=== PATIENT | female | born 1935 | race Caucasian/White ===

== ENCOUNTER → 2016-04-02 | Outpatient (CLI) | payer MEDICARE ==
[~2016-04-02] MED LIST: ACHD5005 PO; ATEN25TA PO; FLUC200T45 PO; INDA2.5T2 PO; ISOS30TA3 PO; LOSA50TA6 PO; LVF500T GT; LVT.05T PO; NYST1000 TOP; SIMV40TA4 PO; SPRN25T PO
--- NOTE | 2016-04-02 12:46 | Diagnostic Imaging Report ---
PROCEDURE: CT chest without contrast. TECHNIQUE: Multiple contiguous axial images were obtained through the chest without the use of intravenous contrast. INDICATION: Hypoxia. Shortness of breath. COMPARISON: 04/13/2009. FINDINGS: Since 2009 exam, there have been increased peripheral subpleural fibrotic changes with honeycomb noted. There is mild associated bronchiolectasis. There is no significant groundglass opacity seen. There is no mass or suspicious pulmonary nodule. No pleural effusion. There is no pericardial effusion of significance. There is a nonspecific precarinal lymph node measuring 9 mm in short axis. Calcified granulomas in the infracarinal station and left hilum seen. No axillary lymphadenopathy. Sections in the upper abdomen appear grossly unremarkable. The osseous structures appear grossly unremarkable. IMPRESSION: Predominantly peripheral and basilar fibrotic changes with honeycombing seen. Consider possibility of UIP or fibrotic NSIP. Dictated by: Dictated on workstation # [id number]
== END ==
LOC: RAD 08:29
PROVIDERS: ATTEND Internal Medicine Critical Care Medicine
DX: J84.10 Pulmonary fibrosis, unspecified (principal); R09.02 Hypoxemia
CPT/HCPCS: 71250

== ENCOUNTER 2016-11-16 13:00 | Outpatient (RCR) | payer MEDICARE ==
[2016-11-13 15:07] LABS: BASOPHILS % (AUTO) 0 % (0-10); EOSINOPHILS # (AUTO) 0.2 10^3/uL (0.0-0.3); EOSINOPHILS % (AUTO) 2 % (0-10); LYMPHOCYTES # (AUTO) 2.3 X 10^3 (1.0-4.0); LYMPHOCYTES % (AUTO) 22 % (12-44); MEAN CORPUSCULAR HEMOGLOBIN 28 PG (25-34); MEAN CORPUSCULAR HGB CONC 32 G/DL (32-36); MEAN CORPUSCULAR VOLUME 89 FL (80-99); MEAN PLATELET VOLUME 9.2 FL (7.4-10.4); MONOCYTES # (AUTO) 0.9 X 10^3 (0.0-1.0); MONOCYTES % (AUTO) 9 % (0-12); NEUTROPHILS % (AUTO) 67 % (42-75); PLATELET COUNT 296 10^3/uL (130-400); RED BLOOD COUNT 4.36 10^6/uL (4.35-5.85); RED CELL DISTRIBUTION WIDTH 13.1 % (10.0-14.5); WHITE BLOOD COUNT 10.4 10^3/uL (4.3-11.0)
--- NOTE | 2016-11-13 15:10 | Diagnostic Imaging Report ---
PROCEDURE: CT chest without contrast. TECHNIQUE: Multiple contiguous axial images were obtained through the chest without the use of intravenous contrast. INDICATION: Hemoptysis. COMPARISON: CT chest of 04/02/16 FINDINGS: Lungs and airway: No endoluminal lesion in the trachea or central bronchi. Subpleural reticular opacities with areas of stacked subpleural cystic change in the periphery of the lung bases is compatible with pulmonary fibrosis. This is unchanged since the prior examination. No new pulmonary mass, nodule or consolidation. Pleura: No pleural effusion or pneumothorax. Heart and mediastinum: Visualized thyroid is normal. No supraclavicular or axillary lymphadenopathy. A few mildly enlarged mediastinal lymph nodes are unchanged. The largest is again a lower right paratracheal lymph node measuring 0.9 x 1.8 cm. There is a stable lymph node located anterior to the lower SVC measuring 1.1 x 0.9 cm. No new or enlarging mediastinal, hilar or juxtaphrenic lymph nodes. The heart is normal in size without pericardial effusion. Scattered coronary artery calcifications are unchanged. Normal caliber thoracic aorta with moderate atherosclerotic calcified plaque. Upper abdomen: Hiatus hernia. Extensive atherosclerotic vascular calcifications are unchanged. Musculoskeletal: No concerning focal osseous lesion. IMPRESSION: 1. No change in basilar predominant pulmonary fibrosis which would favor UIP. 2. A few borderline enlarged mediastinal lymph nodes are unchanged and may be reactive in nature. 3. No evidence of intrathoracic neoplasm. Dictated by: Dictated on workstation # [id number]
[2016-11-13 15:48] LABS: EOSINOPHILS % (MANUAL) 5 %; LYMPHOCYTES % (MANUAL) 22 %; NEUTROPHILS % (MANUAL) 62 %; REACTIVE LYMPHOCYTES 5 %
== END 2016-11-20 11:26 | disposition home or self-care (01) ==
LOC: RAD 13:00
PROVIDERS: ATTEND Nurse Practitioner Family
DX: J84.10 Pulmonary fibrosis, unspecified (principal); K44.9 Diaphragmatic hernia without obstruction or gangrene; R04.2 Hemoptysis; R09.02 Hypoxemia
CPT/HCPCS: 36415; 71250; 85007; 85027

== ENCOUNTER → 2016-11-21 | Outpatient (CLI) | payer MEDICARE | LOC: RT 15:14 | PROVIDERS: ATTEND Nurse Practitioner Family | DX: J84.10 Pulmonary fibrosis, unspecified (principal); R09.02 Hypoxemia | CPT/HCPCS: 94060; 94726; 94729 ==

== ENCOUNTER → 2017-06-04 | Outpatient (CLI) | payer MEDICARE ==
--- NOTE | 2017-06-04 13:29 | Diagnostic Imaging Report ---
PROCEDURE: CT chest without contrast. TECHNIQUE: Multiple contiguous axial images were obtained through the chest without the use of intravenous contrast. INDICATION: Productive cough, history of smoking. FINDINGS: The previous CT chest exam performed on 11/13/2016 indicated pulmonary fibrosis without evidence for an acute abnormality. The plain film examination of the chest performed earlier today in conjunction with this exam did raise the question of acute pneumonia superimposed on the chronic pulmonary changes in the right mid lung. On this study, there are areas of increased density along the periphery of the right mid lung, which were not clearly evident on the prior exam (image 26/59 and 27/59). While it is possible that these findings could represent progressive chronic pulmonary disease, acute pneumonia/atelectasis could certainly present in this manner as well. Clinical followup is recommended. The overall appearance of the chest has not changed significantly otherwise. There is no sign of a pleural effusion. There is no parenchymal mass identified. The prior exam did note borderline mediastinal adenopathy. The largest node/nodes were in the pretracheal region just to the right of the fadi and measured 1.0 x 1.9 cm. Those nodes are again evident and now measure 1.2 x 1.8 cm. The other nodes in the aorticopulmonary window and in the superior mediastinum are essentially no different. The heart is stable in size. Coronary artery calcifications are again noted. The aorta is not abnormally dilated. The thyroid gland appears stable when compared to the prior study. There is no obvious breast mass. The sections through the upper abdomen fail to show any sign of an acute abnormality. The bone windows are unremarkable for a fracture or for a destructive lesion. IMPRESSION: 1. The severe chronic interstitial fibrosis seen on the prior study is again evident. The new areas of increased density along the periphery of the right mid lung could also be related to interstitial lung disease. However, the possibility that they are secondary to acute pneumonia/atelectasis superimposed on the chronic pulmonary disease should certainly be considered. Clinical followup is recommended. 2. There is no acute cardiopulmonary abnormality noted otherwise, and there is no sign of a parenchymal lung mass. 3. The mediastinal adenopathy noted previously has not changed. 4. There is coronary artery disease. Dictated by: Dictated on workstation # [id number]
--- NOTE | 2017-06-04 16:06 | Diagnostic Imaging Report ---
EXAMINATION: PA and lateral chest at 11:30 a.m. INDICATION: Cough, shortness of breath. FINDINGS: The heart size is within normal limits and stable when compared to 12/09/2015. The previous exam noted chronic pulmonary disease but failed to show any sign of an acute abnormality. In the interval since the prior study, however, the density in the right mid lung has increased somewhat. This could be secondary to progressive chronic pulmonary disease. The possibility that there is now an element of acute pneumonia/atelectasis involving the right mid lung should still be considered. The overall appearance of the chest has not changed significantly otherwise. The mediastinum is not widened. The osseous structures are intact. IMPRESSION: 1. There is severe chronic pulmonary disease. The increased density in the right mid lung suggests there may be an element of acute pneumonia/atelectasis in this region. Clinical follow-up is recommended. 2. There is no acute cardiopulmonary abnormality noted otherwise. 3. Reportedly, CT of the chest is pending for further evaluation. Dictated by: Dictated on workstation # [id number]
== END ==
LOC: RAD 10:26
PROVIDERS: ATTEND Nurse Practitioner Family
DX: J44.9 Chronic obstructive pulmonary disease, unspecified (principal); J30.9 Allergic rhinitis, unspecified; R59.0 Localized enlarged lymph nodes; Z72.0 Tobacco use
CPT/HCPCS: 71046; 71250

== ENCOUNTER → 2017-07-11 | Outpatient (CLI) | payer MEDICARE ==
--- NOTE | 2017-07-11 14:18 | Diagnostic Imaging Report ---
INDICATION: Followup pneumonia. TIME OF EXAMINATION: 01:47 p.m. COMPARISON: Correlation is made with prior chest radiograph from 06/04/2017. FINDINGS: The heart size is stable. The peripheral interstitial changes in both lungs with more confluence in the mid periphery of the right lung persists and appears very similar to prior exam. This may be mostly owing to fibrotic changes. No effusion is seen. No pneumothorax is identified. IMPRESSION: Overall similar appearance to the chest when compared with examination from 06/04/2017. Dictated by: Dictated on workstation # [id number]
== END ==
LOC: RAD 13:11
PROVIDERS: ATTEND Nurse Practitioner Family
DX: J18.9 Pneumonia, unspecified organism (principal)
CPT/HCPCS: 71046

== ENCOUNTER → 2017-08-05 | Outpatient (CLI) | payer MEDICARE ==
--- NOTE | 2017-08-05 13:34 | Diagnostic Imaging Report ---
INDICATION: Pneumonia, followup. TIME OF EXAM: 12:19 PM COMPARISON: Correlation is made with prior study from 07/11/2017. FINDINGS: Bilateral peripheral interstitial opacities appear very similar to prior exam. No new parenchymal density is seen. No effusion or pneumothorax is identified. The heart size is stable. IMPRESSION: Stable bilateral interstitial opacities when compared with exam from one month earlier. Dictated by: Dictated on workstation # [id number]
== END ==
LOC: RAD 11:39
PROVIDERS: ATTEND Nurse Practitioner Family
DX: J18.9 Pneumonia, unspecified organism (principal)
CPT/HCPCS: 71046

== ENCOUNTER 2018-01-31 18:02 | Inpatient (IN) | payer MEDICARE ==
[~2018-01-31] VITALS: Ht 170.2 cm; Wt 60.5 kg
--- OUTSIDE RECORDS SUMMARY | 2018-01-31 18:09 | XMS REPORT | CCD ---
Author Author Katey Veloz Organization Sonia Nolen MD, [facility] Address [address] [place] [address] Phone Care Team Providers Care Hotel Superintendent Name Role Phone PP Unavailable CCM Unavailable Summary Purpose Interface Exchange Insurance Providers Payer name Policy type / Coverage type Covered republican ID Effective Begin Date Effective End Date WPS Medicare Part B Medicare Part B [id number] Unknown [facility] Medicare Part B [id number] Unknown Family history Mother Diagnosis Age At Onset Heart Attack Unknown Hypertension Unknown Hyperlipidemia Unknown Social History Social History Element Codes Description Effective Dates Marital status Unknown Wiley 09/25/2017 Number of children Unknown 5 07/29/2014 Employment Unknown Retired 07/29/[address]: 8132955 Quit over 10 years ago 07/29/[address]: 573953861 Never drinks alcohol 07/29/2014 Allergies, Adverse Reactions, Alerts Substance Reaction Codes Entered Date Inactivated Date Status * NO KNOWN FOOD ALLERGIES Unknown 07/29/2014 No Inactive Date Active MORPHINE SULFATE RxNorm: 7052 07/29/2014 No Inactive Date Active Penicillin Unknown 07/29/2014 No Inactive Date Active SULFA(SULFONAMIDE ANTIBIOTICS) Unknown 07/29/2014 No Inactive Date Active Past Medical History Illness Codes Condition Status Onset Date Resolved Date Encounter for general adult medical examination with abnormal findings ICD-9: V70.0 ICD-10: Z00.01 Active 01/27/2018 Unknown Candidal stomatitis ICD-9: 112.0 ICD-10: B37.0 Active 01/22/2018 Unknown Cough ICD-9: 786.2 ICD-10: R05 Active 01/09/2016 Unknown Essential (primary) hypertension ICD-9: 401.9 ICD-10: I10 Active 03/12/2016 Unknown Type 2 diabetes mellitus without complications ICD-9: 250.00 ICD-10: E11.9 Active 03/12/2016 Unknown Cystocele, midline ICD -9: 618.01 ICD-10: N81.11 Active 01/02/2018 Unknown Encounter for immunization ICD-9: V05.9 ICD-10: Z23 Active 11/21/2017 Unknown Orthostatic hypotension ICD-9: 458.0 ICD-10: I95.1 Active 11/04/2017 Unknown Actinic keratosis ICD- 9: 702.0 ICD-10: L57.0 Active 10/16/2017 Unknown Type 2 diabetes mellitus with hyperglycemia ICD-9: 250.02 ICD-10: E11.65 Active 10/16/2017 Unknown 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 Active 09/25/2017 Unknown Hypothyroidism, unspecified ICD-9: 244.9 ICD-10: E03.9 Active 03/12/2016 Unknown Idiopathic pulmonary fibrosis ICD-9: 516.31 ICD-10: J84.112 Active 01/09/2016 Unknown Idiopathic pulmonary fibrosis ICD-9: 515 ICD-10: J84.112 Active 03/12/2016 Unknown Functional diarrhea ICD-9: 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 ICD-10: K59.1 Active 01/09/2016 Unknown Other allergic rhinitis ICD-9: 477.8 ICD-10: J30.89 Active 12/08/2015 Unknown Unspecified bacterial pneumonia ICD-9: 482.9 ICD-10: J15.9 Active 10/24/2015 Unknown Acute laryngopharyngitis ICD-9: 465.0 ICD-10: J06.0 Active 04/17/2015 Unknown Chronic renal disease, stage 3, moderately decreased glomerular filtration rate between 30-59 mL/min/1.73 square meter ICD-9: 585.3 Active 12/02/2014 Unknown DIABETES TYPE II ICD-9 : 250.00 Active 07/28/2014 Unknown ESSENTIAL HYPERTENSION ICD-9: 401.9 Active 07/28/2014 Unknown BACTERIAL PNEUMONIA ICD-9: 482.9 Active 11/22/2014 Unknown COUGH ICD-9: 786.2 Active 11/22/2014 Unknown Diabetes Unknown Active 07/29/2014 Unknown Hypertension Unknown Active 07/29/2014 Unknown Hypothryroidism Unknown Active 07/29/2014 Unknown Hypothyroidism ICD-9: 244.9 Active 07/28/2014 Unknown Pulmonary fibrosis ICD -9: 515 Active 07/28/2014 Unknown Problems Condition Codes Effective Dates Condition Status Encounter for general adult medical examination with abnormal findings ICD-9: V70.0 ICD-10: Z00.01 01/27/2018 Active Candidal stomatitis ICD-9: 112.0 ICD-10: B37.0 01/22/2018 Active Cough ICD-9: 786.2 ICD-10: R05 01/09/2016 Active Essential (primary) hypertension ICD-9: 401.9 ICD-10: I10 03/12/2016 Active Type 2 diabetes mellitus without complications ICD-9: 250.00 ICD-10: E11.9 03/12/2016 Active Cystocele, midline ICD -9: 618.01 ICD-10: N81.11 01/02/2018 Active Encounter for immunization ICD-9: V05.9 ICD-10: Z23 11/21/2017 Active Orthostatic hypotension ICD-9: 458.0 ICD-10: I95.1 11/04/2017 Active Actinic keratosis ICD- 9: 702.0 ICD-10: L57.0 10/16/2017 Active Type 2 diabetes mellitus with hyperglycemia ICD-9: 250.02 ICD-10: E11.65 10/16/2017 Active 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 09/25/2017 Active Hypothyroidism, unspecified ICD-9: 244.9 ICD-10: E03.9 03/12/2016 Active Idiopathic pulmonary fibrosis ICD-9: 516.31 ICD-10: J84.112 01/09/2016 Active Idiopathic pulmonary fibrosis ICD-9: 515 ICD-10: J84.112 03/12/2016 Active Functional diarrhea ICD-9: 564.5 ICD-10: K59.1 01/09/2016 Active Other allergic rhinitis ICD-9: 477.8 ICD-10: J30.89 12/08/2015 Active Unspecified bacterial pneumonia ICD-9: 482.9 ICD-10: J15.9 10/24/2015 Active Acute laryngopharyngitis ICD-9: 465.0 ICD-10: J06.0 04/17/2015 Active Chronic renal disease, stage 3, moderately decreased glomerular filtration rate between 30-59 mL/min/1.73 square meter ICD-9: 585.3 12/02/2014 Active DIABETES TYPE II ICD-9 : 250.00 07/28/2014 Active ESSENTIAL HYPERTENSION ICD-9: 401.9 07/28/2014 Active BACTERIAL PNEUMONIA ICD-9: 482.9 11/22/2014 Active COUGH ICD-9: 786.2 11/22/2014 Active Diabetes Unknown 07/29/2014 Active Hypertension Unknown 07/29/2014 Active Hypothryroidism Unknown 07/29/2014 Active Hypothyroidism ICD-9: 244.9 07/28/2014 Active Pulmonary fibrosis ICD -9: 515 07/28/2014 Active Medications Medication Codes Instructions Start Date Stop Date Status Fill Instructions Trelegy Ellipta 100 mcg-62.5 mcg-25 mcg powder for inhalation RxNorm: 2285523 1 INH daily 01/22/2018 02/18/2018 Active Diflucan 150 mg tablet RxNorm: 233895 1 Tablet(s) PO daily 09/201701/28/2018 Inactive Phenergan with Codeine Syrup RxNorm: 1 Teaspoon(s) PO Q8 as needed 01/02/2018 No Stop Date Active Tresiba FlexTouch U-200 insulin 200 unit/mL (3 mL) subcutaneous pen RxNorm: 8924140 8 Unit(s) SQ QHS 11/04/2017 Active losartan 50 mg tablet RxNorm: 886518 1/2 Tablet(s) daily 201711/04/2017 Inactive spironolactone 25 mg tablet RxNorm: 967545 1/2 Tablet(s) daily 11/04/2017 01/21/2018 Inactive indapamide 2.5 mg tablet RxNorm: 432538 TAKE 1/2 TABLET EVERY DAY 10/16/2017 10/10/2018 Active isosorbide mononitrate ER 30 mg tablet,extended release 24 hr RxNorm: 831152 TAKE 1 TABLET EVERY DAY 10/16/2017 10/10/2018 Active atenolol 25 mg tablet RxNorm: 030305 TAKE 1 TABLET EVERY DAY 03/201707/12/2018 Active levothyroxine 75 mcg tablet RxNorm: 855253 TAKE 1 TABLET EVERY DAY 10/16/2017 07/12/2018 Active spironolactone 25 mg tablet RxNorm: 863111 TAKE 1 TABLET EVERY DAY 10/16/2017 11/03/2017 Inactive losartan 50 mg tablet RxNorm: 973891 TAKE 1 TABLET EVERY DAY 03/201711/03/2017 Inactive James Jackson SoloStar 300 unit/mL (3 mL) subcutaneous insulin pen RxNorm: 5056236 8 Unit(s) SQ QHS 10/16/20172017 Inactive Basaglar KwikPen U-100 Insulin 100 unit/mL (3 mL) subcutaneous RxNorm: 8990078 10 Unit(s) SQ QHS 10/01/20172017 Inactive Basaglar KwikPen U-100 Insulin 100 unit/mL (3 mL) subcutaneous RxNorm: 8176495 10 Unit(s) SQ QHS 10/01/20172017 Inactive cyclobenzaprine 10 mg tablet RxNorm: 487157 Tablet(s) TAKE ONE TABLET BY MOUTH EVERY 8 HOURS NEEDED 09/10/20172017 Inactive simvastatin 40 mg tablet RxNorm: 532429 TAKE 1 TABLET EVERY DAY 08/15/2017 08/09/2018 Active Phenergan with Codeine Syrup RxNorm: 1 Teaspoon(s) PO Q8 as needed 03/19/2017 01/01/2018 Inactive simvastatin 40 mg tablet RxNorm: 820156 TAKE 1 TABLET EVERY DAY 03/13/2017 08/14/2017 Inactive atenolol 25 mg tablet RxNorm: 370514 Tablet(s) TAKE 1 TABLET EVERY DAY 02/14/2017 10/15/2017 Inactive levothyroxine 75 mcg tablet RxNorm: 000042 1 Tablet(s) PO daily 02/14/2017 10/15/2017 Inactive spironolactone 25 mg tablet RxNorm: 055660 1 Tablet(s) PO daily 01/02/2017 10/15/2017 Inactive cyclobenzaprine 10 mg tablet RxNorm: 141453 1 Tablet(s) PO Q8 as needed 11/26/2016 02/23/2017 Inactive cyclobenzaprine 10 mg tablet RxNorm: 894018 TAKE ONE TABLET BY MOUTH EVERY 8 HOURS NEEDED 11/26/2016 02/23/2017 Inactive losartan 50 mg tablet RxNorm: 136034 1 Tablet(s) PO daily 201610/15/2017 Inactive isosorbide mononitrate ER 30 mg tablet,extended release 24 hr RxNorm: 472477 1 Tablet(s) PO daily 11/21/2016 10/15/2017 Inactive indapamide 2.5 mg tablet RxNorm: 822622 1/2 Tablet(s) PO daily 10/31/2016 10/15/2017 Inactive Phenergan with Codeine Syrup RxNorm: 1 Teaspoon(s) PO Q8 as needed 10/05/2016 03/18/2017 Inactive levothyroxine 75 mcg tablet RxNorm: 661346 1 Tablet(s) PO daily 06/29/2016 12/25/2016 Inactive Phenergan with Codeine Syrup RxNorm: 1 Teaspoon(s) PO Q8 as needed 03/13/2016 03/12/2016 Inactive Phenergan with Codeine Syrup RxNorm: 1 Teaspoon(s) PO Q8 as needed 03/13/2016 10/04/2016 Inactive cyclobenzaprine 10 mg tablet RxNorm: 641112 1 Tablet(s) PO Q8 as needed 03/01/2016 05/29/2016 Inactive cyclobenzaprine 10 mg tablet RxNorm: 034638 1 Tablet(s) PO Q8 as needed 03/01/2016 02/29/2016 Inactive Zithromax Z-Deejay 250 mg tablet RxNorm: 034663 1 Tablet(s) PO daily 02/24/2016 06/13/2016 Inactive zpack x 1 atenolol 25 mg tablet RxNorm: 695880 TAKE 1 TABLET EVERY DAY 10/201501/17/2017 Inactive Phenergan with Codeine Syrup RxNorm: 1 Teaspoon(s) PO Q8 as needed 01/10/2016 03/12/2016 Inactive ceftriaxone 500 mg solution for injection RxNorm: 1525425 1 Milliliter(s) Inj 12/09/2015 12/09/2015 Inactive Kenalog 40 mg/mL suspension for injection RxNorm: 7753892 1 Milliliter(s) Inj 12/09/2015 12/09/2015 Inactive Lomotil 2.5 mg-0.025 mg tablet RxNorm: 5939779 1-2 Tablet(s) PO QID as needed 12/01/2015 12/05/2015 Inactive Lomotil 2.5 mg-0.025 mg tablet RxNorm: 5164699 1-2 Tablet(s) PO QID as needed 12/01/2015 11/30/2015 Inactive levothyroxine 75 mcg tablet RxNorm: 194228 1 Tablet(s) PO daily 11/15/2015 05/12/2016 Inactive isosorbide mononitrate ER 30 mg tablet,extended release 24 hr RxNorm: 259099 1 Tablet(s) PO daily 11/15/2015 11/08/2016 Inactive losartan 50 mg tablet RxNorm: 875164 1 Tablet(s) PO daily 201511/08/2016 Inactive levothyroxine 75 mcg tablet RxNorm: 114297 1 Tablet(s) PO daily 10/27/2015 11/14/2015 Inactive cefdinir 300 mg capsule RxNorm: 545130 1 Capsule(s) PO BID 11/201510/31/2015 Inactive Zithromax Z-Deejay 250 mg tablet RxNorm: 887289 1 Tablet(s) PO UD 10/25/2015 10/29/2015 Inactive indapamide 2.5 mg tablet RxNorm: 256795 1/2 Tablet(s) PO daily 09/14/2015 09/07/2016 Inactive spironolactone 25 mg tablet RxNorm: 194909 1 Tablet(s) PO daily 09/14/2015 09/07/2016 Inactive simvastatin 40 mg tablet RxNorm: 205214 1 Tablet(s) PO daily 09/07/2016 Inactive Phenergan with Codeine Syrup RxNorm: 1 Teaspoon(s) PO Q8 as needed 09/12/2015 01/09/2016 Inactive Zithromax Z-Deejay 250 mg tablet RxNorm: 892849 1 Tablet(s) PO daily 06/15/2015 11/14/2015 Inactive zpack x 1 Levaquin 250 mg tablet RxNorm: 388505 Tablet(s) PO 2 tabs day one and 1 tab day 2- 7 04/18/2015 01/09/2016 Inactive atenolol 25 mg tablet RxNorm: 380245 1 Tablet(s) PO daily 201401/23/2016 Inactive losartan 50 mg tablet RxNorm: 604023 1 Tablet(s) PO daily 201411/14/2015 Inactive simvastatin 40 mg tablet RxNorm: 001184 1 Tablet(s) PO daily 09/13/2015 Inactive spironolactone 25 mg tablet RxNorm: 885519 1 Tablet(s) PO daily 12/17/2014 09/13/2015 Inactive isosorbide mononitrate ER 30 mg tablet,extended release 24 hr RxNorm: 237750 1 Tablet(s) PO daily 12/17/2014 11/14/2015 Inactive atenolol 25 mg tablet RxNorm: 808912 1 Tablet(s) PO daily 201412/16/2014 Inactive atenolol 25 mg tablet RxNorm: 604290 1 Tablet(s) PO daily 201402/14/2015 Inactive isosorbide mononitrate ER 30 mg tablet,extended release 24 hr RxNorm: 785705 1 Tablet(s) PO daily 12/17/2014 12/16/2014 Inactive indapamide 2.5 mg tablet RxNorm: 163328 1/2 Tablet(s) PO daily 12/17/2014 09/13/2015 Inactive levothyroxine 50 mcg tablet RxNorm: 378414 1 Tablet(s) PO daily 12/17/2014 10/26/2015 Inactive Januvia 50 mg tablet RxNorm: 899567 1 Tablet(s) PO daily 201411/26/2014 Inactive Onglyza 2.5 mg tablet RxNorm: 532800 1 Tablet(s) PO daily 201412/02/2014 Inactive Januvia 50 mg tablet RxNorm: 925237 1 Tablet(s) PO daily 201411/25/2014 Inactive Tessalon Perles 100 mg capsule RxNorm: 333311 1 Capsule(s) PO TID as needed 11/23/2014 07/09/2016 Inactive Levaquin 500 mg tablet RxNorm: 631023 1 Tablet(s) PO daily 10/201411/22/2014 Inactive Levaquin 500 mg tablet RxNorm: 778546 1 Tablet(s) PO daily 10/201411/29/2014 Inactive Singulair 10 mg tablet RxNorm: 040162 1 Tablet(s) PO QPM No Start Date Active Proventil HFA 90 mcg/actuation aerosol inhaler RxNorm: 805993 2 Puff(s) INH QID No Start Date Active Zyrtec 10 mg tablet RxNorm: 6817053 1 Tablet(s) PO daily No Start Date Active Flonase Allergy Relief 50 mcg/actuation nasal spray, suspension RxNorm: 2533969 1 [place] NASAL daily per nostril No Start Date Active aspirin 81 mg tablet RxNorm: 208691 1 Tablet(s) PO daily No Start Date Active omeprazole 20 mg capsule,delayed release RxNorm: 102535 1 Capsule(s) PO daily No Start Date Active indapamide 2.5 mg tablet RxNorm: 266441 1/2 Tablet(s) PO daily No Start Date 12/16/2014 Inactive Tessalon Perles 100 mg capsule RxNorm: 574510 1 Capsule(s) PO TID as needed No Start Date 11/22/2014 Inactive losartan 50 mg tablet RxNorm: 714294 1 Tablet(s) PO daily No Start Date 12/16/2014 Inactive spironolactone 25 mg tablet RxNorm: 650149 1 Tablet(s) PO daily No Start Date 12/16/2014 Inactive isosorbide mononitrate ER 30 mg tablet,extended release 24 hr RxNorm: 088920 1 Tablet(s) PO daily No Start Date 2014 Inactive atenolol 25 mg tablet RxNorm: 240262 1 Tablet(s) PO daily No Start Date 12/16/2014 Inactive Zithromax Z-Deejay 250 mg tablet RxNorm: 174274 1 Tablet(s) PO daily No Start Date 06/14/2015 Inactive levothyroxine 50 mcg tablet RxNorm: 637239 1 Tablet(s) PO daily No Start Date 12/16/2014 Inactive simvastatin 40 mg tablet RxNorm: 589294 1 Tablet(s) PO daily No Start Date 12/16/2014 Inactive Medication Administered Medication Codes Instructions Start Date Status Kenalog 40 mg/mL suspension for injection RxNorm: 8206584 1Milliliter 12/09/2015 No longer Active ceftriaxone 500 mg solution for injection RxNorm: 9929150 1Milliliter 12/09/2015 No longer Active Immunizations Vaccine Codes Date Status Influenza CVX: 141 11/21/2017 completed Pneumococcal (Adult) CVX: 33 02/20/2017 completed Influenza CVX: 141 04/04/2016 completed Influenza CVX: 141 01/22/2015 completed Assessments Condition Codes Effective Dates Encounter for general adult medical examination with abnormal findings ICD-10: Z00.01 ICD-9: V70.0 01/27/2018 Type 2 diabetes mellitus without complications ICD-10: E11.9 ICD-9: 250.00 01/22/2018 Essential (primary) hypertension ICD-10: I10 ICD-9: 401.9 01/22/2018 Cough ICD-10: R05 ICD-9: 786.2 01/22/2018 Candidal stomatitis ICD-10: B37.0 ICD-9: 112.0 01/22/2018 Cystocele, midline ICD-10: N81.11 ICD-9: 618.01 01/02/2018 Encounter for immunization ICD-10: Z23 ICD-9: V05.9 11/21/2017 Orthostatic hypotension ICD-10: I95.1 ICD-9: 458.0 11/04/2017 Type 2 diabetes mellitus with hyperglycemia ICD-10: E11.65 ICD-9: 250.02 10/16/2017 Actinic keratosis ICD-10: L57.0 ICD-9: 702.0 10/16/2017 Atrophy of thyroid (acquired) ICD-10: E03.4 ICD-9: 244.8 09/25/2017 Hypothyroidism, unspecified ICD-10: E03.9 ICD-9: 244.9 07/10/2016 Idiopathic pulmonary fibrosis ICD-10: J84.112 ICD-9: 516.31 07/10/2016 Idiopathic pulmonary fibrosis ICD-10: J84.112 ICD-9: 515 03/13/2016 Functional diarrhea ICD-10: K59.1 ICD-9: 564.5 01/10/2016 Other allergic rhinitis ICD-10: J30.89 ICD-9: 477.8 12/09/2015 Unspecified bacterial pneumonia ICD-10: J15.9 ICD-9: 482.9 10/25/2015 Acute laryngopharyngitis ICD-10: J06.0 ICD-9: 465.0 04/18/2015 ESSENTIAL HYPERTENSION ICD-9: 401.9 12/03 Chronic renal disease, stage 3, moderately decreased glomerular filtration rate between 30-59 mL/min/1.73 square meter ICD-9: 585.3 12/03/2014 DIABETES TYPE II ICD-9: 250.00 2014 COUGH ICD-9: 786.2 11/23/2014 BACTERIAL PNEUMONIA ICD-9: 482.9 2014 Pulmonary fibrosis ICD-9: 515 07/29/2014 Hypothyroidism ICD-9: 244.9 07/29/2014 Reason For Visit Reason For Visit Effective Dates Notes Annual Medicare Wellness Exam 01/27/2018 cough 01/22/2018 ~generic 01/02/2018 hypertension 11/21/2017 hypertension 11/04/2017 skin lesion 10/16/2017 hypertension 09/25/2017 hypertension 07/10/2016 cough 03/13/2016 cough 01/10/2016 diarrhea 12/20/2015 cough 12/09/2015 cough 10/25/2015 cough 09/12/2015 cough 04/18/2015 cough 03/04/2015 cough 02/22/2015 hypertension 12/03/2014 cough 11/23/2014 hypertension 07/29/2014 Results Observation Observation Code Item Item Code Result Date Free T4 [id number] FREE T4 1.13 ng/dL 09/26/2017 Microalbumin Fio442 MicroAlb 2.1 mg/dL 09/26/2017 Cbc With Differential Ord2 WBC 8.53 K/ul 09/26/2017 Cbc With Differential Ord2 RBC 4.60 M/ul 09/26/2017 Cbc With Differential Ord2 HGB 12.9 g/dl 09/26/2017 Cbc With Differential Ord2 HCT 41.0 % 09/26/2017 Cbc With Differential Ord2 Neut% 58.0 % 09/26/2017 Cbc With Differential Ord2 Lymph% 29.2 % 09/26/2017 Cbc With Differential Ord2 MCV 89.1 fl 09/26/2017 Cbc With Differential Ord2 [place]% 9.0 % 09/26/2017 Cbc With Differential Ord2 MCH 28.0 pg 09/26/2017 Cbc With Differential Ord2 Eos% 3.4 % 09/26/2017 Cbc With Differential Ord2 MCHC 31.5 pg 09/26/2017 Cbc With Differential Ord2 Baso% 0.4 % 09/26/2017 Cbc With Differential Ord2 PLT 340 K/ul 09/26/2017 Cbc With Differential Ord2 Neut ABS# 4.95 K/ul 09/26/2017 Cbc With Differential Ord2 RDW 14.0 % 09/26/2017 Cbc With Differential Ord2 Lymph ABS# 2.49 K/ul 09/26/2017 Cbc With Differential Ord2 [place] ABS# 0.8 K/ul 09/26/2017 Cbc With Differential Ord2 Eos ABS# 0.3 K/ul 09/26/2017 Cbc With Differential Ord2 Baso ABS# 0.0 K/ul 09/26/2017 Lipid Ord30 CHOL 118 mg/dL 09/26/2017 Lipid Ord30 HDL 39.0 mg/dl 09/26/2017 Lipid Ord30 TRIG 138 mg/dL 09/26/2017 Lipid Ord30 LDL 51 mg/dL 09/26/2017 Lipid Ord30 C/HDL 3.0 Ratio 09/26/2017 Comp Metabolic Afc734 NA 138 mEq/L 09/26/2017 Comp Metabolic Qos256 K 4.5 mEq/L 09/26/2017 Comp Metabolic Ags705 CL 103 mEq/L 09/26/2017 Comp Metabolic Gwf528 CO2 26.0 mEq/L 09/26/2017 Comp Metabolic Gmw829 ANION GAP 14 09/26/2017 Comp Metabolic Irb033 GLUCOSE 121 mg/dL 09/26/2017 Comp Metabolic Vge600 Creat 1.2 mg/dL 09/26/2017 Comp Metabolic Urw931 eGFR 46 ml/min/1.73m2 09/26/2017 Comp Metabolic Pel055 BUN 18 mg/dL 09/26/2017 Comp Metabolic Xoz431 B/C Ratio 15.0 Ratio 09/26/2017 Comp Metabolic Ayu902 CALCIUM 9.0 mg/dL 09/26/2017 Comp Metabolic Fpv564 ALK PHOS 88 U/L 09/26/2017 Comp Metabolic Uqd286 AST(SGOT) 15 U/L 09/26/2017 Comp Metabolic Rrk526 ALT(SGPT) 9 U/L 09/26/2017 Comp Metabolic Hna749 BILI T 0.4 mg/dL 09/26/2017 Comp Metabolic Wee404 ALBUMIN 3.7 g/dL 09/26/2017 Comp Metabolic Aan170 TPRO 7.4 g/dL 09/26/2017 Comp Metabolic Dvn849 GLOB 3.7 g/dL 09/26/2017 Comp Metabolic Ady079 A/G Ratio 1.0 Ratio 09/26/2017 Comp Metabolic Jau459 Osmo 279 mOsmo 09/26/2017 Tsh Ord6 TSH (3rd IS) 2.58 uIU/mL 09/26/2017 %Hba1C Zgl494 % HbA1c 86175-5 7.1 % 09/26/2017 %Hba1C Usi497 Gluc Ave 157 mg/dL 09/26/2017 Tsh Ord6 hTSH II 2.29 uIU/mL 03/13/2016 Cbc With Differential Ord2 WBC 9.86 K/ul 03/13/2016 Cbc With Differential Ord2 RBC 4.51 M/ul 03/13/2016 Cbc With Differential Ord2 HGB 13.2 g/dl 03/13/2016 Cbc With Differential Ord2 Neut% 62.0 % 03/13/2016 Cbc With Differential Ord2 HCT 41.6 % 03/13/2016 Cbc With Differential Ord2 MCV 92.2 fl 03/13/2016 Cbc With Differential Ord2 Lymph% 24.6 % 03/13/2016 Cbc With Differential Ord2 [place]% 8.6 % 03/13/2016 Cbc With Differential Ord2 MCH 29.3 pg 03/13/2016 Cbc With Differential Ord2 Eos% 4.4 % 03/13/2016 Cbc With Differential Ord2 MCHC 31.7 pg 03/13/2016 Cbc With Differential Ord2 PLT 258 K/ul 03/13/2016 Cbc With Differential Ord2 Baso% 0.4 % 03/13/2016 Cbc With Differential Ord2 Neut ABS# 6.11 K/ul 03/13/2016 Cbc With Differential Ord2 RDW 13.8 % 03/13/2016 Cbc With Differential Ord2 Lymph ABS# 2.43 K/ul 03/13/2016 Cbc With Differential Ord2 [place] ABS# 0.9 K/ul 03/13/2016 Cbc With Differential Ord2 Eos ABS# 0.4 K/ul 03/13/2016 Cbc With Differential Ord2 Baso ABS# 0.0 K/ul 03/13/2016 %Hba1C Pks817 % HbA1c 00494-4 6.7 % 03/13/2016 %Hba1C Xsy142 Gluc Ave 146 mg/dL 03/13/2016 Free T4 Bpc172 FREE T4 1.19 ng/dL 03/13/2016 Comp Metabolic Upv133 NA 137 mEq/L 03/13/2016 Comp Metabolic Xxw488 K 3.9 mEq/L 03/13/2016 Comp Metabolic Lhf665 CL 101 mEq/L 03/13/2016 Comp Metabolic Gjv855 CO2 29.0 mEq/L 03/13/2016 Comp Metabolic Mzd009 ANION GAP 11 03/13/2016 Comp Metabolic Ewz414 GLUCOSE 111 mg/dL 03/13/2016 Comp Metabolic Qgp515 Creat 1.2 mg/dL 03/13/2016 Comp Metabolic Jgg507 eGFR 48 ml/min/1.73m2 03/13/2016 Comp Metabolic Kji525 BUN 17 mg/dL 03/13/2016 Comp Metabolic Dlv285 B/C Ratio 14.8 Ratio 03/13/2016 Comp Metabolic Nhf461 CALCIUM 9.6 mg/dL 03/13/2016 Comp Metabolic Nrq447 ALK PHOS 89 U/L 03/13/2016 Comp Metabolic Yrp820 AST(SGOT) 18 U/L 03/13/2016 Comp Metabolic Ynd199 ALT(SGPT) 13 U/L 03/13/2016 Comp Metabolic Isq949 BILI T 0.5 mg/dL 03/13/2016 Comp Metabolic Orq984 ALBUMIN 3.8 g/dL 03/13/2016 Comp Metabolic Pxa208 TPRO 7.1 g/dL 03/13/2016 Comp Metabolic Xfn466 GLOB 3.3 g/dL 03/13/2016 Comp Metabolic Azg891 A/G Ratio 1.1 Ratio 03/13/2016 Comp Metabolic Ryv476 Osmo 276 mOsmo 03/13/2016 Culture Sputum [id number] LOWER RESPIRATORY TRACT CULTURE SEE NOTES 12/30/2015 Culture Stool [id number] STOOL CULTURE SEE NOTES 12/26/2015 Shiga Toxin 1 & 2 Eia Stool [id number] SHIGA TOXIN 1: NEGATIVE 12/23/2015 Shiga Toxin 1 & 2 Eia Stool [id number] SHIGA TOXIN 2: NEGATIVE 12/23/2015 Clostridium Diff Tox A/B Rdg222 Cdiff Negative 12/21/2015 Review of Systems System Result Effective Dates Constitutional No recent illness 2017 Constitutional No chills 01/27/2018 Constitutional fatigue 01/27/2018 Constitutional No fever 01/27/2018 Constitutional No insomnia 01/27/2018 Constitutional No malaise 01/27/2018 Eyes No eye discharge 01/27/2018 Eyes No eye erythema 01/27/2018 Ears/Nose/Throat/Neck No dizziness 2017 Ears/Nose/Throat/Neck No headache 2017 Cardiovascular No chest pain/pressure 02/2018 Cardiovascular No dyspnea 01/27/2018 Respiratory No chest congestion 2017 Gastrointestinal No abdominal pain 2017 Gastrointestinal No constipation 2017 Gastrointestinal No diarrhea 01/27/2018 Musculoskeletal No joint complaint 2017 Psychiatric No anxiety 01/27/2018 Psychiatric No depression 01/27/2018 Respiratory cough 01/27/2018 Respiratory productive sputum 01/27/2018 Constitutional No recent illness 2017 Constitutional No chills 01/22/2018 Constitutional fatigue 01/22/2018 Constitutional No fever 01/22/2018 Constitutional No insomnia 01/22/2018 Constitutional No malaise 01/22/2018 Eyes No eye discharge 01/22/2018 Eyes No eye erythema 01/22/2018 Ears/Nose/Throat/Neck No dizziness 2017 Ears/Nose/Throat/Neck No headache 2017 Cardiovascular No chest pain/pressure 09/2017 Cardiovascular No dyspnea 01/22/2018 Respiratory No chest congestion 2017 Gastrointestinal No abdominal pain 2017 Gastrointestinal No constipation 2017 Gastrointestinal No diarrhea 01/22/2018 Musculoskeletal No joint complaint 2017 Psychiatric No anxiety 01/22/2018 Psychiatric No depression 01/22/2018 Ears/Nose/Throat/Neck sore throat 2017 Constitutional No recent illness 2017 Constitutional No anorexia 01/02/2018 Constitutional No night sweats 2017 Constitutional No chills 01/02/2018 Constitutional No diaphoresis 01/02/2018 Constitutional No fatigue 01/02/2018 Constitutional No fever 01/02/2018 Constitutional No insomnia 01/02/2018 Constitutional No malaise 01/02/2018 Constitutional weight loss 01/02/2018 Constitutional No weight gain 01/02/2018 Genitourinary/Nephrology No dysuria 01/02 Genitourinary/Nephrology No pelvic pain 01/02/2018 Genitourinary/Nephrology No urinary urgency 01/02/2018 Genitourinary/Nephrology No urinary frequency 01/02/2018 Constitutional No recent illness 2017 Constitutional No chills 11/21/2017 Constitutional No fatigue 11/21/2017 Constitutional No fever 11/21/2017 Constitutional No insomnia 11/21/2017 Constitutional No malaise 11/21/2017 Eyes No eye discharge 11/21/2017 Eyes No eye erythema 11/21/2017 Ears/Nose/Throat/Neck No dizziness 2017 Ears/Nose/Throat/Neck No headache 2017 Cardiovascular No chest pain/pressure 08/2017 Cardiovascular No dyspnea 11/21/2017 Respiratory No chest congestion 2017 Gastrointestinal No abdominal pain 2017 Gastrointestinal No constipation 2017 Gastrointestinal No diarrhea 11/21/2017 Genitourinary/Nephrology No dysuria 11/21 Musculoskeletal No joint complaint 2017 Dermatologic No rash 11/21/2017 Neurologic No alteration of consciousness 11/21/2017 Neurologic No aphasia 11/21/2017 Psychiatric No anxiety 11/21/2017 Psychiatric No depression 11/21/2017 Constitutional No recent illness 2017 Constitutional No night sweats 2017 Constitutional No chills 11/04/2017 Constitutional No fatigue 11/04/2017 Constitutional No malaise 11/04/2017 Constitutional weight loss 11/04/2017 Eyes No eye discharge 11/04/2017 Eyes No eye erythema 11/04/2017 Ears/Nose/Throat/Neck No dizziness 2017 Ears/Nose/Throat/Neck No headache 2017 Cardiovascular No chest pain/pressure Cardiovascular No dyspnea 11/04/2017 Respiratory No chest congestion 2017 Respiratory cough 11/04/2017 Gastrointestinal No abdominal pain 2017 Gastrointestinal No constipation 2017 Gastrointestinal No diarrhea 11/04/2017 Musculoskeletal No joint complaint 2017 Psychiatric No anxiety 11/04/2017 Psychiatric No depression 11/04/2017 Cardiovascular near-syncope/dizziness Constitutional No recent illness 2017 Constitutional No anorexia 10/16/2017 Constitutional No night sweats 2017 Constitutional No chills 10/16/2017 Constitutional fatigue 10/16/2017 Constitutional No fever 10/16/2017 Constitutional No insomnia 10/16/2017 Constitutional No malaise 10/16/2017 Constitutional weight loss 10/16/2017 Eyes No eye discharge 10/16/2017 Eyes No eye erythema 10/16/2017 Ears/Nose/Throat/Neck No dizziness 2017 Ears/Nose/Throat/Neck No headache 2017 Cardiovascular No chest pain/pressure 03/2017 Cardiovascular No dyspnea 10/16/2017 Respiratory No chest congestion 2017 Respiratory cough 10/16/2017 Gastrointestinal No abdominal pain 2017 Gastrointestinal No constipation 2017 Gastrointestinal No diarrhea 10/16/2017 Genitourinary/Nephrology No dysuria 10/16 Musculoskeletal No joint complaint 2017 Dermatologic No rash 10/16/2017 Neurologic No alteration of consciousness 10/16/2017 Neurologic No aphasia 10/16/2017 Psychiatric No anxiety 10/16/2017 Psychiatric No depression 10/16/2017 Dermatologic sores 10/16/2017 Constitutional No recent illness 2017 Constitutional No anorexia 09/25/2017 Constitutional No night sweats 2017 Constitutional No chills 09/25/2017 Constitutional No fatigue 09/25/2017 Constitutional No fever 09/25/2017 Constitutional No insomnia 09/25/2017 Constitutional No malaise 09/25/2017 Eyes No eye discharge 09/25/2017 Eyes No eye erythema 09/25/2017 Ears/Nose/Throat/Neck No dizziness 2017 Ears/Nose/Throat/Neck No headache 2017 Cardiovascular No chest pain/pressure 01/2018 Cardiovascular No dyspnea 09/25/2017 Respiratory No chest congestion 2017 Respiratory cough 09/25/2017 Gastrointestinal No abdominal pain 2017 Gastrointestinal No constipation 2017 Gastrointestinal No diarrhea 09/25/2017 Genitourinary/Nephrology No dysuria 09/25 Musculoskeletal No joint complaint 2017 Dermatologic No rash 09/25/2017 Neurologic No alteration of consciousness 09/25/2017 Neurologic No aphasia 09/25/2017 Constitutional weight loss 09/25/2017 Psychiatric No anxiety 09/25/2017 Psychiatric No depression 09/25/2017 Constitutional No recent illness 2016 Constitutional No anorexia 07/10/2016 Constitutional No night sweats 2016 Constitutional No chills 07/10/2016 Constitutional No diaphoresis 07/10/2016 Constitutional No fatigue 07/10/2016 Constitutional No fever 07/10/2016 Constitutional No insomnia 07/10/2016 Constitutional No malaise 07/10/2016 Constitutional No weight loss 07/10/2016 Constitutional No weight gain 07/10/2016 Constitutional No obesity 07/10/2016 Eyes No eye pain 07/10/2016 Eyes No vision change 07/10/2016 Ears/Nose/Throat/Neck No dizziness 2016 Ears/Nose/Throat/Neck No headache 2016 Cardiovascular No chest pain/pressure Respiratory cough 07/10/2016 Respiratory chest tightness 07/10/2016 Respiratory chest congestion 07/10/2016 Gastrointestinal No abdominal pain 2016 Gastrointestinal No constipation 2016 Gastrointestinal No diarrhea 07/10/2016 Gastrointestinal gastroesophageal reflux 07/10/2016 Genitourinary/Nephrology No anuria/oliguria 07/10/2016 Genitourinary/Nephrology No dysuria 07/10 Musculoskeletal No stiffness 07/10/2016 Musculoskeletal No swelling 07/10/2016 Musculoskeletal No arthralgia(s) 2016 Musculoskeletal No back pain 07/10/2016 Dermatologic No rash 07/10/2016 Dermatologic No sores 07/10/2016 Neurologic No alteration of consciousness 07/10/2016 Neurologic No mental status change 2016 Psychiatric No anxiety 07/10/2016 Psychiatric No depression 07/10/2016 Endocrine No polydipsia 07/10/2016 Endocrine No polyuria 07/10/2016 Hematologic/Lymphatic No abnormal ecchymoses 07/10/2016 Hematologic/Lymphatic No abnormal bleeding and bruising 07/10/2016 Respiratory productive sputum 07/10/2016 Constitutional No recent illness 2015 Constitutional No anorexia 03/13/2016 Constitutional night sweats 03/13/2016 Constitutional No chills 03/13/2016 Constitutional No diaphoresis 03/13/2016 Constitutional No fatigue 03/13/2016 Constitutional No fever 03/13/2016 Constitutional No insomnia 03/13/2016 Constitutional No malaise 03/13/2016 Constitutional No weight loss 03/13/2016 Constitutional No weight gain 03/13/2016 Eyes No eye erythema 03/13/2016 Eyes No eye discharge 03/13/2016 Ears/Nose/Throat/Neck No dizziness 2015 Ears/Nose/Throat/Neck No headache 2015 Cardiovascular No chest pain/pressure Cardiovascular No dyspnea 03/13/2016 Cardiovascular No edema 03/13/2016 Respiratory No productive sputum 2015 Respiratory No chest congestion 2015 Respiratory cough 03/13/2016 Respiratory dyspnea on exertion 2015 Gastrointestinal No abdominal pain 2015 Gastrointestinal No constipation 2015 Gastrointestinal diarrhea 03/13/2016 Genitourinary/Nephrology No dysuria 03/13 Musculoskeletal No joint complaint 2015 Dermatologic No rash 03/13/2016 Neurologic No alteration of consciousness 03/13/2016 Psychiatric No anxiety 03/13/2016 Endocrine No dry or coarse skin 2015 Constitutional No recent illness 2015 Constitutional No anorexia 01/10/2016 Constitutional No night sweats 2015 Constitutional No chills 01/10/2016 Constitutional diaphoresis 01/10/2016 Constitutional No fatigue 01/10/2016 Constitutional No fever 01/10/2016 Constitutional No insomnia 01/10/2016 Constitutional No malaise 01/10/2016 Constitutional No weight loss 01/10/2016 Constitutional No weight gain 01/10/2016 Eyes No eye discharge 01/10/2016 Eyes No eye erythema 01/10/2016 Ears/Nose/Throat/Neck No dizziness 2015 Ears/Nose/Throat/Neck No headache 2015 Cardiovascular No chest pain/pressure Cardiovascular No dyspnea 01/10/2016 Respiratory productive sputum 01/10/2016 Respiratory cough 01/10/2016 Respiratory No chest congestion 2015 Gastrointestinal No abdominal pain 2015 Gastrointestinal No constipation 2015 Gastrointestinal No diarrhea 01/10/2016 Genitourinary/Nephrology No dysuria 01/09 Musculoskeletal No joint complaint 2015 Dermatologic No rash 01/10/2016 Neurologic No aphasia 01/10/2016 Neurologic No alteration of consciousness 01/10/2016 Gastrointestinal No abdominal pain 2015 Gastrointestinal No constipation 2015 Gastrointestinal diarrhea 12/20/2015 Gastrointestinal No vomiting 12/20/2015 Constitutional recent illness 12/20/2015 Constitutional No anorexia 12/20/2015 Constitutional No night sweats 2015 Constitutional No chills 12/20/2015 Constitutional No diaphoresis 12/20/2015 Constitutional fatigue 12/20/2015 Constitutional No fever 12/20/2015 Constitutional No insomnia 12/20/2015 Constitutional No malaise 12/20/2015 Constitutional weight loss 12/20/2015 Constitutional No weight gain 12/20/2015 Eyes No eye discharge 12/20/2015 Eyes No eye erythema 12/20/2015 Ears/Nose/Throat/Neck No dizziness 2015 Cardiovascular No chest pain/pressure 06/2015 Respiratory cough 12/20/2015 Genitourinary/Nephrology No dysuria 12/19 Musculoskeletal No joint complaint 2015 Dermatologic No rash 12/20/2015 Neurologic No alteration of consciousness 12/20/2015 Constitutional recent illness 12/09/2015 Constitutional No chills 12/09/2015 Constitutional No fever 12/09/2015 Eyes No eye discharge 12/09/2015 Eyes No eye erythema 12/09/2015 Cardiovascular No chest pain/pressure Respiratory productive sputum 12/09/2015 Respiratory chest congestion 12/09/2015 Respiratory cough 12/09/2015 Gastrointestinal No abdominal pain 2015 Gastrointestinal No constipation 2015 Gastrointestinal No diarrhea 12/09/2015 Musculoskeletal No joint complaint 2015 Dermatologic No rash 12/09/2015 Dermatologic No sores 12/09/2015 Neurologic No alteration of consciousness 12/09/2015 Ears/Nose/Throat/Neck nasal allergies Ears/Nose/Throat/Neck nasal discharge Ears/Nose/Throat/Neck postnasal drip Ears/Nose/Throat/Neck sore throat 2015 Cardiovascular No dyspnea 12/09/2015 Gastrointestinal No vomiting 12/09/2015 Gastrointestinal No nausea 12/09/2015 Neurologic No mental status change 2015 Constitutional recent illness 10/25/2015 Constitutional No anorexia 10/25/2015 Constitutional No night sweats 2015 Constitutional No chills 10/25/2015 Constitutional diaphoresis 10/25/2015 Constitutional No fatigue 10/25/2015 Constitutional No fever 10/25/2015 Constitutional No insomnia 10/25/2015 Constitutional No malaise 10/25/2015 Constitutional No weight loss 10/25/2015 Constitutional No weight gain 10/25/2015 Eyes No eye discharge 10/25/2015 Eyes No eye erythema 10/25/2015 Ears/Nose/Throat/Neck No dizziness 2015 Ears/Nose/Throat/Neck No headache 2015 Cardiovascular No chest pain/pressure 11/2015 Respiratory productive sputum 10/25/2015 Respiratory chest congestion 10/25/2015 Respiratory cough 10/25/2015 Gastrointestinal No abdominal pain 2015 Gastrointestinal No constipation 2015 Gastrointestinal No diarrhea 10/25/2015 Genitourinary/Nephrology No dysuria 10/24 Musculoskeletal No joint complaint 2015 Dermatologic No sores 10/25/2015 Dermatologic No rash 10/25/2015 Neurologic No alteration of consciousness 10/25/2015 Constitutional No recent illness 2015 Constitutional No anorexia 09/12/2015 Constitutional No night sweats 2015 Constitutional No chills 09/12/2015 Constitutional No diaphoresis 09/12/2015 Constitutional fatigue 09/12/2015 Constitutional No fever 09/12/2015 Constitutional insomnia 09/12/2015 Constitutional No malaise 09/12/2015 Constitutional No weight loss 09/12/2015 Constitutional No weight gain 09/12/2015 Constitutional No obesity 09/12/2015 Respiratory cough 09/12/2015 Respiratory productive sputum 09/12/2015 Respiratory chest congestion 09/12/2015 Respiratory No chest tightness 2015 Respiratory No cigarette smoking 2015 Ears/Nose/Throat/Neck nasal allergies Ears/Nose/Throat/Neck nasal discharge Ears/Nose/Throat/Neck sore throat 2015 Cardiovascular chest pain/pressure 2015 Cardiovascular dyspnea 09/12/2015 Cardiovascular No edema 09/12/2015 Gastrointestinal No constipation 2015 Gastrointestinal No diarrhea 09/12/2015 Gastrointestinal No abdominal pain 2015 Genitourinary/Nephrology No dysuria 09/11 Musculoskeletal arthralgia(s) 09/12/2015 Musculoskeletal stiffness 09/12/2015 Dermatologic No rash 09/12/2015 Dermatologic No sores 09/12/2015 Musculoskeletal No myalgias 09/12/2015 Musculoskeletal No muscle weakness 2015 Musculoskeletal joint complaint 2015 Eyes No eye discharge 09/12/2015 Eyes No eye erythema 09/12/2015 Gastrointestinal No gastroesophageal reflux 09/12/2015 Neurologic No alteration of consciousness 09/12/2015 Psychiatric No anxiety 09/12/2015 Psychiatric No depression 09/12/2015 Endocrine No dry or coarse skin 2015 Constitutional No chills 04/18/2015 Constitutional No fever 04/18/2015 Constitutional No fatigue 04/18/2015 Eyes No eye discharge 04/18/2015 Eyes No eye erythema 04/18/2015 Ears/Nose/Throat/Neck nasal allergies 03/2015 Cardiovascular No chest pain/pressure 03/2015 Cardiovascular No dyspnea 04/18/2015 Cardiovascular No edema 04/18/2015 Respiratory productive sputum 04/18/2015 Respiratory cough 04/18/2015 Gastrointestinal No constipation 2015 Gastrointestinal No diarrhea 04/18/2015 Gastrointestinal No nausea 04/18/2015 Constitutional recent illness 04/18/2015 Ears/Nose/Throat/Neck nasal discharge 03/2015 Ears/Nose/Throat/Neck postnasal drip 03/2015 Ears/Nose/Throat/Neck sore throat 2015 Gastrointestinal No vomiting 04/18/2015 Dermatologic No rash 04/18/2015 Dermatologic No sores 04/18/2015 Neurologic No alteration of consciousness 04/18/2015 Constitutional recent illness 03/04/2015 Constitutional No anorexia 03/04/2015 Constitutional No night sweats 2014 Constitutional No chills 03/04/2015 Constitutional No diaphoresis 03/04/2015 Constitutional No fever 03/04/2015 Constitutional No malaise 03/04/2015 Eyes No eye discharge 03/04/2015 Eyes No eye erythema 03/04/2015 Ears/Nose/Throat/Neck No headache 2014 Ears/Nose/Throat/Neck No nasal discharge 03/04/2015 Ears/Nose/Throat/Neck No sore throat Ears/Nose/Throat/Neck oral pain 2014 Ears/Nose/Throat/Neck No sinus congestion 03/04/2015 Cardiovascular No chest pain/pressure Cardiovascular No dyspnea 03/04/2015 Cardiovascular No edema 03/04/2015 Respiratory No productive sputum 2014 Respiratory No chest congestion 2014 Respiratory No cough 03/04/2015 Gastrointestinal No abdominal pain 2014 Gastrointestinal No constipation 2014 Gastrointestinal No diarrhea 03/04/2015 Genitourinary/Nephrology No dysuria 03/04 Musculoskeletal No joint complaint 2014 Dermatologic No rash 03/04/2015 Dermatologic No sores 03/04/2015 Neurologic No alteration of consciousness 03/04/2015 Psychiatric No anxiety 03/04/2015 Psychiatric No depression 03/04/2015 Constitutional No insomnia 03/04/2015 Constitutional recent illness 02/22/2015 Constitutional No anorexia 02/22/2015 Constitutional No night sweats 2014 Constitutional No chills 02/22/2015 Constitutional No diaphoresis 02/22/2015 Constitutional fatigue 02/22/2015 Constitutional No fever 02/22/2015 Constitutional insomnia 02/22/2015 Constitutional No malaise 02/22/2015 Eyes No eye discharge 02/22/2015 Eyes No eye erythema 02/22/2015 Ears/Nose/Throat/Neck No headache 2014 Ears/Nose/Throat/Neck No nasal discharge 02/22/2015 Ears/Nose/Throat/Neck No sore throat 10/2014 Ears/Nose/Throat/Neck No sinus congestion 02/22/2015 Cardiovascular No chest pain/pressure 10/2014 Cardiovascular No dyspnea 02/22/2015 Cardiovascular No edema 02/22/2015 Respiratory No productive sputum 2014 Respiratory chest congestion 02/22/2015 Respiratory cough 02/22/2015 Gastrointestinal No abdominal pain 2014 Gastrointestinal No constipation 2014 Gastrointestinal No diarrhea 02/22/2015 Genitourinary/Nephrology No dysuria 02/22 Musculoskeletal No joint complaint 2014 Dermatologic No rash 02/22/2015 Dermatologic No sores 02/22/2015 Neurologic No alteration of consciousness 02/22/2015 Psychiatric No anxiety 02/22/2015 Psychiatric No depression 02/22/2015 Cardiovascular fatigue 02/22/2015 Respiratory chest tightness 02/22/2015 Constitutional recent illness 12/03/2014 Constitutional No anorexia 12/03/2014 Constitutional No night sweats 2014 Constitutional No chills 12/03/2014 Constitutional No diaphoresis 12/03/2014 Constitutional fatigue 12/03/2014 Constitutional No fever 12/03/2014 Constitutional insomnia 12/03/2014 Constitutional No malaise 12/03/2014 Constitutional weight loss 12/03/2014 Constitutional No weight gain 12/03/2014 Eyes No eye discharge 12/03/2014 Eyes No eye erythema 12/03/2014 Ears/Nose/Throat/Neck No nasal discharge 12/03/2014 Ears/Nose/Throat/Neck dizziness 2014 Ears/Nose/Throat/Neck No headache 2014 Ears/Nose/Throat/Neck oral pain 2014 Ears/Nose/Throat/Neck No sinus congestion 12/03/2014 Ears/Nose/Throat/Neck No sore throat Cardiovascular No chest pain/pressure Cardiovascular No dyspnea 12/03/2014 Cardiovascular No edema 12/03/2014 Respiratory No productive sputum 2014 Respiratory No chest congestion 2014 Respiratory No cough 12/03/2014 Gastrointestinal No abdominal pain 2014 Gastrointestinal No diarrhea 12/03/2014 Gastrointestinal No constipation 2014 Genitourinary/Nephrology No dysuria 12/03 Musculoskeletal No joint complaint 2014 Dermatologic No rash 12/03/2014 Dermatologic No sores 12/03/2014 Neurologic No alteration of consciousness 12/03/2014 Psychiatric No anxiety 12/03/2014 Psychiatric No depression 12/03/2014 Constitutional recent illness 11/23/2014 Constitutional No anorexia 11/23/2014 Constitutional No night sweats 2014 Constitutional No chills 11/23/2014 Constitutional No diaphoresis 11/23/2014 Constitutional fatigue 11/23/2014 Constitutional No fever 11/23/2014 Constitutional insomnia 11/23/2014 Constitutional No malaise 11/23/2014 Eyes No eye discharge 11/23/2014 Eyes No eye erythema 11/23/2014 Ears/Nose/Throat/Neck dizziness 2014 Ears/Nose/Throat/Neck No headache 2014 Ears/Nose/Throat/Neck No nasal discharge 11/23/2014 Ears/Nose/Throat/Neck oral pain 2014 Ears/Nose/Throat/Neck No sinus congestion 11/23/2014 Ears/Nose/Throat/Neck No sore throat 10/2014 Cardiovascular No chest pain/pressure 10/2014 Cardiovascular No dyspnea 11/23/2014 Cardiovascular No edema 11/23/2014 Respiratory No productive sputum 2014 Respiratory No chest congestion 2014 Respiratory No cough 11/23/2014 Gastrointestinal No abdominal pain 2014 Gastrointestinal No constipation 2014 Gastrointestinal No diarrhea 11/23/2014 Genitourinary/Nephrology No dysuria 11/23 Musculoskeletal No joint complaint 2014 Dermatologic No rash 11/23/2014 Dermatologic No sores 11/23/2014 Neurologic No alteration of consciousness 11/23/2014 Psychiatric No anxiety 11/23/2014 Psychiatric No depression 11/23/2014 Constitutional No recent illness 2014 Constitutional No night sweats 2014 Constitutional No anorexia 07/29/2014 Constitutional No chills 07/29/2014 Constitutional No diaphoresis 07/29/2014 Constitutional No fatigue 07/29/2014 Constitutional No fever 07/29/2014 Constitutional No insomnia 07/29/2014 Constitutional No malaise 07/29/2014 Constitutional No weight gain 07/29/2014 Constitutional No weight loss 07/29/2014 Eyes No eye discharge 07/29/2014 Eyes No eye erythema 07/29/2014 Ears/Nose/Throat/Neck No dizziness 2014 Ears/Nose/Throat/Neck No headache 2014 Cardiovascular No chest pain/pressure Cardiovascular No dyspnea 07/29/2014 Cardiovascular No edema 07/29/2014 Respiratory No productive sputum 2014 Respiratory No cough 07/29/2014 Respiratory dyspnea on exertion 2014 Gastrointestinal No abdominal pain 2014 Gastrointestinal No constipation 2014 Gastrointestinal No diarrhea 07/29/2014 Genitourinary/Nephrology No dysuria 07/29 Musculoskeletal No joint complaint 2014 Dermatologic No rash 07/29/2014 Dermatologic No sores 07/29/2014 Psychiatric No anxiety 07/29/2014 Psychiatric No depression 07/29/2014 Neurologic No alteration of consciousness 07/29/2014 Physical Exam Exam Name System Name Item Name Status Result Effective Dates Notes Full Exam - General 1994 Constitutional general appearance Overall: well developed 01/27/2018 None Full Exam - General 1994 Constitutional general appearance Overall: in no acute distress 01/27/2018 None Full Exam - General 1994 Constitutional general appearance Overall: well nourished 01/27/2018 None Full Exam - General 1994 Eyes conjunctiva /eyelids Overall: conjunctiva clear 01/27/2018 None Full Exam - General 1994 Eyes conjunctiva /eyelids Overall: cornea clear 01/27/2018 None Full Exam - General 1994 Eyes conjunctiva /eyelids Overall: eyelids normal 01/27/2018 None Full Exam - General 1994 Eyes pupils and irises Overall: pupils equal, round, reactive to light and accomodation 01/27/2018 None Full Exam - General 1994 Ears/Nose/Throat otoscopic exam Overall: external auditory canals clear 01/27/2018 None Full Exam - General 1994 Ears/Nose/Throat otoscopic exam Overall: tympanic membranes clear 01/27/2018 None Full Exam - General 1994 Ears/Nose/Throat oral cavity/pharynx/larynx Overall: no masses 01/27/2018 None Full Exam - General 1994 Ears/Nose/Throat oral cavity/pharynx/larynx Oral mucosa: thrush 01/27/2018 None Full Exam - General 1994 Respiratory auscultation Upper lung field: diminished 01/27/2018 None Full Exam - General 1994 Respiratory auscultation Lower lung field: inspiratory wheezes 01/27/2018 None Full Exam - General 1994 Respiratory auscultation Lower lung field: expiratory wheezes 01/27/2018 None Full Exam - General 1994 Respiratory respiratory effort/rhythm Overall: no retractions 01/27/2018 None Full Exam - General 1994 Respiratory respiratory effort/rhythm Overall: normal rate 01/27/2018 None Full Exam - General 1994 Cardiovascular extremities Overall: no clubbing 01/27/2018 None Full Exam - General 1994 Cardiovascular auscultation of heart Overall: regular rate 01/27/2018 None Full Exam - General 1994 Cardiovascular auscultation of heart Overall: normal heart sounds 01/27/2018 None Full Exam - General 1994 Cardiovascular auscultation of heart Overall: no murmurs 01/27/2018 None Full Exam - General 1994 Musculoskeletal head and neck Overall: head atraumatic 01/27/2018 None Full Exam - General 1994 Psychiatric orientation/consciousness Overall: oriented to person, place and time 01/27/2018 None Full Exam - General 1994 Ears/Nose/Throat oral cavity/pharynx/larynx Oral mucosa: dry 01/27/2018 None Full Exam - General 1994 Constitutional general appearance Overall: well developed 01/22/2018 None Full Exam - General 1994 Constitutional general appearance Overall: in no acute distress 01/22/2018 None Full Exam - General 1994 Constitutional general appearance Overall: well nourished 01/22/2018 None Full Exam - General 1994 Eyes conjunctiva /eyelids Overall: conjunctiva clear 01/22/2018 None Full Exam - General 1994 Eyes conjunctiva /eyelids Overall: cornea clear 01/22/2018 None Full Exam - General 1994 Eyes conjunctiva /eyelids Overall: eyelids normal 01/22/2018 None Full Exam - General 1994 Eyes pupils and irises Overall: pupils equal, round, reactive to light and accomodation 01/22/2018 None Full Exam - General 1994 Ears/Nose/Throat otoscopic exam Overall: external auditory canals clear 01/22/2018 None Full Exam - General 1994 Ears/Nose/Throat otoscopic exam Overall: tympanic membranes clear 01/22/2018 None Full Exam - General 1994 Ears/Nose/Throat oral cavity/pharynx/larynx Overall: no masses 01/22/2018 None Full Exam - General 1994 Respiratory respiratory effort/rhythm Overall: no retractions 01/22/2018 None Full Exam - General 1994 Respiratory respiratory effort/rhythm Overall: normal rate 01/22/2018 None Full Exam - General 1994 Cardiovascular extremities Overall: no clubbing 01/22/2018 None Full Exam - General 1994 Cardiovascular auscultation of heart Overall: regular rate 01/22/2018 None Full Exam - General 1994 Cardiovascular auscultation of heart Overall: normal heart sounds 01/22/2018 None Full Exam - General 1994 Cardiovascular auscultation of heart Overall: no murmurs 01/22/2018 None Full Exam - General 1994 Musculoskeletal head and neck Overall: head atraumatic 01/22/2018 None Full Exam - General 1994 Psychiatric orientation/consciousness Overall: oriented to person, place and time 01/22/2018 None Full Exam - General 1994 Ears/Nose/Throat oral cavity/pharynx/larynx Oral mucosa: thrush 01/22/2018 None Full Exam - General 1994 Respiratory auscultation Upper lung field: diminished 01/22/2018 None Full Exam - General 1994 Respiratory auscultation Lower lung field: inspiratory wheezes 01/22/2018 None Full Exam - General 1994 Respiratory auscultation Lower lung field: expiratory wheezes 01/22/2018 None Full Exam - Genitourinary/Female Constitutional general appearance Overall: well nourished 01/02/2018 None Full Exam - Genitourinary/Female Constitutional general appearance Overall: well developed 01/02/2018 None Full Exam - Genitourinary/Female Constitutional general appearance Overall: in no acute distress 01/02/2018 None Full Exam - Genitourinary/Female Psychiatric orientation/consciousness Overall: oriented to person, place and time 01/02/2018 None Full Exam - Genitourinary/Female Genitourinary bladder Palpation: cystocele 3rd degree 01/02/2018 None Full Exam - Genitourinary/Female Genitourinary vagina Overall: no discharge 01/02/2018 None Full Exam - Genitourinary/Female Genitourinary vagina Overall: no lesions 01/02/2018 None Full Exam - Genitourinary/Female Genitourinary cervix Overall: cervix surgically absent 01/02/2018 None Full Exam - Genitourinary/Female Genitourinary uterus Overall: uterus surgically absent 01/02/2018 None Full Exam - Genitourinary/Female Cardiovascular auscultation of heart Overall: normal heart sounds 01/02/2018 None Full Exam - Genitourinary/Female Cardiovascular auscultation of heart Overall: regular rate 01/02/2018 None Full Exam - Genitourinary/Female Respiratory auscultation Right lower lung field: crackles 01/02/2018 None Full Exam - Genitourinary/Female Respiratory auscultation Left lower lung field: crackles 01/02/2018 None Full Exam - General 1994 Constitutional general appearance Overall: well developed 11/21/2017 None Full Exam - General 1994 Constitutional general appearance Overall: in no acute distress 11/21/2017 None Full Exam - General 1994 Constitutional general appearance Overall: well nourished 11/21/2017 None Full Exam - General 1994 Eyes conjunctiva /eyelids Overall: conjunctiva clear 11/21/2017 None Full Exam - General 1994 Eyes conjunctiva /eyelids Overall: cornea clear 11/21/2017 None Full Exam - General 1994 Eyes conjunctiva /eyelids Overall: eyelids normal 11/21/2017 None Full Exam - General 1994 Eyes pupils and irises Overall: pupils equal, round, reactive to light and accomodation 11/21/2017 None Full Exam - General 1994 Ears/Nose/Throat otoscopic exam Overall: external auditory canals clear 11/21/2017 None Full Exam - General 1994 Ears/Nose/Throat otoscopic exam Overall: tympanic membranes clear 11/21/2017 None Full Exam - General 1994 Ears/Nose/Throat oral cavity/pharynx/larynx Overall: oral mucosa clear 11/21/2017 None Full Exam - General 1994 Ears/Nose/Throat oral cavity/pharynx/larynx Overall: oropharyngeal mucosa clear 11/21/2017 None Full Exam - General 1994 Ears/Nose/Throat oral cavity/pharynx/larynx Overall: no masses 11/21/2017 None Full Exam - General 1994 Respiratory auscultation Overall: breath sounds clear bilaterally 11/21/2017 None Full Exam - General 1994 Respiratory respiratory effort/rhythm Overall: no retractions 11/21/2017 None Full Exam - General 1994 Respiratory respiratory effort/rhythm Overall: normal rate 11/21/2017 None Full Exam - General 1994 Cardiovascular extremities Overall: no clubbing 11/21/2017 None Full Exam - General 1994 Cardiovascular auscultation of heart Overall: regular rate 11/21/2017 None Full Exam - General 1994 Cardiovascular auscultation of heart Overall: normal heart sounds 11/21/2017 None Full Exam - General 1994 Cardiovascular auscultation of heart Overall: no murmurs 11/21/2017 None Full Exam - General 1994 Abdomen abdominal exam Overall: no tenderness 11/21/2017 None Full Exam - General 1994 Abdomen abdominal exam Overall: normal bowel sounds 11/21/2017 None Full Exam - General 1994 Musculoskeletal head and neck Overall: head atraumatic 11/21/2017 None Full Exam - General 1994 Psychiatric orientation/consciousness Overall: oriented to person, place and time 11/21/2017 None Full Exam - General 1994 Constitutional general appearance Overall: well developed 11/04/2017 None Full Exam - General 1994 Constitutional general appearance Overall: in no acute distress 11/04/2017 None Full Exam - General 1994 Constitutional general appearance Overall: well nourished 11/04/2017 None Full Exam - General 1994 Eyes conjunctiva /eyelids Overall: conjunctiva clear 11/04/2017 None Full Exam - General 1994 Eyes conjunctiva /eyelids Overall: cornea clear 11/04/2017 None Full Exam - General 1994 Eyes conjunctiva /eyelids Overall: eyelids normal 11/04/2017 None Full Exam - General 1994 Eyes pupils and irises Overall: pupils equal, round, reactive to light and accomodation 11/04/2017 None Full Exam - General 1994 Ears/Nose/Throat otoscopic exam Overall: external auditory canals clear 11/04/2017 None Full Exam - General 1994 Ears/Nose/Throat otoscopic exam Overall: tympanic membranes clear 11/04/2017 None Full Exam - General 1994 Ears/Nose/Throat oral cavity/pharynx/larynx Overall: oral mucosa clear 11/04/2017 None Full Exam - General 1994 Ears/Nose/Throat oral cavity/pharynx/larynx Overall: oropharyngeal mucosa clear 11/04/2017 None Full Exam - General 1994 Ears/Nose/Throat oral cavity/pharynx/larynx Overall: no masses 11/04/2017 None Full Exam - General 1994 Respiratory auscultation Overall: breath sounds clear bilaterally 11/04/2017 None Full Exam - General 1994 Respiratory respiratory effort/rhythm Overall: no retractions 11/04/2017 None Full Exam - General 1994 Respiratory respiratory effort/rhythm Overall: normal rate 11/04/2017 None Full Exam - General 1994 Cardiovascular extremities Overall: no clubbing 11/04/2017 None Full Exam - General 1994 Cardiovascular auscultation of heart Overall: regular rate 11/04/2017 None Full Exam - General 1994 Cardiovascular auscultation of heart Overall: normal heart sounds 11/04/2017 None Full Exam - General 1994 Cardiovascular auscultation of heart Overall: no murmurs 11/04/2017 None Full Exam - General 1994 Abdomen abdominal exam Overall: no tenderness 11/04/2017 None Full Exam - General 1994 Abdomen abdominal exam Overall: normal bowel sounds 11/04/2017 None Full Exam - General 1994 Lymphatic neck nodes Overall: anterior cervical chain benign 11/04/2017 None Full Exam - General 1994 Lymphatic neck nodes Overall: posterior cervical chain benign 11/04/2017 None Full Exam - General 1994 Psychiatric orientation/consciousness Overall: oriented to person, place and time 11/04/2017 None Full Exam - General 1994 Constitutional general appearance Overall: well developed 10/16/2017 None Full Exam - General 1994 Constitutional general appearance Overall: in no acute distress 10/16/2017 None Full Exam - General 1994 Constitutional general appearance Overall: well nourished 10/16/2017 None Full Exam - General 1994 Eyes conjunctiva /eyelids Overall: conjunctiva clear 10/16/2017 None Full Exam - General 1994 Eyes conjunctiva /eyelids Overall: cornea clear 10/16/2017 None Full Exam - General 1994 Eyes conjunctiva /eyelids Overall: eyelids normal 10/16/2017 None Full Exam - General 1994 Eyes pupils and irises Overall: pupils equal, round, reactive to light and accomodation 10/16/2017 None Full Exam - General 1994 Ears/Nose/Throat otoscopic exam Overall: external auditory canals clear 10/16/2017 None Full Exam - General 1994 Ears/Nose/Throat otoscopic exam Overall: tympanic membranes clear 10/16/2017 None Full Exam - General 1994 Ears/Nose/Throat oral cavity/pharynx/larynx Overall: oral mucosa clear 10/16/2017 None Full Exam - General 1995 Ears/Nose/Throat oral cavity/pharynx/larynx Overall: oropharyngeal mucosa clear 10/16/2017 None Full Exam - General 1995 Ears/Nose/Throat oral cavity/pharynx/larynx Overall: no masses 10/16/2017 None Full Exam - General 1994 Respiratory auscultation Overall: breath sounds clear bilaterally 10/16/2017 None Full Exam - General 1994 Respiratory respiratory effort/rhythm Overall: no retractions 10/16/2017 None Full Exam - General 1994 Respiratory respiratory effort/rhythm Overall: normal rate 10/16/2017 None Full Exam - General 1994 Cardiovascular extremities Overall: no clubbing 10/16/2017 None Full Exam - General 1994 Cardiovascular auscultation of heart Overall: regular rate 10/16/2017 None Full Exam - General 1994 Cardiovascular auscultation of heart Overall: normal heart sounds 10/16/2017 None Full Exam - General 1994 Cardiovascular auscultation of heart Overall: no murmurs 10/16/2017 None Full Exam - General 1994 Musculoskeletal head and neck Overall: head atraumatic 10/16/2017 None Full Exam - General 1994 Neurologic cranial nerves Overall: crainial nerves 2 - 12 grossly intact 10/16/2017 None Full Exam - General 1994 Psychiatric orientation/consciousness Overall: oriented to person, place and time 10/16/2017 None Full Exam - General 1994 Integument inspection of skin Location: face 10/16/2017 left nare irritated non healing lesion left nare Full Exam - General 1994 Constitutional general appearance Overall: well developed 09/25/2017 None Full Exam - General 1994 Constitutional general appearance Overall: in no acute distress 09/25/2017 None Full Exam - General 1994 Constitutional general appearance Overall: well nourished 09/25/2017 None Full Exam - General 1994 Eyes conjunctiva /eyelids Overall: conjunctiva clear 09/25/2017 None Full Exam - General 1994 Eyes conjunctiva /eyelids Overall: cornea clear 09/25/2017 None Full Exam - General 1994 Eyes conjunctiva /eyelids Overall: eyelids normal 09/25/2017 None Full Exam - General 1994 Eyes pupils and irises Overall: pupils equal, round, reactive to light and accomodation 09/25/2017 None Full Exam - General 1994 Ears/Nose/Throat otoscopic exam Overall: external auditory canals clear 09/25/2017 None Full Exam - General 1994 Ears/Nose/Throat otoscopic exam Overall: tympanic membranes clear 09/25/2017 None Full Exam - General 1994 Ears/Nose/Throat oral cavity/pharynx/larynx Overall: oral mucosa clear 09/25/2017 None Full Exam - General 1994 Ears/Nose/Throat oral cavity/pharynx/larynx Overall: oropharyngeal mucosa clear 09/25/2017 None Full Exam - General 1994 Ears/Nose/Throat oral cavity/pharynx/larynx Overall: no masses 09/25/2017 None Full Exam - General 1994 Respiratory auscultation Overall: breath sounds clear bilaterally 09/25/2017 None Full Exam - General 1994 Respiratory respiratory effort/rhythm Overall: no retractions 09/25/2017 None Full Exam - General 1994 Respiratory respiratory effort/rhythm Overall: normal rate 09/25/2017 None Full Exam - General 1994 Cardiovascular extremities Overall: no clubbing 09/25/2017 None Full Exam - General 1994 Cardiovascular auscultation of heart Overall: regular rate 09/25/2017 None Full Exam - General 1994 Cardiovascular auscultation of heart Overall: normal heart sounds 09/25/2017 None Full Exam - General 1994 Cardiovascular auscultation of heart Overall: no murmurs 09/25/2017 None Full Exam - General 1994 Abdomen abdominal exam Overall: no tenderness 09/25/2017 None Full Exam - General 1994 Abdomen abdominal exam Overall: normal bowel sounds 09/25/2017 None Full Exam - General 1994 Lymphatic neck nodes Overall: anterior cervical chain benign 09/25/2017 None Full Exam - General 1994 Lymphatic neck nodes Overall: posterior cervical chain benign 09/25/2017 None Full Exam - General 1994 Musculoskeletal head and neck Overall: head atraumatic 09/25/2017 None Full Exam - General 1994 Integument inspection of skin Overall: no rash, lesions 09/25/2017 None Full Exam - General 1994 Neurologic cranial nerves Overall: crainial nerves 2 - 12 grossly intact 09/25/2017 None Full Exam - General 1994 Psychiatric orientation/consciousness Overall: oriented to person, place and time 09/25/2017 None Full Exam - General 1994 Constitutional general appearance Development: well developed 07/10/2016 None Full Exam - General 1994 Constitutional general appearance Development: appears stated age 0407/10/2016 None Full Exam - General 1994 Eyes conjunctiva /eyelids Overall: conjunctiva clear 07/10/2016 None Full Exam - General 1994 Eyes conjunctiva /eyelids Overall: cornea clear 07/10/2016 None Full Exam - General 1994 Eyes pupils and irises Overall: pupils equal, round, reactive to light and accomodation 07/10/2016 None Full Exam - General 1994 Ears/Nose/Throat otoscopic exam Overall: external auditory canals clear 07/10/2016 None Full Exam - General 1994 Ears/Nose/Throat otoscopic exam Overall: tympanic membranes clear 07/10/2016 None Full Exam - General 1994 Ears/Nose/Throat lips/teeth/gingiva Overall: benign lips 07/10/2016 None Full Exam - General 1994 Ears/Nose/Throat oral cavity/pharynx/larynx Overall: oral mucosa clear 07/10/2016 None Full Exam - General 1994 Neck thyroid Overall: normal size None Full Exam - General 1994 Neck thyroid Overall: normal consistency 07/10/2016 None Full Exam - General 1994 Neck inspection of neck Overall: normal size 07/10/2016 None Full Exam - General 1994 Neck inspection of neck Overall: normal appearance 07/10/2016 None Full Exam - General 1994 Respiratory auscultation Diffuse: crackles 07/10/2016 None Full Exam - General 1994 Respiratory respiratory effort/rhythm Overall: no retractions 07/10/2016 None Full Exam - General 1994 Respiratory respiratory effort/rhythm Overall: normal rate 07/10/2016 None Full Exam - General 1994 Cardiovascular auscultation of heart Overall: regular rate 07/10/2016 None Full Exam - General 1994 Cardiovascular auscultation of heart Overall: normal heart sounds 07/10/2016 None Full Exam - General 1994 Constitutional general appearance Overall: in no acute distress 07/10/2016 None Full Exam - General 1994 Constitutional general appearance Overall: well nourished 07/10/2016 None Full Exam - General 1994 Eyes conjunctiva /eyelids Overall: eyelids normal 07/10/2016 None Full Exam - General 1994 Ears/Nose/Throat oral cavity/pharynx/larynx Overall: oropharyngeal mucosa clear 07/10/2016 None Full Exam - General 1994 Ears/Nose/Throat oral cavity/pharynx/larynx Overall: no masses 07/10/2016 None Full Exam - General 1994 Respiratory auscultation Overall: breath sounds clear bilaterally 07/10/2016 None Full Exam - General 1994 Cardiovascular extremities Overall: no clubbing 07/10/2016 None Full Exam - General 1994 Cardiovascular auscultation of heart Overall: no murmurs 07/10/2016 None Full Exam - General 1994 Abdomen abdominal exam Overall: no tenderness 07/10/2016 None Full Exam - General 1994 Abdomen abdominal exam Overall: normal bowel sounds 07/10/2016 None Full Exam - General 1994 Lymphatic neck nodes Overall: anterior cervical chain benign 07/10/2016 None Full Exam - General 1994 Lymphatic neck nodes Overall: posterior cervical chain benign 07/10/2016 None Full Exam - General 1994 Musculoskeletal head and neck Overall: head atraumatic 07/10/2016 None Full Exam - General 1994 Integument inspection of skin Overall: no rash, lesions 07/10/2016 None Full Exam - General 1994 Neurologic cranial nerves Overall: crainial nerves 2 - 12 grossly intact 07/10/2016 None Full Exam - General 1994 Psychiatric orientation/consciousness Overall: oriented to person, place and time 07/10/2016 None Full Exam - General 1994 Constitutional general appearance Overall: well developed 03/13/2016 None Full Exam - General 1994 Constitutional general appearance Overall: in no acute distress 03/13/2016 None Full Exam - General 1994 Constitutional general appearance Overall: well nourished 03/13/2016 None Full Exam - General 1994 Eyes conjunctiva /eyelids Overall: conjunctiva clear 03/13/2016 None Full Exam - General 1994 Eyes conjunctiva /eyelids Overall: cornea clear 03/13/2016 None Full Exam - General 1994 Eyes conjunctiva /eyelids Overall: eyelids normal 03/13/2016 None Full Exam - General 1994 Eyes pupils and irises Overall: pupils equal, round, reactive to light and accomodation 03/13/2016 None Full Exam - General 1994 Ears/Nose/Throat otoscopic exam Overall: external auditory canals clear 03/13/2016 None Full Exam - General 1994 Ears/Nose/Throat otoscopic exam Overall: tympanic membranes clear 03/13/2016 None Full Exam - General 1994 Ears/Nose/Throat oral cavity/pharynx/larynx Overall: oral mucosa clear 03/13/2016 None Full Exam - General 1994 Ears/Nose/Throat oral cavity/pharynx/larynx Overall: oropharyngeal mucosa clear 03/13/2016 None Full Exam - General 1994 Ears/Nose/Throat oral cavity/pharynx/larynx Overall: no masses 03/13/2016 None Full Exam - General 1994 Respiratory auscultation Overall: breath sounds clear bilaterally 03/13/2016 None Full Exam - General 1994 Respiratory auscultation Lower lung field: crackles 03/13/2016 None Full Exam - General 1994 Respiratory respiratory effort/rhythm Overall: no retractions 03/13/2016 None Full Exam - General 1994 Respiratory respiratory effort/rhythm Overall: normal rate 03/13/2016 None Full Exam - General 1994 Cardiovascular extremities Overall: no clubbing 03/13/2016 None Full Exam - General 1994 Cardiovascular auscultation of heart Overall: regular rate 03/13/2016 None Full Exam - General 1994 Cardiovascular auscultation of heart Overall: normal heart sounds 03/13/2016 None Full Exam - General 1994 Cardiovascular auscultation of heart Overall: no murmurs 03/13/2016 None Full Exam - General 1994 Abdomen abdominal exam Overall: no tenderness 03/13/2016 None Full Exam - General 1994 Abdomen abdominal exam Overall: normal bowel sounds 03/13/2016 None Full Exam - General 1994 Lymphatic neck nodes Overall: anterior cervical chain benign 03/13/2016 None Full Exam - General 1994 Lymphatic neck nodes Overall: posterior cervical chain benign 03/13/2016 None Full Exam - General 1994 Musculoskeletal head and neck Overall: head atraumatic 03/13/2016 None Full Exam - General 1994 Integument inspection of skin Overall: no rash, lesions 03/13/2016 None Full Exam - General 1994 Neurologic cranial nerves Overall: crainial nerves 2 - 12 grossly intact 03/13/2016 None Full Exam - General 1994 Psychiatric orientation/consciousness Overall: oriented to person, place and time 03/13/2016 None Full Exam - General 1994 Constitutional general appearance Overall: well developed 01/10/2016 None Full Exam - General 1994 Constitutional general appearance Overall: in no acute distress 01/10/2016 None Full Exam - General 1994 Constitutional general appearance Overall: well nourished 01/10/2016 None Full Exam - General 1994 Eyes conjunctiva /eyelids Overall: conjunctiva clear 01/10/2016 None Full Exam - General 1994 Eyes conjunctiva /eyelids Overall: cornea clear 01/10/2016 None Full Exam - General 1994 Eyes conjunctiva /eyelids Overall: eyelids normal 01/10/2016 None Full Exam - General 1994 Eyes pupils and irises Overall: pupils equal, round, reactive to light and accomodation 01/10/2016 None Full Exam - General 1994 Ears/Nose/Throat otoscopic exam Overall: external auditory canals clear 01/10/2016 None Full Exam - General 1994 Ears/Nose/Throat otoscopic exam Overall: tympanic membranes clear 01/10/2016 None Full Exam - General 1994 Ears/Nose/Throat oral cavity/pharynx/larynx Overall: oral mucosa clear 01/10/2016 None Full Exam - General 1994 Ears/Nose/Throat oral cavity/pharynx/larynx Overall: oropharyngeal mucosa clear 01/10/2016 None Full Exam - General 1994 Ears/Nose/Throat oral cavity/pharynx/larynx Overall: no masses 01/10/2016 None Full Exam - General 1994 Respiratory auscultation Overall: breath sounds clear bilaterally 01/10/2016 None Full Exam - General 1994 Respiratory auscultation Lower lung field: crackles 01/10/2016 None Full Exam - General 1994 Respiratory respiratory effort/rhythm Overall: no retractions 01/10/2016 None Full Exam - General 1994 Respiratory respiratory effort/rhythm Overall: normal rate 01/10/2016 None Full Exam - General 1994 Cardiovascular extremities Overall: no clubbing 01/10/2016 None Full Exam - General 1994 Cardiovascular auscultation of heart Overall: regular rate 01/10/2016 None Full Exam - General 1994 Cardiovascular auscultation of heart Overall: normal heart sounds 01/10/2016 None Full Exam - General 1994 Cardiovascular auscultation of heart Overall: no murmurs 01/10/2016 None Full Exam - General 1994 Abdomen abdominal exam Overall: no tenderness 01/10/2016 None Full Exam - General 1994 Abdomen abdominal exam Overall: normal bowel sounds 01/10/2016 None Full Exam - General 1994 Lymphatic neck nodes Overall: anterior cervical chain benign 01/10/2016 None Full Exam - General 1994 Lymphatic neck nodes Overall: posterior cervical chain benign 01/10/2016 None Full Exam - General 1994 Musculoskeletal head and neck Overall: head atraumatic 01/10/2016 None Full Exam - General 1994 Integument inspection of skin Overall: no rash, lesions 01/10/2016 None Full Exam - General 1994 Neurologic cranial nerves Overall: crainial nerves 2 - 12 grossly intact 01/10/2016 None Full Exam - General 1994 Psychiatric orientation/consciousness Overall: oriented to person, place and time 01/10/2016 None Full Exam - General 1994 Constitutional general appearance Overall: well developed 12/20/2015 None Full Exam - General 1994 Constitutional general appearance Overall: in no acute distress 12/20/2015 None Full Exam - General 1994 Constitutional general appearance Overall: well nourished 12/20/2015 None Full Exam - General 1994 Eyes conjunctiva /eyelids Overall: conjunctiva clear 12/20/2015 None Full Exam - General 1994 Eyes conjunctiva /eyelids Overall: cornea clear 12/20/2015 None Full Exam - General 1994 Eyes conjunctiva /eyelids Overall: eyelids normal 12/20/2015 None Full Exam - General 1994 Eyes pupils and irises Overall: pupils equal, round, reactive to light and accomodation 12/20/2015 None Full Exam - General 1994 Ears/Nose/Throat otoscopic exam Overall: external auditory canals clear 12/20/2015 None Full Exam - General 1994 Ears/Nose/Throat otoscopic exam Overall: tympanic membranes clear 12/20/2015 None Full Exam - General 1994 Ears/Nose/Throat oral cavity/pharynx/larynx Overall: oral mucosa clear 12/20/2015 None Full Exam - General 1994 Ears/Nose/Throat oral cavity/pharynx/larynx Overall: oropharyngeal mucosa clear 12/20/2015 None Full Exam - General 1994 Ears/Nose/Throat oral cavity/pharynx/larynx Overall: no masses 12/20/2015 None Full Exam - General 1994 Respiratory auscultation Overall: breath sounds clear bilaterally 12/20/2015 None Full Exam - General 1994 Respiratory auscultation Lower lung field: crackles 12/20/2015 None Full Exam - General 1994 Respiratory respiratory effort/rhythm Overall: no retractions 12/20/2015 None Full Exam - General 1994 Respiratory respiratory effort/rhythm Overall: normal rate 12/20/2015 None Full Exam - General 1994 Cardiovascular extremities Overall: no clubbing 12/20/2015 None Full Exam - General 1994 Cardiovascular auscultation of heart Overall: regular rate 12/20/2015 None Full Exam - General 1994 Cardiovascular auscultation of heart Overall: normal heart sounds 12/20/2015 None Full Exam - General 1994 Cardiovascular auscultation of heart Overall: no murmurs 12/20/2015 None Full Exam - General 1994 Abdomen abdominal exam Overall: no tenderness 12/20/2015 None Full Exam - General 1994 Abdomen abdominal exam Overall: normal bowel sounds 12/20/2015 None Full Exam - General 1994 Lymphatic neck nodes Overall: anterior cervical chain benign 12/20/2015 None Full Exam - General 1994 Lymphatic neck nodes Overall: posterior cervical chain benign 12/20/2015 None Full Exam - General 1994 Musculoskeletal head and neck Overall: head atraumatic 12/20/2015 None Full Exam - General 1994 Integument inspection of skin Overall: no rash, lesions 12/20/2015 None Full Exam - General 1994 Neurologic cranial nerves Overall: crainial nerves 2 - 12 grossly intact 12/20/2015 None Full Exam - General 1994 Psychiatric orientation/consciousness Overall: oriented to person, place and time 12/20/2015 None Full Exam - General 1994 Abdomen abdominal exam Lower quadrant: dull pain 12/20/2015 very mild tenderness Full Exam - General 1994 Constitutional general appearance Overall: well developed 12/09/2015 None Full Exam - General 1994 Constitutional general appearance Overall: in no acute distress 12/09/2015 None Full Exam - General 1994 Constitutional general appearance Overall: well nourished 12/09/2015 None Full Exam - General 1994 Eyes conjunctiva /eyelids Overall: conjunctiva clear 12/09/2015 None Full Exam - General 1994 Eyes conjunctiva /eyelids Overall: cornea clear 12/09/2015 None Full Exam - General 1994 Eyes conjunctiva /eyelids Overall: eyelids normal 12/09/2015 None Full Exam - General 1994 Ears/Nose/Throat otoscopic exam Overall: external auditory canals clear 12/09/2015 None Full Exam - General 1994 Ears/Nose/Throat oral cavity/pharynx/larynx Overall: oral mucosa clear 12/09/2015 None Full Exam - General 1994 Respiratory respiratory effort/rhythm Overall: no retractions 12/09/2015 None Full Exam - General 1994 Respiratory respiratory effort/rhythm Overall: normal rate 12/09/2015 None Full Exam - General 1994 Cardiovascular extremities Overall: no clubbing 12/09/2015 None Full Exam - General 1994 Cardiovascular auscultation of heart Overall: regular rate 12/09/2015 None Full Exam - General 1994 Cardiovascular auscultation of heart Overall: normal heart sounds 12/09/2015 None Full Exam - General 1994 Lymphatic neck nodes Overall: anterior cervical chain benign 12/09/2015 None Full Exam - General 1994 Lymphatic neck nodes Overall: posterior cervical chain benign 12/09/2015 None Full Exam - General 1994 Musculoskeletal head and neck Overall: head atraumatic 12/09/2015 None Full Exam - General 1994 Integument inspection of skin Overall: no rash, lesions 12/09/2015 None Full Exam - General 1994 Neurologic cranial nerves Overall: crainial nerves 2 - 12 grossly intact 12/09/2015 None Full Exam - General 1994 Psychiatric orientation/consciousness Overall: oriented to person, place and time 12/09/2015 None Full Exam - General 1994 Ears/Nose/Throat otoscopic exam Tympanic membrane: air- fluid level 12/09/2015 None Full Exam - General 1994 Ears/Nose/Throat oral cavity/pharynx/larynx Posterior Pharynx: no post nasal drainage 12/09/2015 None Full Exam - General 1994 Ears/Nose/Throat oral cavity/pharynx/larynx Oropharynx: erythema 12/09/2015 None Full Exam - General 1994 Ears/Nose/Throat lips/teeth/gingiva Overall: benign lips 12/09/2015 None Full Exam - General 1994 Ears/Nose/Throat internal nose Drainage: clear 12/09/2015 None Full Exam - General 1994 Respiratory auscultation Lower lung field: crackles 12/09/2015 None Full Exam - General 1994 Respiratory auscultation Upper lung field: crackles 12/09/2015 None Full Exam - General 1994 Musculoskeletal gait and station Overall: normal gait 12/09/2015 None Full Exam - General 1994 Musculoskeletal gait and station Overall: normal station 12/09/2015 None Full Exam - General 1994 Psychiatric mood and affect Overall: normal mood and affect 12/09/2015 None Full Exam - General 1994 Psychiatric appearance Overall: well-groomed, good eye contact 12/09/2015 None Full Exam - General 1994 Constitutional general appearance Overall: well developed 10/25/2015 None Full Exam - General 1994 Constitutional general appearance Overall: in no acute distress 10/25/2015 None Full Exam - General 1994 Constitutional general appearance Overall: well nourished 10/25/2015 None Full Exam - General 1994 Eyes conjunctiva /eyelids Overall: conjunctiva clear 10/25/2015 None Full Exam - General 1994 Eyes conjunctiva /eyelids Overall: cornea clear 10/25/2015 None Full Exam - General 1994 Eyes conjunctiva /eyelids Overall: eyelids normal 10/25/2015 None Full Exam - General 1994 Eyes pupils and irises Overall: pupils equal, round, reactive to light and accomodation 10/25/2015 None Full Exam - General 1994 Ears/Nose/Throat otoscopic exam Overall: external auditory canals clear 10/25/2015 None Full Exam - General 1994 Ears/Nose/Throat otoscopic exam Overall: tympanic membranes clear 10/25/2015 None Full Exam - General 1994 Ears/Nose/Throat oral cavity/pharynx/larynx Overall: oral mucosa clear 10/25/2015 None Full Exam - General 1994 Ears/Nose/Throat oral cavity/pharynx/larynx Overall: oropharyngeal mucosa clear 10/25/2015 None Full Exam - General 1994 Ears/Nose/Throat oral cavity/pharynx/larynx Overall: no masses 10/25/2015 None Full Exam - General 1994 Respiratory auscultation Overall: breath sounds clear bilaterally 10/25/2015 None Full Exam - General 1994 Respiratory respiratory effort/rhythm Overall: no retractions 10/25/2015 None Full Exam - General 1994 Respiratory respiratory effort/rhythm Overall: normal rate 10/25/2015 None Full Exam - General 1994 Cardiovascular extremities Overall: no clubbing 10/25/2015 None Full Exam - General 1994 Cardiovascular auscultation of heart Overall: regular rate 10/25/2015 None Full Exam - General 1994 Cardiovascular auscultation of heart Overall: normal heart sounds 10/25/2015 None Full Exam - General 1994 Cardiovascular auscultation of heart Overall: no murmurs 10/25/2015 None Full Exam - General 1994 Abdomen abdominal exam Overall: no tenderness 10/25/2015 None Full Exam - General 1994 Abdomen abdominal exam Overall: normal bowel sounds 10/25/2015 None Full Exam - General 1994 Lymphatic neck nodes Overall: anterior cervical chain benign 10/25/2015 None Full Exam - General 1994 Lymphatic neck nodes Overall: posterior cervical chain benign 10/25/2015 None Full Exam - General 1994 Musculoskeletal head and neck Overall: head atraumatic 10/25/2015 None Full Exam - General 1994 Integument inspection of skin Overall: no rash, lesions 10/25/2015 None Full Exam - General 1994 Neurologic cranial nerves Overall: crainial nerves 2 - 12 grossly intact 10/25/2015 None Full Exam - General 1994 Psychiatric orientation/consciousness Overall: oriented to person, place and time 10/25/2015 None Full Exam - General 1994 Respiratory auscultation Lower lung field: crackles 10/25/2015 None Full Exam - General 1994 Constitutional general appearance Overall: well developed 09/12/2015 None Full Exam - General 1994 Constitutional general appearance Overall: in no acute distress 09/12/2015 None Full Exam - General 1994 Constitutional general appearance Overall: well nourished 09/12/2015 None Full Exam - General 1994 Eyes conjunctiva /eyelids Overall: conjunctiva clear 09/12/2015 None Full Exam - General 1994 Eyes conjunctiva /eyelids Overall: cornea clear 09/12/2015 None Full Exam - General 1994 Eyes conjunctiva /eyelids Overall: eyelids normal 09/12/2015 None Full Exam - General 1994 Eyes pupils and irises Overall: pupils equal, round, reactive to light and accomodation 09/12/2015 None Full Exam - General 1994 Ears/Nose/Throat otoscopic exam Overall: external auditory canals clear 09/12/2015 None Full Exam - General 1994 Ears/Nose/Throat otoscopic exam Overall: tympanic membranes clear 09/12/2015 None Full Exam - General 1994 Ears/Nose/Throat oral cavity/pharynx/larynx Overall: oral mucosa clear 09/12/2015 None Full Exam - General 1994 Ears/Nose/Throat oral cavity/pharynx/larynx Overall: oropharyngeal mucosa clear 09/12/2015 None Full Exam - General 1994 Ears/Nose/Throat oral cavity/pharynx/larynx Overall: no masses 09/12/2015 None Full Exam - General 1994 Respiratory auscultation Overall: breath sounds clear bilaterally 09/12/2015 None Full Exam - General 1994 Respiratory auscultation Lower lung field: crackles 09/12/2015 None Full Exam - General 1994 Respiratory respiratory effort/rhythm Overall: no retractions 09/12/2015 None Full Exam - General 1994 Respiratory respiratory effort/rhythm Overall: normal rate 09/12/2015 None Full Exam - General 1994 Cardiovascular extremities Overall: no clubbing 09/12/2015 None Full Exam - General 1994 Cardiovascular auscultation of heart Overall: regular rate 09/12/2015 None Full Exam - General 1994 Cardiovascular auscultation of heart Overall: normal heart sounds 09/12/2015 None Full Exam - General 1994 Cardiovascular auscultation of heart Overall: no murmurs 09/12/2015 None Full Exam - General 1994 Abdomen abdominal exam Overall: no tenderness 09/12/2015 None Full Exam - General 1994 Abdomen abdominal exam Overall: normal bowel sounds 09/12/2015 None Full Exam - General 1994 Lymphatic neck nodes Overall: anterior cervical chain benign 09/12/2015 None Full Exam - General 1994 Lymphatic neck nodes Overall: posterior cervical chain benign 09/12/2015 None Full Exam - General 1994 Musculoskeletal head and neck Overall: head atraumatic 09/12/2015 None Full Exam - General 1994 Integument inspection of skin Overall: no rash, lesions 09/12/2015 None Full Exam - General 1994 Neurologic cranial nerves Overall: crainial nerves 2 - 12 grossly intact 09/12/2015 None Full Exam - General 1994 Psychiatric orientation/consciousness Overall: oriented to person, place and time 09/12/2015 None Full Exam - General 1994 Constitutional general appearance Overall: well developed 04/18/2015 None Full Exam - General 1994 Constitutional general appearance Overall: in no acute distress 04/18/2015 None Full Exam - General 1994 Constitutional general appearance Overall: well nourished 04/18/2015 None Full Exam - General 1994 Eyes conjunctiva /eyelids Overall: conjunctiva clear 04/18/2015 None Full Exam - General 1994 Eyes conjunctiva /eyelids Overall: cornea clear 04/18/2015 None Full Exam - General 1994 Eyes conjunctiva /eyelids Overall: eyelids normal 04/18/2015 None Full Exam - General 1994 Eyes pupils and irises Overall: pupils equal, round, reactive to light and accomodation 04/18/2015 None Full Exam - General 1994 Ears/Nose/Throat otoscopic exam Overall: external auditory canals clear 04/18/2015 None Full Exam - General 1994 Ears/Nose/Throat oral cavity/pharynx/larynx Overall: oral mucosa clear 04/18/2015 None Full Exam - General 1994 Ears/Nose/Throat oral cavity/pharynx/larynx Overall: no masses 04/18/2015 None Full Exam - General 1994 Respiratory auscultation Overall: breath sounds clear bilaterally 04/18/2015 None Full Exam - General 1994 Respiratory auscultation Lower lung field: crackles 04/18/2015 None Full Exam - General 1994 Respiratory respiratory effort/rhythm Overall: no retractions 04/18/2015 None Full Exam - General 1994 Respiratory respiratory effort/rhythm Overall: normal rate 04/18/2015 None Full Exam - General 1994 Cardiovascular extremities Overall: no clubbing 04/18/2015 None Full Exam - General 1994 Cardiovascular auscultation of heart Overall: regular rate 04/18/2015 None Full Exam - General 1994 Cardiovascular auscultation of heart Overall: normal heart sounds 04/18/2015 None Full Exam - General 1994 Abdomen abdominal exam Overall: no tenderness 04/18/2015 None Full Exam - General 1994 Abdomen abdominal exam Overall: normal bowel sounds 04/18/2015 None Full Exam - General 1994 Lymphatic neck nodes Overall: anterior cervical chain benign 04/18/2015 None Full Exam - General 1994 Lymphatic neck nodes Overall: posterior cervical chain benign 04/18/2015 None Full Exam - General 1994 Musculoskeletal head and neck Overall: head atraumatic 04/18/2015 None Full Exam - General 1994 Integument inspection of skin Overall: no rash, lesions 04/18/2015 None Full Exam - General 1994 Neurologic cranial nerves Overall: crainial nerves 2 - 12 grossly intact 04/18/2015 None Full Exam - General 1994 Psychiatric orientation/consciousness Overall: oriented to person, place and time 04/18/2015 None Full Exam - General 1994 Ears/Nose/Throat otoscopic exam Tympanic membrane: air- fluid level 04/18/2015 None Full Exam - General 1994 Ears/Nose/Throat internal nose Drainage: clear 04/18/2015 None Full Exam - General 1994 Ears/Nose/Throat oral cavity/pharynx/larynx Oropharynx: erythema 04/18/2015 None Full Exam - General 1994 Ears/Nose/Throat oral cavity/pharynx/larynx Posterior Pharynx: purulent post nasal drainage 04/18/2015 None Full Exam - General 1994 Constitutional general appearance Overall: well developed 03/04/2015 None Full Exam - General 1994 Constitutional general appearance Overall: in no acute distress 03/04/2015 None Full Exam - General 1994 Constitutional general appearance Overall: well nourished 03/04/2015 None Full Exam - General 1994 Eyes conjunctiva /eyelids Overall: conjunctiva clear 03/04/2015 None Full Exam - General 1994 Eyes conjunctiva /eyelids Overall: cornea clear 03/04/2015 None Full Exam - General 1994 Eyes conjunctiva /eyelids Overall: eyelids normal 03/04/2015 None Full Exam - General 1994 Eyes pupils and irises Overall: pupils equal, round, reactive to light and accomodation 03/04/2015 None Full Exam - General 1994 Ears/Nose/Throat otoscopic exam Overall: external auditory canals clear 03/04/2015 None Full Exam - General 1994 Ears/Nose/Throat otoscopic exam Overall: tympanic membranes clear 03/04/2015 None Full Exam - General 1994 Ears/Nose/Throat oral cavity/pharynx/larynx Overall: oral mucosa clear 03/04/2015 None Full Exam - General 1994 Ears/Nose/Throat oral cavity/pharynx/larynx Overall: oropharyngeal mucosa clear 03/04/2015 None Full Exam - General 1994 Ears/Nose/Throat oral cavity/pharynx/larynx Overall: no masses 03/04/2015 None Full Exam - General 1994 Respiratory auscultation Overall: breath sounds clear bilaterally 03/04/2015 None Full Exam - General 1994 Respiratory respiratory effort/rhythm Overall: no retractions 03/04/2015 None Full Exam - General 1994 Respiratory respiratory effort/rhythm Overall: normal rate 03/04/2015 None Full Exam - General 1994 Cardiovascular extremities Overall: no clubbing 03/04/2015 None Full Exam - General 1994 Cardiovascular auscultation of heart Overall: regular rate 03/04/2015 None Full Exam - General 1994 Cardiovascular auscultation of heart Overall: normal heart sounds 03/04/2015 None Full Exam - General 1994 Cardiovascular auscultation of heart Overall: no murmurs 03/04/2015 None Full Exam - General 1994 Abdomen abdominal exam Overall: no tenderness 03/04/2015 None Full Exam - General 1994 Abdomen abdominal exam Overall: normal bowel sounds 03/04/2015 None Full Exam - General 1994 Lymphatic neck nodes Overall: anterior cervical chain benign 03/04/2015 None Full Exam - General 1994 Lymphatic neck nodes Overall: posterior cervical chain benign 03/04/2015 None Full Exam - General 1994 Musculoskeletal head and neck Overall: head atraumatic 03/04/2015 None Full Exam - General 1994 Integument inspection of skin Overall: no rash, lesions 03/04/2015 None Full Exam - General 1994 Neurologic cranial nerves Overall: crainial nerves 2 - 12 grossly intact 03/04/2015 None Full Exam - General 1994 Psychiatric orientation/consciousness Overall: oriented to person, place and time 03/04/2015 None Full Exam - General 1994 Respiratory auscultation Lower lung field: crackles 03/04/2015 None Full Exam - General 1994 Constitutional general appearance Overall: well developed 02/22/2015 None Full Exam - General 1994 Constitutional general appearance Overall: in no acute distress 02/22/2015 None Full Exam - General 1994 Constitutional general appearance Overall: well nourished 02/22/2015 None Full Exam - General 1994 Eyes conjunctiva /eyelids Overall: conjunctiva clear 02/22/2015 None Full Exam - General 1994 Eyes conjunctiva /eyelids Overall: cornea clear 02/22/2015 None Full Exam - General 1994 Eyes conjunctiva /eyelids Overall: eyelids normal 02/22/2015 None Full Exam - General 1994 Eyes pupils and irises Overall: pupils equal, round, reactive to light and accomodation 02/22/2015 None Full Exam - General 1994 Ears/Nose/Throat otoscopic exam Overall: external auditory canals clear 02/22/2015 None Full Exam - General 1994 Ears/Nose/Throat otoscopic exam Overall: tympanic membranes clear 02/22/2015 None Full Exam - General 1994 Ears/Nose/Throat oral cavity/pharynx/larynx Overall: oral mucosa clear 02/22/2015 None Full Exam - General 1994 Ears/Nose/Throat oral cavity/pharynx/larynx Overall: oropharyngeal mucosa clear 02/22/2015 None Full Exam - General 1994 Ears/Nose/Throat oral cavity/pharynx/larynx Overall: no masses 02/22/2015 None Full Exam - General 1994 Respiratory auscultation Overall: breath sounds clear bilaterally 02/22/2015 None Full Exam - General 1994 Respiratory auscultation Lower lung field: diminished 02/22/2015 None Full Exam - General 1994 Respiratory respiratory effort/rhythm Overall: no retractions 02/22/2015 None Full Exam - General 1994 Respiratory respiratory effort/rhythm Overall: normal rate 02/22/2015 None Full Exam - General 1994 Cardiovascular extremities Overall: no clubbing 02/22/2015 None Full Exam - General 1994 Cardiovascular auscultation of heart Overall: regular rate 02/22/2015 None Full Exam - General 1994 Cardiovascular auscultation of heart Overall: normal heart sounds 02/22/2015 None Full Exam - General 1994 Cardiovascular auscultation of heart Overall: no murmurs 02/22/2015 None Full Exam - General 1994 Abdomen abdominal exam Overall: no tenderness 02/22/2015 None Full Exam - General 1994 Abdomen abdominal exam Overall: normal bowel sounds 02/22/2015 None Full Exam - General 1994 Lymphatic neck nodes Overall: anterior cervical chain benign 02/22/2015 None Full Exam - General 1994 Lymphatic neck nodes Overall: posterior cervical chain benign 02/22/2015 None Full Exam - General 1994 Musculoskeletal head and neck Overall: head atraumatic 02/22/2015 None Full Exam - General 1994 Neurologic cranial nerves Overall: crainial nerves 2 - 12 grossly intact 02/22/2015 None Full Exam - General 1994 Psychiatric orientation/consciousness Overall: oriented to person, place and time 02/22/2015 None Full Exam - General 1994 Constitutional general appearance Overall: well developed 12/03/2014 None Full Exam - General 1994 Constitutional general appearance Overall: in no acute distress 12/03/2014 None Full Exam - General 1994 Constitutional general appearance Overall: well nourished 12/03/2014 None Full Exam - General 1994 Eyes conjunctiva /eyelids Overall: conjunctiva clear 12/03/2014 None Full Exam - General 1994 Eyes conjunctiva /eyelids Overall: cornea clear 12/03/2014 None Full Exam - General 1994 Eyes conjunctiva /eyelids Overall: eyelids normal 12/03/2014 None Full Exam - General 1994 Eyes pupils and irises Overall: pupils equal, round, reactive to light and accomodation 12/03/2014 None Full Exam - General 1994 Ears/Nose/Throat otoscopic exam Overall: external auditory canals clear 12/03/2014 None Full Exam - General 1994 Ears/Nose/Throat otoscopic exam Overall: tympanic membranes clear 12/03/2014 None Full Exam - General 1994 Ears/Nose/Throat oral cavity/pharynx/larynx Overall: oral mucosa clear 12/03/2014 None Full Exam - General 1994 Ears/Nose/Throat oral cavity/pharynx/larynx Overall: oropharyngeal mucosa clear 12/03/2014 None Full Exam - General 1994 Ears/Nose/Throat oral cavity/pharynx/larynx Overall: no masses 12/03/2014 None Full Exam - General 1994 Cardiovascular extremities Overall: no clubbing 12/03/2014 None Full Exam - General 1994 Cardiovascular auscultation of heart Overall: regular rate 12/03/2014 None Full Exam - General 1994 Cardiovascular auscultation of heart Overall: normal heart sounds 12/03/2014 None Full Exam - General 1994 Cardiovascular auscultation of heart Overall: no murmurs 12/03/2014 None Full Exam - General 1994 Abdomen abdominal exam Overall: no tenderness 12/03/2014 None Full Exam - General 1994 Abdomen abdominal exam Overall: normal bowel sounds 12/03/2014 None Full Exam - General 1994 Lymphatic neck nodes Overall: anterior cervical chain benign 12/03/2014 None Full Exam - General 1994 Lymphatic neck nodes Overall: posterior cervical chain benign 12/03/2014 None Full Exam - General 1994 Musculoskeletal head and neck Overall: head atraumatic 12/03/2014 None Full Exam - General 1994 Integument inspection of skin Overall: no rash, lesions 12/03/2014 None Full Exam - General 1994 Neurologic cranial nerves Overall: crainial nerves 2 - 12 grossly intact 12/03/2014 None Full Exam - General 1994 Psychiatric orientation/consciousness Overall: oriented to person, place and time 12/03/2014 None Full Exam - General 1994 Respiratory auscultation Lower lung field: diminished 12/03/2014 None Full Exam - General 1994 Respiratory auscultation Overall: breath sounds clear bilaterally 12/03/2014 None Full Exam - General 1994 Respiratory respiratory effort/rhythm Overall: no retractions 12/03/2014 None Full Exam - General 1994 Respiratory respiratory effort/rhythm Overall: normal rate 12/03/2014 None Full Exam - General 1994 Constitutional general appearance Overall: well developed 11/23/2014 None Full Exam - General 1994 Constitutional general appearance Overall: in no acute distress 11/23/2014 None Full Exam - General 1994 Constitutional general appearance Overall: well nourished 11/23/2014 None Full Exam - General 1994 Eyes conjunctiva /eyelids Overall: conjunctiva clear 11/23/2014 None Full Exam - General 1994 Eyes conjunctiva /eyelids Overall: cornea clear 11/23/2014 None Full Exam - General 1994 Eyes conjunctiva /eyelids Overall: eyelids normal 11/23/2014 None Full Exam - General 1994 Eyes pupils and irises Overall: pupils equal, round, reactive to light and accomodation 11/23/2014 None Full Exam - General 1994 Ears/Nose/Throat otoscopic exam Overall: external auditory canals clear 11/23/2014 None Full Exam - General 1994 Ears/Nose/Throat otoscopic exam Overall: tympanic membranes clear 11/23/2014 None Full Exam - General 1994 Ears/Nose/Throat oral cavity/pharynx/larynx Overall: oral mucosa clear 11/23/2014 None Full Exam - General 1994 Ears/Nose/Throat oral cavity/pharynx/larynx Overall: oropharyngeal mucosa clear 11/23/2014 None Full Exam - General 1994 Ears/Nose/Throat oral cavity/pharynx/larynx Overall: no masses 11/23/2014 None Full Exam - General 1994 Respiratory auscultation Overall: breath sounds clear bilaterally 11/23/2014 None Full Exam - General 1994 Respiratory auscultation Lower lung field: diminished 11/23/2014 None Full Exam - General 1994 Respiratory respiratory effort/rhythm Overall: no retractions 11/23/2014 None Full Exam - General 1994 Respiratory respiratory effort/rhythm Overall: normal rate 11/23/2014 None Full Exam - General 1994 Cardiovascular extremities Overall: no clubbing 11/23/2014 None Full Exam - General 1994 Cardiovascular auscultation of heart Overall: regular rate 11/23/2014 None Full Exam - General 1994 Cardiovascular auscultation of heart Overall: normal heart sounds 11/23/2014 None Full Exam - General 1994 Cardiovascular auscultation of heart Overall: no murmurs 11/23/2014 None Full Exam - General 1994 Abdomen abdominal exam Overall: no tenderness 11/23/2014 None Full Exam - General 1994 Abdomen abdominal exam Overall: normal bowel sounds 11/23/2014 None Full Exam - General 1994 Lymphatic neck nodes Overall: anterior cervical chain benign 11/23/2014 None Full Exam - General 1994 Lymphatic neck nodes Overall: posterior cervical chain benign 11/23/2014 None Full Exam - General 1994 Musculoskeletal head and neck Overall: head atraumatic 11/23/2014 None Full Exam - General 1994 Integument inspection of skin Overall: no rash, lesions 11/23/2014 None Full Exam - General 1994 Neurologic cranial nerves Overall: crainial nerves 2 - 12 grossly intact 11/23/2014 None Full Exam - General 1994 Psychiatric orientation/consciousness Overall: oriented to person, place and time 11/23/2014 None Full Exam - General 1994 Constitutional general appearance Overall: well developed 07/29/2014 None Full Exam - General 1994 Constitutional general appearance Overall: in no acute distress 07/29/2014 None Full Exam - General 1994 Constitutional general appearance Overall: well nourished 07/29/2014 None Full Exam - General 1994 Psychiatric orientation/consciousness Overall: oriented to person, place and time 07/29/2014 None Full Exam - General 1994 Neurologic cranial nerves Overall: crainial nerves 2 - 12 grossly intact 07/29/2014 None Full Exam - General 1994 Integument inspection of skin Overall: no rash, lesions 07/29/2014 None Full Exam - General 1994 Musculoskeletal head and neck Overall: head atraumatic 07/29/2014 None Full Exam - General 1994 Lymphatic neck nodes Overall: anterior cervical chain benign 07/29/2014 None Full Exam - General 1994 Lymphatic neck nodes Overall: posterior cervical chain benign 07/29/2014 None Full Exam - General 1994 Abdomen abdominal exam Overall: no tenderness 07/29/2014 None Full Exam - General 1994 Abdomen abdominal exam Overall: normal bowel sounds 07/29/2014 None Full Exam - General 1994 Cardiovascular auscultation of heart Overall: regular rate 07/29/2014 None Full Exam - General 1994 Cardiovascular auscultation of heart Overall: normal heart sounds 07/29/2014 None Full Exam - General 1994 Cardiovascular auscultation of heart Overall: no murmurs 07/29/2014 None Full Exam - General 1994 Cardiovascular extremities Overall: no clubbing 07/29/2014 None Full Exam - General 1994 Ears/Nose/Throat otoscopic exam Overall: tympanic membranes clear 07/29/2014 None Full Exam - General 1994 Ears/Nose/Throat otoscopic exam Overall: external auditory canals clear 07/29/2014 None Full Exam - General 1994 Ears/Nose/Throat oral cavity/pharynx/larynx Overall: oropharyngeal mucosa clear 07/29/2014 None Full Exam - General 1994 Ears/Nose/Throat oral cavity/pharynx/larynx Overall: no masses 07/29/2014 None Full Exam - General 1994 Ears/Nose/Throat oral cavity/pharynx/larynx Overall: oral mucosa clear 07/29/2014 None Full Exam - General 1994 Eyes conjunctiva /eyelids Overall: conjunctiva clear 07/29/2014 None Full Exam - General 1994 Eyes conjunctiva /eyelids Overall: eyelids normal 07/29/2014 None Full Exam - General 1994 Eyes conjunctiva /eyelids Overall: cornea clear 07/29/2014 None Full Exam - General 1994 Eyes pupils and irises Overall: pupils equal, round, reactive to light and accomodation 07/29/2014 None Full Exam - General 1994 Respiratory auscultation Lower lung field: crackles 07/29/2014 None Procedures Procedure Codes Date PPPS, SUBSEQ VISIT CPT -4: G0439 01/27/2018 ADMIN INFLUENZA VIRUS VAC CPT-4: G0008 11/21/2017 FLU VACC PRSV FREE INC ANTIG Formatting Model/CDA Sections, Assigned to/Stephanie Cedeño CPT-4: 03941Zahjolc 11/21/2017 DESTRUCT PREMALG LESION CPT-4: 73407 10/16/2017 ROCEPHIN, PER 250 MG CPT-4: J0696 12/09/2015 TRIAMCINOLONE ACET INJ NOS CPT-4: J3301 12/09/2015 Vital Signs Date Vital 01/27/2018 Blood Pressure 1: 132/68 Code : 8480-6 BMI: 21.8 Code : 91869-4 Heart Rate 1 : 84 bpm Height: 5'7" SpO2: 92% Weight: 139 lbs 01/22/2018 Blood Pressure 1: 132/60 Code : 8480-6 BMI: 21.8 Code : 67541-9 Heart Rate 1 : 72 bpm Height: 5'7" SpO2: 94% Weight: 139 lbs 01/02/2018 Blood Pressure 1: 146/66 Code : 8480-6 BMI: 21.6 Code : 64258-1 Heart Rate 1 : 80 bpm Height: 5'7" SpO2: 97% Weight: 138 lbs 11/21/2017 Blood Pressure 1: 138/60 Code : 8480-6 BMI: 22.4 Code : 72079-9 Heart Rate 1 : 71 bpm Height: 5'7" SpO2: 92% Weight: 143 lbs 11/04/2017 Blood Pressure 1: 102/56 Code : 8480-6 BMI: 22.6 Code : 15407-7 Heart Rate 1 : 83 bpm Height: 5'7" SpO2: 91% Weight: 144 lbs 10/16/2017 Blood Pressure 1: 140/63 Code : 8480-6 BMI: 23.2 Code : 35886-3 Heart Rate 1 : 97 bpm Height: 5'7" SpO2: 94% Weight: 148 lbs 09/25/2017 Blood Pressure 1: 124/60 Code : 8480-6 BMI: 23.8 Code : 04351-4 Heart Rate 1 : 81 bpm Height: 5'7" SpO2: 97% Weight: 152 lbs 07/10/2016 Blood Pressure 1: 136/70 Code : 8480-6 BMI: 25.5 Code : 56980-0 Heart Rate 1 : 87 bpm Height: 5'7" SpO2: 90% Weight: 162 lbs 8 oz 03/13/2016 Blood Pressure 1: 130/72 Code : 8480-6 BMI: 25.4 Code : 57891-5 Heart Rate 1 : 86 bpm Height: 5'7" SpO2: 91% Weight: 162 lbs 01/10/2016 Blood Pressure 1: 122/80 Code : 8480-6 BMI: 25.7 Code : 25518-6 Heart Rate 1 : 83 bpm Height: 5'7" SpO2: 94% Weight: 164 lbs 12/20/2015 Blood Pressure 1: 128/86 Code : 8480-6 BMI: 25.1 Code : 01247-6 Heart Rate 1 : 74 bpm Height: 5'7" SpO2: 95% Weight: 160 lbs 12/09/2015 Blood Pressure 1: 132/68 Code : 8480-6 BMI: 26.2 Code : 94032-7 Heart Rate 1 : 80 bpm Height: 5'7" SpO2: 96% Weight: 167 lbs 10/25/2015 Blood Pressure 1: 128/52 Code : 8480-6 BMI: 26.5 Code : 28613-4 Heart Rate 1 : 80 bpm Height: 5'7" SpO2: 92% Weight: 169 lbs 09/12/2015 Blood Pressure 1: 122/70 Code : 8480-6 BMI: 26.5 Code : 43968-8 Heart Rate 1 : 76 bpm Height: 5'7" SpO2: 90% Weight: 169 lbs 04/18/2015 Blood Pressure 1: 142/58 Code : 8480-6 BMI: 25.4 Code : 73612-4 Heart Rate 1 : 76 bpm Height: 5'7" SpO2: 96% Weight: 162 lbs 03/04/2015 Blood Pressure 1: 110/68 Code : 8480-6 BMI: 25.4 Code : 96160-8 Heart Rate 1 : 68 bpm Height: 5'7" SpO2: 95% Weight: 162 lbs 02/22/2015 Blood Pressure 1: 100/52 Code : 8480-6 BMI: 25.1 Code : 88616-7 Heart Rate 1 : 66 bpm Height: 5'7" SpO2: 95% Temperature: 36.5 (C) / 97.7 (F) Weight: 160 lbs 12/03/2014 Blood Pressure 1: 130/64 Code : 8480-6 BMI: 25.5 Code : 91218-2 Heart Rate 1 : 87 bpm Height: 5'7" SpO2: 94% Weight: 163 lbs 11/23/2014 Blood Pressure 1: 140/64 Code : 8480-6 BMI: 27.3 Code : 42310-0 Heart Rate 1 : 70 bpm Height: 5'7" SpO2: 91% Weight: 174 lbs 07/29/2014 Blood Pressure 1: 118/64 Code : 8480-6 BMI: 27.7 Code : 85638-8 Heart Rate 1 : 72 bpm Height: 5'7" Weight: 177 lbs Functional Status No Functional Status data History of Present Illness Symptom Name Status Result Effective Date Notes Annual Medicare Wellness Exam Alcohol Use does not drink any alcohol 01/27/2018 None Annual Medicare Wellness Exam Aspirin Use yes 01/27/2018 None Annual Medicare Wellness Exam Blood Glucose (self reported) has a diagnosis of diabetes 01/27/2018 None Annual Medicare Wellness Exam Blood Pressure (self reported ) diagnosed with hypertension 01/27/2018 None Annual Medicare Wellness Exam Cholesterol (self reported) desireable (below 200) 01/27/2018 None Annual Medicare Wellness Exam Depression (last 6 months) almost never 01/27/2018 None Annual Medicare Wellness Exam Depression or Hopelessness almost never 01/27/2018 None Annual Medicare Wellness Exam Describe Your Health good 01/27/2018 None Annual Medicare Wellness Exam Exercise Habits exercises _ days per week 01/27/2018 None Annual Medicare Wellness Exam Handling Stress usually shari effectively 01/27/2018 None Annual Medicare Wellness Exam Hemaglobin A-1C (self reported ) borderline high (7) 01/27/2018 None Annual Medicare Wellness Exam Interaction with Friends yes 01/27/2018 None Annual Medicare Wellness Exam Interests & Pleasure daily 01/27/2018 None Annual Medicare Wellness Exam Life Satisfaction satisfied 01/27/2018 None Annual Medicare Wellness Exam Motor Vehicle Safety always fastens seat belt: y 01/27/2018 None Annual Medicare Wellness Exam Smoking and Tobacco Use non smoker 01/27/2018 None Annual Medicare Wellness Exam Social & Emotional Support always 01/27/2018 None Annual Medicare Wellness Exam Stress some of the time 01/27/2018 None Annual Medicare Wellness Exam Sun Exposure protects skin when outdoors: y 01/27/2018 None Annual Medicare Wellness Exam Hours of Sleep 8 01/27/2018 None Annual Medicare Wellness Exam Nutrition servings of vegetables / fruit per day: _ 01/27/2018 varies Annual Medicare Wellness Exam Nutrition servings of high fiber / whole grain per day: 0-1 01/27/2018 None cough Quality chronic 01/22/2018 None cough Quality intermittent 01/22/2018 None cough Quality productive 01/22/2018 None cough Onset and Resolution ongoing 01/22/2018 None cough Pertinent Findings sputum production 01/22/2018 -will be bloody at times cough Pertinent Findings Denies chills 01/22/2018 None cough Pertinent Findings Denies fever 01/22/2018 None cough Significant Medical Conditions pulmonary disease 01/22/2018 None cough Location in the lung 01/22/2018 None ~generic Quality acute 01/02/2018 None ~generic Onset of Symptom days ago 01/02/2018 None ~generic Onset and Resolution sudden in onset 01/02/2018 None hypertension Quality chronic 11/21/2017 None hypertension Quality primary hypertension 11/21/2017 None hypertension Onset and Resolution ongoing 11/21/2017 None hypertension Onset of Symptom during adulthood 11/21/2017 None hypertension Blood Pressure Values pt checking blood pressure - see scanned document 11/21/2017 None hypertension Alleviating Factors medication 11/21/2017 None hypertension Pertinent Findings dizziness 11/21/2017 None hypertension Pertinent Findings dyspnea 11/21/2017 "always" hypertension Pertinent Findings Denies edema 11/21/2017 None diabetes mellitus Onset of Symptom onset as an adult 11/21/2017 None diabetes mellitus Glucose monitoring before meals 11/21/2017 None diabetes mellitus Glucose monitoring bedtime 11/21/2017 None diabetes mellitus Nutrition regular diet 11/21/2017 None hypertension Quality chronic 11/04/2017 None hypertension Quality primary hypertension 11/04/2017 None hypertension Onset and Resolution ongoing 11/04/2017 None hypertension Onset of Symptom during adulthood 11/04/2017 None hypertension Alleviating Factors medication 11/04/2017 None hypertension Pertinent Findings dizziness 11/04/2017 None hypertension Pertinent Findings dyspnea 11/04/2017 "always" hypertension Pertinent Findings Denies edema 11/04/2017 None hypertension Blood Pressure Values pt checking blood pressure - see scanned document 11/04/2017 None hypertension Quality chronic 10/16/2017 None hypertension Quality primary hypertension 10/16/2017 None hypertension Onset and Resolution ongoing 10/16/2017 None hypertension Onset of Symptom during adulthood 10/16/2017 None hypertension Blood Pressure Values not checking blood pressure at home 10/16/2017 None hypertension Alleviating Factors medication 10/16/2017 None hypertension Pertinent Findings dizziness 10/16/2017 None hypertension Pertinent Findings dyspnea 10/16/2017 None hypertension Pertinent Findings Denies edema 10/16/2017 None diabetes mellitus Quality non-insulin dependent 10/16/2017 None diabetes mellitus Quality chronic 10/16/2017 None diabetes mellitus Exacerbating Factors diet 10/16/2017 None hypothyroid Quality chronic 10/16/2017 None hypothyroid Onset and Resolution ongoing 10/16/2017 None hypothyroid Alleviating Factors medication 10/16/2017 None skin lesion Quality enlarging 10/16/2017 None skin lesion Quality scabbed 10/16/2017 None skin lesion Onset and Resolution sudden in onset 10/16/2017 None skin lesion Onset of Symptom _ months ago 10/16/2017 None hypertension Quality chronic 09/25/2017 None hypertension Onset and Resolution ongoing 09/25/2017 None hypertension Onset of Symptom during adulthood 09/25/2017 None hypertension Blood Pressure Values not checking blood pressure at home 09/25/2017 None hypertension Alleviating Factors medication 09/25/2017 None diabetes mellitus Quality non-insulin dependent 09/25/2017 None hypertension Quality primary hypertension 09/25/2017 None diabetes mellitus Quality chronic 09/25/2017 None diabetes mellitus Exacerbating Factors diet 09/25/2017 None hypertension Pertinent Findings dizziness 09/25/2017 None hypertension Pertinent Findings dyspnea 09/25/2017 None hypertension Pertinent Findings Denies edema 09/25/2017 None diabetes mellitus Test results Pt not checking blood glucose readings at home 09/25/2017 None hypothyroid Quality chronic 09/25/2017 None hypothyroid Onset and Resolution ongoing 09/25/2017 None hypothyroid Alleviating Factors medication 09/25/2017 None hypertension Quality chronic 07/10/2016 None hypertension Onset and Resolution ongoing 07/10/2016 None hypertension Onset of Symptom during adulthood 07/10/2016 None hypertension Blood Pressure Values not checking blood pressure at home 07/10/2016 None hypertension Severity not consistently severe symptoms, the symptoms fluctuate from no symptoms to anxiety and headaches 07/10/2016 None hypertension Frequency of Episodes unchanged 07/10/2016 None hypertension Triggers no known associated factors 07/10/2016 None hypertension Alleviating Factors medication 07/10/2016 None diabetes mellitus Quality non-insulin dependent 07/10/2016 None diabetes mellitus Nutrition regular diet 07/10/2016 None cough Location in the throat 07/10/2016 None cough Quality productive 07/10/2016 None cough Onset and Resolution ongoing 07/10/2016 None cough Onset of Symptom during adulthood 07/10/2016 None cough Limitation on Activities does not limit activities 07/10/2016 None cough Frequency of Episodes unchanged 07/10/2016 None cough Significant Medical Conditions pulmonary disease 07/10/2016 None cough Triggers no known associated factors 07/10/2016 None cough Pertinent Findings Denies chest discomfort 07/10/2016 None cough Pertinent Findings Denies dyspnea 07/10/2016 None cough Pertinent Findings Denies fever 07/10/2016 None diabetes mellitus Test results Pt not checking blood glucose readings at home 07/10/2016 None cough Location in the throat 03/13/2016 None cough Quality productive 03/13/2016 None cough Onset and Resolution ongoing 03/13/2016 None cough Onset of Symptom during adulthood 03/13/2016 None cough Limitation on Activities does not limit activities 03/13/2016 None cough Frequency of Episodes unchanged 03/13/2016 None cough Pertinent Findings Denies chest discomfort 03/13/2016 None cough Pertinent Findings Denies dyspnea 03/13/2016 None cough Pertinent Findings Denies fever 03/13/2016 None cough Significant Medical Conditions pulmonary disease 03/13/2016 None cough Triggers no known associated factors 03/13/2016 None cough Location in the throat 01/10/2016 None cough Quality productive 01/10/2016 None cough Onset and Resolution ongoing 01/10/2016 None cough Pertinent Findings Denies chest discomfort 01/10/2016 None cough Pertinent Findings Denies dyspnea 01/10/2016 None cough Pertinent Findings Denies fever 01/10/2016 None cough Onset of Symptom during adulthood 01/10/2016 None cough Limitation on Activities does not limit activities 01/10/2016 None cough Frequency of Episodes unchanged 01/10/2016 None diarrhea Quality intermittent 12/20/2015 None diarrhea Onset and Resolution ongoing 12/20/2015 None diarrhea Limitation on Activities moderately limits activities 12/20/2015 None diarrhea Pertinent Findings Denies cough 12/20/2015 None diarrhea Pertinent Findings Denies cramping 12/20/2015 None diarrhea Pertinent Findings Denies emesis 12/20/2015 None diarrhea Pertinent Findings Denies nausea 12/20/2015 None diarrhea Onset of Symptom _ weeks ago 12/20/2015 None diarrhea Frequency of Episodes increasing 12/20/2015 with meals diarrhea Timing of Episodes after meals 12/20/2015 None cough Location in the throat 12/09/2015 None cough Quality constant 12/09/2015 None cough Quality hacking 12/09/2015 None cough Onset and Resolution sudden in onset 12/09/2015 None cough Onset of Symptom 3 days ago 12/09/2015 None cough Frequency of Episodes daily 12/09/2015 None sore throat Location diffusely 12/09/2015 None sore throat Quality constant 12/09/2015 None sore throat Quality scratchy 12/09/2015 None sore throat Quality aching 12/09/2015 None cough Location in the lung 10/25/2015 None cough Quality constant 10/25/2015 None cough Quality hacking 10/25/2015 None cough Quality productive 10/25/2015 None cough Onset and Resolution sudden in onset 10/25/2015 None cough Onset of Symptom 4 days ago 10/25/2015 None cough Frequency of Episodes daily 10/25/2015 None cough Pertinent Findings chest discomfort 10/25/2015 None cough Pertinent Findings hoarseness 10/25/2015 None shortness of breath Quality breathlessness 10/25/2015 None shortness of breath Quality constant 10/25/2015 None shortness of breath Onset and Resolution sudden in onset 10/25/2015 None shortness of breath Onset of Symptom 4 days ago 10/25/2015 None shortness of breath Alleviating Factors rest 10/25/2015 None shortness of breath Pertinent Findings chest discomfort 10/25/2015 None shortness of breath Pertinent Findings cough 10/25/2015 None chest pain/pressure Location stabbing 10/25/2015 None chest pain/pressure Location on the left side of on the chest 10/25/2015 None chest pain/pressure Quality intermittent 10/25/2015 None chest pain/pressure Quality sharp 10/25/2015 None chest pain/pressure Onset of Symptom 1 days ago 10/25/2015 None chest pain/pressure Scale of 1(mild) to 10(severe) 6 10/25/2015 None cough Location in the throat 09/12/2015 None cough Quality productive 09/12/2015 None cough Onset and Resolution ongoing 09/12/2015 None cough Limitation on Activities does not limit activities 09/12/2015 None cough Frequency of Episodes daily 09/12/2015 None cough Pertinent Findings Denies chest discomfort 09/12/2015 None cough Pertinent Findings Denies dyspnea 09/12/2015 None cough Pertinent Findings Denies facial pain 09/12/2015 None cough Pertinent Findings Denies tachypnea 09/12/2015 None cough Onset of Symptom during adulthood 09/12/2015 None cough Significant Medical Conditions pulmonary disease 09/12/2015 None cough Triggers no known associated factors 09/12/2015 None cough Location in the lung 04/18/2015 None cough Quality productive 04/18/2015 None cough Onset and Resolution sudden in onset 04/18/2015 None cough Onset of Symptom 1 weeks ago 04/18/2015 None cough Frequency of Episodes daily 04/18/2015 None sore throat Location on both sides 04/18/2015 None sore throat Quality dull 04/18/2015 None sore throat Quality scratchy 04/18/2015 None sore throat Quality burning 04/18/2015 None sore throat Onset and Resolution sudden in onset 04/18/2015 None sore throat Onset of Symptom 1 weeks ago 04/18/2015 None sore throat Frequency of Episodes daily 04/18/2015 None headache Location diffusely 04/18/2015 None headache Quality dull 04/18/2015 None headache Quality aching 04/18/2015 None headache Onset and Resolution sudden in onset 04/18/2015 None headache Onset of Symptom 1 weeks ago 04/18/2015 None headache Frequency of Episodes daily 04/18/2015 None cough Location in the throat 03/04/2015 None cough Onset and Resolution gradual in onset 03/04/2015 None cough Onset and Resolution ongoing 03/04/2015 None cough Onset of Symptom 2 weeks ago 03/04/2015 None cough Limitation on Activities does not limit activities 03/04/2015 None cough Frequency of Episodes daily 03/04/2015 None cough Quality improving 03/04/2015 None cough Pertinent Findings Denies dyspnea 03/04/2015 None cough Pertinent Findings Denies fever 03/04/2015 None cough Quality acute None cough Quality productive 02/22/2015 None cough Onset and Resolution sudden in onset 02/22/2015 None cough Quality intermittent 02/22/2015 None cough Onset of Symptom 3-4 days ago 02/22/2015 None cough Pertinent Findings chest discomfort 02/22/2015 None cough Pertinent Findings sputum production 02/22/2015 None hypertension Quality chronic 12/03/2014 None hypertension Onset and Resolution ongoing 12/03/2014 None hypertension Onset of Symptom during adulthood 12/03/2014 None hypertension Blood Pressure Values not checking blood pressure at home 12/03/2014 None hypertension Severity not consistently severe symptoms, the symptoms fluctuate from no symptoms to anxiety and headaches 12/03/2014 None hypertension Frequency of Episodes unchanged 12/03/2014 None hypertension Triggers no known associated factors 12/03/2014 None hypertension Alleviating Factors medication 12/03/2014 None diabetes mellitus Quality non-insulin dependent 12/03/2014 None diabetes mellitus Glucose monitoring daily 12/03/2014 None diabetes mellitus Test results Pt checking blood glucose at home, see scanned readings 2014 None diabetes mellitus Nutrition regular diet 12/03/2014 None cough Location in the lung 12/03/2014 None cough Quality stable 12/03/2014 resolved cough Onset and Resolution resolved 12/03/2014 None cough Location in the throat 11/23/2014 None cough Quality dry 10/2014 None cough Onset and Resolution gradual in onset 11/23/2014 None cough Onset and Resolution ongoing 11/23/2014 None cough Limitation on Activities does not limit activities 11/23/2014 None cough Frequency of Episodes daily 11/23/2014 None cough Onset of Symptom 2 weeks ago 11/23/2014 None cough Triggers no known associated factors 11/23/2014 None cough Pertinent Findings chest discomfort 11/23/2014 None sore throat Location diffusely 11/23/2014 None sore throat Quality burning 11/23/2014 None sore throat Quality scratchy 11/23/2014 None sore throat Onset and Resolution gradual in onset 11/23/2014 None sore throat Onset and Resolution ongoing 11/23/2014 None sore throat Onset of Symptom 2 weeks ago 11/23/2014 None sore throat Limitation on Activities does not limit oral intake 11/23/2014 None sore throat Frequency of Episodes daily 11/23/2014 None sore throat Triggers no known associated factors 11/23/2014 None sore throat Pertinent Findings cough 11/23/2014 None hypertension Quality chronic 07/29/2014 None hypertension Onset and Resolution ongoing 07/29/2014 None hypertension Onset of Symptom during adulthood 07/29/2014 None hypertension Blood Pressure Values not checking blood pressure at home 07/29/2014 None hypertension Severity not consistently severe symptoms, the symptoms fluctuate from no symptoms to anxiety and headaches 07/29/2014 None hypertension Frequency of Episodes unchanged 07/29/2014 None hypertension Triggers no known associated factors 07/29/2014 None hypertension Alleviating Factors medication 07/29/2014 None Advance Directives Advance Directives Present Encounters Encounter Performer Location Codes Date [id number]) [id number] EST. PATIENT, LEVEL IV Diagnosis: Cough[ICD10: R05] Diagnosis: Candidal stomatitis[ICD10: B37.0] Diagnosis: Essential (primary) hypertension[ICD10: I10] Diagnosis: Type 2 diabetes mellitus without complications[ICD10: E11.9] [facility] CPT-4: 87875 01/22/2018 [id number]) [id number] EST. 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 PATIENT, LEVEL IV Diagnosis: Type 2 diabetes mellitus without complications[ICD10: E11.9] Diagnosis: Essential (primary) hypertension[ICD10: I10] Diagnosis: Encounter for immunization[ICD10: Z23] [facility] CPT-4: 19373 11/21/2017 ([id number]) [id number] EST. PATIENT, LEVEL III Diagnosis: Orthostatic hypotension[ICD10: I95.1] Sonia Nolen MD [facility] CPT-4: 32469 11/04/2017 ([id number]) [id number] EST. PATIENT, LEVEL IV Diagnosis: Type 2 diabetes mellitus with hyperglycemia[ICD10: E11.65] Sonia Nolen MD [facility] CPT-4: 66540 10/16/2017 ([id number]) 53939 EST. PATIENT, LEVEL IV Diagnosis: Essential (primary) hypertension[ICD10: I10] Diagnosis: Type 2 diabetes mellitus without complications[ICD10: E11.9] Diagnosis: Atrophy of thyroid (acquired)[ICD10: E03.4] Sonia Nolen MD [facility] CPT-4: 79043 09/25/2017 ([id number]) 74835 EST. PATIENT, LEVEL IV Diagnosis: Type 2 diabetes mellitus without complications[ICD10: E11.9] Diagnosis: Essential (primary) hypertension[ICD10: I10] Diagnosis: Hypothyroidism, unspecified[ICD10: E03.9] Diagnosis: Idiopathic pulmonary fibrosis[ICD10: J84.112] Katey Nolen MD [facility] CPT-4: 36208 07/10/2016 ([id number]) 32835 EST. PATIENT, LEVEL IV Diagnosis: Type 2 diabetes mellitus without complications[ICD10: E11.9] Diagnosis: Hypothyroidism, unspecified[ICD10: E03.9] Diagnosis: Essential (primary) hypertension[ICD10: I10] Diagnosis: Idiopathic pulmonary fibrosis[ICD10: J84.112] Katey Nolen MD [facility] CPT-4: 96958 03/13/2016 ([id number]) 62578 EST. PATIENT, LEVEL IV Diagnosis: Idiopathic pulmonary fibrosis[ICD10: J84.112] Diagnosis: Cough[ICD10: R05] Diagnosis: Essential (primary) hypertension[ICD10: I10] Diagnosis: Functional diarrhea[ICD10: K59.1] Katey Nolen MD, [facility] CPT-4: 39385 01/10/2016 ([id number]) 61815 EST. 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 PATIENT, LEVEL IV Diagnosis: Other allergic rhinitis[ICD10: J30.89] Diagnosis: Idiopathic pulmonary fibrosis[ICD10: J84.112] Diagnosis: Cough[ICD10: R05] Monse Nolen MD, [facility] CPT-4: 08765 12/09/2015 ([id number]) 06937 EST. PATIENT, LEVEL III Diagnosis: Cough[ICD10: R05] Diagnosis: Unspecified bacterial pneumonia[ICD10: J15.9] Katey Nolen MD, [facility] CPT-4: 85146 10/25/2015 ([id number]) 21954 EST. PATIENT, LEVEL IV Diagnosis: Essential (primary) hypertension[ICD10: I10] Diagnosis: Idiopathic pulmonary fibrosis[ICD10: J84.112] Diagnosis: Hypothyroidism, unspecified[ICD10: E03.9] Diagnosis: Type 2 diabetes mellitus without complications[ICD10: E11.9] Katey Nolen MD, [facility] CPT-4: 18250 09/12/2015 [id number] EST. PATIENT, LEVEL IV Diagnosis: Acute laryngopharyngitis[ICD10: J06.0] Diagnosis: Idiopathic pulmonary fibrosis[ICD10: J84.112] Diagnosis: Cough[ICD10: R05] Monse Nolen MD, [facility] CPT-4: 04306 04/18/2015 ([id number]) 60092 EST. PATIENT, LEVEL III Diagnosis: Idiopathic pulmonary fibrosis[ICD10: J84.112] Katey Nolen MD, [facility] CPT-4: 35232 03/04/2015 ([id number]) 93591 EST. PATIENT, LEVEL III Diagnosis: Cough[ICD10: R05] Sonia Nolen MD, [facility] CPT-4: 54932 02/22/2015 ([id number]) 01323 EST. PATIENT, LEVEL IV Diagnosis: ESSENTIAL HYPERTENSION[ICD9: 401.9] Diagnosis: DIABETES TYPE II[ICD9: 250.00] Diagnosis: Chronic renal disease, stage 3, moderately decreased glomerular filtration rate between 30-59 mL/min/1.73 square meter[ICD9: 585.3] [facility] CPT-4: 75894 12/03/2014 ([id number]) 41784 EST. PATIENT, LEVEL III Diagnosis: BACTERIAL PNEUMONIA[ICD9: 482.9] Diagnosis: COUGH[ICD9: 786.2] Diagnosis: DIABETES TYPE II[ICD9: 250.00] [facility] CPT- 4: 45763 11/23/2014 ([id number]) OFFICE VISIT, NEW - LEVEL 4 Diagnosis: ESSENTIAL HYPERTENSION[ICD9: 401.9] Diagnosis: Hypothyroidism[ICD9: 244.9] Diagnosis: DIABETES TYPE II[ICD9: 250.00] Diagnosis: Pulmonary fibrosis[ICD9: 515] [facility] CPT-4: 49501 07/29/2014 Plan of Care Planned Activity Notes Codes Status Date Visit Plan: Medicare Exam - today we discussed the patients past history, immunizations, preventative exams/evaluations - colonoscopy, fecal occult blood testing, routine labs for renal function, glucose, cholesterol, osteoporosis evaluations, cardiovascular testing and cancer screenings. We have also discussed mental health and the signs/symptoms of depression. The patient was advised of home safety evaluations and the need to make sure that as the aging process continues, we need to be aware of different ways to make the home a safer place to reside. The patient has also been counseled that exercise is necessary - and of utmost importance as we age to help decrease fall risk and to maintain independence in the home. Today we discussed the need for the patient to create paperwork for Advanced directives as well as for the patient to provide this office with a copy of her DOPA paperwork for health care surrogate. 01/27/2018 Appointment: Katey Veloz WPtel: [address] [place], [place] [id number] [facility] - Annual Wellness Visit 01/27/2018 Patient Education: Patient Medication Summary Completed 01/27/2018 Visit Plan: HTN - with recent bouts of fatigue and low blood pressure - discussed with pt - she will adjust her medication as follows: stop the spironolactone - this is a mild diuretic and is contributing to the lowering of your blood pressure - I want you to keep track of your blood pressure and blood glucose on the current log sheets and drop a copy by the office in two weeks for dr to review. COPD - pt was started on the on the Trelegy inhaler - use one inhale daily - you have 28 day supply - call back in a month to let us know how you feel like it is working for you - the goal would be to see improvement in your breathing and a decrease in the cough. - make sure to rinse your mouth out with water after inhaling the powder. Thrush - rx for diflucan DM - stable - no change in medications at this time. 01/22/2018 Appointment: Sonia Nolen WPtel: [address] [facility] (15 min) Moderate 01/22/2018 Patient Education: Patient Medication Summary Completed 01/22/2018 Patient Education: Hypertension Completed 01/22/2018 Patient Education: Diabetes Completed 01/22/2018 Visit Plan: Cystocele -discussed with Dr Nolen -since patient is asymptomatic, will just monitor for now. Discussed with patient and daughter if she starts to have urinary difficulties, infections, etc, we can refer her to Dr Venegas for a pessary -patient verbalized understanding of plan. 01/02/2018 Appointment: [facility]oz [facility]el[facility] [phone] [phone] [place] (15 min) Moderate 01/02/2018 Patient Education: Patient Medication Summary Completed 01/02/2018 Visit Plan: Hypertension - well controlled - continue with current medications, continue with no added salt diet. Pt has been encouraged to exercise daily. The pt has been advised to call the office if there are any acute concerns about change in blood pressure readings at home. Diabetes Mellitus - controlled - per recent FSBS reports. I have recommended for the patient to have follow up labs prior to the next office visit. The patient has been instructed to continue with current medications as previously directed, continue with regular FSBS monitoring to assure continued control of diabetes. Pt to call for any acute concerns, complaints, or if the blood glucose readings are starting to become less controlled. 11/21/2017 Appointment: [facility]el[facility] [address] [facility] [place] (15 min) Moderate 11/21/2017 Patient Education: Patient Medication Summary Completed 11/21/2017 Patient Education: Hypertension Completed 11/21/2017 Appointment: Sonia Nolen [facility]Ptel[facility] [address] [facility] (15 min) Moderate 11/14/2017 Visit Plan: Dizziness - blood pressure has been low at home and low today in the office - recommendations given to pt a follows: decrease spironolactone to 1/2 of the 25mg tablet daily - this will be 12.5mg dose of spironolactone daily. decrease the losartan to 1/2 of a 50mg tablet daily - this will be 25mg of losartan daily. call or message the office with your blood pressure readings this and next saturday. if your blood pressure is consistently at or below 110 for the top number - by next Saturday - then we will probably have you stop the losartan completely. if you are feeling poorly and your pressure is at or below 90 - do not take the losartan at all on that morning and call the office for further instructions. 11/04/2017 Appointment: Sonia Nolen WPtel[facility] [address] [facility] (15 min) Moderate 11/04/2017 Patient Education: Patient Medication Summary Completed 11/04/2017 Visit Plan: Diabetes Mellitus - Uncontrolled - per recent FSBS reports. I have recommended for the patient to have follow up labs prior to the next office visit. The patient has been instructed to continue with current medications as previously directed, continue with regular FSBS monitoring to assure continued control of diabetes. Pt to call for any acute concerns, complaints, or if the blood glucose readings are starting to become less controlled. I have recommended for the patient to follow more strictly to the diabetic diet as discussed in clinic to allow for greater blood glucose control. Start on insulin - discussed and shown how to use insulin pens. Will attempt a different medication since her insurance did not cover basaglar - RX for toujeo sent to pharmacy. Cryotherapy of skin lesions - three cryotherapy on the lesion, dressed with neosporin and monitor lesion. 10/16/2017 Appointment: Sonia Nolen WPtel[facility] [address] [facility] (15 min) Moderate 10/16/2017 Patient Education: Patient Medication Summary Completed 10/16/2017 Visit Plan: Hypothyroidism - pt with chronic hypothyroidism , continue with current medication, will monitor pt to signs or symptoms of lack of adequate supplementation. Pt is to continue with current dose of medication unless directed otherwise. Check labs at regular intervals wither q 3 months or q 6 months based on previous levels of control. Hypertension - well controlled - continue with current medications, continue with no added salt diet. Pt has been encouraged to exercise daily. The pt has been advised to call the office if there are any acute concerns about change in blood pressure readings at home. Hx of diabetes - diet controlled - check labs. COPD - chronic - stable - defer to dr. quinteros 09/25/2017 Appointment: Sonia Nolen WPtel: [address] [facility] (15 min) Moderate 09/25/2017 Patient Education: Patient Medication Summary Completed 09/25/2017 Appointment: Katey Veloz WPtel: [address] [phone] (30 min) Complex 01/07/2017 Visit Plan: Hypertension - well controlled - continue with current medications, continue with no added salt diet. Pt has been encouraged to exercise daily. The pt has been advised to call the office if there are any acute concerns about change in blood pressure readings at home. Diabetes Mellitus - I have recommended for the patient to have follow up labs prior to the next office visit. The patient has been instructed to continue with current medications as previously directed, continue with regular FSBS monitoring to assure continued control of diabetes. Pt to call for any acute concerns, complaints, or if the blood glucose readings are starting to become less controlled. Hypothyroidism - pt with chronic hypothyroidism, continue with current medication, will monitor pt to signs or symptoms of lack of adequate supplementation. Pt is to continue with current dose of medication unless directed otherwise. Check labs at regular intervals wither q 3 months or q 6 months based on previous levels of control. Pulmonary fibrosis-seeing Dr Quinteros 07/10/2016 Appointment: Katey Veloz WPtel: [address] [phone] (30 min) Complex 07/10/2016 Patient Education: Patient Medication Summary Completed 07/10/2016 Patient Education: Hypertension Completed 07/10/2016 Referral: Víctor Quinteros Referral Completed 03/29/2016 Visit Plan: Hypertension - well controlled - continue with current medications, continue with no added salt diet. Pt has been encouraged to exercise daily. The pt has been advised to call the office if there are any acute concerns about change in blood pressure readings at home. Pulmonary fibrosis-symptoms stable-make appt to f/u with Dr Quinteros Hypothyroidism - pt with chronic hypothyroidism, continue with current medication, will monitor pt to signs or symptoms of lack of adequate supplementation. Pt is to continue with current dose of medication unless directed otherwise. Check labs at regular intervals wither q 3 months or q 6 months based on previous levels of control. Diabetes Mellitus - I have recommended for the patient to have follow up labs prior to the next office visit. The patient has been instructed to continue with current medications as previously directed, continue with regular FSBS monitoring to assure continued control of diabetes. Pt to call for any acute concerns, complaints, or if the blood glucose readings are starting to become less controlled. 03/13/2016 Appointment: Katey Veloz WPtel: [phone] (30 min) [facility] 03/13/2016 Patient Education: Patient Medication Summary Completed 03/13/2016 Care Plan: Comp Metabolic Pending 03/13/2016 Care Plan: Cbc With Differential Pending 03/13/2016 Care Plan: %Hba1C LOINC : 34413-2 Pending 03/13/2016 Care Plan: Tsh Pending 03/13/2016 Care Plan: Free T4 Pending 03/13/2016 Care Plan: Referral Order SNOMED-CT : 041913783 Pending 03/13/2016 Visit Plan: Pulmonary fibrosis-symptoms stable-I do recommend she start wearing her oxygen at night-consider inhaler if symptoms uncontrolled-refill cough medication as needed for cough Hypertension - well controlled - continue with current medications, continue with no added salt diet. Pt has been encouraged to exercise daily. The pt has been advised to call the office if there are any acute concerns about change in blood pressure readings at home. Eoicadvy-foxlhvus-qvub to decrease probiotic to daily-if bowels continue to be regular-patient can stop probiotic and see how she does- instructed her to increase probiotic at any time she is prescribed an antibiotic -patient and daughter verbalized understanding of plan. 01/10/2016 Appointment: Katey Veloz WPtel: [phone] [phone] (30 min) Complex 01/10/2016 Patient Education: Patient Medication Summary Completed 01/10/2016 Patient Education: Hypertension Completed 01/10/2016 Patient Education: Patient Medication Summary Completed 12/28/2015 Care Plan: Clostridium Diff Tox A/B Cancelled 12/22/2015 Patient Education: Patient Medication Summary Completed 12/21/2015 Care Plan: FECES CULTURE AEROBIC BACT LOINC : 35494-7 Pending 12/21/2015 Visit Plan: Diarrhea - recommended bland diet, low fat diet , start on probiotic, and rehydrate with gatorade-like product. Pt to call if feeling worse, diarrhea becomes bloody, or does not improve with above recommendations. Pt to call for acute worsening of stomach upset or stomach pain. CHECK STOOL FOR CDIFF, STOOL CULTURE 12/20/2015 Appointment: Katey Veloz WPtel: [address] [phone] (15 min) Moderate 12/20/2015 Patient Education: Patient Medication Summary Completed 12/20/2015 Visit Plan: Pulmonary edgasbry-laioipw-tzsy Dr Quinteros and wears oxygen at night URI - Pt advised to increase fluids, vitamin C. Discussed natural and expected course of this diagnosis and need to alert me if symptoms do not follow expected course, or if any worse. RX sent to patient's pharmacy. Allergies - chronic - recommended pt to use allergy medication as prescribed. Pt has been counseled as to the appropriate use of the medication. Pt to call if allergy symptoms are not controlled with the medication. If using nasal spray , instructions as follows: Nasal spray- use twice daily, one spray per nostril twice daily, after 30 minutes, rinse out nose with saline spray.. Use opposite hand per nostril to spray in the nasal steroid allergy spray. 12/09/2015 Patient Education: Patient Medication Summary Completed 12/09/2015 Visit Plan: Pneumonia - Pt has been diagnosed with pneumonia by physical exam. A chest xray has been ordered as have antibiotics. The pt is aware of the diagnosis and the need for acute treatment of this illness. 10/25/2015 Patient Education: Patient Medication Summary Completed 10/25/2015 Visit Plan: Hypertension - well controlled - continue with current medications, continue with no added salt diet. Pt has been encouraged to exercise daily. The pt has been advised to call the office if there are any acute concerns about change in blood pressure readings at home. Diabetes Mellitus - I have recommended for the patient to have follow up labs prior to the next office visit. The patient has been instructed to continue with current medications as previously directed, continue with regular FSBS monitoring to assure continued control of diabetes. Pt to call for any acute concerns, complaints, or if the blood glucose readings are starting to become less controlled. Pulmonary fibrosis-followed by Dr Quinteros-refill phenergan with codeine for prn cough Hypothyroidism - pt with chronic hypothyroidism, continue with current medication, will monitor pt to signs or symptoms of lack of adequate supplementation. Pt is to continue with current dose of medication unless directed otherwise. Check labs at regular intervals wither q 3 months or q 6 months based on previous levels of control. 09/12/2015 Appointment: Katey Veloz WPtel: [address] [place], [place] [phone] (15 min) Moderate 09/12/2015 Patient Education: Patient Medication Summary Completed 09/12/2015 Patient Education: Hypertension Completed 09/12/2015 Care Plan: COMPLETE CBC AUTOMATED LOINC : 91524-9 Pending 09/12/2015 Visit Plan: Pulmonary tobbskxl-wlgslic-lhdp Dr Quinteros and wears oxygen at night URI - Pt advised to increase fluids, vitamin C. Discussed natural and expected course of this diagnosis and need to alert me if symptoms do not follow expected course, or if any worse. RX sent to patient's pharmacy. 04/18/2015 Visit Plan: Pulmonary dzdntzxx-qhzynms-njtc Dr Quinteros and wears oxygen at night URI - Pt advised to increase fluids, vitamin C. Discussed natural and expected course of this diagnosis and need to alert me if symptoms do not follow expected course, or if any worse. RX sent to patient's pharmacy. 04/18/2015 Appointment: (30 min) Complex 04/18/2015 Patient Education: Patient Medication Summary Completed 04/18/2015 Care Plan: C DARREL A SC Pending 04/18/2015 Visit Plan: Pneumonia-resolved Pulmonary fibrosis-chronic- sees Dr Quinteros and wears oxygen at night 03/04/2015 Appointment: (30 min) Complex 03/04/2015 Patient Education: Patient Medication Summary Completed 03/04/2015 Visit Plan: Pneumonia - Pt has been diagnosed with pneumonia by physical exam. A chest xray has been ordered as have antibiotics. The pt is aware of the diagnosis and the need for acute treatment of this illness. culturemadisone, Envestnet, iNeed yogurt, - all of these have probiotics - you need to take a probiotic three times daily while on the antibiotic LEVAQUIN - when off of the antibiotic, start on the probiotic just ONE time a day. mucinex - take 600mg twice daily with 16 ounces of water with each pill. - take for one week. 02/22/2015 Patient Education: Patient Medication Summary Completed 02/22/2015 Visit Plan: Hypertension - well controlled - continue with current medications, continue with no added salt diet. Pt has been encouraged to exercise daily. The pt has been advised to call the office if there are any acute concerns about change in blood pressure readings at home. Diabetes Mellitus - Uncontrolled - per recent FSBS reports. I have recommended for the patient to have follow up labs prior to the next office visit. The patient has been instructed to continue with current medications as previously directed, continue with regular FSBS monitoring to assure continued control of diabetes. Pt to call for any acute concerns, complaints, or if the blood glucose readings are starting to become less controlled. I have recommended for the patient to follow more strictly to the diabetic diet as discussed in clinic to allow for greater blood glucose control. Januvia/Onglyza not covered-discussed with patient and daughter-will try diet and exercise for the next 3 months and then return for follow up labs and appt. Will consider other medications if A1C increases. Insomnia - Pt has been advised to increase the light in the house during the day, and start dimming the lights during the evening hours. Pt has been advised to cut out caffeine after 5pm. Daytime napping worsens night time insomnia. 12/03/2014 Appointment: (30 min) Complex 12/03/2014 Patient Education: Patient Medication Summary Completed 12/03/2014 Patient Education: Hypertension Completed 12/03/2014 Appointment: (30 min) Complex 11/29/2014 Visit Plan: Pneumonia - Pt has been diagnosed with pneumonia by physical exam. A chest xray has been ordered as have antibiotics. The pt is aware of the diagnosis and the need for acute treatment of this illness. Script was sent for antibiotics and a cough medicine. We will call and find out if you need a chest CT done. In the mean time we gave you an order for an xray of your chest. Do not eat or drink anything close to bedtime. Minimize caffeine as well due to acid production which can cause a dry cough. Begin taking your blood sugar in the morning when you wake up. In ten days when you come back we want to see what your numbers are. 11/23/2014 Appointment: Sonia Nolen WPtel: [facility] (15 min) Moderate 11/23/2014 Patient Education: Patient Medication Summary Completed 11/23/2014 Visit Plan: Hypertension - well controlled - continue with current medications, continue with no added salt diet. Pt has been encouraged to exercise daily. The pt has been advised to call the office if there are any acute concerns about change in blood pressure readings at home. Hypothyroidism - pt with chronic hypothyroidism, continue with current medication, will monitor pt to signs or symptoms of lack of adequate supplementation. Pt is to continue with current dose of medication unless directed otherwise. Check labs at regular intervals wither q 3 months or q 6 months based on previous levels of control. Diabetes Mellitus -I have recommended for the patient to have follow up labs prior to the next office visit. Pt to call for any acute concerns , complaints, or if the blood glucose readings are starting to become less controlled. I have recommended for the patient to follow more strictly to the diabetic diet as discussed in clinic to allow for greater blood glucose control. Pulmonary fibrosis-followed by Dr Quinteros-wears oxygen at night 07/29/2014 Visit Plan: Hypertension - well controlled - continue with current medications, continue with no added salt diet. Pt has been encouraged to exercise daily. The pt has been advised to call the office if there are any acute concerns about change in blood pressure readings at home. Hypothyroidism - pt with chronic hypothyroidism, continue with current medication, will monitor pt to signs or symptoms of lack of adequate supplementation. Pt is to continue with current dose of medication unless directed otherwise. Check labs at regular intervals wither q 3 months or q 6 months based on previous levels of control. Diabetes Mellitus -I have recommended for the patient to have follow up labs prior to the next office visit. Pt to call for any acute concerns , complaints, or if the blood glucose readings are starting to become less controlled. I have recommended for the patient to follow more strictly to the diabetic diet as discussed in clinic to allow for greater blood glucose control. Pulmonary fibrosis-followed by Dr Neena coppola at night 07/29/2014 Visit Plan: Hypertension - well controlled - continue with current medications, continue with no added salt diet. Pt has been encouraged to exercise daily. The pt has been advised to call the office if there are any acute concerns about change in blood pressure readings at home. Hypothyroidism - pt with chronic hypothyroidism, continue with current medication, will monitor pt to signs or symptoms of lack of adequate supplementation. Pt is to continue with current dose of medication unless directed otherwise. Check labs at regular intervals wither q 3 months or q 6 months based on previous levels of control. Diabetes Mellitus -I have recommended for the patient to have follow up labs prior to the next office visit. Pt to call for any acute concerns , complaints, or if the blood glucose readings are starting to become less controlled. I have recommended for the patient to follow more strictly to the diabetic diet as discussed in clinic to allow for greater blood glucose control. Pulmonary fibrosis-followed by Dr Neena coppola at night 07/29/2014 Appointment: (S) New Patient 07/29/2014 Patient Education: Patient Medication Summary Completed 07/29/2014 Patient Education: Hypertension Completed 07/29/2014 Referral: Víctor Quinteros Referral Appointment Requested Instructions Comment . Medicare Exam - today we discussed the patients past history, immunizations, preventative exams/evaluations - colonoscopy, fecal occult blood testing, routine labs for renal function, glucose, cholesterol, osteoporosis evaluations, cardiovascular testing and cancer screenings. We have also discussed mental health and the signs/symptoms of depression. The patient was advised of home safety evaluations and the need to make sure that as the aging process continues, we need to be aware of different ways to make the home a safer place to reside. The patient has also been counseled that exercise is necessary - and of utmost importance as we age to help decrease fall risk and to maintain independence in the home. Today we discussed the need for the patient to create paperwork for Advanced directives as well as for the patient to provide this office with a copy of her DOPA paperwork for health care surrogate. Toniaqrebekah 2 tabs day one and 1 tab day 2-7 probiotic with antibiotics. Pulmonary jkqfsnvi-miykilr-dxsn Dr Quinteros and wears oxygen at night URI - Pt advised to increase fluids, vitamin C. Discussed natural and expected course of this diagnosis and need to alert me if symptoms do not follow expected course, or if any worse. RX sent to patient's pharmacy. Levaquin 2 tabs day one and 1 tab day 2-7 probiotic with antibiotics. Pulmonary zhfgjyvi-vpshjrr-fvkh Dr Quinteros and wears oxygen at night URI - Pt advised to increase fluids, vitamin C. Discussed natural and expected course of this diagnosis and need to alert me if symptoms do not follow expected course, or if any worse. RX sent to patient's pharmacy. CHECK STOOLS-STOOL CULTURE AND STOOL FOR CDIFF . Diarrhea - recommended bland diet, low fat diet, start on probiotic, and rehydrate with gatorade-like product. Pt to call if feeling worse, diarrhea becomes bloody, or does not improve with above recommendations. Pt to call for acute worsening of stomach upset or stomach pain. CHECK STOOL FOR CDIFF, STOOL CULTURE . Pneumonia-resolved Pulmonary hjalaswj-ubeqfbv-twrf Dr Quinteros and wears oxygen at night . Diabetes Mellitus - Uncontrolled - per recent FSBS reports. I have recommended for the patient to have follow up labs prior to the next office visit. The patient has been instructed to continue with current medications as previously directed, continue with regular FSBS monitoring to assure continued control of diabetes. Pt to call for any acute concerns, complaints, or if the blood glucose readings are starting to become less controlled. I have recommended for the patient to follow more strictly to the diabetic diet as discussed in clinic to allow for greater blood glucose control. Start on insulin - discussed and shown how to use insulin pens. Will attempt a different medication since her insurance did not cover basaglar - RX for toujeo sent to pharmacy. Cryotherapy of skin lesions - three cryotherapy on the lesion, dressed with neosporin and monitor lesion. . Cystocele -discussed with Dr Nolen -since patient is asymptomatic, will just monitor for now. Discussed with patient and daughter if she starts to have urinary difficulties, infections, etc, we can refer her to Dr Venegas for a pessary -patient verbalized understanding of plan. Get fasting labs in [place]. . Hypertension - well controlled - continue with current medications, continue with no added salt diet. Pt has been encouraged to exercise daily. The pt has been advised to call the office if there are any acute concerns about change in blood pressure readings at home. Diabetes Mellitus - I have recommended for the patient to have follow up labs prior to the next office visit. The patient has been instructed to continue with current medications as previously directed, continue with regular FSBS monitoring to assure continued control of diabetes. Pt to call for any acute concerns, complaints, or if the blood glucose readings are starting to become less controlled. Pulmonary fibrosis-followed by Dr Quinteros-refill breannaergvega with codeine for prn cough Hypothyroidism - pt with chronic hypothyroidism, continue with current medication, will monitor pt to signs or symptoms of lack of adequate supplementation. Pt is to continue with current dose of medication unless directed otherwise. Check labs at regular intervals wither q 3 months or q 6 months based on previous levels of control. stop the spironolactone - this is a mild diuretic and is contributing to the lowering of your blood pressure - I want you to keep track of your blood pressure and blood glucose on the current log sheets and drop a copy by the office in two weeks for dr to review. on the Trelegy inhaler - use one inhale daily - you have 28 day supply - call back in a month to let us know how you feel like it is working for you - the goal would be to see improvement in your breathing and a decrease in the cough. - make sure to rinse your mouth out with water after inhaling the powder. . HTN - with recent bouts of fatigue and low blood pressure - discussed with pt - she will adjust her medication as follows: stop the spironolactone - this is a mild diuretic and is contributing to the lowering of your blood pressure - I want you to keep track of your blood pressure and blood glucose on the current log sheets and drop a copy by the office in two weeks for dr to review. COPD - pt was started on the on the Trelegy inhaler - use one inhale daily - you have 28 day supply - call back in a month to let us know how you feel like it is working for you - the goal would be to see improvement in your breathing and a decrease in the cough. - make sure to rinse your mouth out with water after inhaling the powder. Thrush - rx for diflucan DM - stable - no change in medications at this time. . Pulmonary cwggetyt-pejrmhy-yfki Dr Quinteros and wears oxygen at night URI - Pt advised to increase fluids, vitamin C. Discussed natural and expected course of this diagnosis and need to alert me if symptoms do not follow expected course, or if any worse. RX sent to patient's pharmacy. Allergies - chronic - recommended pt to use allergy medication as prescribed. Pt has been counseled as to the appropriate use of the medication. Pt to call if allergy symptoms are not controlled with the medication. If using nasal spray, instructions as follows: Nasal spray- use twice daily, one spray per nostril twice daily, after 30 minutes, rinse out nose with saline spray.. Use opposite hand per nostril to spray in the nasal steroid allergy spray. decrease spironolactone to 1/2 of the 25mg tablet daily - this will be 12.5mg dose of spironolactone daily. decrease the losartan to 1/2 of a 50mg tablet daily - this will be 25mg of losartan daily. call or message the office with your blood pressure readings this and next saturday. if your blood pressure is consistently at or below 110 for the top number - by next Saturday - then we will probably have you stop the losartan completely. if you are feeling poorly and your pressure is at or below 90 - do not take the losartan at all on that morning and call the office for further instructions. . Dizziness - blood pressure has been low at home and low today in the office - recommendations given to pt a follows: decrease spironolactone to 1/2 of the 25mg tablet daily - this will be 12.5mg dose of spironolactone daily. decrease the losartan to 1/2 of a 50mg tablet daily - this will be 25mg of losartan daily. call or message the office with your blood pressure readings this and saturday. if your blood pressure is consistently at or below 110 for the top number - by next Saturday - then we will probably have you stop the losartan completely. if you are feeling poorly and your pressure is at or below 90 - do not take the losartan at all on that morning and call the office for further instructions. lovely burrell colon health, activia yogurt, - all of these have probiotics - you need to take a probiotic three times daily while on the antibiotic LEVAQUIN - when off of the antibiotic, start on the probiotic just ONE time a day. mucinex - take 600mg twice daily with 16 ounces of water with each pill. - take for one week. . Pneumonia - Pt has been diagnosed with pneumonia by physical exam. A chest xray has been ordered as have antibiotics. The pt is aware of the diagnosis and the need for acute treatment of this illness. indra, Envestnet, activia yogurt, - all of these have probiotics - you need to take a probiotic three times daily while on the antibiotic LEVAQUIN - when off of the antibiotic, start on the probiotic just ONE time a day. mucinex - take 600mg twice daily with 16 ounces of water with each pill. - take for one week. Dr Quinteros -follow up pulmonary fibrosis . Hypertension - well controlled - continue with current medications, continue with no added salt diet. Pt has been encouraged to exercise daily. The pt has been advised to call the office if there are any acute concerns about change in blood pressure readings at home. Pulmonary fibrosis-symptoms stable-make appt to f/u with Dr Quinteros Hypothyroidism - pt with chronic hypothyroidism, continue with current medication, will monitor pt to signs or symptoms of lack of adequate supplementation. Pt is to continue with current dose of medication unless directed otherwise. Check labs at regular intervals wither q 3 months or q 6 months based on previous levels of control. Diabetes Mellitus - I have recommended for the patient to have follow up labs prior to the next office visit. The patient has been instructed to continue with current medications as previously directed, continue with regular FSBS monitoring to assure continued control of diabetes. Pt to call for any acute concerns, complaints, or if the blood glucose readings are starting to become less controlled. Script was sent for antibiotics and a cough medicine. We will call and find out if you need a chest CT done. In the mean time we gave you an order for an xray of your chest. Do not eat or drink anything close to bedtime. Minimize caffeine as well due to acid production which can cause a dry cough. Begin taking your blood sugar in the morning when you wake up. In ten days when you come back we want to see what your numbers are. . Pneumonia - Pt has been diagnosed with pneumonia by physical exam. A chest xray has been ordered as have antibiotics. The pt is aware of the diagnosis and the need for acute treatment of this illness. Script was sent for antibiotics and a cough medicine. We will call and find out if you need a chest CT done. In the mean time we gave you an order for an xray of your chest. Do not eat or drink anything close to bedtime. Minimize caffeine as well due to acid production which can cause a dry cough. Begin taking your blood sugar in the morning when you wake up. In ten days when you come back we want to see what your numbers are. . Hypertension - well controlled - continue with current medications, continue with no added salt diet. Pt has been encouraged to exercise daily. The pt has been advised to call the office if there are any acute concerns about change in blood pressure readings at home. Diabetes Mellitus - controlled - per recent FSBS reports. I have recommended for the patient to have follow up labs prior to the next office visit. The patient has been instructed to continue with current medications as previously directed, continue with regular FSBS monitoring to assure continued control of diabetes. Pt to call for any acute concerns, complaints, or if the blood glucose readings are starting to become less controlled. . Hypothyroidism - pt with chronic hypothyroidism, continue with current medication, will monitor pt to signs or symptoms of lack of adequate supplementation. Pt is to continue with current dose of medication unless directed otherwise. Check labs at regular intervals wither q 3 months or q 6 months based on previous levels of control. Hypertension - well controlled - continue with current medications, continue with no added salt diet. Pt has been encouraged to exercise daily. The pt has been advised to call the office if there are any acute concerns about change in blood pressure readings at home. Hx of diabetes - diet controlled - check labs. COPD - chronic - stable - defer to dr. quinteros refill phenergan with codeine to [facility] . Pulmonary fibrosis-symptoms stable-I do recommend she start wearing her oxygen at night-consider inhaler if symptoms uncontrolled-refill cough medication as needed for cough Hypertension - well controlled - continue with current medications, continue with no added salt diet. Pt has been encouraged to exercise daily. The pt has been advised to call the office if there are any acute concerns about change in blood pressure readings at home. Rhhkvuer-wvwmtzpw-phob to decrease probiotic to daily-if bowels continue to be regular-patient can stop probiotic and see how she does-instructed her to increase probiotic at any time she is prescribed an antibiotic-patient and daughter verbalized understanding of plan. CUT BACK ON SWEETS/BREADS/PASTA/POTATOES-REPEAT LABS IN 4 MONTHS . Hypertension - well controlled - continue with current medications, continue with no added salt diet. Pt has been encouraged to exercise daily. The pt has been advised to call the office if there are any acute concerns about change in blood pressure readings at home. Hypothyroidism - pt with chronic hypothyroidism, continue with current medication, will monitor pt to signs or symptoms of lack of adequate supplementation. Pt is to continue with current dose of medication unless directed otherwise. Check labs at regular intervals wither q 3 months or q 6 months based on previous levels of control. Diabetes Mellitus -I have recommended for the patient to have follow up labs prior to the next office visit. Pt to call for any acute concerns, complaints, or if the blood glucose readings are starting to become less controlled. I have recommended for the patient to follow more strictly to the diabetic diet as discussed in clinic to allow for greater blood glucose control. Pulmonary fibrosis-followed by Dr Chaudhary oxygen at night CUT BACK ON SWEETS/BREADS/PASTA/POTATOES-REPEAT LABS IN 4 MONTHS . Hypertension - well controlled - continue with current medications, continue with no added salt diet. Pt has been encouraged to exercise daily. The pt has been advised to call the office if there are any acute concerns about change in blood pressure readings at home. Hypothyroidism - pt with chronic hypothyroidism, continue with current medication, will monitor pt to signs or symptoms of lack of adequate supplementation. Pt is to continue with current dose of medication unless directed otherwise. Check labs at regular intervals wither q 3 months or q 6 months based on previous levels of control. Diabetes Mellitus -I have recommended for the patient to have follow up labs prior to the next office visit. Pt to call for any acute concerns, complaints, or if the blood glucose readings are starting to become less controlled. I have recommended for the patient to follow more strictly to the diabetic diet as discussed in clinic to allow for greater blood glucose control. Pulmonary fibrosis-followed by Dr Chaudhary oxygen at night CUT BACK ON SWEETS/BREADS/PASTA/POTATOES-REPEAT LABS IN 4 MONTHS . Hypertension - well controlled - continue with current medications, continue with no added salt diet. Pt has been encouraged to exercise daily. The pt has been advised to call the office if there are any acute concerns about change in blood pressure readings at home. Hypothyroidism - pt with chronic hypothyroidism, continue with current medication, will monitor pt to signs or symptoms of lack of adequate supplementation. Pt is to continue with current dose of medication unless directed otherwise. Check labs at regular intervals wither q 3 months or q 6 months based on previous levels of control. Diabetes Mellitus -I have recommended for the patient to have follow up labs prior to the next office visit. Pt to call for any acute concerns, complaints, or if the blood glucose readings are starting to become less controlled. I have recommended for the patient to follow more strictly to the diabetic diet as discussed in clinic to allow for greater blood glucose control. Pulmonary fibrosis-followed by Dr Quinteros-wears oxygen at night . Pneumonia - Pt has been diagnosed with pneumonia by physical exam. A chest xray has been ordered as have antibiotics. The pt is aware of the diagnosis and the need for acute treatment of this illness. MELATONIN UP TO 10MG NEEDED REPEAT HGB A1C IN 3 MONTHS WITH YOUR REGULAR BLOODWORK . Hypertension - well controlled - continue with current medications, continue with no added salt diet. Pt has been encouraged to exercise daily. The pt has been advised to call the office if there are any acute concerns about change in blood pressure readings at home. Diabetes Mellitus - Uncontrolled - per recent FSBS reports. I have recommended for the patient to have follow up labs prior to the next office visit. The patient has been instructed to continue with current medications as previously directed, continue with regular FSBS monitoring to assure continued control of diabetes. Pt to call for any acute concerns, complaints, or if the blood glucose readings are starting to become less controlled. I have recommended for the patient to follow more strictly to the diabetic diet as discussed in clinic to allow for greater blood glucose control. Januvia/Onglyza not covered-discussed with patient and daughter-will try diet and exercise for the next 3 months and then return for follow up labs and appt. Will consider other medications if A1C increases. Insomnia - Pt has been advised to increase the light in the house during the day , and start dimming the lights during the evening hours. Pt has been advised to cut out caffeine after 5pm. Daytime napping worsens night time insomnia. . Hypertension - well controlled - continue with current medications, continue with no added salt diet. Pt has been encouraged to exercise daily. The pt has been advised to call the office if there are any acute concerns about change in blood pressure readings at home. Diabetes Mellitus - I have recommended for the patient to have follow up labs prior to the next office visit. The patient has been instructed to continue with current medications as previously directed, continue with regular FSBS monitoring to assure continued control of diabetes. Pt to call for any acute concerns, complaints, or if the blood glucose readings are starting to become less controlled. Hypothyroidism - pt with chronic hypothyroidism, continue with current medication, will monitor pt to signs or symptoms of lack of adequate supplementation. Pt is to continue with current dose of medication unless directed otherwise. Check labs at regular intervals wither q 3 months or q 6 months based on previous levels of control. Pulmonary fibrosis-seeing Dr Quinteros
--- OUTSIDE RECORDS SUMMARY | 2018-01-31 18:11 | XMS REPORT | CCD ---
Author Author Katey Veloz Organization Sonia Nolen MD, [facility] Address [address] [place] [address] Phone Care Team Providers Care Employee Representative Name Role Phone PP Unavailable CCM Unavailable Summary Purpose Interface Exchange Insurance Providers Payer name Policy type / Coverage type Covered constitution party ID Effective Begin Date Effective End Date WPS Medicare Part B Medicare Part B [id number] Unknown [facility] Medicare Part B [id number] Unknown Family history Mother Diagnosis Age At Onset Heart Attack Unknown Hypertension Unknown Hyperlipidemia Unknown Social History Social History Element Codes Description Effective Dates Marital status Unknown Wiley 09/25/2017 Number of children Unknown 5 07/29/2014 Employment Unknown Retired 07/29/[address]: 3801719 Quit over 10 years ago 07/29/[address]: 789852063 Never drinks alcohol 07/29/2014 Allergies, Adverse Reactions, [...] mcg-62.5 mcg-25 mcg powder for inhalation RxNorm: 8795678 1 INH daily 01/22/2018 02/18/2018 Active Diflucan 150 mg tablet RxNorm: 596783 1 Tablet(s) PO daily 09/201701/28/2018 Active Phenergan with Codeine Syrup RxNorm: 1 Teaspoon(s) PO Q8 as needed 01/02/2018 No Stop Date Active Tresiba FlexTouch U-200 insulin 200 unit/mL (3 mL) subcutaneous pen RxNorm: 2878757 8 Unit(s) SQ QHS 11/04/2017 Active losartan 50 mg tablet RxNorm: 272531 1/2 Tablet(s) daily 201711/04/2017 Inactive spironolactone 25 mg tablet RxNorm: 797918 1/2 Tablet(s) daily 11/04/2017 01/21/2018 Inactive indapamide 2.5 mg tablet RxNorm: 363926 TAKE 1/2 TABLET EVERY DAY 10/16/2017 10/10/2018 Active isosorbide mononitrate ER 30 mg tablet,extended release 24 hr RxNorm: 395894 TAKE 1 TABLET EVERY DAY 10/16/2017 10/10/2018 Active atenolol 25 mg tablet RxNorm: 707644 TAKE 1 TABLET EVERY DAY 03/201707/12/2018 Active levothyroxine 75 mcg tablet RxNorm: 426213 TAKE 1 TABLET EVERY DAY 10/16/2017 07/12/2018 Active spironolactone 25 mg tablet RxNorm: 820190 TAKE 1 TABLET EVERY DAY 10/16/2017 11/03/2017 Inactive losartan 50 mg tablet RxNorm: 530633 TAKE 1 TABLET EVERY DAY 03/201711/03/2017 Inactive James Jackson SoloStar 300 unit/mL (3 mL) subcutaneous insulin pen RxNorm: 7202409 8 Unit(s) SQ QHS 10/16/20172017 Inactive Basaglar KwikPen U-100 Insulin 100 unit/mL (3 mL) subcutaneous RxNorm: 5760062 10 Unit(s) SQ QHS 10/01/20172017 Inactive Basaglar KwikPen U-100 Insulin 100 unit/mL (3 mL) subcutaneous RxNorm: 5081406 10 Unit(s) SQ QHS 10/01/20172017 Inactive cyclobenzaprine 10 mg tablet RxNorm: 624892 Tablet(s) TAKE ONE TABLET BY MOUTH EVERY 8 HOURS NEEDED 09/10/20172017 Inactive simvastatin 40 mg tablet RxNorm: 172682 TAKE 1 TABLET EVERY DAY 08/15/2017 08/09/2018 Active Phenergan with Codeine Syrup RxNorm: 1 Teaspoon(s) PO Q8 as needed 03/19/2017 01/01/2018 Inactive simvastatin 40 mg tablet RxNorm: 815311 TAKE 1 TABLET EVERY DAY 03/13/2017 08/14/2017 Inactive atenolol 25 mg tablet RxNorm: 120810 Tablet(s) TAKE 1 TABLET EVERY DAY 02/14/2017 10/15/2017 Inactive levothyroxine 75 mcg tablet RxNorm: 651953 1 Tablet(s) PO daily 02/14/2017 10/15/2017 Inactive spironolactone 25 mg tablet RxNorm: 919767 1 Tablet(s) PO daily 01/02/2017 10/15/2017 Inactive cyclobenzaprine 10 mg tablet RxNorm: 479727 1 Tablet(s) PO Q8 as needed 11/26/2016 02/23/2017 Inactive cyclobenzaprine 10 mg tablet RxNorm: 843585 TAKE ONE TABLET BY MOUTH EVERY 8 HOURS NEEDED 11/26/2016 02/23/2017 Inactive losartan 50 mg tablet RxNorm: 566669 1 Tablet(s) PO daily 201610/15/2017 Inactive isosorbide mononitrate ER 30 mg tablet,extended release 24 hr RxNorm: 221403 1 Tablet(s) PO daily 11/21/2016 10/15/2017 Inactive indapamide 2.5 mg tablet RxNorm: 052539 1/2 Tablet(s) PO daily 10/31/2016 10/15/2017 Inactive Phenergan with Codeine Syrup RxNorm: 1 Teaspoon(s) PO Q8 as needed 10/05/2016 03/18/2017 Inactive levothyroxine 75 mcg tablet RxNorm: 548690 1 Tablet(s) PO daily 06/29/2016 12/25/2016 Inactive Phenergan with Codeine Syrup RxNorm: 1 Teaspoon(s) PO Q8 as needed 03/13/2016 03/12/2016 Inactive Phenergan with Codeine Syrup RxNorm: 1 Teaspoon(s) PO Q8 as needed 03/13/2016 10/04/2016 Inactive cyclobenzaprine 10 mg tablet RxNorm: 106181 1 Tablet(s) PO Q8 as needed 03/01/2016 05/29/2016 Inactive cyclobenzaprine 10 mg tablet RxNorm: 120942 1 Tablet(s) PO Q8 as needed 03/01/2016 02/29/2016 Inactive Zithromax Z-Deejay 250 mg tablet RxNorm: 818146 1 Tablet(s) PO daily 02/24/2016 06/13/2016 Inactive zpack x 1 atenolol 25 mg tablet RxNorm: 494987 TAKE 1 TABLET EVERY DAY 10/201501/17/2017 Inactive Phenergan with Codeine Syrup RxNorm: 1 Teaspoon(s) PO Q8 as needed 01/10/2016 03/12/2016 Inactive ceftriaxone 500 mg solution for injection RxNorm: 6949848 1 Milliliter(s) Inj 12/09/2015 12/09/2015 Inactive Kenalog 40 mg/mL suspension for injection RxNorm: 8122840 1 Milliliter(s) Inj 12/09/2015 12/09/2015 Inactive Lomotil 2.5 mg-0.025 mg tablet RxNorm: 6010104 1-2 Tablet(s) PO QID as needed 12/01/2015 12/05/2015 Inactive Lomotil 2.5 mg-0.025 mg tablet RxNorm: 2664285 1-2 Tablet(s) PO QID as needed 12/01/2015 11/30/2015 Inactive levothyroxine 75 mcg tablet RxNorm: 453858 1 Tablet(s) PO daily 11/15/2015 05/12/2016 Inactive isosorbide mononitrate ER 30 mg tablet,extended release 24 hr RxNorm: 192525 1 Tablet(s) PO daily 11/15/2015 11/08/2016 Inactive losartan 50 mg tablet RxNorm: 099399 1 Tablet(s) PO daily 201511/08/2016 Inactive levothyroxine 75 mcg tablet RxNorm: 672541 1 Tablet(s) PO daily 10/27/2015 11/14/2015 Inactive cefdinir 300 mg capsule RxNorm: 508683 1 Capsule(s) PO BID 11/201510/31/2015 Inactive Zithromax Z-Deejay 250 mg tablet RxNorm: 669772 1 Tablet(s) PO UD 10/25/2015 10/29/2015 Inactive indapamide 2.5 mg tablet RxNorm: 992971 1/2 Tablet(s) PO daily 09/14/2015 09/07/2016 Inactive spironolactone 25 mg tablet RxNorm: 642394 1 Tablet(s) PO daily 09/14/2015 09/07/2016 Inactive simvastatin 40 mg tablet RxNorm: 641387 1 Tablet(s) PO daily 09/07/2016 Inactive Phenergan with Codeine Syrup RxNorm: 1 Teaspoon(s) PO Q8 as needed 09/12/2015 01/09/2016 Inactive Zithromax Z-Deejay 250 mg tablet RxNorm: 862064 1 Tablet(s) PO daily 06/15/2015 11/14/2015 Inactive zpack x 1 Levaquin 250 mg tablet RxNorm: 912482 Tablet(s) PO 2 tabs day one and 1 tab day 2- 7 04/18/2015 01/09/2016 Inactive atenolol 25 mg tablet RxNorm: 057968 1 Tablet(s) PO daily 201401/23/2016 Inactive losartan 50 mg tablet RxNorm: 360281 1 Tablet(s) PO daily 201411/14/2015 Inactive simvastatin 40 mg tablet RxNorm: 409281 1 Tablet(s) PO daily 09/13/2015 Inactive spironolactone 25 mg tablet RxNorm: 176369 1 Tablet(s) PO daily 12/17/2014 09/13/2015 Inactive isosorbide mononitrate ER 30 mg tablet,extended release 24 hr RxNorm: 995600 1 Tablet(s) PO daily 12/17/2014 11/14/2015 Inactive atenolol 25 mg tablet RxNorm: 834742 1 Tablet(s) PO daily 201412/16/2014 Inactive atenolol 25 mg tablet RxNorm: 315494 1 Tablet(s) PO daily 201402/14/2015 Inactive isosorbide mononitrate ER 30 mg tablet,extended release 24 hr RxNorm: 080835 1 Tablet(s) PO daily 12/17/2014 12/16/2014 Inactive indapamide 2.5 mg tablet RxNorm: 192545 1/2 Tablet(s) PO daily 12/17/2014 09/13/2015 Inactive levothyroxine 50 mcg tablet RxNorm: 848560 1 Tablet(s) PO daily 12/17/2014 10/26/2015 Inactive Januvia 50 mg tablet RxNorm: 570750 1 Tablet(s) PO daily 201411/26/2014 Inactive Onglyza 2.5 mg tablet RxNorm: 869806 1 Tablet(s) PO daily 201412/02/2014 Inactive Januvia 50 mg tablet RxNorm: 337362 1 Tablet(s) PO daily 201411/25/2014 Inactive Tessalon Perles 100 mg capsule RxNorm: 518083 1 Capsule(s) PO TID as needed 11/23/2014 07/09/2016 Inactive Levaquin 500 mg tablet RxNorm: 921225 1 Tablet(s) PO daily 10/201411/22/2014 Inactive Levaquin 500 mg tablet RxNorm: 418069 1 Tablet(s) PO daily 10/201411/29/2014 Inactive Singulair 10 mg tablet RxNorm: 974401 1 Tablet(s) PO QPM No Start Date Active Proventil HFA 90 mcg/actuation aerosol inhaler RxNorm: 284493 2 Puff(s) INH QID No Start Date Active Zyrtec 10 mg tablet RxNorm: 3324294 1 Tablet(s) PO daily No Start Date Active Flonase Allergy Relief 50 mcg/actuation nasal spray, suspension RxNorm: 3184508 1 [place] NASAL daily per nostril No Start Date Active aspirin 81 mg tablet RxNorm: 386899 1 Tablet(s) PO daily No Start Date Active omeprazole 20 mg capsule,delayed release RxNorm: 572361 1 Capsule(s) PO daily No Start Date Active indapamide 2.5 mg tablet RxNorm: 753688 1/2 Tablet(s) PO daily No Start Date 12/16/2014 Inactive Tessalon Perles 100 mg capsule RxNorm: 310841 1 Capsule(s) PO TID as needed No Start Date 11/22/2014 Inactive losartan 50 mg tablet RxNorm: 843044 1 Tablet(s) PO daily No Start Date 12/16/2014 Inactive spironolactone 25 mg tablet RxNorm: 284065 1 Tablet(s) PO daily No Start Date 12/16/2014 Inactive isosorbide mononitrate ER 30 mg tablet,extended release 24 hr RxNorm: 356728 1 Tablet(s) PO daily No Start Date 2014 Inactive atenolol 25 mg tablet RxNorm: 403561 1 Tablet(s) PO daily No Start Date 12/16/2014 Inactive Zithromax Z-Deejay 250 mg tablet RxNorm: 121039 1 Tablet(s) PO daily No Start Date 06/14/2015 Inactive levothyroxine 50 mcg tablet RxNorm: 207024 1 Tablet(s) PO daily No Start Date 12/16/2014 Inactive simvastatin 40 mg tablet RxNorm: 073986 1 Tablet(s) PO daily No Start Date 12/16/2014 Inactive Medication Administered Medication Codes Instructions Start Date Status Kenalog 40 mg/mL suspension for injection RxNorm: 8490843 1Milliliter 12/09/2015 No longer Active ceftriaxone 500 mg solution for injection RxNorm: 7979560 1Milliliter 12/09/2015 No longer Active Immunizations Vaccine [...] Item Item Code Result Date Free T4 Qim535 FREE T4 1.13 ng/dL 09/26/2017 Microalbumin Kbd906 MicroAlb 2.1 mg/dL 09/26/2017 Cbc With Differential Ord2 WBC 8.53 K/ul 09/26/2017 Cbc With Differential Ord2 RBC 4.60 M/ul 09/26/2017 Cbc With Differential Ord2 HGB 12.9 g/dl 09/26/2017 Cbc With Differential Ord2 Neut% 58.0 % 09/26/2017 Cbc With Differential Ord2 HCT 41.0 % 09/26/2017 Cbc With Differential Ord2 Lymph% 29.2 % 09/26/2017 Cbc With Differential Ord2 MCV 89.1 fl 09/26/2017 Cbc With Differential Ord2 MCH 28.0 pg 09/26/2017 Cbc With Differential Ord2 [place]% 9.0 % 09/26/2017 Cbc With Differential Ord2 Eos% 3.4 % 09/26/2017 Cbc With Differential Ord2 MCHC 31.5 pg 09/26/2017 Cbc With Differential Ord2 PLT 340 K/ul 09/26/2017 Cbc With Differential Ord2 Baso% 0.4 % 09/26/2017 Cbc With Differential Ord2 Neut ABS# 4.95 K/ul 09/26/2017 Cbc With Differential Ord2 RDW 14.0 % 09/26/2017 Cbc With Differential Ord2 Lymph ABS# 2.49 K/ul 09/26/2017 Cbc With Differential Ord2 [place] ABS# 0.8 K/ul 09/26/2017 Cbc With Differential Ord2 Eos ABS# 0.3 K/ul 09/26/2017 Cbc With Differential Ord2 Baso ABS# 0.0 K/ul 09/26/2017 Lipid Ord30 CHOL 118 mg/dL 09/26/2017 Lipid Ord30 HDL 39.0 mg/dl 09/26/2017 Lipid Ord30 TRIG 138 mg/dL 09/26/2017 Lipid Ord30 LDL 51 mg/dL 09/26/2017 Lipid Ord30 C/HDL 3.0 Ratio 09/26/2017 Comp Metabolic Hpf114 NA 138 mEq/L 09/26/2017 Comp Metabolic Jxp902 K 4.5 mEq/L 09/26/2017 Comp Metabolic Ovg413 CL 103 mEq/L 09/26/2017 Comp Metabolic Uzb986 CO2 26.0 mEq/L 09/26/2017 Comp Metabolic Red462 ANION GAP 14 09/26/2017 Comp Metabolic Uwh520 GLUCOSE 121 mg/dL 09/26/2017 Comp Metabolic Nrb255 Creat 1.2 mg/dL 09/26/2017 Comp Metabolic Sph017 eGFR 46 ml/min/1.73m2 09/26/2017 Comp Metabolic Gmw059 BUN 18 mg/dL 09/26/2017 Comp Metabolic Vpr756 B/C Ratio 15.0 Ratio 09/26/2017 Comp Metabolic Dyl940 CALCIUM 9.0 mg/dL 09/26/2017 Comp Metabolic Bhi563 ALK PHOS 88 U/L 09/26/2017 Comp Metabolic Xpy122 AST(SGOT) 15 U/L 09/26/2017 Comp Metabolic Fef547 ALT(SGPT) 9 U/L 09/26/2017 Comp Metabolic Xhj800 BILI T 0.4 mg/dL 09/26/2017 Comp Metabolic Gbi614 ALBUMIN 3.7 g/dL 09/26/2017 Comp Metabolic Nav981 TPRO 7.4 g/dL 09/26/2017 Comp Metabolic Ccm195 GLOB 3.7 g/dL 09/26/2017 Comp Metabolic Vfc255 A/G Ratio 1.0 Ratio 09/26/2017 Comp Metabolic Hrw127 Osmo 279 mOsmo 09/26/2017 Tsh Ord6 TSH (3rd IS) 2.58 uIU/mL 09/26/2017 %Hba1C Rio468 % HbA1c 17094-4 7.1 % 09/26/2017 %Hba1C Rlp745 Gluc Ave 157 mg/dL 09/26/2017 Tsh Ord6 [...] 24.6 % 03/13/2016 Cbc With Differential Ord2 MCH 29.3 pg 03/13/2016 Cbc With Differential Ord2 [place]% 8.6 % 03/13/2016 Cbc With Differential Ord2 MCHC 31.7 pg 03/13/2016 Cbc With Differential Ord2 Eos% 4.4 % 03/13/2016 Cbc With Differential Ord2 PLT 258 K/ul 03/13/2016 Cbc With Differential Ord2 Baso% 0.4 % 03/13/2016 Cbc With Differential Ord2 RDW 13.8 % 03/13/2016 Cbc With Differential Ord2 Neut ABS# 6.11 K/ul 03/13/2016 Cbc With Differential Ord2 Lymph ABS# 2.43 K/ul 03/13/2016 Cbc With Differential Ord2 [place] ABS# 0.9 K/ul 03/13/2016 Cbc With Differential Ord2 Eos ABS# 0.4 K/ul 03/13/2016 Cbc With Differential Ord2 Baso ABS# 0.0 K/ul 03/13/2016 %Hba1C Opl782 % HbA1c 88275-1 6.7 % 03/13/2016 %Hba1C Jql043 Gluc Ave 146 mg/dL 03/13/2016 Free T4 Mui315 FREE T4 1.19 ng/dL 03/13/2016 Comp Metabolic Coe216 NA 137 mEq/L 03/13/2016 Comp Metabolic Gmn529 K 3.9 mEq/L 03/13/2016 Comp Metabolic Wbv609 CL 101 mEq/L 03/13/2016 Comp Metabolic Cmu708 CO2 29.0 mEq/L 03/13/2016 Comp Metabolic Aop269 ANION GAP 11 03/13/2016 Comp Metabolic Mkm231 GLUCOSE 111 mg/dL 03/13/2016 Comp Metabolic Eoo031 Creat 1.2 mg/dL 03/13/2016 Comp Metabolic Lzj245 eGFR 48 ml/min/1.73m2 03/13/2016 Comp Metabolic Bfe344 BUN 17 mg/dL 03/13/2016 Comp Metabolic Scq506 B/C Ratio 14.8 Ratio 03/13/2016 Comp Metabolic Bdh560 CALCIUM 9.6 mg/dL 03/13/2016 Comp Metabolic Pmk707 ALK PHOS 89 U/L 03/13/2016 Comp Metabolic Hkm034 AST(SGOT) 18 U/L 03/13/2016 Comp Metabolic Ovd539 ALT(SGPT) 13 U/L 03/13/2016 Comp Metabolic Wwk915 BILI T 0.5 mg/dL 03/13/2016 Comp Metabolic Tao578 ALBUMIN 3.8 g/dL 03/13/2016 Comp Metabolic Upt334 TPRO 7.1 g/dL 03/13/2016 Comp Metabolic Lwq150 GLOB 3.3 g/dL 03/13/2016 Comp Metabolic Ybr836 A/G Ratio 1.1 Ratio 03/13/2016 Comp Metabolic Tvg352 Osmo 276 mOsmo 03/13/2016 Culture Sputum 060520 LOWER RESPIRATORY TRACT CULTURE SEE NOTES 12/30/2015 Culture Stool 600012 STOOL CULTURE SEE NOTES 12/26/2015 Shiga Toxin 1 & 2 Eia Stool 072596 SHIGA TOXIN 1: NEGATIVE 12/23/2015 Shiga Toxin 1 & 2 Eia Stool 122603 SHIGA TOXIN 2: NEGATIVE 12/23/2015 Clostridium Diff Tox A/B Qmd366 Cdiff Negative 12/21/2015 Review of Systems System [...] Formatting Model/CDA Sections, Assigned to/Stephanie Cedeño CPT-4: 51075Sptmsmg 11/21/2017 DESTRUCT PREMALG LESION CPT-4: 11182 10/16/2017 ROCEPHIN, PER 250 MG CPT-4: J0696 12/09/2015 TRIAMCINOLONE ACET INJ NOS CPT-4: J3301 12/09/2015 Vital Signs Date Vital 01/27/2018 Blood Pressure 1: 132/68 Code : 8480-6 BMI: 21.8 Code : 18370-7 Heart Rate 1 : 84 bpm Height: 5'7" SpO2: 92% Weight: 139 lbs 01/22/2018 Blood Pressure 1: 132/60 Code : 8480-6 BMI: 21.8 Code : 77810-2 Heart Rate 1 : 72 bpm Height: 5'7" SpO2: 94% Weight: 139 lbs 01/02/2018 Blood Pressure 1: 146/66 Code : 8480-6 BMI: 21.6 Code : 75959-8 Heart Rate 1 : 80 bpm Height: 5'7" SpO2: 97% Weight: 138 lbs 11/21/2017 Blood Pressure 1: 138/60 Code : 8480-6 BMI: 22.4 Code : 99751-6 Heart Rate 1 : 71 bpm Height: 5'7" SpO2: 92% Weight: 143 lbs 11/04/2017 Blood Pressure 1: 102/56 Code : 8480-6 BMI: 22.6 Code : 48973-9 Heart Rate 1 : 83 bpm Height: 5'7" SpO2: 91% Weight: 144 lbs 10/16/2017 Blood Pressure 1: 140/63 Code : 8480-6 BMI: 23.2 Code : 44137-3 Heart Rate 1 : 97 bpm Height: 5'7" SpO2: 94% Weight: 148 lbs 09/25/2017 Blood Pressure 1: 124/60 Code : 8480-6 BMI: 23.8 Code : 52103-4 Heart Rate 1 : 81 bpm Height: 5'7" SpO2: 97% Weight: 152 lbs 07/10/2016 Blood Pressure 1: 136/70 Code : 8480-6 BMI: 25.5 Code : 69566-7 Heart Rate 1 : 87 bpm Height: 5'7" SpO2: 90% Weight: 162 lbs 8 oz 03/13/2016 Blood Pressure 1: 130/72 Code : 8480-6 BMI: 25.4 Code : 36042-5 Heart Rate 1 : 86 bpm Height: 5'7" SpO2: 91% Weight: 162 lbs 01/10/2016 Blood Pressure 1: 122/80 Code : 8480-6 BMI: 25.7 Code : 43840-5 Heart Rate 1 : 83 bpm Height: 5'7" SpO2: 94% Weight: 164 lbs 12/20/2015 Blood Pressure 1: 128/86 Code : 8480-6 BMI: 25.1 Code : 78340-8 Heart Rate 1 : 74 bpm Height: 5'7" SpO2: 95% Weight: 160 lbs 12/09/2015 Blood Pressure 1: 132/68 Code : 8480-6 BMI: 26.2 Code : 48006-0 Heart Rate 1 : 80 bpm Height: 5'7" SpO2: 96% Weight: 167 lbs 10/25/2015 Blood Pressure 1: 128/52 Code : 8480-6 BMI: 26.5 Code : 77217-5 Heart Rate 1 : 80 bpm Height: 5'7" SpO2: 92% Weight: 169 lbs 09/12/2015 Blood Pressure 1: 122/70 Code : 8480-6 BMI: 26.5 Code : 90052-5 Heart Rate 1 : 76 bpm Height: 5'7" SpO2: 90% Weight: 169 lbs 04/18/2015 Blood Pressure 1: 142/58 Code : 8480-6 BMI: 25.4 Code : 51039-8 Heart Rate 1 : 76 bpm Height: 5'7" SpO2: 96% Weight: 162 lbs 03/04/2015 Blood Pressure 1: 110/68 Code : 8480-6 BMI: 25.4 Code : 11937-7 Heart Rate 1 : 68 bpm Height: 5'7" SpO2: 95% Weight: 162 lbs 02/22/2015 Blood Pressure 1: 100/52 Code : 8480-6 BMI: 25.1 Code : 47234-6 Heart Rate 1 : 66 bpm Height: 5'7" SpO2: 95% Temperature: 36.5 (C) / 97.7 (F) Weight: 160 lbs 12/03/2014 Blood Pressure 1: 130/64 Code : 8480-6 BMI: 25.5 Code : 18143-5 Heart Rate 1 : 87 bpm Height: 5'7" SpO2: 94% Weight: 163 lbs 11/23/2014 Blood Pressure 1: 140/64 Code : 8480-6 BMI: 27.3 Code : 41965-6 Heart Rate 1 : 70 bpm Height: 5'7" SpO2: 91% Weight: 174 lbs 07/29/2014 Blood Pressure 1: 118/64 Code : 8480-6 BMI: 27.7 Code : 28552-8 Heart Rate 1 : 72 bpm Height: [...] Present Encounters Encounter Performer Location Codes Date ([id number]) 54142 EST. PATIENT, LEVEL IV Diagnosis: Cough[ICD10: R05] Diagnosis: Candidal stomatitis[ICD10: B37.0] Diagnosis: Essential (primary) hypertension[ICD10: I10] Diagnosis: Type 2 diabetes mellitus without complications[ICD10: E11.9] [facility] CPT-4: 50969 01/22/2018 [id number]) 47878 EST. PATIENT, LEVEL III Diagnosis: Cystocele, midline[ICD10: N81.11] [facility] CPT-4: 00135 01/02/2018 ([id number]) 92455 EST. PATIENT, LEVEL IV Diagnosis: Type 2 diabetes mellitus without complications[ICD10: E11.9] Diagnosis: Essential (primary) hypertension[ICD10: I10] Diagnosis: Encounter for immunization[ICD10: Z23] [facility] CPT-4: 85872 11/21/2017 ([id number]) 27309 EST. PATIENT, LEVEL III Diagnosis: Orthostatic hypotension[ICD10: I95.1] Sonia Nolen MD [facility] CPT-4: 28270 11/04/2017 ([id number]) 57641 EST. PATIENT, LEVEL IV Diagnosis: Type 2 diabetes mellitus with hyperglycemia[ICD10: E11.65] Sonia Nolen MD [facility] CPT-4: 91727 10/16/2017 ([id number]) 75555 EST. PATIENT, LEVEL IV Diagnosis: Essential (primary) hypertension[ICD10: I10] Diagnosis: Type 2 diabetes mellitus without complications[ICD10: E11.9] Diagnosis: Atrophy of thyroid (acquired)[ICD10: E03.4] Sonia Nolen MD [facility] CPT-4: 83945 09/25/2017 ([id number]) 18165 EST. PATIENT, LEVEL IV Diagnosis: Type 2 diabetes mellitus without complications[ICD10: E11.9] Diagnosis: Essential (primary) hypertension[ICD10: I10] Diagnosis: Hypothyroidism, unspecified[ICD10: E03.9] Diagnosis: Idiopathic pulmonary fibrosis[ICD10: J84.112] Katey Nolen MD [facility] CPT-4: 10436 07/10/2016 ([id number]) 01542 EST. PATIENT, LEVEL IV Diagnosis: Type 2 diabetes mellitus without complications[ICD10: E11.9] Diagnosis: Hypothyroidism, unspecified[ICD10: E03.9] Diagnosis: Essential (primary) hypertension[ICD10: I10] Diagnosis: Idiopathic pulmonary fibrosis[ICD10: J84.112] Katey Nolen MD [facility] CPT-4: 00541 03/13/2016 ([id number]) 32911 EST. 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 PATIENT, LEVEL IV Diagnosis: Other allergic rhinitis[ICD10: J30.89] Diagnosis: Idiopathic pulmonary fibrosis[ICD10: J84.112] Diagnosis: Cough[ICD10: R05] Monse Nolen MD, [facility] CPT-4: 68302 12/09/2015 ([id number]) 18577 EST. PATIENT, LEVEL III Diagnosis: Cough[ICD10: R05] Diagnosis: Unspecified bacterial pneumonia[ICD10: J15.9] Katey Nolen MD, [facility] CPT-4: 44483 10/25/2015 ([id number]) 95734 EST. PATIENT, LEVEL IV Diagnosis: Essential (primary) hypertension[ICD10: I10] Diagnosis: Idiopathic pulmonary fibrosis[ICD10: J84.112] Diagnosis: Hypothyroidism, unspecified[ICD10: E03.9] Diagnosis: Type 2 diabetes mellitus without complications[ICD10: E11.9] Katey Nolen MD, [facility] CPT-4: 03337 09/12/2015 00857 EST. PATIENT, LEVEL IV Diagnosis: Acute laryngopharyngitis[ICD10: J06.0] Diagnosis: Idiopathic pulmonary fibrosis[ICD10: J84.112] Diagnosis: Cough[ICD10: R05] Monse Nolen MD, [facility] CPT-4: 91588 04/18/2015 ([id number]) 62201 EST. PATIENT, LEVEL III Diagnosis: Idiopathic pulmonary fibrosis[ICD10: J84.112] Katey Nolen MD, [facility] CPT-4: 20452 03/04/2015 ([id number]) 90242 EST. PATIENT, LEVEL III Diagnosis: Cough[ICD10: R05] Sonia Nolen MD, [facility] CPT-4: 01619 02/22/2015 ([id number]) 58203 EST. PATIENT, LEVEL IV Diagnosis: ESSENTIAL HYPERTENSION[ICD9: 401.9] Diagnosis: DIABETES TYPE II[ICD9: 250.00] Diagnosis: Chronic renal disease, stage 3, moderately decreased glomerular filtration rate between 30-59 mL/min/1.73 square meter[ICD9: 585.3] [facility] CPT-4: 10762 12/03/2014 ([id number]) 84695 EST. PATIENT, LEVEL III Diagnosis: BACTERIAL PNEUMONIA[ICD9: 482.9] Diagnosis: COUGH[ICD9: 786.2] Diagnosis: DIABETES TYPE II[ICD9: 250.00] [facility] CPT- 4: 68097 11/23/2014 ([id number]) OFFICE VISIT, NEW - LEVEL 4 Diagnosis: ESSENTIAL HYPERTENSION[ICD9: 401.9] Diagnosis: Hypothyroidism[ICD9: 244.9] Diagnosis: DIABETES TYPE II[ICD9: 250.00] Diagnosis: Pulmonary fibrosis[ICD9: 515] [facility] CPT-4: 55928 07/29/2014 Plan of Care Planned Activity Notes [...] DOPA paperwork for health care surrogate. 01/27/2018 Patient Education: Patient Medication Summary Completed [...] by the office in two weeks for to review. COPD - pt was started [...] this time. 01/22/2018 Appointment: Sonia Nolen WPtel: [phone] [facility] [place] (15 min) Moderate 01/22/2018 Patient Education: Patient [...] plan. 01/02/2018 Appointment: Katey Veloz WPtel: [phone] [phone] [place] (15 min) Moderate 01/02/2018 Patient Education: [...] less controlled. 11/21/2017 Appointment: Sonia Nolen WPtel: [phone] [facility] [place] (15 min) Moderate 11/21/2017 Patient Education: Patient Medication Summary Completed 11/21/2017 Patient Education: Hypertension Completed 11/21/2017 Appointment: Sonia Nolen WPtel: [facility] [place] (15 min) Moderate 11/14/2017 Visit Plan: Dizziness [...] further instructions. 11/04/2017 Appointment: Sonia Nolen WPtel: [phone] [facility] (15 min) Moderate 11/04/2017 Patient Education: Patient [...] lesion. 10/16/2017 [phone] [place] (15 min) Moderate 10/16/2017 Patient Education: Patient [...] dr. quinteros 09/25/2017 Appointment: Sonia Nolen WPtel: [facility] (15 min) Moderate 09/25/2017 Patient Education: Patient Medication Summary Completed 09/25/2017 Appointment: Katey Veloz WPtel: [phone] (30 min) Complex 01/07/2017 Visit Plan: Hypertension [...] Dr Quinteros 07/10/2016 Appointment: Katey Veloz WPtel: [phone] (30 min) Complex 07/10/2016 Patient Education: Patient [...] less controlled. 03/13/2016 Appointment: Katey Veloz WPtel: [address] [place], [place] [phone] (30 min) Complex 03/13/2016 Patient Education: Patient Medication Summary Completed 03/13/2016 Care Plan: Comp Metabolic Pending 03/13/2016 Care Plan: Cbc With Differential Pending 03/13/2016 Care Plan: %Hba1C LOINC : 37880-3 Pending 03/13/2016 Care Plan: Tsh Pending 03/13/2016 Care Plan: Free T4 Pending 03/13/2016 Care Plan: Referral Order SNOMED-CT : [id number] Pending 03/13/2016 Visit Plan: Pulmonary fibrosis-symptoms stable-I [...] change in blood pressure readings at home. Rrsqsyif-gftvahai-vdyu to decrease probiotic to daily-if bowels continue to be regular-patient can stop probiotic and see how she does- instructed her to increase probiotic at any time she is prescribed an antibiotic -patient and daughter verbalized understanding of plan. 01/10/2016 Appointment: Katey Veloz WPtel: [address] [place], [place] [phone] [place] (30 min) Complex 01/10/2016 Patient Education: Patient Medication Summary Completed 01/10/2016 Patient Education: Hypertension Completed 01/10/2016 Patient Education: Patient Medication Summary Completed 12/28/2015 Care Plan: Clostridium Diff Tox A/B Cancelled 12/22/2015 Patient Education: Patient Medication Summary Completed 12/21/2015 Care Plan: FECES CULTURE AEROBIC BACT LOINC : 47551-7 Pending 12/21/2015 Visit Plan: Diarrhea - recommended bland diet, low fat diet , start on probiotic, and rehydrate with gatorade-like product. Pt to call if feeling worse, diarrhea becomes bloody, or does not improve with above recommendations. Pt to call for acute worsening of stomach upset or stomach pain. CHECK STOOL FOR CDIFF, STOOL CULTURE 12/20/2015 Appointment: [facility] [phone] [facility] [phone] (15 min) Moderate 12/20/2015 Patient Education: Patient Medication Summary Completed 12/20/2015 Visit Plan: Pulmonary musxhszp-ubbpjgf-daoi Dr Quinteros and wears oxygen at night [...] of control. 09/12/2015 Appointment: Katey Veloz WPtel: [phone] (15 min) Moderate 09/12/2015 Patient Education: Patient Medication Summary Completed 09/12/2015 Patient Education: Hypertension Completed 09/12/2015 Care Plan: COMPLETE CBC AUTOMATED LOINC : 56866-4 Pending 09/12/2015 Visit Plan: Pulmonary mepbpfax-metpxxa-josf Dr Quinteros and wears oxygen at night URI - Pt advised to increase fluids, vitamin C. Discussed natural and expected course of this diagnosis and need to alert me if symptoms do not follow expected course, or if any worse. RX sent to patient's pharmacy. 04/18/2015 Visit Plan: Pulmonary vphhowyg-dwhqavx-imtu Dr Quinteros and wears oxygen at night URI - Pt advised to increase fluids, vitamin C. Discussed natural and expected course of this diagnosis and need to alert me if symptoms do not follow expected course, or if any worse. RX sent to patient's pharmacy. 04/18/2015 Appointment: (30 min) Complex 04/18/2015 Patient Education: Patient Medication Summary Completed 04/18/2015 Care Plan: Shellie SALAS Pending 04/18/2015 Visit Plan: Pneumonia-resolved Pulmonary fibrosis-chronic- [...] need for acute treatment of this illness. lovely burrell Fashinating, EXFO yogurt, - all of these have probiotics [...] numbers are. 11/23/2014 Appointment: Sonia Nolen WPtel[id number] [place] (15 min) Moderate 11/23/2014 Patient Education: Patient [...] Quinteros Referral Appointment Requested Instructions Comment . Hypertension - well controlled - continue [...] levels of control. Pulmonary fibrosis-seeing Dr Quinteros MELATONIN UP TO 10MG NEEDED REPEAT HGB [...] Daytime napping worsens night time insomnia. . 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 . Pneumonia - Pt has been diagnosed with pneumonia by physical exam. A chest xray has been ordered as have antibiotics. The pt is aware of the diagnosis and the need for acute treatment of this illness. CUT BACK ON SWEETS/BREADS/PASTA/POTATOES-REPEAT LABS IN 4 [...] fibrosis-followed by Dr Quinteros-wears oxygen at night refill phenergan with codeine to dillons . [...] change in blood pressure readings at home. Viqkimeb-iruwsyit-thqf to decrease probiotic to daily-if bowels continue to be regular-patient can stop probiotic and see how she does-instructed her to increase probiotic at any time she is prescribed an antibiotic-patient and daughter verbalized understanding of plan. . Hypothyroidism - pt with chronic hypothyroidism, [...] - stable - defer to dr. quinteros . Hypertension - well controlled - continue [...] want to see what your numbers are. Dr Quinteros -follow up pulmonary fibrosis . [...] readings are starting to become less controlled. lovely burrell Fashinating, EXFO yogurt, - all of these have probiotics [...] need for acute treatment of this illness. lovely burrell Fashinating, EXFO yogurt, - all of these have probiotics - you need to take a probiotic three times daily while on the antibiotic LEVAQUIN - when off of the antibiotic, start on the probiotic just ONE time a day. mucinex - take 600mg twice daily with 16 ounces of water with each pill. - take for one week. decrease spironolactone to 1/2 of the 25mg [...] 110 for the top number - by saturday - then we will probably have you [...] 110 for the top number - by saturday - then we will probably have you stop the losartan completely. if you are feeling poorly and your pressure is at or below 90 - do not take the losartan at all on that morning and call the office for further instructions. . Pulmonary escoymbh-grbrako-bwna Dr Quinteros and wears oxygen at night [...] spray in the nasal steroid allergy spray. stop the spironolactone - this is a [...] no change in medications at this time. Get fasting labs in [place]. . Hypertension - well controlled - continue [...] months based on previous levels of control. . Cystocele -discussed with Dr Nolen -since patient is asymptomatic, will just monitor for now. Discussed with patient and daughter if she starts to have urinary difficulties, infections, etc, we can refer her to Dr Venegas for a pessary -patient verbalized understanding of plan. . Diabetes Mellitus - Uncontrolled - per [...] dressed with neosporin and monitor lesion. . Pneumonia-resolved Pulmonary napbjevm-qcitvcs-tngw Dr Quinteros and wears oxygen at night CHECK STOOLS-STOOL CULTURE AND STOOL FOR CDIFF . Diarrhea - recommended bland diet, low fat diet, start on probiotic, and rehydrate with gatorade-like product. Pt to call if feeling worse, diarrhea becomes bloody, or does not improve with above recommendations. Pt to call for acute worsening of stomach upset or stomach pain. CHECK STOOL FOR CDIFF, STOOL CULTURE Levaquin 2 tabs day one and 1 tab day 2-7 probiotic with antibiotics. Pulmonary qddylokc-suzqqxh-qkxj Dr Quinteros and wears oxygen at night URI - Pt advised to increase fluids, vitamin C. Discussed natural and expected course of this diagnosis and need to alert me if symptoms do not follow expected course, or if any worse. RX sent to patient's pharmacy. Levaquin 2 tabs day one and 1 tab day 2-7 probiotic with antibiotics. Pulmonary xeqyhfhv-rvkamzv-mxxa Dr Quinteros and wears oxygen at night URI - Pt advised to increase fluids, vitamin C. Discussed natural and expected course of this diagnosis and need to alert me if symptoms do not follow expected course, or if any worse. RX sent to patient's pharmacy.
--- OUTSIDE RECORDS SUMMARY | 2018-01-31 18:14 | XMS REPORT | CCD ---
Author Author Katey Veloz Organization Sonia Nolen MD, [facility] Address [address] [place] [address] Phone Care Team Providers Care Assistant Produce Manager Name Role Phone PP Unavailable CCM Unavailable Summary Purpose Interface Exchange Insurance Providers Payer name Policy type / Coverage type Covered green party ID Effective Begin Date Effective End Date WPS Medicare Part B Medicare Part B [id number] Unknown [facility] Medicare Part B [id number] Unknown Family history Mother Diagnosis Age At Onset Heart Attack Unknown Hypertension Unknown Hyperlipidemia Unknown Social History Social History Element Codes Description Effective Dates Marital status Unknown [place] 09/25/2017 Number of children Unknown 5 07/29/2014 Employment Unknown Retired 07/29/[address]: 6808502 Quit over 10 years ago 07/29/[address]: 915465894 Never drinks alcohol 07/29/2014 Allergies, Adverse Reactions, Alerts Substance Reaction Codes Entered Date Inactivated Date Status * NO KNOWN FOOD ALLERGIES Unknown 07/29/2014 No Inactive Date Active MORPHINE SULFATE RxNorm: 7052 07/29/2014 No Inactive Date Active Penicillin Unknown 07/29/2014 No Inactive Date Active SULFA(SULFONAMIDE ANTIBIOTICS) Unknown 07/29/2014 No Inactive Date Active Past Medical History Illness Codes Condition Status Onset Date Resolved Date Candidal stomatitis ICD-9: 112.0 ICD-10: B37.0 Active [...] Problems Condition Codes Effective Dates Condition Status Candidal stomatitis ICD-9: 112.0 ICD-10: B37.0 01/22/2018 [...] mcg-62.5 mcg-25 mcg powder for inhalation RxNorm: 7410114 1 INH daily 01/22/2018 02/18/2018 Active Diflucan 150 mg tablet RxNorm: 912088 1 Tablet(s) PO daily 09/201701/28/2018 Active Phenergan with Codeine Syrup RxNorm: 1 Teaspoon(s) PO Q8 as needed 01/02/2018 No Stop Date Active Tresiba FlexTouch U-200 insulin 200 unit/mL (3 mL) subcutaneous pen RxNorm: 0984344 8 Unit(s) SQ QHS 11/04/2017 Active losartan 50 mg tablet RxNorm: 496764 1/2 Tablet(s) daily 201711/04/2017 Inactive spironolactone 25 mg tablet RxNorm: 494353 1/2 Tablet(s) daily 11/04/2017 01/21/2018 Inactive indapamide 2.5 mg tablet RxNorm: 852349 TAKE 1/2 TABLET EVERY DAY 10/16/2017 10/10/2018 Active isosorbide mononitrate ER 30 mg tablet,extended release 24 hr RxNorm: 021845 TAKE 1 TABLET EVERY DAY 10/16/2017 10/10/2018 Active atenolol 25 mg tablet RxNorm: 725735 TAKE 1 TABLET EVERY DAY 03/201707/12/2018 Active levothyroxine 75 mcg tablet RxNorm: 048863 TAKE 1 TABLET EVERY DAY 10/16/2017 07/12/2018 Active spironolactone 25 mg tablet RxNorm: 262277 TAKE 1 TABLET EVERY DAY 10/16/2017 11/03/2017 Inactive losartan 50 mg tablet RxNorm: 021364 TAKE 1 TABLET EVERY DAY 03/201711/03/2017 Inactive Toujeo Max SoloStar 300 unit/mL (3 mL) subcutaneous insulin pen RxNorm: 4550563 8 Unit(s) SQ QHS 10/16/20172017 Inactive Basaglkendall KwikPen U-100 Insulin 100 unit/mL (3 mL) subcutaneous RxNorm: 5282762 10 Unit(s) SQ QHS 10/01/20172017 Inactive Basaglar RebekahikPen U-100 Insulin 100 unit/mL (3 mL) subcutaneous RxNorm: 3311080 10 Unit(s) SQ QHS 10/01/20172017 Inactive cyclobenzaprine 10 mg tablet RxNorm: 014242 Tablet(s) TAKE ONE TABLET BY MOUTH EVERY 8 HOURS NEEDED 09/10/20172017 Inactive simvastatin 40 mg tablet RxNorm: 481142 TAKE 1 TABLET EVERY DAY 08/15/2017 08/09/2018 Active Phenergan with Codeine Syrup RxNorm: 1 Teaspoon(s) PO Q8 as needed 03/19/2017 01/01/2018 Inactive simvastatin 40 mg tablet RxNorm: 499332 TAKE 1 TABLET EVERY DAY 03/13/2017 08/14/2017 Inactive atenolol 25 mg tablet RxNorm: 765366 Tablet(s) TAKE 1 TABLET EVERY DAY 02/14/2017 10/15/2017 Inactive levothyroxine 75 mcg tablet RxNorm: 230523 1 Tablet(s) PO daily 02/14/2017 10/15/2017 Inactive spironolactone 25 mg tablet RxNorm: 502788 1 Tablet(s) PO daily 01/02/2017 10/15/2017 Inactive cyclobenzaprine 10 mg tablet RxNorm: 750933 1 Tablet(s) PO Q8 as needed 11/26/2016 02/23/2017 Inactive cyclobenzaprine 10 mg tablet RxNorm: 727089 TAKE ONE TABLET BY MOUTH EVERY 8 HOURS NEEDED 11/26/2016 02/23/2017 Inactive losartan 50 mg tablet RxNorm: 287020 1 Tablet(s) PO daily 201610/15/2017 Inactive isosorbide mononitrate ER 30 mg tablet,extended release 24 hr RxNorm: 835708 1 Tablet(s) PO daily 11/21/2016 10/15/2017 Inactive indapamide 2.5 mg tablet RxNorm: 667336 1/2 Tablet(s) PO daily 10/31/2016 10/15/2017 Inactive Phenergan with Codeine Syrup RxNorm: 1 Teaspoon(s) PO Q8 as needed 10/05/2016 03/18/2017 Inactive levothyroxine 75 mcg tablet RxNorm: 942784 1 Tablet(s) PO daily 06/29/2016 12/25/2016 Inactive Phenergan with Codeine Syrup RxNorm: 1 Teaspoon(s) PO Q8 as needed 03/13/2016 03/12/2016 Inactive Phenergan with Codeine Syrup RxNorm: 1 Teaspoon(s) PO Q8 as needed 03/13/2016 10/04/2016 Inactive cyclobenzaprine 10 mg tablet RxNorm: 413219 1 Tablet(s) PO Q8 as needed 03/01/2016 05/29/2016 Inactive cyclobenzaprine 10 mg tablet RxNorm: 161186 1 Tablet(s) PO Q8 as needed 03/01/2016 02/29/2016 Inactive Zithromax Z-Deejay 250 mg tablet RxNorm: 358785 1 Tablet(s) PO daily 02/24/2016 06/13/2016 Inactive zpack x 1 atenolol 25 mg tablet RxNorm: 619500 TAKE 1 TABLET EVERY DAY 10/201501/17/2017 Inactive Phenergan with Codeine Syrup RxNorm: 1 Teaspoon(s) PO Q8 as needed 01/10/2016 03/12/2016 Inactive ceftriaxone 500 mg solution for injection RxNorm: 9575372 1 Milliliter(s) Inj 12/09/2015 12/09/2015 Inactive Kenalog 40 mg/mL suspension for injection RxNorm: 6676458 1 Milliliter(s) Inj 12/09/2015 12/09/2015 Inactive Lomotil 2.5 mg-0.025 mg tablet RxNorm: 3886445 1-2 Tablet(s) PO QID as needed 12/01/2015 12/05/2015 Inactive Lomotil 2.5 mg-0.025 mg tablet RxNorm: 2163876 1-2 Tablet(s) PO QID as needed 12/01/2015 11/30/2015 Inactive levothyroxine 75 mcg tablet RxNorm: 708593 1 Tablet(s) PO daily 11/15/2015 05/12/2016 Inactive isosorbide mononitrate ER 30 mg tablet,extended release 24 hr RxNorm: 554505 1 Tablet(s) PO daily 11/15/2015 11/08/2016 Inactive losartan 50 mg tablet RxNorm: 143780 1 Tablet(s) PO daily 201511/08/2016 Inactive levothyroxine 75 mcg tablet RxNorm: 376697 1 Tablet(s) PO daily 10/27/2015 11/14/2015 Inactive cefdinir 300 mg capsule RxNorm: 463914 1 Capsule(s) PO BID 11/201510/31/2015 Inactive Zithromax Z-Deejay 250 mg tablet RxNorm: 886558 1 Tablet(s) PO UD 10/25/2015 10/29/2015 Inactive indapamide 2.5 mg tablet RxNorm: 271013 1/2 Tablet(s) PO daily 09/14/2015 09/07/2016 Inactive spironolactone 25 mg tablet RxNorm: 945584 1 Tablet(s) PO daily 09/14/2015 09/07/2016 Inactive simvastatin 40 mg tablet RxNorm: 170036 1 Tablet(s) PO daily 09/07/2016 Inactive Phenergan with Codeine Syrup RxNorm: 1 Teaspoon(s) PO Q8 as needed 09/12/2015 01/09/2016 Inactive Zithromax Z-Deejay 250 mg tablet RxNorm: 826466 1 Tablet(s) PO daily 06/15/2015 11/14/2015 Inactive zpack x 1 Levaquin 250 mg tablet RxNorm: 672470 Tablet(s) PO 2 tabs day one and 1 tab day 2- 7 04/18/2015 01/09/2016 Inactive atenolol 25 mg tablet RxNorm: 537422 1 Tablet(s) PO daily 201401/23/2016 Inactive losartan 50 mg tablet RxNorm: 867698 1 Tablet(s) PO daily 201411/14/2015 Inactive simvastatin 40 mg tablet RxNorm: 062370 1 Tablet(s) PO daily 09/13/2015 Inactive spironolactone 25 mg tablet RxNorm: 763440 1 Tablet(s) PO daily 12/17/2014 09/13/2015 Inactive isosorbide mononitrate ER 30 mg tablet,extended release 24 hr RxNorm: 925108 1 Tablet(s) PO daily 12/17/2014 11/14/2015 Inactive atenolol 25 mg tablet RxNorm: 222918 1 Tablet(s) PO daily 201412/16/2014 Inactive atenolol 25 mg tablet RxNorm: 089205 1 Tablet(s) PO daily 201402/14/2015 Inactive isosorbide mononitrate ER 30 mg tablet,extended release 24 hr RxNorm: 627585 1 Tablet(s) PO daily 12/17/2014 12/16/2014 Inactive indapamide 2.5 mg tablet RxNorm: 018311 1/2 Tablet(s) PO daily 12/17/2014 09/13/2015 Inactive levothyroxine 50 mcg tablet RxNorm: 133208 1 Tablet(s) PO daily 12/17/2014 10/26/2015 Inactive Januvia 50 mg tablet RxNorm: 968896 1 Tablet(s) PO daily 201411/26/2014 Inactive Onglyza 2.5 mg tablet RxNorm: 501107 1 Tablet(s) PO daily 201412/02/2014 Inactive Januvia 50 mg tablet RxNorm: 659039 1 Tablet(s) PO daily 201411/25/2014 Inactive Tessalon Perles 100 mg capsule RxNorm: 213017 1 Capsule(s) PO TID as needed 11/23/2014 07/09/2016 Inactive Levaquin 500 mg tablet RxNorm: 241235 1 Tablet(s) PO daily 10/201411/22/2014 Inactive Levaquin 500 mg tablet RxNorm: 366019 1 Tablet(s) PO daily 10/201411/29/2014 Inactive Singulair 10 mg tablet RxNorm: 057741 1 Tablet(s) PO QPM No Start Date Active Proventil HFA 90 mcg/actuation aerosol inhaler RxNorm: 171650 2 Puff(s) INH QID No Start Date Active Zyrtec 10 mg tablet RxNorm: 5842884 1 Tablet(s) PO daily No Start Date Active Flonase Allergy Relief 50 mcg/actuation nasal spray, suspension RxNorm: 0589053 1 [place] NASAL daily per nostril No Start Date Active aspirin 81 mg tablet RxNorm: 876625 1 Tablet(s) PO daily No Start Date Active omeprazole 20 mg capsule,delayed release RxNorm: 838772 1 Capsule(s) PO daily No Start Date Active indapamide 2.5 mg tablet RxNorm: 886543 1/2 Tablet(s) PO daily No Start Date 12/16/2014 Inactive Tessalon Perles 100 mg capsule RxNorm: 599468 1 Capsule(s) PO TID as needed No Start Date 11/22/2014 Inactive losartan 50 mg tablet RxNorm: 498682 1 Tablet(s) PO daily No Start Date 12/16/2014 Inactive spironolactone 25 mg tablet RxNorm: 039116 1 Tablet(s) PO daily No Start Date 12/16/2014 Inactive isosorbide mononitrate ER 30 mg tablet,extended release 24 hr RxNorm: 543827 1 Tablet(s) PO daily No Start Date 2014 Inactive atenolol 25 mg tablet RxNorm: 397875 1 Tablet(s) PO daily No Start Date 12/16/2014 Inactive Zithromax Z-Deejay 250 mg tablet RxNorm: 329426 1 Tablet(s) PO daily No Start Date 06/14/2015 Inactive levothyroxine 50 mcg tablet RxNorm: 684378 1 Tablet(s) PO daily No Start Date 12/16/2014 Inactive simvastatin 40 mg tablet RxNorm: 083956 1 Tablet(s) PO daily No Start Date 12/16/2014 Inactive Medication Administered Medication Codes Instructions Start Date Status Kenalog 40 mg/mL suspension for injection RxNorm: 1723111 1Milliliter 12/09/2015 No longer Active ceftriaxone 500 mg solution for injection RxNorm: 4691045 1Milliliter 12/09/2015 No longer Active Immunizations Vaccine Codes Date Status Influenza CVX: 141 11/21/2017 completed Pneumococcal (Adult) CVX: 33 02/20/2017 completed Influenza CVX: 141 04/04/2016 completed Influenza CVX: 141 01/22/2015 completed Assessments Condition Codes Effective Dates Type 2 diabetes mellitus without complications ICD-10: [...] Visit Reason For Visit Effective Dates Notes cough 01/22/2018 ~generic 01/02/2018 hypertension 11/21/2017 hypertension 11/04/2017 skin lesion 10/16/2017 hypertension 09/25/2017 hypertension 07/10/2016 cough 03/13/2016 cough 01/10/2016 diarrhea 12/20/2015 cough 12/09/2015 cough 10/25/2015 cough 09/12/2015 cough 04/18/2015 cough 03/04/2015 cough 02/22/2015 hypertension 12/03/2014 cough 11/23/2014 hypertension 07/29/2014 Results Observation Observation Code Item Item Code Result Date Free T4 [id number] FREE T4 1.13 ng/dL 09/26/2017 Microalbumin Kzn958 MicroAlb 2.1 mg/dL 09/26/2017 Cbc With Differential [...] 28.0 pg 09/26/2017 Cbc With Differential Ord2 Woods% 9.0 % 09/26/2017 Cbc With Differential Ord2 [...] 2.49 K/ul 09/26/2017 Cbc With Differential Ord2 [place] ABS# 0.8 K/ul 09/26/2017 Cbc With Differential Ord2 Eos ABS# 0.3 K/ul 09/26/2017 Cbc With Differential Ord2 Baso ABS# 0.0 K/ul 09/26/2017 Lipid Ord30 CHOL 118 mg/dL 09/26/2017 Lipid Ord30 HDL 39.0 mg/dl 09/26/2017 Lipid Ord30 TRIG 138 mg/dL 09/26/2017 Lipid Ord30 LDL 51 mg/dL 09/26/2017 Lipid Ord30 C/HDL 3.0 Ratio 09/26/2017 Comp Metabolic Zdv603 NA 138 mEq/L 09/26/2017 Comp Metabolic Qds112 K 4.5 mEq/L 09/26/2017 Comp Metabolic Zdz276 CL 103 mEq/L 09/26/2017 Comp Metabolic Vpv613 CO2 26.0 mEq/L 09/26/2017 Comp Metabolic Ybx614 ANION GAP 14 09/26/2017 Comp Metabolic Aze871 GLUCOSE 121 mg/dL 09/26/2017 Comp Metabolic Liu447 Creat 1.2 mg/dL 09/26/2017 Comp Metabolic Scn693 eGFR 46 ml/min/1.73m2 09/26/2017 Comp Metabolic Fcz192 BUN 18 mg/dL 09/26/2017 Comp Metabolic Nvd578 B/C Ratio 15.0 Ratio 09/26/2017 Comp Metabolic Yvv298 CALCIUM 9.0 mg/dL 09/26/2017 Comp Metabolic Qsx925 ALK PHOS 88 U/L 09/26/2017 Comp Metabolic Wdi327 AST(SGOT) 15 U/L 09/26/[address] ALT(SGPT) 9 U/L 09/26/2017 Comp Metabolic Tdj650 BILI T 0.4 mg/dL 09/26/2017 Comp Metabolic Pvs071 ALBUMIN 3.7 g/dL 09/26/2017 Comp Metabolic Msc092 TPRO 7.4 g/dL 09/26/2017 Comp Metabolic Egr350 GLOB 3.7 g/dL 09/26/2017 Comp Metabolic Rfp412 A/G Ratio 1.0 Ratio 09/26/2017 Comp Metabolic Aca871 Osmo 279 mOsmo 09/26/2017 Tsh Ord6 TSH (3rd IS) 2.58 uIU/mL 09/26/2017 %Hba1C Rhq581 % HbA1c 85194-7 7.1 % 09/26/2017 %Hba1C Ega442 Gluc Ave 157 mg/dL 09/26/2017 Tsh Ord6 [...] 29.3 pg 03/13/2016 Cbc With Differential Ord2 Woods% 8.6 % 03/13/2016 Cbc With Differential Ord2 [...] 2.43 K/ul 03/13/2016 Cbc With Differential Ord2 [place] ABS# 0.9 K/ul 03/13/2016 Cbc With Differential Ord2 Eos ABS# 0.4 K/ul 03/13/2016 Cbc With Differential Ord2 Baso ABS# 0.0 K/ul 03/13/2016 %Hba1C Gln013 % HbA1c 00648-0 6.7 % 03/13/2016 %Hba1C Nbm779 Gluc Ave 146 mg/dL 03/13/2016 Free T4 Tev290 FREE T4 1.19 ng/dL 03/13/2016 Comp Metabolic Hlq043 NA 137 mEq/L 03/13/2016 Comp Metabolic Xot173 K 3.9 mEq/L 03/13/2016 Comp Metabolic Oov502 CL 101 mEq/L 03/13/2016 Comp Metabolic Yzs722 CO2 29.0 mEq/L 03/13/2016 Comp Metabolic Maw568 ANION GAP 11 03/13/2016 Comp Metabolic Kll776 GLUCOSE 111 mg/dL 03/13/2016 Comp Metabolic Uik338 Creat 1.2 mg/dL 03/13/2016 Comp Metabolic Dex820 eGFR 48 ml/min/1.73m2 03/13/2016 Comp Metabolic Pyw747 BUN 17 mg/dL 03/13/2016 Comp Metabolic Zmw675 B/C Ratio 14.8 Ratio 03/13/2016 Comp Metabolic Uoh548 CALCIUM 9.6 mg/dL 03/13/2016 Comp Metabolic Pse761 ALK PHOS 89 U/L 03/13/2016 Comp Metabolic Ytc113 AST(SGOT) 18 U/L 03/13/2016 Comp Metabolic Jhq523 ALT(SGPT) 13 U/L 03/13/2016 Comp Metabolic Ayz636 BILI T 0.5 mg/dL 03/13/2016 Comp Metabolic Hgy262 ALBUMIN 3.8 g/dL 03/13/2016 Comp Metabolic Xxt814 TPRO 7.1 g/dL 03/13/2016 Comp Metabolic Bur038 GLOB 3.3 g/dL 03/13/2016 Comp Metabolic Fzg157 A/G Ratio 1.1 Ratio 03/13/2016 Comp Metabolic Azf699 Osmo 276 mOsmo 03/13/2016 Culture Sputum 561605 LOWER RESPIRATORY TRACT CULTURE SEE NOTES 12/30/2015 Culture Stool 412556 STOOL CULTURE SEE NOTES 12/26/2015 Shiga Toxin 1 & 2 Eia Stool 357081 SHIGA TOXIN 1: NEGATIVE 12/23/2015 Shiga Toxin 1 & 2 Eia Stool 346684 SHIGA TOXIN 2: NEGATIVE 12/23/2015 Clostridium Diff Tox A/B Peu067 Cdiff Negative 12/21/2015 Review of Systems System [...] 1994 Ears/Nose/Throat oral cavity/pharynx/larynx Overall: no masses 10/16/2017 [...] crackles 07/29/2014 None Procedures Procedure Codes Date ADMIN INFLUENZA VIRUS VAC CPT-4: G0008 11/21/2017 FLU VACC PRSV FREE INC ANTIG Formatting Model/CDA Sections, Assigned to/Stephanie Cedeño CPT-4: 14329Dacqeur 11/21/2017 DESTRUCT PREMALG LESION CPT-4: 85397 10/16/2017 ROCNADINE, PER 250 MG CPT-4: J0696 12/09/2015 TRIAMCINOLONE ACET INJ NOS CPT-4: J3301 12/09/2015 Vital Signs Date Vital 01/22/2018 Blood Pressure 1: 132/60 Code : 8480-6 BMI: 21.8 Code : 44767-4 Heart Rate 1 : 72 bpm Height: 5'7" SpO2: 94% Weight: 139 lbs 01/02/2018 Blood Pressure 1: 146/66 Code : 8480-6 BMI: 21.6 Code : 33696-1 Heart Rate 1 : 80 bpm Height: 5'7" SpO2: 97% Weight: 138 lbs 11/21/2017 Blood Pressure 1: 138/60 Code : 8480-6 BMI: 22.4 Code : 12396-9 Heart Rate 1 : 71 bpm Height: 5'7" SpO2: 92% Weight: 143 lbs 11/04/2017 Blood Pressure 1: 102/56 Code : 8480-6 BMI: 22.6 Code : 56739-4 Heart Rate 1 : 83 bpm Height: 5'7" SpO2: 91% Weight: 144 lbs 10/16/2017 Blood Pressure 1: 140/63 Code : 8480-6 BMI: 23.2 Code : 47468-1 Heart Rate 1 : 97 bpm Height: 5'7" SpO2: 94% Weight: 148 lbs 09/25/2017 Blood Pressure 1: 124/60 Code : 8480-6 BMI: 23.8 Code : 02999-1 Heart Rate 1 : 81 bpm Height: 5'7" SpO2: 97% Weight: 152 lbs 07/10/2016 Blood Pressure 1: 136/70 Code : 8480-6 BMI: 25.5 Code : 99769-0 Heart Rate 1 : 87 bpm Height: 5'7" SpO2: 90% Weight: 162 lbs 8 oz 03/13/2016 Blood Pressure 1: 130/72 Code : 8480-6 BMI: 25.4 Code : 72697-5 Heart Rate 1 : 86 bpm Height: 5'7" SpO2: 91% Weight: 162 lbs 01/10/2016 Blood Pressure 1: 122/80 Code : 8480-6 BMI: 25.7 Code : 96788-9 Heart Rate 1 : 83 bpm Height: 5'7" SpO2: 94% Weight: 164 lbs 12/20/2015 Blood Pressure 1: 128/86 Code : 8480-6 BMI: 25.1 Code : 90041-8 Heart Rate 1 : 74 bpm Height: 5'7" SpO2: 95% Weight: 160 lbs 12/09/2015 Blood Pressure 1: 132/68 Code : 8480-6 BMI: 26.2 Code : 61838-6 Heart Rate 1 : 80 bpm Height: 5'7" SpO2: 96% Weight: 167 lbs 10/25/2015 Blood Pressure 1: 128/52 Code : 8480-6 BMI: 26.5 Code : 94878-4 Heart Rate 1 : 80 bpm Height: 5'7" SpO2: 92% Weight: 169 lbs 09/12/2015 Blood Pressure 1: 122/70 Code : 8480-6 BMI: 26.5 Code : 33118-8 Heart Rate 1 : 76 bpm Height: 5'7" SpO2: 90% Weight: 169 lbs 04/18/2015 Blood Pressure 1: 142/58 Code : 8480-6 BMI: 25.4 Code : 29141-5 Heart Rate 1 : 76 bpm Height: 5'7" SpO2: 96% Weight: 162 lbs 03/04/2015 Blood Pressure 1: 110/68 Code : 8480-6 BMI: 25.4 Code : 49046-5 Heart Rate 1 : 68 bpm Height: 5'7" SpO2: 95% Weight: 162 lbs 02/22/2015 Blood Pressure 1: 100/52 Code : 8480-6 BMI: 25.1 Code : 06345-1 Heart Rate 1 : 66 bpm Height: 5'7" SpO2: 95% Temperature: 36.5 (C) / 97.7 (F) Weight: 160 lbs 12/03/2014 Blood Pressure 1: 130/64 Code : 8480-6 BMI: 25.5 Code : 18728-2 Heart Rate 1 : 87 bpm Height: 5'7" SpO2: 94% Weight: 163 lbs 11/23/2014 Blood Pressure 1: 140/64 Code : 8480-6 BMI: 27.3 Code : 45579-0 Heart Rate 1 : 70 bpm Height: 5'7" SpO2: 91% Weight: 174 lbs 07/29/2014 Blood Pressure 1: 118/64 Code : 8480-6 BMI: 27.7 Code : 64787-0 Heart Rate 1 : 72 bpm Height: 5'7" Weight: 177 lbs Functional Status No Functional Status data History of Present Illness Symptom Name Status Result Effective Date Notes cough Quality chronic 01/22/2018 None cough Quality [...] Present Encounters Encounter Performer Location Codes Date ([id number]) 95264 EST. PATIENT, LEVEL IV Diagnosis: Cough[ICD10: R05] Diagnosis: Candidal stomatitis[ICD10: B37.0] Diagnosis: Essential (primary) hypertension[ICD10: I10] Diagnosis: Type 2 diabetes mellitus without complications[ICD10: E11.9] Sonia Nolen MD, [facility] CPT-4: 19561 01/22/2018 ([id number]) 94554 EST. PATIENT, LEVEL III Diagnosis: Cystocele, midline[ICD10: N81.11] Katey Nolen MD, [facility] CPT-4: 55107 01/02/2018 ([id number]) 98256 EST. PATIENT, LEVEL IV Diagnosis: Type 2 diabetes mellitus without complications[ICD10: E11.9] Diagnosis: Essential (primary) hypertension[ICD10: I10] Diagnosis: Encounter for immunization[ICD10: Z23] Sonia Nolen MD, [facility] CPT-4: 23036 11/21/2017 ([id number]) 43575 EST. PATIENT, LEVEL III Diagnosis: Orthostatic hypotension[ICD10: I95.1] Sonia Nolen MD, [facility] CPT-4: 25027 11/04/2017 ([id number]) 43466 EST. PATIENT, LEVEL IV Diagnosis: Type 2 diabetes mellitus with hyperglycemia[ICD10: E11.65] Sonia Nolen MD [facility] CPT-4: 09367 10/16/2017 ([id number]) 36854 EST. PATIENT, LEVEL IV Diagnosis: Essential (primary) hypertension[ICD10: I10] Diagnosis: Type 2 diabetes mellitus without complications[ICD10: E11.9] Diagnosis: Atrophy of thyroid (acquired)[ICD10: E03.4] Sonia Nolen MD, [facility] CPT-4: 20124 09/25/2017 ([id number]) 97920 EST. PATIENT, LEVEL IV Diagnosis: Type 2 diabetes mellitus without complications[ICD10: E11.9] Diagnosis: Essential (primary) hypertension[ICD10: I10] Diagnosis: Hypothyroidism, unspecified[ICD10: E03.9] Diagnosis: Idiopathic pulmonary fibrosis[ICD10: J84.112] Katey Nolen MD, [facility] CPT-4: 57803 07/10/2016 ([id number]) 71447 EST. PATIENT, LEVEL IV Diagnosis: Type 2 diabetes mellitus without complications[ICD10: E11.9] Diagnosis: Hypothyroidism, unspecified[ICD10: E03.9] Diagnosis: Essential (primary) hypertension[ICD10: I10] Diagnosis: Idiopathic pulmonary fibrosis[ICD10: J84.112] Katey Nolen MD, [facility] CPT-4: 63569 03/13/2016 ([id number]) 80975 EST. PATIENT, LEVEL IV Diagnosis: Idiopathic pulmonary fibrosis[ICD10: J84.112] Diagnosis: Cough[ICD10: R05] Diagnosis: Essential (primary) hypertension[ICD10: I10] Diagnosis: Functional diarrhea[ICD10: K59.1] Katey Nolen MD, [facility] CPT-4: 33448 01/10/2016 ([id number]) 79370 EST. 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 PATIENT, LEVEL IV Diagnosis: Other allergic rhinitis[ICD10: J30.89] Diagnosis: Idiopathic pulmonary fibrosis[ICD10: J84.112] Diagnosis: Cough[ICD10: R05] Monse Nolen MD, [facility] CPT-4: 27572 12/09/2015 ([id number]) 43803 EST. PATIENT, LEVEL III Diagnosis: Cough[ICD10: R05] Diagnosis: Unspecified bacterial pneumonia[ICD10: J15.9] Katey Nolen MD, [facility] CPT-4: 62391 10/25/2015 ([id number]) 93654 EST. PATIENT, LEVEL IV Diagnosis: Essential (primary) hypertension[ICD10: I10] Diagnosis: Idiopathic pulmonary fibrosis[ICD10: J84.112] Diagnosis: Hypothyroidism, unspecified[ICD10: E03.9] Diagnosis: Type 2 diabetes mellitus without complications[ICD10: E11.9] Katey Nolen MD, [facility] CPT-4: 26327 09/12/2015 58947 EST. PATIENT, LEVEL IV Diagnosis: Acute laryngopharyngitis[ICD10: J06.0] Diagnosis: Idiopathic pulmonary fibrosis[ICD10: J84.112] Diagnosis: Cough[ICD10: R05] Monse Nolen MD, [facility] CPT-4: 14824 04/18/2015 ([id number]) 21762 EST. PATIENT, LEVEL III Diagnosis: Idiopathic pulmonary fibrosis[ICD10: J84.112] Katey Nolen MD, [facility] CPT-4: 15951 03/04/2015 ([id number]) 34793 EST. PATIENT, LEVEL III Diagnosis: Cough[ICD10: R05] Sonia Nolen MD, [facility] CPT-4: 11117 02/22/2015 ([id number]) 15386 EST. PATIENT, LEVEL IV Diagnosis: ESSENTIAL HYPERTENSION[ICD9: 401.9] Diagnosis: DIABETES TYPE II[ICD9: 250.00] Diagnosis: Chronic renal disease, stage 3, moderately decreased glomerular filtration rate between 30-59 mL/min/1.73 square meter[ICD9: 585.3] Sonia Nolen MD, [facility] CPT-4: 04337 12/03/2014 ([id number]) 57521 EST. PATIENT, LEVEL III Diagnosis: BACTERIAL PNEUMONIA[ICD9: 482.9] Diagnosis: COUGH[ICD9: 786.2] Diagnosis: DIABETES TYPE II[ICD9: 250.00] Sonia Nolen MD, [facility] CPT- 4: 30521 11/23/2014 ([id number]) OFFICE VISIT, NEW - LEVEL 4 Diagnosis: ESSENTIAL HYPERTENSION[ICD9: 401.9] Diagnosis: Hypothyroidism[ICD9: 244.9] Diagnosis: DIABETES TYPE II[ICD9: 250.00] Diagnosis: Pulmonary fibrosis[ICD9: 515] Katey Nolen MD, [facility] CPT-4: 19600 07/29/2014 Plan of Care Planned Activity Notes Codes Status Date Visit Plan: HTN - with recent bouts [...] change in medications at this time. 01/22/2018 Patient Education: Patient Medication Summary Completed [...] plan. 01/02/2018 Appointment: [phone] [facility] [phone] [place] (15 min) Moderate 01/02/2018 Patient Education: [...] controlled. 11/21/2017 [phone] [place] ([facility] min) Moderate 11/21/2017 Patient Education: Patient Medication Summary Completed 11/21/2017 Patient Education: Hypertension Completed 11/21/2017 [phone] [facility] [place] (15 min) Moderate 11/14/2017 Visit Plan: [...] further instructions. 11/04/2017 [phone] [facility] ([facility] min) Moderate 11/04/2017 Patient Education: [...] monitor lesion. 10/16/2017 [phone] [facility] ([facility] min) Moderate 10/16/2017 Patient Education: [...] dr. quinteros 09/25/2017 Appointment: Sonia Nolen WPtel: [phone] [facility] (15 min) Moderate 09/25/2017 Patient Education: Patient Medication Summary Completed 09/25/2017 Appointment: Katey Veloz WPtel: [phone] [phone] (30 min) Complex 01/07/2017 Visit Plan: [...] Dr Quinteros 07/10/2016 Appointment: Katey Veloz WPtel: [phone] [phone] (30 min) Complex 07/10/2016 Patient Education: [...] less controlled. 03/13/2016 Appointment: Katey Veloz WPtel: [facility] [phone] (30 min) Complex 03/13/2016 Patient Education: Patient Medication Summary Completed 03/13/2016 Care Plan: Comp Metabolic Pending 03/13/2016 Care Plan: Cbc With Differential Pending 03/13/2016 Care Plan: %Hba1C LOINC : 07224-1 Pending 03/13/2016 Care Plan: Tsh Pending 03/13/2016 Care Plan: Free T4 Pending 03/13/2016 Care Plan: Referral Order SNOMED-CT : 024420883 Pending 03/13/2016 Visit Plan: Pulmonary fibrosis-symptoms stable-I [...] change in blood pressure readings at home. Qkeawrpb-srtwvkpk-xwhy to decrease probiotic to daily-if bowels continue to be regular-patient can stop probiotic and see how she does- instructed her to increase probiotic at any time she is prescribed an antibiotic -patient and daughter verbalized understanding of plan. 01/10/2016 Appointment: Kate[facility]oz [facility] [phone] [phone] (30 min) Complex 01/10/2016 Patient Education: Patient Medication Summary Completed 01/10/2016 Patient Education: Hypertension Completed 01/10/2016 Patient Education: Patient Medication Summary Completed 12/28/2015 Care Plan: Clostridium Diff Tox A/B Cancelled 12/22/2015 Patient Education: Patient Medication Summary Completed 12/21/2015 Care Plan: FECES CULTURE AEROBIC BACT LOINC : 06419-1 Pending 12/21/2015 Visit Plan: Diarrhea - recommended bland diet, low fat diet , start on probiotic, and rehydrate with gatorade-like product. Pt to call if feeling worse, diarrhea becomes bloody, or does not improve with above recommendations. Pt to call for acute worsening of stomach upset or stomach pain. CHECK STOOL FOR CDIFF, STOOL CULTURE 12/20/2015 Appointment: Katey Veloz WPtel: [phone] (15 min) Moderate 12/20/2015 Patient Education: Patient Medication Summary Completed 12/20/2015 Visit Plan: Pulmonary ptmrianp-fpcylqe-fect Dr Quinteros and wears oxygen at night [...] of control. 09/12/2015 Appointment: Katey Veloz WPtel: [address] [place], [place] [phone] (15 min) Moderate 09/12/2015 Patient Education: Patient Medication Summary Completed 09/12/2015 Patient Education: Hypertension Completed 09/12/2015 Care Plan: COMPLETE CBC AUTOMATED LOINC : 47100-5 Pending 09/12/2015 Visit Plan: Pulmonary dhskcqbt-ehsluzj-ugdx Dr Quinteros and wears oxygen at night URI - Pt advised to increase fluids, vitamin C. Discussed natural and expected course of this diagnosis and need to alert me if symptoms do not follow expected course, or if any worse. RX sent to patient's pharmacy. 04/18/2015 Visit Plan: Pulmonary xlsscrhk-cjpvoka-rvdr Dr Bailey and wears oxygen at night URI - [...] Pending 04/18/2015 Visit Plan: Pneumonia-resolved Pulmonary fibrosis-chronic- seedino Quinteros and wears oxygen at night 03/04/2015 Appointment: (30 min) Complex 03/04/2015 Patient Education: Patient Medication Summary Completed 03/04/2015 Visit Plan: Pneumonia - Pt has been diagnosed with pneumonia by physical exam. A chest xray has been ordered as have antibiotics. The pt is aware of the diagnosis and the need for acute treatment of this illness. lovely [employer], [employer] yogurt, - all of these have probiotics [...] numbers are. 11/23/2014 Appointment: [facility] [phone] [phone] [place] (15 min) Moderate 11/23/2014 Patient [...] Daytime napping worsens night time insomnia. . Pneumonia - Pt has been diagnosed [...] fibrosis-followed by Dr Quinteros-wears oxygen at night CUT BACK ON SWEETS/BREADS/PASTA/POTATOES-REPEAT [...] fibrosis-followed by Dr Quinteros-wears oxygen at night CUT BACK ON SWEETS/BREADS/PASTA/POTATOES-REPEAT [...] change in blood pressure readings at home. Lfynwmlk-cltlowfz-fzxj to decrease probiotic to daily-if bowels continue [...] readings are starting to become less controlled. [employer], [employer] yogurt, - all of these have [...] need for acute treatment of this illness. [employer], [employer] yogurt, - all of these have [...] the office for further instructions. . Pulmonary jztyxzni-yvwcdcl-gazf Dr Quinteros and wears oxygen at night [...] office in two weeks for to review. on the Vibryntlegy inhaler - use one inhale daily - [...] at this time. Get fasting labs in [place]. . Hypertension - well controlled - continue [...] did not cover basaglar - RX for jacinta sent to pharmacy. Cryotherapy of skin lesions - three cryotherapy on the lesion, dressed with neosporin and monitor lesion. . Pneumonia-resolved Pulmonary rhfiswai-hqjpznp-qybd Dr Quinteros and wears oxygen at night [...] tab day 2-7 probiotic with antibiotics. Pulmonary vvpbzscj-theyoqr-elrb Dr Quinteros and wears oxygen at night URI - Pt advised to increase fluids, vitamin C. Discussed natural and expected course of this diagnosis and need to alert me if symptoms do not follow expected course, or if any worse. RX sent to patient's pharmacy. Levaquin 2 tabs day one and 1 tab day 2-7 probiotic with antibiotics. Pulmonary ioyenfrg-tlhiadq-mieo Dr Quinteros and wears oxygen at night URI - Pt advised to increase fluids, vitamin C. Discussed natural and expected course of this diagnosis and need to alert me if symptoms do not follow expected course, or if any worse. RX sent to patient's pharmacy.
--- OUTSIDE RECORDS SUMMARY | 2018-01-31 18:15 | XMS REPORT | Continuity of Care Document ---
Author Author [facility] Organization [facility] Address Unknown Phone Unavailable Allergies Active Description Code Type Severity Reaction Onset Reported/Identified Relationship to Patient Clinical Status Yes MORPHINE SULFATE MORPHINE SULFATE Unknown N/A 10/13/2013 Yes PCN PCN Unknown N/ A 10/13/2013 Yes Sulfa (Sulfonamide Antibiotics) [id number] Drug Allergy Unknown N/A 2013 Medications There is no data. Problems Date Dx Coded Attending Type Code Diagnosis Diagnosed By 02/14/1125 SAIMA MORGAN APRN Ot J84.10 PULMONARY FIBROSIS, UNSPECIFIED 02/14/1125 SAIMA MORGAN APRN Ot K44.9 DIAPHRAGMATIC HERNIA WITHOUT OBSTRUCTION 02/14/1125 SAIMA MORGAN APRN Ot R04.2 HEMOPTYSIS 02/14/1125 SAIMA MORGAN APRN Ot R09.02 HYPOXEMIA 09/01/2013 PREET ANDRADE DO Ot 401.9 HYPERTENSION NOS 09/01/2013 PREET ANDRADE DO Ot 414.9 CHR ISCHEMIC HRT DIS NOS 09/01/2013 PREET ANDRADE DO Ot 780.54 HYPERSOMNIA, UNSPECIFIED 09/01/2013 PREET ANDRADE DO Ot 786.09 RESPIRATORY ABNORM NEC 10/16/2013 ALLYSON MARTIN MD Ot 112.0 THRUSH 10/16/2013 ALLYSON MARTIN MD Ot 276.51 DEHYDRATION 10/16/2013 ALLYSON MARTIN MD Ot 401.9 HYPERTENSION NOS 10/16/2013 ALLYSON MARTIN MD Ot 414.01 CORONARY ATHEROSCLEROSIS OF [place] CORON 10/16/2013 ALLYSON MARTIN MD Ot 486 PNEUMONIA, ORGANISM NOS 10/16/2013 ALLYSON MARTIN MD Ot 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 10/16/2013 ALLYSON MARTIN MD Ot 599.0 URIN TRACT INFECTION NOS 07/05/2014 Ot 786.3 07/05/2014 Ot V76.12 07/05/2014 Ot 515 07/05/2014 Ot 515 07/05/2014 VERONICA CONNELL, ALLYSON M Ot 515 07/05/2014 VERONICA CONNELL, ALLYSON M Ot 786.2 07/05/2014 VERONICA CONNELL, ALLYSON M Ot 486 07/05/2014 VERONICA CONNELL, ALLYSON M Ot 786.2 07/05/2014 VERONICA CONNELL, ALLYSON M Ot V67.9 07/05/2014 VERONICA CONNELL, ALLYSON M Ot 486 07/05/2014 VERONICA CONNELL, ALLYSON M Ot 515 07/05/2014 VERONICA CONNELL, ALLYSON M Ot 786.05 07/05/2014 VERNOICA CONNELL, ALLYSON M Ot 786.2 07/05/2014 VERONICA CONNELL, ALLYSON M Ot 793.19 07/05/2014 VERONICA CONNELL, ALLYSON M Ot 486 08/15/2014 VERONICA CONNELL, ALLYSON M Ot 515 08/15/2014 VERONICA CONNELL, ALLYSON M Ot V76.12 09/01/2014 VERONICA CONNELL, ALLYSON M Ot 515 09/01/2014 VERONICA CONNELL, ALLYSON M Ot V76.12 11/12/2014 RAYMOND DO, PREET M Ot 515 11/12/2014 RAYMOND DO, PREET M Ot 780.54 11/12/2014 RAYMOND DO, PREET M Ot 799.02 11/18/2014 RAYMOND DO PREET M Ot 515 11/18/2014 RAYMOND DO PREET M Ot 780.54 11/18/2014 RAYMOND CORLEY PREET M Ot 799.02 01/13/2015 KENZIE CONNELL, LUCY West Ot 515 01/13/2015 KENZIE CONNELL, LUCY West Ot 786.2 01/18/2015 KENZIE CONNELL, LUCY A Ot 515 01/18/2015 KENZIE CONNELL, LUCY West Ot 786.2 03/04/2015 SAIMA MORGAN APRN Ot J30.9 03/04/2015 SAIMA MORGAN ICU SPECIALIST Ot J84.10 03/04/2015 SAIMA MORGAN ICU SPECIALIST Ot R09.02 03/09/2015 SAIMA MORGAN ICU SPECIALIST Ot J30.9 03/09/2015 SAIMA MORGAN ICU SPECIALIST Ot J84.10 03/09/2015 SAIMA MORGAN ICU SPECIALIST Ot R09.02 04/03/2015 SAIMA MORGAN ICU SPECIALIST Ot J30.9 ALLERGIC RHINITIS, UNSPECIFIED 04/03/2015 SAIMA MORGAN ICU SPECIALIST Ot J84.10 PULMONARY FIBROSIS, UNSPECIFIED 04/03/2015 SAIMA MORGAN ICU SPECIALIST Ot R09.02 HYPOXEMIA 04/08/2015 KENZIE CONNELL, LUCY West Ot J18.9 04/08/2015 KENZIE CONNELL, LUCY West Ot J84.9 04/21/2015 KENZIE CONNELL, LUCY West Ot J18.9 04/21/2015 LUCY ESPINO MD Ot J84.9 10/25/2015 Ot V76.12 OTH SCREEN MAMMO-MALIGN NEOPLASM OF [place] 10/25/2015 Ot 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 10/25/2015 Ot 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 10/25/2015 ALLYSON MARTIN MD Ot 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 10/25/2015 ALLYSON MARTIN MD Ot 786.2 COUGH 10/25/2015 ALLYSON MARTIN MD Ot 486 PNEUMONIA, ORGANISM NOS 10/25/2015 VERONICA CONNELL, ALLYSON Urena Ot 786.2 COUGH 10/25/2015 ALLYSON MARTIN MD Ot V67.9 FOLLOW-UP EXAM NOS 10/25/2015 ALLYSON MARTIN MD Ot 486 PNEUMONIA, ORGANISM NOS 10/25/2015 ALLYSON MARTIN MD Ot 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 10/25/2015 ALLYSON MARTIN MD Ot 786.05 SHORTNESS OF BREATH 10/25/2015 ALLYSON MARTIN MD Ot 786.2 COUGH 10/25/2015 ALLYSON MARTIN MD Ot 793.19 OTHER NONSPECIFIC ABNORMAL FINDING OF MED 10/25/2015 ALLYSON MARTIN MD Ot 486 PNEUMONIA, ORGANISM NOS 10/25/2015 ALLYSON MARTIN MD Ot 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 10/25/2015 ALLYSON MARTIN MD Ot V76.12 OTH SCREEN MAMMO-MALIGN NEOPLASM OF [place] 10/25/2015 PREET ANDRADE DO Ot 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 10/25/2015 PREET ANDRADE DO Ot 780.54 HYPERSOMNIA, UNSPECIFIED 10/25/2015 PREET ANDRADE DO Ot 799.02 HYPOXEMIA 10/25/2015 LUCY ESPINO MD Ot 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 10/25/2015 LUCY ESPINO MD Ot 786.2 COUGH 10/25/2015 LUCY ESPINO MD Ot J18.9 PNEUMONIA, UNSPECIFIED ORGANISM 10/25/2015 LUCY ESPINO MD Ot J84.9 INTERSTITIAL PULMONARY DISEASE, UNSPECIF 10/25/2015 SAIMA MORGAN ICU SPECIALIST Ot J30.9 ALLERGIC RHINITIS, UNSPECIFIED 10/25/2015 SAIMA MORGAN APRN Ot J84.10 PULMONARY FIBROSIS, UNSPECIFIED 10/25/2015 SAIMA MORGNA APRN Ot R09.02 HYPOXEMIA 10/26/2015 DYLON HARRIS MANAGER BABY Ot R05 COUGH 10/27/2015 DYLON HARRIS MANAGER BABY Ot R05 COUGH 10/28/2015 DYLON HARRIS MANAGER BABY Ot R05 COUGH 11/15/2015 DYLON HARRIS MANAGER BABY Ot R05 COUGH 11/24/2015 DYLON HARRIS MANAGER BABY Ot R05 COUGH 12/30/2015 RAMONE JONES ICU SPECIALIST Ot R05 COUGH 12/30/2015 RAMONE JONES ICU SPECIALIST Ot R06.02 SHORTNESS OF BREATH 12/30/2015 RAMONE JONES ICU SPECIALIST Ot R09.89 OTH SYMPTOMS AND SIGNS INVOLVING THE CIR 01/05/2016 RAMONE JONES ICU SPECIALIST Ot R05 COUGH 01/05/2016 RAMONE JONES ICU SPECIALIST Ot R06.02 SHORTNESS OF BREATH 01/05/2016 RAMONE JONES ICU SPECIALIST Ot R09.89 OTH SYMPTOMS AND SIGNS INVOLVING THE CIR 03/30/2016 Ot V76.12 OTH SCREEN MAMMO-MALIGN NEOPLASM OF [place] 03/30/2016 Ot 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 03/30/2016 Ot 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 03/30/2016 ALLYSON MARTIN MD Ot 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 03/30/2016 ALLYSON MARTIN MD Ot 786.2 COUGH 03/30/2016 ALLYSON MARTIN MD Ot 486 PNEUMONIA, ORGANISM NOS 03/30/2016 ALLYSON MARTIN MD Ot 786.2 COUGH 03/30/2016 ALLYSON MARTIN MD Ot V67.9 FOLLOW-UP EXAM NOS 03/30/2016 ALLYSON MARTIN MD Ot 486 PNEUMONIA, ORGANISM NOS 03/30/2016 ALLYSON MARTIN MD Ot 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 03/30/2016 ALLYSON MARTIN MD Ot 786.05 SHORTNESS OF BREATH 03/30/2016 ALLYSON MARTIN MD Ot 786.2 COUGH 03/30/2016 ALLYSON MARTIN MD Ot 793.19 OTHER NONSPECIFIC ABNORMAL FINDING OF MED 03/30/2016 ALLYSON MARTIN MD Ot 486 PNEUMONIA, ORGANISM NOS 03/30/2016 ALLYSON MARTIN MD Ot 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 03/30/2016 ALLYSON MARTIN MD Ot V76.12 OTH SCREEN MAMMO-MALIGN NEOPLASM OF [place] 03/30/2016 PREET ANDRADE DO Ot 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 03/30/2016 PREET ANDRADE DO Ot 780.54 HYPERSOMNIA, UNSPECIFIED 03/30/2016 PREET ANDRADE DO Ot 799.02 HYPOXEMIA 03/30/2016 LUCY ESPINO MD Ot 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 03/30/2016 LUCY ESPINO MD Ot 786.2 COUGH 03/30/2016 LUCY ESPINO MD Ot J18.9 PNEUMONIA, UNSPECIFIED ORGANISM 03/30/2016 LUCY ESPINO MD Ot J84.9 INTERSTITIAL PULMONARY DISEASE, UNSPECIF 03/30/2016 SAIMA MORGAN APRN Ot J30.9 ALLERGIC RHINITIS, UNSPECIFIED 03/30/2016 SAIMA MORGAN APRN Ot J84.10 PULMONARY FIBROSIS, UNSPECIFIED 03/30/2016 SAIMA MORGAN APRN Ot R09.02 HYPOXEMIA 03/30/2016 DYLON HARRIS Ot R05 COUGH 03/30/2016 RAMONE JONES APRN Ot R05 COUGH 03/30/2016 RAMONE JONES APRN Ot R06.02 SHORTNESS OF BREATH 03/30/2016 RAMONE JONES APRN Ot R09.89 OTH SYMPTOMS AND SIGNS INVOLVING THE CIR 03/30/2016 Ot V76.12 OTH SCREEN MAMMO-MALIGN NEOPLASM OF [place] 03/30/2016 Ot 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 03/30/2016 Ot 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 03/30/2016 VERONICA CONNELL, ALLYSON Urena Ot 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 03/30/2016 EVRONICA CONNELL, ALLYSON Urena Ot 786.2 COUGH 03/30/2016 VERONICA CONNELL, ALLYSON Urena Ot 486 PNEUMONIA, ORGANISM NOS 03/30/2016 VERONICA CONNELL, ALLYSON M Ot 786.2 COUGH 03/30/2016 VERONICA CONNELL, ALLYSON Urena Ot V67.9 FOLLOW-UP EXAM NOS 03/30/2016 VERONICA CONNELL, ALLYSON Urena Ot 486 PNEUMONIA, ORGANISM NOS 03/30/2016 VERONICA CONNELL, ALLYSON M Ot 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 03/30/2016 VERONICA CONNELL, ALLYSON Urena Ot 786.05 SHORTNESS OF BREATH 03/30/2016 VERONICA CONNELL, ALLYSON Urena Ot 786.2 COUGH 03/30/2016 VERONICA CONNELL, ALLYSON M Ot 793.19 OTHER NONSPECIFIC ABNORMAL FINDING OF MED 03/30/2016 VERONICA CONNELL, ALLYSON M Ot 486 PNEUMONIA, ORGANISM NOS 03/30/2016 VERONICA CONNELL, ALLYSON M Ot 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 03/30/2016 ALLYSON MARTIN MD Ot V76.12 OTH SCREEN MAMMO-MALIGN NEOPLASM OF [place] 03/30/2016 PREET ANDRADE DO Ot 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 03/30/2016 PREET ANDRADE DO Ot 780.54 HYPERSOMNIA, UNSPECIFIED 03/30/2016 PREET ANDRADE DO Ot 799.02 HYPOXEMIA 03/30/2016 LUCY ESPINO MD Ot 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 03/30/2016 LUCY ESPINO MD Ot 786.2 COUGH 03/30/2016 LUCY ESPINO MD Ot J18.9 PNEUMONIA, UNSPECIFIED ORGANISM 03/30/2016 LUCY ESPINO MD Ot J84.9 INTERSTITIAL PULMONARY DISEASE, UNSPECIF 03/30/2016 SAIMA MORGAN APRN Ot J30.9 ALLERGIC RHINITIS, UNSPECIFIED 03/30/2016 SAIMA MORGAN APRN Ot J84.10 PULMONARY FIBROSIS, UNSPECIFIED 03/30/2016 SAIMA MORGAN ICU SPECIALIST Ot R09.02 HYPOXEMIA 03/30/2016 DYLON HARRIS MANAGER BABY Ot R05 COUGH 03/30/2016 RAMONE JONES ICU SPECIALIST Ot R05 COUGH 03/30/2016 RAMONE JONES ICU SPECIALIST Ot R06.02 SHORTNESS OF BREATH 03/30/2016 RAMONE JONES ICU SPECIALIST Ot R09.89 OTH SYMPTOMS AND SIGNS INVOLVING THE CIR 04/05/2016 PREET ANDRADE DO Ot J84.10 PULMONARY FIBROSIS, UNSPECIFIED 04/05/2016 PREET ANDRADE DO Ot R09.02 HYPOXEMIA 04/24/2016 PREET ANDRADE DO Ot J84.10 PULMONARY FIBROSIS, UNSPECIFIED 04/24/2016 PREET ANDRADE DO Ot R09.02 HYPOXEMIA 05/02/2016 PREET ANDRADE DO Ot J84.10 PULMONARY FIBROSIS, UNSPECIFIED 05/02/2016 PREET ANDRADE DO Ot R09.02 HYPOXEMIA 11/20/2016 SAIMA MORGAN ICU SPECIALIST Ot J84.10 PULMONARY FIBROSIS, UNSPECIFIED 11/20/2016 ZI MORGANINE Vik ICU SPECIALIST Ot K44.9 DIAPHRAGMATIC HERNIA WITHOUT OBSTRUCTION 11/20/2016 SAIMA MORGAN ICU SPECIALIST Ot R04.2 HEMOPTYSIS 11/20/2016 SAIMA MORGAN ICU SPECIALIST Ot R09.02 HYPOXEMIA 11/20/2016 SAIMA MORGAN ICU SPECIALIST Ot J84.10 PULMONARY FIBROSIS, UNSPECIFIED 11/20/2016 SAIMA MORGAN ICU SPECIALIST Ot K44.9 DIAPHRAGMATIC HERNIA WITHOUT OBSTRUCTION 11/20/2016 SAIMA MORGAN ICU SPECIALIST Ot R04.2 HEMOPTYSIS 11/20/2016 SAIMA MORGAN ICU SPECIALIST Ot R09.02 HYPOXEMIA 12/12/2016 ZI MORGANINE Vik ICU SPECIALIST Ot J84.10 PULMONARY FIBROSIS, UNSPECIFIED 12/12/2016 ZI MORGANINE Vik ICU SPECIALIST Ot R09.02 HYPOXEMIA 12/19/2016 EDDIEZI LACYINE Vik ICU SPECIALIST Ot J84.10 PULMONARY FIBROSIS, UNSPECIFIED 12/19/2016 ZI MORGANINE Vik ICU SPECIALIST Ot R09.02 HYPOXEMIA 06/04/2017 Ot 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 06/04/2017 VERONICA CONNELL, ALLYSON M Ot 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 06/04/2017 VERONICA CONNELL, ALLYSON M Ot 786.2 COUGH 06/04/2017 VERONICA CONNELL, ALLYSON Urena Ot 486 PNEUMONIA, ORGANISM NOS 06/04/2017 VERONICA CONNELL, ALLYSON M Ot 786.2 COUGH 06/04/2017 VERONICA CONNELL, ALLYSON Urena Ot V67.9 FOLLOW-UP EXAM NOS 06/04/2017 VERONICA CONNELL, ALLYSON Urena Ot 486 PNEUMONIA, ORGANISM NOS 06/04/2017 VERONICA CONNELL, ALLYSON M Ot 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 06/04/2017 VERONICA CONNELL, ALLYSON Urena Ot 786.05 SHORTNESS OF BREATH 06/04/2017 VERONICA CONNELL, ALLYSON M Ot 786.2 COUGH 06/04/2017 VERONICA CONNELL, ALLYSON Urena Ot 793.19 OTHER NONSPECIFIC ABNORMAL FINDING OF MED 06/04/2017 ALLYSON MARTIN MD Ot 486 PNEUMONIA, ORGANISM NOS 06/04/2017 VERONICA CONNELL, ALLYSON M Ot 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 06/04/2017 ALLYSON MARTIN MD Ot V76.12 OTH SCREEN MAMMO-MALIGN NEOPLASM OF [place] 06/04/2017 PREET ANDRADE DO Ot 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 06/04/2017 PREET ANDRADE DO Ot 780.54 HYPERSOMNIA, UNSPECIFIED 06/04/2017 PREET ANDRADE DO Ot 799.02 HYPOXEMIA 06/04/2017 LUCY ESPINO MD Ot 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 06/04/2017 KENZIE CONNELL, LUCY West Ot 786.2 COUGH 06/04/2017 LUCY ESPINO MD Ot J18.9 PNEUMONIA, UNSPECIFIED ORGANISM 06/04/2017 LUCY ESPINO MD Ot J84.9 INTERSTITIAL PULMONARY DISEASE, UNSPECIF 06/04/2017 SAIMA MORGAN APRN Ot J30.9 ALLERGIC RHINITIS, UNSPECIFIED 06/04/2017 SAIMA MORGAN APRN Ot J84.10 PULMONARY FIBROSIS, UNSPECIFIED 06/04/2017 SAIMA MORGAN APRN Ot R09.02 HYPOXEMIA 06/04/2017 DYLON HARRIS MANAGER BABY Ot R05 COUGH 06/04/2017 RAMONE JONES APRN Ot R05 COUGH 06/04/2017 RAMONE JONES ICU SPECIALIST Ot R06.02 SHORTNESS OF BREATH 06/04/2017 RAMONE JONES ICU SPECIALIST Ot R09.89 OT SYMPTOMS AND SIGNS INVOLVING THE CIR 06/04/2017 PREET ANDRADE DO Ot J84.10 PULMONARY FIBROSIS, UNSPECIFIED 06/04/2017 PREET ANDRADE DO Ot R09.02 HYPOXEMIA 06/04/2017 EDDIESAIMA LACY ICU SPECIALIST Ot J84.10 PULMONARY FIBROSIS, UNSPECIFIED 06/04/2017 ZI MORGANINE E ICU SPECIALIST Ot R09.02 HYPOXEMIA 06/05/2017 ZI MORGANINE E ICU SPECIALIST Ot J30.9 ALLERGIC RHINITIS, UNSPECIFIED 06/05/2017 ZI MORGANINE E ICU SPECIALIST Ot J44.9 CHRONIC OBSTRUCTIVE PULMONARY DISEASE, U 06/05/2017 ZI MORGANINE E ICU SPECIALIST Ot R59.0 LOCALIZED ENLARGED LYMPH NODES 06/05/2017 ZI MORGANINE E ICU SPECIALIST Ot Z72.0 TOBACCO USE 07/04/2017 ZI MORGANINE E ICU SPECIALIST Ot J30.9 ALLERGIC RHINITIS, UNSPECIFIED 07/04/2017 ZI MORGANINE E ICU SPECIALIST Ot J44.9 CHRONIC OBSTRUCTIVE PULMONARY DISEASE, U 07/04/2017 ZI MORGANINE Vik ICU SPECIALIST Ot R59.0 LOCALIZED ENLARGED LYMPH NODES 07/04/2017 ZI MORGANINE E ICU SPECIALIST Ot Z72.0 TOBACCO USE 07/12/2017 ZI MORGANINE Vik ICU SPECIALIST Ot J18.9 PNEUMONIA, UNSPECIFIED ORGANISM 07/12/2017 SAIMA MORGAN ICU SPECIALIST Ot J18.9 PNEUMONIA, UNSPECIFIED ORGANISM 07/17/2017 SAIMA MORGAN ICU SPECIALIST Ot J18.9 PNEUMONIA, UNSPECIFIED ORGANISM 07/31/2017 SAIMA MORGAN ICU SPECIALIST Ot J18.9 PNEUMONIA, UNSPECIFIED ORGANISM 08/06/2017 ZI MORGANINE Vik ICU SPECIALIST Ot J18.9 PNEUMONIA, UNSPECIFIED ORGANISM 08/08/2017 SAIMA MORGAN ICU SPECIALIST Ot J18.9 PNEUMONIA, UNSPECIFIED ORGANISM 08/28/2017 SAIMA MORGAN ICU SPECIALIST Ot J18.9 PNEUMONIA, UNSPECIFIED ORGANISM 09/04/2017 SAIMA MORGAN ICU SPECIALIST Ot J18.9 PNEUMONIA, UNSPECIFIED ORGANISM 01/13/2018 VERONICA CONNELL, ALLYSON Urena Ot 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 01/13/2018 VERONICA CONNELL, ALLYSON Urena Ot 786.2 COUGH 01/13/2018 VERONICA CONNELL, ALLYSON Urena Ot 486 PNEUMONIA, ORGANISM NOS 01/13/2018 VERONICA CONNELL, ALLYSON Urena Ot 786.2 COUGH 01/13/2018 ALLYSON MARTIN MD Ot V67.9 FOLLOW-UP EXAM NOS 01/13/2018 ALLYSON MARTIN MD Ot 486 PNEUMONIA, ORGANISM NOS 01/13/2018 ALLYSON MARTIN MD Ot 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 01/13/2018 ALLYSON MARTIN MD Ot 786.05 SHORTNESS OF BREATH 01/13/2018 ALLYSON MARTIN MD Ot 786.2 COUGH 01/13/2018 ALLYSON MARTIN MD Ot 793.19 OTHER NONSPECIFIC ABNORMAL FINDING OF MED 01/13/2018 ALLYSON MARTIN MD Ot 486 PNEUMONIA, ORGANISM NOS 01/13/2018 ALLYSON MARTIN MD Ot 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 01/13/2018 ALLYSON MARTIN MD Ot V76.12 OTH SCREEN MAMMO-MALIGN NEOPLASM OF [place] 01/13/2018 PREET ANDRADE DO Ot 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 01/13/2018 PREET ANDRADE DO Ot 780.54 HYPERSOMNIA, UNSPECIFIED 01/13/2018 PREET ANDRADE DO Ot 799.02 HYPOXEMIA 01/13/2018 LUCY ESPINO MD Ot 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 01/13/2018 LUCY ESPINO MD Ot 786.2 COUGH 01/13/2018 LUCY ESPINO MD Ot J18.9 PNEUMONIA, UNSPECIFIED ORGANISM 01/13/2018 LUCY ESPINO MD Ot J84.9 INTERSTITIAL PULMONARY DISEASE, UNSPECIF 01/13/2018 SAIMA MORGAN APRN Ot J30.9 ALLERGIC RHINITIS, UNSPECIFIED 01/13/2018 SAIMA MORGAN APRN Ot J84.10 PULMONARY FIBROSIS, UNSPECIFIED 01/13/2018 SAIMA MORGAN APRN Ot R09.02 HYPOXEMIA 01/13/2018 DYLON HARRIS MANAGER BABY Ot R05 COUGH 01/13/2018 RAMONE JONES APRN Ot R05 COUGH 01/13/2018 RAMONE JONES ICU SPECIALIST Ot R06.02 SHORTNESS OF BREATH 01/13/2018 RAMONE JONES ICU SPECIALIST Ot R09.89 OTH SYMPTOMS AND SIGNS INVOLVING THE CIR 01/13/2018 PREET ANDRADE DO Ot J84.10 PULMONARY FIBROSIS, UNSPECIFIED 01/13/2018 PREET ANDRADE DO Ot R09.02 HYPOXEMIA 01/13/2018 SAIMA MORGAN APRN Ot J84.10 PULMONARY FIBROSIS, UNSPECIFIED 01/13/2018 SAIMA MORGAN APRN Ot R09.02 HYPOXEMIA 01/13/2018 SAIMA MORGAN APRN Ot J30.9 ALLERGIC RHINITIS, UNSPECIFIED 01/13/2018 SAIMA MORGAN APRN Ot J44.9 CHRONIC OBSTRUCTIVE PULMONARY DISEASE, U 01/13/2018 SAIMA MORGAN APRN Ot R59.0 LOCALIZED ENLARGED LYMPH NODES 01/13/2018 SAIMA MORGAN APRN Ot Z72.0 TOBACCO USE 01/13/2018 SAIMA MORGAN APRN Ot J18.9 PNEUMONIA, UNSPECIFIED ORGANISM 01/13/2018 SAIMA MORGAN APRN Ot J18.9 PNEUMONIA, UNSPECIFIED ORGANISM Procedures There is no data. Results Test Result Range DEB w/Reflex - 03/29/16 14:22 DEB DIRECT NEGATIVE NEGATIVE Angiotensin-Converting Enzyme - 03/29/16 14:22 JUANCARLOS 46 U/L 14-82 Immunoglobulins A/G/M, Qn, Ser - 03/29/16 14:22 IMMUNOGLOBULIN A, QN, SERUM 314 MG/DL 64-422 IMMUNOGLOBULIN G, QN, SERUM 1433 MG/DL 700-1600 IMMUNOGLOBULIN M, QN, SERUM 53 MG/DL 26-217 Thyroid Stimulating Hormone - 06/21/16 10:04 TSH 1.78 mIU/mL 0.32-5.00 Free T4 - 06/21/16 10:04 Free T4 1.49 ng/dL 0.81-1.61 Encounters ACCT No. Visit Date/Time Discharge Status Pt. Type Provider Facility Loc./Unit Complaint [id number] 01/13/2018 14:51:00 01/13/2018 23:59:59 CLS Outpatient KENZIE CONNELL, LUCY West [facility] DSME TYPE 2 DIABETES [id number] 08/05/2017 11:39:00 08/05/2017 23:59:59 CLS Outpatient EDDIE, SAIMA E ICU SPECIALIST [facility] RAD J18.9 [id number] 07/11/2017 13:11:00 07/11/2017 23:59:59 CLS Outpatient EDDIE, SAIMA E ICU SPECIALIST [facility] RAD J18.9 [id number] 06/04/2017 10:26:00 06/04/2017 23:59:59 CLS Outpatient EDDIE, SAIMA E ICU SPECIALIST [facility] RAD COPD J44.9,R05, R63.4,J30.9 [id number] 11/21/2016 15:14:00 11/21/2016 23:59:59 CLS Outpatient EDDIE, SAIMA E ICU SPECIALIST [facility] RT J84.10 [id number] 11/16/2016 13:00:00 11/20/2016 11:26:00 DIS Outpatient ZI MORGANINE E ICU SPECIALIST [facility] RAD HEOPTYSIS [id number] 04/02/2016 08:29:00 04/02/2016 23:59:59 CLS Outpatient PREET ANDRADE DO [facility] RAD PULMONARY FIBROSIS, HYPOXIA [id number] 12/09/2015 12:57:00 12/09/2015 23:59:59 CLS Outpatient RAMONE JONES ICU SPECIALIST [facility] RAD COUGH,CRACKLES, SOB [id number] 10/25/2015 11:21:00 10/25/2015 23:59:59 CLS Outpatient DYLON HARRIS MANAGER BABY [facility] RAD COUGH [id number] 04/04/2015 15:00:00 04/04/2015 23:59:59 CLS Preadmit ZI MORGANINE E ICU SPECIALIST [facility] PULM PULMONARY FIBROSIS, HYPOXIA [id number] 01/03/2015 14:59:00 04/03/2015 00:01:00 DIS Outpatient EDDIE SAIMA E ICU SPECIALIST [facility] PULM PULMONARY FIBROSIS ,HYPOXIA [id number] 03/02/2015 11:23:00 03/02/2015 23:59:59 CLS Outpatient LUCY ESPINO MD [facility] RAD PNEUMONIA [id number] 02/21/2015 10:51:00 02/21/2015 23:59:59 CLS Outpatient GT CRAIN DO [facility] QUICK [id number] 11/23/2014 13:14:00 11/23/2014 23:59:59 CLS Outpatient LUCY ESPINO MD [facility] RAD PULMONERY FIBROSIS W/ COUGH [id number] 10/22/2014 11:41:00 10/22/2014 23:59:59 CLS Outpatient PREET ANDRADE DO [facility] RAD HYPOXIA,EXCESSIVE SLEEPINESS, PULMONARY FIBROSIS [id number] 07/05/2014 13:30:00 07/05/2014 23:59:59 CLS Outpatient ALLYSON MARTIN MD [facility] CARD INTERSTATIAL LUNG DISEASE ROUTINE [id number] 10/28/2013 11:19:00 10/28/2013 23:59:59 CLS Outpatient ALLYSON MARTIN MD [facility] RAD F/U PNEUMONIA/PLEASE COMPARE [id number] 10/13/2013 12:07:00 10/16/2013 10:03:00 DIS Inpatient ALLYSON MARTIN MD [facility] 4TH FEVER,PNEUMONIA [id number] 10/12/2013 11:56:00 10/12/2013 23:59:59 CLS Outpatient ALLYSON MARTIN MD [facility] RAD COUGH,SOB [id number] 08/31/2013 20:01:00 09/01/2013 05:55:00 DIS Outpatient PREET ANDRADE DO [facility] SLEEP SNORING,EXCESSIVE DAYTIME SLEEPINESS,PULMONARY FIB [id number] 12/23/2012 10:03:00 12/23/2012 23:59:59 CLS Outpatient ALLYSON MARTIN MD [facility] RAD F/U PNEUMONIA, INTERSTITIA LUNG DX [id number] 09/17/2012 12:08:00 09/17/2012 23:59:59 CLS Outpatient ALLYSON MARTIN MD [facility] RAD F/D PNUEMONIA COUGH [id number] 07/29/2012 10:14:00 07/29/2012 23:59:59 CLS Outpatient ALLYSON MARTIN MD [facility] RAD COUGH [id number] 07/05/2014 13:30:00 Document Registration [id number] 01/30/2012 15:14:00 Document Registration [id number] 07/26/2011 14:30:00 Document Registration [id number] 06/21/2011 09:21:00 Document Registration [id number] 04/13/2009 06:54:00 Document Registration [id number] 06/21/2016 10:00:00 06/21/2016 23:59:00 DIS Outpatient LUCY ESPINO [id number] 03/29/2016 14:16:00 03/29/2016 23:59:00 DIS Outpatient PREET ANDRADE [id number] 11/23/2014 13:15:53 ACT Document Registration [id number] 01/06/2017 23:34:45 01/06/2017 23:59:59 CLS Outpatient
[2018-01-31] MEDS ORDERED: RT-ALBUTEROL/IPRATROPIUM 3 ML (DUONEB) VIAL INH ONE (18:30)
[2018-01-31 18:32] LABS: BASOPHILS % (AUTO) 0 % (0-10); EOSINOPHILS % (AUTO) 0 % (0-10); HEMATOCRIT 35 % (35-52); HEMOGLOBIN 11.1 G/DL (11.5-16.0); LYMPHOCYTES # (AUTO) 1.7 X 10^3 (1.0-4.0); LYMPHOCYTES % (AUTO) 8 % (12-44); MEAN CORPUSCULAR HEMOGLOBIN 26 PG (25-34); MEAN CORPUSCULAR HGB CONC 32 G/DL (32-36); MEAN CORPUSCULAR VOLUME 84 FL (80-99); MEAN PLATELET VOLUME 9.1 FL (7.4-10.4); MONOCYTES # (AUTO) 1.5 X 10^3 (0.0-1.0); MONOCYTES % (AUTO) 7 % (0-12); NEUTROPHILS # (AUTO) 17.5 X 10^3 (1.8-7.8); NEUTROPHILS % (AUTO) 84 % (42-75); PLATELET COUNT 411 10^3/uL (130-400); RED BLOOD COUNT 4.19 10^6/uL (4.35-5.85); RED CELL DISTRIBUTION WIDTH 13.7 % (10.0-14.5); WHITE BLOOD COUNT 20.7 10^3/uL (4.3-11.0)
[2018-01-31 18:52] LABS: INR 1.4 (0.8-1.4); PROTHROMBIN TIME PATIENT 17.1 SEC (12.2-14.7)
[2018-01-31 18:57] LABS: BAND NEUTROPHILS 2 %; BASOPHILS % (MANUAL) 0 %; EOSINOPHILS % (MANUAL) 0 %; LYMPHOCYTES % (MANUAL) 4 %; MONOCYTES % (MANUAL) 4 %; NEUTROPHILS % (MANUAL) 90 %; RBC MORPH NORMAL
[2018-01-31 19:00] LABS: ALANINE AMINOTRANSFERASE 42 U/L (0-55); ALBUMIN 3.4 GM/DL (3.2-4.5); ALKALINE PHOSPHATASE 128 U/L (40-136); BILIRUBIN,TOTAL 0.9 MG/DL (0.1-1.0); BUN/CREATININE RATIO 18; CARBON DIOXIDE 27 MMOL/L (21-32); CHLORIDE 95 MMOL/L (98-107); CREATININE SERUM 1.46 MG/DL (0.60-1.30); GFR ESTIMATED 34; GLUCOSE 122 MG/DL (70-105); MAGNESIUM 1.4 MG/DL (1.8-2.4); POTASSIUM 3.7 MMOL/L (3.6-5.0); SODIUM 133 MMOL/L (135-145); TOTAL PROTEIN 8.8 GM/DL (6.4-8.2)
--- NOTE | 2018-01-31 19:08 | Diagnostic Imaging Report ---
PATIENT HISTORY: Pulmonary fibrosis with persistent cough and difficulty breathing. TECHNIQUE: Single frontal view of the chest COMPARISON: 08/05/2017 FINDINGS: There are reticular opacities in the lung bases and along the periphery of the lungs bilaterally with relative sparing of the apices. This appears increased compared to 08/05/2017. The cardiac silhouette is stable in size. There is aortic atherosclerosis. IMPRESSION: 1. Interstitial reticular opacities in the lungs bilaterally appear increased compared to the prior exam. This may represent progression of chronic disease versus superimposed infiltrate. Dictated by: Dictated on workstation # [id number]
[2018-01-31] MEDS ORDERED: cefTRIAXone FOR IV USE 1,000 MG in NS (IVPB) 50 ML IV ONE (19:15)
--- NOTE | 2018-01-31 19:16 | ED Respiratory ---
General Chief Complaint: Respiratory Problems Stated Complaint: LOW O2/COUGH Nursing Triage Note: PATIENT WITH KNOWN PULMONARY FIBROSIS HERE FOR A PERSISTEMNT COUGH AND DISCOMFORT WITH BREATHING X2 DAYS. PATIENT WEARS O2 AT NIGHT ONLY BUT WAS 87% ON ROOM AIR ON ARRIVAL. SHE WAS IMMEDIATELY PLACED ON OXYGEN. Source: patient History of Present Illness Date Seen by Provider: Jan 31, 2018 Time Seen by Provider: 18:15 Initial Comments PT ARRIVES VIA POV WITH FAMILY PT HAS HISTORY OF PULMONARY FIBROSIS PT HAS CHRONIC COUGH, BUT HAS BEEN WORSE FOR THE LAST FEW DAYS,AND HAS BEEN PRODUCTIVE SINCE YESTERDAY PT HAS CHRONIC SHORTNESS OF BREATH, BUT HAS ALSO INCREASED OVER THE LAST FEW DAYS PT NORMALLY ONLY WEARS HOME O2 AT 2L/NC AT HS PT STATES SHE IS COUGHING SO HARD IT IS NOW MAKING HER CHEST HURT AND HER BACK HURT NO KNOWN FEVER NO SWEATS NO SWELLING IN LEGS/ FEET OR PAIN IN CALVES C/O DRY MOUTH PT HAS ALBUTEROL NEBULIZER AT HOME, BUT HAS NOT USED IN A LONG TIME. PT HAS NOT TAKEN ANYTHING FOR SYMPTOMS PCP: DR. ESPINO GRAIN MERCHANDISING MANAGER: DR. ANDRADE Allergies and Home Medications Allergies Coded Allergies: Sulfa (Sulfonamide Antibiotics) (Unverified Allergy, Unknown, 10/13/13) Uncoded Allergies: MORPHINE SULFATE (Allergy, Unknown, 10/13/13) PCN (Allergy, Unknown, 10/13/13) Home Medications Aspirin 81 Mg Tablet.dr, 81 MG PO DAILY, (Reported) Atenolol 25 Mg Tablet, 25 MG PO DAILY, (Reported) Cyclobenzaprine HCl 10 Mg Tablet, 10 MG PO HS, (Reported) Indapamide 2.5 Mg Tablet, 1.25 MG PO DAILY, (Reported) TAKES 1/2 (2.5MG) TABLET Isosorbide Mononitrate 30 Mg Tab.sr.24h, 30 MG PO DAILY, (Reported) Simvastatin 40 Mg Tablet, 40 MG PO HS, (Reported) Patient Home Medication List Home Medication List Reviewed: Yes Review of Systems Review of Systems Constitutional: No chills, No diaphoresis, No dizziness, No fever; weakness EENTM: no symptoms reported Respiratory: see HPI, cough, dyspnea on exertion, phlegm, short of breath Cardiovascular: chest pain; No edema, No palpitations, No syncope, No vascular heart diseas Gastrointestinal: no symptoms reported; No abdominal pain, No nausea, No vomiting Genitourinary: no symptoms reported Musculoskeletal: see HPI, back pain Skin: no symptoms reported Psychiatric/Neurological: No Symptoms Reported Hematologic/Lymphatic: No Symptoms Reported Immunological/Allergic: no symptoms reported Past Epkrfwn-Alzeao-Mnutow Hx Patient Social History Alcohol Use: Denies Use Recreational Drug Use: No Smoking Status: Former Smoker 2nd Hand Smoke Exposure: No Recent Foreign Travel: No Contact w/Someone Who Travel: No Recent Infectious Disease Expo: No Immunizations Up To Date Tetanus Booster (TDap): Unknown Date of Pneumonia Vaccine: Jan 14, 2012 Past Medical History Surgeries: Yes (LUMBAR FUSION; HYST--UNSURE IF OVARIES ARE INTACT; BRONCHOSCOPY ; LEFT CATARACT SURGERY; LEFT TOTAL KNEE REPLACEMENT) Appendectomy, Eye Surgery, Hysterectomy, Joint Replacement, Orthopedic Respiratory: Yes (O2 AT 2L/NC AT HS) Pneumonia, Chronic Bronchitis, Pulmonary Fibrosis Cardiac: Yes High Cholesterol, Hypertension Neurological: No Reproductive Disorders: No 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 Disorders: 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, 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 Sexually Transmitted Disease: No HIV/AIDS: No Genitourinary: No Gastrointestinal: No Musculoskeletal: Yes (LUMBAR FUSION; LEFT TOTAL KNEE REPLACEMENT) Arthritis, Chronic Back Pain Endocrine: Yes Hypothyroidsim, Diabetes, Non-Insulin dep HEENT: Yes Cataract (LEFT ) Loss of Vision: Denies Hearing Impairment: Denies Cancer: No Psychosocial: No Integumentary: No Blood Disorders: No Adverse Reaction/Blood Tranf: No Family Medical History Family history: Cardiovascular disease 19 MOTHER Family history: Hypertension 19 MOTHER Parkinson's disease 19 FATHER Stroke 19 MOTHER No Family History of: Abdominal aortic aneurysm Calvert's disease Alcoholism Aphasia Cancer Cancer of colon Cataract Chest pain Congenital heart disease Congestive heart failure Cystic fibrosis Dementia Dysphagia Family history: Allergy Family history: Alzheimer's disease Family history: Arthritis Family history: Asthma Family history: Breast disease Family history: Coronary thrombosis Family history: Diabetes mellitus Family history: Gastrointestinal disease Family history: Glaucoma Family history: Osteoporosis Family history: Thyroid disorder Headache Hearing loss Heart disease Hereditary disease History of - anemia History of - disorder History of - respiratory disease History of drug abuse Human immunodeficiency virus (HIV) seropositivity Hypercholesterolemia Infertile Kidney disease Malignant neoplasm of lung Myocardial infarction Not obtainable due to adoption Prostate cancer Psychotic disorder Seizure disorder Tuberculosis Visual impairment Physical Exam Vital Signs - First Documented Capillary Refill : Less Than 3 Seconds Height: 5'7.00" Weight: 133lbs. 0oz. 60.471166bo; BMI Method:Stated General Appearance: WD/WN, no apparent distress HEENT: PERRL/EOMI, other (ORAL MUCOSA VERY DRY) Neck: normal inspection Respiratory: no respiratory distress, no accessory muscle use, crackles, rales ; No wheezing; other (DIFFUSE RALES/CRACKLES BILATERALLY, ESPECIALLY IN BASES) Cardiovascular: regular rate, rhythm, no edema, no JVD, no murmur Gastrointestinal: non tender, soft Extremities: normal inspection, no pedal edema, normal capillary refill Neurologic/Psychiatric: furniture arranger II-XII nml as tested, no motor/sensory deficits, alert, normal mood/affect, oriented x 3 Skin: normal color, warm/dry; No rash Focused Exam Lactate Level 01/31/18 18:35: Lactic Acid Level 1.17 Lactic Acid Level Laboratory Tests Test 01/31/18 18:35 Lactic Acid Level 1.17 MMOL/L (0.50-2.00) Progress/Results/Core Measures Suspected Sepsis Recent Fever Within 48 Hours: No Infection Criteria Present: Suspected New Infection New/Unexplained Altered Menta: No Sepsis Screen: Possible Sepsis Risk SIRS Temperature:98.3 Pulse: 102 Respiratory Rate: 22 Laboratory Tests 01/31/18 18:20: White Blood Count 20.7H Blood Pressure 104 /56 Mean: 72 01/31/18 18:35: Lactic Acid Level 1.17 Laboratory Tests 01/31/18 18:20: Creatinine 1.46H, INR Comment 1.4, Platelet Count 411H, Total Bilirubin 0.9 Results/Orders Lab Results Laboratory Tests Test 01/31/18 18:20 01/31/18 18:35 Range/Units White Blood Count 20.7 H 4.3-11.0 10^3/uL Red Blood Count 4.19 L 4.35-5.85 10^6/uL Hemoglobin 11.1 L 11.5-16.0 G/DL Hematocrit 35 35-52 % Mean Corpuscular Volume 84 80-99 FL Mean Corpuscular Hemoglobin 26 25-34 PG Mean Corpuscular Hemoglobin Concent 32 32-36 G/DL Red Cell Distribution Width 13.7 10.0-14.5 % Platelet Count 411 H 130-400 10^3/uL Mean Platelet Volume 9.1 7.4-10.4 FL Neutrophils (%) (Auto) 84 H 42-75 % Lymphocytes (%) (Auto) 8 L 12-44 % Monocytes (%) (Auto) 7 0-12 % Eosinophils (%) (Auto) 0 0-10 % Basophils (%) (Auto) 0 0-10 % Neutrophils # (Auto) 17.5 H 1.8-7.8 X 10^3 Lymphocytes # (Auto) 1.7 1.0-4.0 X 10^3 Monocytes # (Auto) 1.5 H 0.0-1.0 X 10^3 Eosinophils # (Auto) 0.0 0.0-0.3 10^3/uL Basophils # (Auto) 0.0 0.0-0.1 10^3/uL Neutrophils % (Manual) 90 % Lymphocytes % (Manual) 4 % Monocytes % (Manual) 4 % Eosinophils % (Manual) 0 % Basophils % (Manual) 0 % Band Neutrophils 2 % Blood Morphology Comment NORMAL Prothrombin Time 17.1 H 12.2-14.7 SEC INR Comment 1.4 0.8-1.4 Activated Partial Thromboplast Time 38 H 24-35 SEC Sodium Level 133 L 135-145 MMOL/L Potassium Level 3.7 3.6-5.0 MMOL/L Chloride Level 95 L 98-107 MMOL/L Carbon Dioxide Level 27 21-32 MMOL/L Anion Gap 11 5-14 MMOL/L Blood Urea Nitrogen 26 H 7-18 MG/DL Creatinine 1.46 H 0.60-1.30 MG/DL Estimat Glomerular Filtration Rate 34 BUN/Creatinine Ratio 18 Glucose Level 122 H 70-105 MG/DL Calcium Level 10.0 8.5-10.1 MG/DL Corrected Calcium 10.5 H 8.5-10.1 MG/DL Magnesium Level 1.4 L 1.8-2.4 MG/DL Total Bilirubin 0.9 0.1-1.0 MG/DL Aspartate Amino Transf (AST/SGOT) 64 H 5-34 U/L Alanine Aminotransferase (ALT/SGPT) 42 0-55 U/L Alkaline Phosphatase 128 40-136 U/L Troponin I < 0.30 <0.30 NG/ML B-Type Natriuretic Peptide 106.5 H <100.0 PG/ML Total Protein 8.8 H 6.4-8.2 GM/DL Albumin 3.4 3.2-4.5 GM/DL Lactic Acid Level 1.17 0.50-2.00 MMOL/L Micro Results Microbiology 01/31/18 Influenza Types A,B Antigen (DONA) - Final, Complete My Orders Orders - MILLICENT BURROUGHS DO Saline Lock/Iv-Start (01/31/18 18:15) Ekg Tracing (01/31/18 18:15) O2 (01/31/18 18:15) Monitor-Rhythm Ecg Trace Only (01/31/18 18:15) BNP (01/31/18 18:15) Cbc With Automated Diff (01/31/18 18:15) Comprehensive Metabolic Panel (01/31/18 18:15) Lactic Acid Analyzer (01/31/18 18:15) Magnesium (01/31/18 18:15) Protime With Inr (01/31/18 18:15) Partial Thromboplastin Time (01/31/18 18:15) Troponin I (01/31/18 18:15) Blood Culture (01/31/18 18:15) Influenza A And B Antigens (01/31/18 18:15) Chest 1 View, Ap/Pa Only (01/31/18 18:15) Albuterol/Ipra Inhalation Soln (Duoneb I (01/31/18 18:30) Rt Request For Service (01/31/18 18:20) Svn Small Volume Nebulizer (01/31/18 18:20) Manual Differential (01/31/18 18:20) Sputum Culture (01/31/18 19:14) Urinalysis (01/31/18 19:14) Urine Culture (01/31/18 19:14) Saline Lock/Iv-Start (01/31/18 19:14) O2 (01/31/18 19:14) Ceftriaxone For Iv Use (Rocephin For I (01/31/18 19:15) Methylprednisolone Sod Succ (Solu-Medrol (01/31/18 19:30) Magnesium Oxide Tablet (Mag Ox Tablet) (01/31/18 19:30) Magnesium 1 Gm/100 Ml Ivpb (Magnesium Tsai (01/31/18 19:30) Medications Given in ED Vital Signs/I&O 01/31/18 01/31/18 01/31/18 18:05 18:05 19:14 Temp 98.3 Pulse 102 Resp 22 B/P (MAP) 104/56 (72) Pulse Ox 99 99 98 O2 Delivery Nasal Cannula Nasal Cannula O2 Flow Rate 4.00 4.00 2.00 Capillary Refill : Less Than 3 Seconds Blood Pressure Mean: 72 Progress Note : Progress Note INITIAL O2 SAT 87% ON ROOM AIR. UP TO 98% ON 4L/NC GIVEN NEB TREATMENT AND PT STATES SHE FEELS BETTER AND FEELS LESS SHORT OF BREATH. NO DETERIORATION IN PT'S CONDITION DURING ER STAY ECG Initial ECG Impression Date: Jan 31, 2018 Initial ECG Impression Time: 19:09 Initial ECG Rate: 91 Initial ECG Rhythm: Normal Sinus Diagnostic Imaging Comments CXR--BILATERAL INTERSTITIAL OPACITIES, INCREASED FROM PREVIOUS--PROGRESSION OF FIBROSIS VS NEW INFILTRATES--PER RADIOLOGIST REPORT @ 191 Reviewed: Reviewed by Me Departure Communication (Admissions) 1923--SPOKE WITH DR. SAENZ, ACCEPTS PT FOR ADMIT. WILL HAVE DR. ANDRADE CONSULTED. Impression Primary Impression: Sepsis Additional Impressions: Pneumonia Hypoxia Pulmonary fibrosis NIDDM DEHYDRATION WITH RENAL INSUFFICIENCY Hypomagnesemia Disposition: ADMITTED INPATIENT Condition: Improved Admissions Decision to Admit Reason: Admit from ER (General) Decision to Admit/Date: Jan 31, 2018 Time/Decision to Admit Time: 19:25 Departure-Patient Inst. Referrals: LUYC ESPINO MD (PCP/Family) Primary Care Physician MILLICENT BURROUGHS DO Jan 31, 2018 19:16
[2018-01-31] MEDS ORDERED: methylPREDNISolone 125 MG (Solu-MEDROL) VIAL IVP ONE (19:30)
[2018-01-31] MEDS ORDERED: MAGNESIUM 1 GM/100 ML IVPB 100 ML IV ONE (19:30)
[2018-01-31] MEDS ORDERED: MAGNESIUM OXIDE (MAG-OX)400 MG TAB PO ONE (19:30)
[2018-01-31 21:30] VITALS: BP 136/63
[2018-01-31 23:22] VITALS: BP 104/56
[2018-02-01] VITALS (8 sets, daily range): BP systolic 117–142; BP diastolic 58–70
[2018-02-01] MEDS ORDERED: RT-ALBUTEROL/IPRATROPIUM 3 ML (DUONEB) VIAL INH PRN
[2018-02-01 00:21] LABS: BILIRUBIN,URINE NEGATIVE (NEGATIVE); CLARITY,URINE VERY CLOUDY; COLOR,URINE YELLOW; GLUCOSE, URINE (UA) NEGATIVE (NEGATIVE); KETONES,URINE NEGATIVE (NEGATIVE); LEUKOCYTE ESTERASE ,URINE 3+ (NEGATIVE); NITRITE,URINE POSITIVE (NEGATIVE); PH,URINE 5 (5-9); PROTEIN,URINE 2+ (NEGATIVE); UROBILINOGEN,URINE NORMAL (NORMAL)
[2018-02-01 00:32] LABS: BACTERIA,URINE LARGE /HPF; SQUAMOUS EPITHELIAL CELL,UR RARE /HPF; WBC,URINE TNTC /HPF
[2018-02-01] MEDS: RT-ALBUTEROL/IPRATROPIUM 3 ML (DUONEB) VIAL INH SCH ×6 (02:28→21:51)
[2018-02-01] MEDS ORDERED: cloNIDine 0.2 MG (CATAPRES) TAB PO ONE (04:15)
[2018-02-01] MEDS ORDERED: ASPI-586 PO ×2 (04:55→11:21)
[2018-02-01] MEDS ORDERED: CYCL10TA9 PO (04:55)
--- NOTE | 2018-02-01 06:49 | Pulmonary Consultation ---
History of Present Illness History of Present Illness Date of Consultation 02/01/18 06:44 Time Seen by Provider: 06:44 Date of Admission History of Present Illness 82yo with hx of pulmonary fibrosis presented to ED secondary to persistent worsening cough and worsening SOB over the last 2 days. Sp02 was 87% on RA. SHe does have home oxygen that she usually only uses at night. Allergies and Home Medications Allergies Coded Allergies: Sulfa (Sulfonamide Antibiotics) (Unverified Allergy, Unknown, 10/13/13) Uncoded Allergies: MORPHINE SULFATE (Allergy, Unknown, 10/13/13) PCN (Allergy, Unknown, 10/13/13) Home Medications Aspirin 81 Mg Tablet.dr, 81 MG PO DAILY, (Reported) Atenolol 25 Mg Tablet, 25 MG PO DAILY, (Reported) Cyclobenzaprine HCl 10 Mg Tablet, 10 MG PO HS, (Reported) Indapamide 2.5 Mg Tablet, 1.25 MG PO DAILY, (Reported) TAKES 1/2 (2.5MG) TABLET Isosorbide Mononitrate 30 Mg Tab.sr.24h, 30 MG PO DAILY, (Reported) Simvastatin 40 Mg Tablet, 40 MG PO HS, (Reported) Past Agvrybb-Yaicng-Lmyzat Hx Patient Social History Alcohol Use: Denies Use Recreational Drug Use: No Smoking Status: Former Smoker 2nd Hand Smoke Exposure: No Recent Foreign Travel: No Contact w/Someone Who Travel: No Recent Infectious Disease Expo: No Immunizations Up To Date Tetanus Booster (TDap): Unknown Date of Pneumonia Vaccine: Jan 14, 2012 Date of Influenza Vaccine: Dec 16, 2017 Past Medical History Surgeries: Yes Appendectomy, Eye Surgery, Hysterectomy, Joint Replacement, Orthopedic Respiratory: Yes (O2 AT 2L/NC AT HS) Pneumonia, Chronic Bronchitis, Pulmonary Fibrosis Cardiac: Yes High Cholesterol, Hypertension Neurological: No Reproductive Disorders: No 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, 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 Sexually Transmitted Disease: No HIV/AIDS: No Genitourinary: No Gastrointestinal: No Musculoskeletal: Yes (LUMBAR FUSION; LEFT TOTAL KNEE REPLACEMENT) Arthritis, Chronic Back Pain Endocrine: Yes (new DX of DM 2 months ago (2017)) Hypothyroidsim, Diabetes, Non-Insulin dep HEENT: Yes Cataract Loss of Vision: Denies Hearing Impairment: Denies Cancer: No Psychosocial: No Integumentary: No Blood Disorders: No Adverse Reaction/Blood Tranf: No Family Medical History Family history: Cardiovascular disease 19 MOTHER Family history: Hypertension 19 MOTHER Parkinson's disease 19 FATHER Stroke 19 MOTHER No Family History of: Abdominal aortic aneurysm [place]m's disease Alcoholism Aphasia Cancer Cancer of colon Cataract Chest pain Congenital heart disease Congestive heart failure Cystic fibrosis Dementia Dysphagia Family history: Allergy Family history: Alzheimer's disease Family history: Arthritis Family history: Asthma Family history: Breast disease Family history: Coronary thrombosis Family history: Diabetes mellitus Family history: Gastrointestinal disease Family history: Glaucoma Family history: Osteoporosis Family history: Thyroid disorder Headache Hearing loss Heart disease Hereditary disease History of - anemia History of - disorder History of - respiratory disease History of drug abuse Human immunodeficiency virus (HIV) seropositivity Hypercholesterolemia Infertile Kidney disease Malignant neoplasm of lung Myocardial infarction Not obtainable due to adoption Prostate cancer Psychotic disorder Seizure disorder Tuberculosis Visual impairment Sepsis Event Evaluation Height, Weight, BMI Height: 5'7.00" Weight: 136lbs. 12.8oz. 62.985637ko; 21.4 BMI Method:Stated Exam Exam Vital Signs Date Time Temp Pulse Resp B/P (MAP) Pulse Ox O2 Delivery O2 Flow Rate FiO2 02/01/18 02:34 96 2.00 02/01/18 01:00 70 01/31/18 23:22 102 99 28 01/31/18 23:12 101 01/31/18 21:30 97.3 94 18 136/63 (87) 99 Nasal Cannula 2.00 01/31/18 21:20 99 Nasal Cannula 2.00 01/31/18 21:00 98.2 93 16 122/57 (78) 94 Nasal Cannula 2.00 01/31/18 19:14 98 Nasal Cannula 2.00 01/31/18 18:05 99 4.00 01/31/18 18:05 98.3 102 22 104/56 (72) 99 Nasal Cannula 4.00 I & O 02/01/18 07:00 Intake Total 210 ml Balance 210 ml Height & Weight Height: 5'7.00" Weight: 136lbs. 12.8oz. 62.975331nk; 21.4 BMI Method:Stated Capillary Refill: Less Than 3 Seconds Results Lab Laboratory Tests 01/31/18 18:20 Assessment/Plan Assessment/Plan Acute on chronic respiratory failure -Check ABG -Oxygen -BiPAP PRN Sepsis - (Not severe) -Mccormack cultures pending -repeat labs Pneumonia with hx of MRSA -Start vanco, and merrem -Check urine strep legionella ag Chronic renal failure -Monitor UTI Diastolic CHF with pulmonary edema -Start Lasix 40mg IV daily hx of pulmonary fibrosis and COPD -Uses 2 liters of oxygen at night. PREET ANDRADE DO Feb 01, 2018 06:49
[2018-02-01] MEDS ORDERED: ENOXAPARIN 40 MG/0.4 ML (LOVENOX) SYR SC SCH (07:00)
[2018-02-01] MEDS ORDERED: PHARMACY TO DOSE IV SCH (07:00)
[2018-02-01 07:10] LABS: BASOPHILS % (AUTO) 0 % (0-10); EOSINOPHILS % (AUTO) 0 % (0-10); HEMATOCRIT 37 % (35-52); HEMOGLOBIN 11.5 G/DL (11.5-16.0); LYMPHOCYTES # (AUTO) 0.7 X 10^3 (1.0-4.0); LYMPHOCYTES % (AUTO) 5 % (12-44); MEAN CORPUSCULAR HEMOGLOBIN 26 PG (25-34); MEAN CORPUSCULAR HGB CONC 31 G/DL (32-36); MEAN CORPUSCULAR VOLUME 84 FL (80-99); MEAN PLATELET VOLUME 9.6 FL (7.4-10.4); MONOCYTES # (AUTO) 0.1 X 10^3 (0.0-1.0); MONOCYTES % (AUTO) 1 % (0-12); NEUTROPHILS # (AUTO) 11.9 X 10^3 (1.8-7.8); NEUTROPHILS % (AUTO) 94 % (42-75); PLATELET COUNT 352 10^3/uL (130-400); RED BLOOD COUNT 4.45 10^6/uL (4.35-5.85); RED CELL DISTRIBUTION WIDTH 13.5 % (10.0-14.5); WHITE BLOOD COUNT 12.7 10^3/uL (4.3-11.0)
[2018-02-01] MEDS ORDERED: inSUlin ASPART (NovoLOG) 1 UNIT/0.01 ML (CHARGE PER UNIT) ONE (07:25)
[2018-02-01 07:30] LABS: ALBUMIN 3.2 GM/DL (3.2-4.5); BILIRUBIN,TOTAL 0.4 MG/DL (0.1-1.0); CREATININE SERUM 1.32 MG/DL (0.60-1.30); MAGNESIUM 2.2 MG/DL (1.8-2.4); PHOSPHORUS 3.7 MG/DL (2.3-4.7); POTASSIUM 3.8 MMOL/L (3.6-5.0); TOTAL PROTEIN 8.5 GM/DL (6.4-8.2)
[2018-02-01] MEDS: ENOXAPARIN 30 MG/0.3 ML (LOVENOX) SYR SC SCH (07:30)
[2018-02-01] MEDS: inSUlin ASPART (NovoLOG) 1 UNIT/0.01 ML (CHARGE PER UNIT) SC SCH ×4 (07:30→20:23)
[2018-02-01] MEDS ORDERED: VANCOMYCIN 1250 MG/NS 250 ML IVPB IV NR ×2 (07:30)
[2018-02-01] MEDS: PANTOPRAZOLE 40 MG (PROTONIX) TAB PO SCH (07:30)
[2018-02-01] MEDS: MEROPENEM 500 MG in NS (IVPB) 50 ML IV SCH ×3 (07:30→22:22)
[2018-02-01] MEDS ORDERED: methylPREDNISolone 125 MG (Solu-MEDROL) VIAL IV SCH (08:00)
[2018-02-01] MEDS ORDERED: ACETAMINOPHEN 500 MG TAB (TYLENOL) PO PRN (08:00)
[2018-02-01] MEDS ORDERED: CATHETER FLUSH 10 ML SYR IV PRN (08:00)
[2018-02-01] MEDS ORDERED: LEVO75TA6 PO (08:12)
[2018-02-01] MEDS ORDERED: MONT10TA21 PO (08:16)
[2018-02-01] MEDS ORDERED: FLUT9.9S NS (08:16)
[2018-02-01] MEDS ORDERED: CETI10CA PO (08:16)
[2018-02-01] MEDS ORDERED: OMEP20TA33 PO (08:16)
[2018-02-01] MEDS ORDERED: INSU200I4 SQ (08:18)
[2018-02-01] MEDS: FUROSEMIDE 40 MG/4 ML INJ (LASIX) IVP SCH (10:11)
[2018-02-01 10:28] LABS: ABG BASE EXCESS 1.1 MMOL/L (-2.5-2.5); ABG OXYGEN SATURATION 98 % (94-100); ABG PCO2 37 MMHG (35-45); ABG PH 7.44 (7.37-7.43); ABG PO2 95 MMHG (79-93); ABG TCO2 26.1 MMOL/L (21.0-31.0)
[2018-02-01 10:29] LABS: ALLENS TEST YES-POS; INSPIRED O2 2L; PATIENT TEMP 97.7; VENTILATOR NO
[2018-02-01] MEDS ORDERED: PROM5SYR PO (11:22)
[2018-02-01] MEDS ORDERED: MONT10TA24 PO (11:24)
--- NOTE | 2018-02-01 12:40 | History & Physical-Hospitalist ---
History of Present Illness HPI/Chief Complaint CC: Dyspnea HPI: This is an 82yoWF clinic patient of Dr Nolen and Dr Quinteros who has a h/ o severe pulmonary HTN although requires only O2 at night who presented to the ER w/increased SOB and low grade fever with sore throat. Patient was found to have pneumonia and requiring in-pt stay for IV steroids and IV abx. Currently she is only complaining of sore throat and otherwise much improved since admit. Checked meds and labs and restarted home meds. Source: patient Date Seen 02/01/18 Time Seen by a Provider: 12:30 Attending Physician Sonia Noeln MD PCP Sonia Nolen MD Referring Physician Date of Admission Jan 31, 2018 at 19:25 Home Medications & Allergies Home Medications Reviewed patient Home Medication Reconciliation performed by pharmacy medication reconciliations field sampling technician and/or nursing. Patients Allergies have been reviewed. Allergies Allergies Coded Allergies Sulfa (Sulfonamide Antibiotics) (Unverified Allergy, Unknown, 10/13/13) Uncoded Allergies MORPHINE SULFATE ( Allergy, Unknown, 10/13/13) PCN ( Allergy, Unknown, 10/13/13) Past Lffpgfq-Vxvatp-Vvpyua Hx Past Med/Social Hx: Reviewed Nursing Past Med/Soc Hx, Reviewed and Corrections made Patient Social History Marrital Status: single Employed/Student: retired Alcohol Use: Denies Use Recreational Drug Use: No Smoking Status: Former Smoker 2nd Hand Smoke Exposure: No Physical Abuse Screen: No Sexual Abuse: No Recent Foreign Travel: No Contact w/other who traveled: No Recent Infectious Disease Expo: No Immunizations Up To Date Tetanus Booster (TDap): Unknown Date of Pneumonia Vaccine: Jan 14, 2012 Date of Influenza Vaccine: Dec 16, 2017 Past Medical History Surgeries: Appendectomy, Eye Surgery, Hysterectomy, Joint Replacement, Orthopedic Respiratory: COPD (pulmonary fibrosis) Cardiac: High Cholesterol, Hypertension Reproductive: No Sexually Transmitted Disease: No HIV/AIDS: No 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 Disorders: Denies Hysterectomy, Menopausal Musculoskeletal: Arthritis, Chronic Back Pain Endocrine: Hypothyroidsim, Diabetes, Non-Insulin dep HEENT: Cataract Loss of Vision: Denies Hearing Impairment: Denies History of Blood Disorders: No Adverse Reaction to Blood Lai: No Family History Family history: Cardiovascular disease 19 MOTHER Family history: Hypertension 19 MOTHER Parkinson's disease 19 FATHER Stroke 19 MOTHER No Family History of: Abdominal aortic aneurysm [place]iken's disease Alcoholism Aphasia Cancer Cancer of colon Cataract Chest pain Congenital heart disease Congestive heart failure Cystic fibrosis Dementia Dysphagia Family history: Allergy Family history: Alzheimer's disease Family history: Arthritis Family history: Asthma Family history: Breast disease Family history: Coronary thrombosis Family history: Diabetes mellitus Family history: Gastrointestinal disease Family history: Glaucoma Family history: Osteoporosis Family history: Thyroid disorder Headache Hearing loss Heart disease Hereditary disease History of - anemia History of - disorder History of - respiratory disease History of drug abuse Human immunodeficiency virus (HIV) seropositivity Hypercholesterolemia Infertile Kidney disease Malignant neoplasm of lung Myocardial infarction Not obtainable due to adoption Prostate cancer Psychotic disorder Seizure disorder Tuberculosis Visual impairment Review of Systems Constitutional: see HPI, chills, fever, malaise, weakness EENTM: no symptoms reported Respiratory: cough, dyspnea on exertion, short of breath, wheezing Cardiovascular: no symptoms reported Gastrointestinal: no symptoms reported Genitourinary: no symptoms reported Musculoskeletal: no symptoms reported Skin: no symptoms reported Psychiatric/Neurological: No Symptoms Reported All Other Systems Reviewed Negative Unless Noted: Yes Physical Exam Physical Exam Vital Signs Vital Signs - First Documented 01/31/18 23:22 FiO2 28 Capillary Refill : Less Than 3 Seconds Height, Weight, BMI Height: 5'7.00" Weight: 136lbs. 12.8oz. 62.118763iu; 21.4 BMI Method:Stated General Appearance: No Apparent Distress, WD/WN, Chronically ill, Thin Eyes: Bilateral Eye Normal Inspection, Bilateral Eye PERRL HEENT: PERRL/EOMI, Normal ENT Inspection, Pharynx Normal Neck: Full Range of Motion, Normal Inspection, Non Tender, Supple, Carotid Bruit Respiratory: Chest Non Tender, No Accessory Muscle Use, No Respiratory Distress , Crackles, Decreased Breath Sounds, Wheezing Cardiovascular: Regular Rate, Rhythm, No Edema, No Gallop, No JVD, No Murmur, Normal Peripheral Pulses Gastrointestinal: Normal Bowel Sounds, No Organomegaly, No Pulsatile Mass, Non Tender, Soft Back: Normal Inspection, No CVA Tenderness, No Vertebral Tenderness Extremity: Normal Capillary Refill, Normal Inspection, Normal Range of Motion, Non Tender, No Calf Tenderness, No Pedal Edema Neurologic/Psychiatric: Alert, Oriented x3, No Motor/Sensory Deficits, Normal Mood/Affect Skin: Normal Color, Warm/Dry Lymphatic: No Adenopathy Results Results/Procedures Labs Laboratory Tests 01/31/18 18:20 02/01/18 06:57 Patient resulted labs reviewed. Assessment/Plan Admission Diagnosis Assessment: Pneumonia Pulmonary fibrosis CAD Hypothyroidism Angina HTN HLP Plan: Home meds IV steroids Insulin Check labs in am Admission Status: Inpatient Order (span 2 midnights) Reason for Inpatient Admission: Pulmonary fibrosis O2 dependent requiring at least 3 days in-pt for IV steroids and abx Diagnosis/Problems Diagnosis/Problems (1) Sepsis Status: Acute Qualifiers: Sepsis type: sepsis due to unspecified organism Qualified Codes: A41.9 - Sepsis, unspecified organism (2) Pneumonia Status: Acute Qualifiers: Pneumonia type: due to unspecified organism Laterality: unspecified laterality Lung location: unspecified part of lung Qualified Codes: J18.9 - Pneumonia, unspecified organism (3) Hypothyroidism Status: Chronic Qualifiers: Hypothyroidism type: acquired Qualified Codes: E03.9 - Hypothyroidism, unspecified (4) CAD (coronary artery disease) Status: Chronic Qualifiers: Coronary Disease-Associated Artery/Lesion type: pala artery [place] vs. transplanted heart: pala heart Associated angina: with stable angina Qualified Codes: I25.118 - Atherosclerotic heart disease of pala coronary artery with other forms of angina pectoris (5) Angina pectoris Status: Chronic (6) Hypertension Status: Chronic Qualifiers: Hypertension type: essential hypertension Qualified Codes: I10 - Essential (primary) hypertension (7) Hyperlipidemia Status: Chronic Qualifiers: Hyperlipidemia type: mixed hyperlipidemia Qualified Codes: E78.2 - Mixed hyperlipidemia (8) Frailty Status: Chronic (9) Hypoxia Status: Acute (10) Pulmonary fibrosis Status: Chronic (11) Diabetes Status: Chronic Qualifiers: Diabetes mellitus type: type 2 Diabetes mellitus snf insulin use: without long term care pharmacist use Diabetes mellitus complication status: with unspecified complications Qualified Codes: E11.8 - Type 2 diabetes mellitus with unspecified complications Clinical Quality Measures DVT/VTE Risk/Contraindication: Risk Factor Score Per Nursin RFS Level Per Nursing on Admit: 4+=Very High RASHAWN SAENZ DO Feb 01, 2018 12:40
[2018-02-01] MEDS ORDERED: NON-FORMULARY MEDICATION 1 EA EA (Omeprazole Magnesium (Prilosec Otc) 20 MG) PO PRN (13:15)
[2018-02-01] MEDS ORDERED: NON-FORMULARY MEDICATION 1 EA EA (Cetirizine HCl (Zyrtec) 10 MG) PO PRN (13:15)
[2018-02-01] MEDS ORDERED: MONTELUKAST 10 MG (SINGULAIR) TAB PO PRN (13:15)
[2018-02-01] MEDS ORDERED: NON-FORMULARY MEDICATION 1 EA EA (Promethazine HCl/Codeine (Prometh-Codein 6.25-10 mg/5 ml PO PRN (13:15)
[2018-02-01] MEDS ORDERED: PROMETHAZINE/ CODEINE SYRUP 5 ML UDC PO PRN (13:30)
[2018-02-01] MEDS ORDERED: LORATADINE (CLARITIN) 10 MG TAB PO PRN (13:30)
[2018-02-01] MEDS: methylPREDNISolone 125 MG (Solu-MEDROL) VIAL IV SCH ×2 (14:29→20:22)
[2018-02-01] MEDS: CATHETER FLUSH 10 ML SYR IV SCH ×2 (14:30→22:22)
[2018-02-01] MEDS: ASPIRIN E.C. 81 MG (ECOTRIN) TAB PO SCH (20:22)
[2018-02-01] MEDS: CYCLOBENZAPRINE 10 MG (FLEXERIL) TAB PO SCH (20:22)
[2018-02-01] MEDS: inSUlin DETERMIR 1 UNIT/0.01 ML (LEVEMIR) CHARGE PER UNIT SQ SCH (20:22)
[2018-02-01] MEDS: SIMvastatin 40 MG (ZOCOR) TAB PO SCH (20:22)
[2018-02-01] MEDS ORDERED: NON-FORMULARY MEDICATION 1 EA EA (Aspirin (Aspir 81) 81 MG) PO SCH (21:00)
[2018-02-01] MEDS ORDERED: NON-FORMULARY MEDICATION 1 EA EA (Simvastatin 40 MG) PO SCH (21:00)
[2018-02-01] MEDS ORDERED: INSULIN DEGLUDEC 8 UNIT SQ SCH (21:00)
[2018-02-01] MEDS ORDERED: inSUlin DETERMIR 1 UNIT/0.01 ML (LEVEMIR) CHARGE PER UNIT SQ SCH (21:00)
[2018-02-02] VITALS: BP 134/61
[2018-02-02] MEDS: RT-ALBUTEROL/IPRATROPIUM 3 ML (DUONEB) VIAL INH SCH ×5 (01:46→19:49)
[2018-02-02 04:00] VITALS: BP 137/62
--- NOTE | 2018-02-02 05:59 | Pulmonary Progress Note ---
Sepsis Event Evaluation Height, Weight, BMI Height: 5'7.00" Weight: 136lbs. 12.8oz. 62.025043id; 21.4 BMI Method:Stated Focused Exam Lactate Level 01/31/18 18:35: Lactic Acid Level 1.17 Exam Exam Vital Signs Date Time Temp Pulse Resp B/P (MAP) Pulse Ox O2 Delivery O2 Flow Rate FiO2 02/02/18 01:46 97 Nasal Cannula 1.00 02/02/18 00:00 97.2 92 20 134/61 (85) 96 Nasal Cannula 2.00 02/01/18 21:51 95 Nasal Cannula 1.00 02/01/18 20:25 Nasal Cannula 2.00 02/01/18 20:16 98.0 96 18 128/58 (81) 97 Nasal Cannula 2.00 02/01/18 19:00 95 Nasal Cannula 1.50 02/01/18 16:15 98.2 92 20 117/58 (77) 96 Nasal Cannula 2.00 02/01/18 14:52 96 2.00 02/01/18 13:00 100 02/01/18 12:00 96.0 95 18 129/60 (83) 97 Nasal Cannula 2.00 02/01/18 10:25 98 2.00 02/01/18 08:00 96 Nasal Cannula 2.00 02/01/18 08:00 96.5 96 18 119/70 (86) 99 Nasal Cannula 2.00 02/01/18 07:00 88 02/01/18 06:59 99 2.00 02/01/18 06:00 98.4 94 20 138/68 (91) 92 Nasal Cannula 2.00 02/01/18 06:00 98.4 92 18 138/64 (88) 94 Nasal Cannula 2.00 I & O 02/02/18 07:00 Intake Total 1312.5 ml Output Total 300 ml Balance 1012.5 ml Height & Weight Height: 5'7.00" Weight: 136lbs. 12.8oz. 62.944225bl; 21.4 BMI Method:Stated General Appearance: No Apparent Distress, WD/WN, Chronically ill, Thin HEENT: PERRL/EOMI, Normal ENT Inspection, Pharynx Normal Neck: Full Range of Motion, Normal Inspection, Non Tender, Supple, Carotid Bruit Respiratory: Chest Non Tender, No Accessory Muscle Use, No Respiratory Distress , Crackles, Decreased Breath Sounds, Wheezing Cardiovascular: Regular Rate, Rhythm, No Edema, No Gallop, No JVD, No Murmur, Normal Peripheral Pulses Capillary Refill: Less Than 3 Seconds Gastrointestinal: non tender, soft Extremity: Normal Capillary Refill, Normal Inspection, Normal Range of Motion, Non Tender, No Calf Tenderness, No Pedal Edema Neurologic/Psychiatric: Alert, Oriented x3, No Motor/Sensory Deficits, Normal Mood/Affect Skin: Normal Color, Warm/Dry Lymphatic: No Adenopathy Results Lab Laboratory Tests 01/31/18 18:20 02/01/18 06:57 Assessment/Plan Assessment/Plan Acute on chronic respiratory failure -Oxygen -BiPAP PRN Sepsis - (Not severe) -Mccormack cultures pending -repeat labs Pneumonia with hx of MRSA -vanco, and merrem -Check urine strep legionella ag Chronic renal failure -Monitor UTI Diastolic CHF with pulmonary edema -Start Lasix 40mg IV daily hx of pulmonary fibrosis and COPD -Uses 2 liters of oxygen at night. PREET ANDRADE DO Feb 02, 2018 5:59 am
[2018-02-02 06:25] LABS: BASOPHILS % (AUTO) 0 % (0-10); EOSINOPHILS % (AUTO) 0 % (0-10); HEMATOCRIT 36 % (35-52); HEMOGLOBIN 11.5 G/DL (11.5-16.0); LYMPHOCYTES # (AUTO) 0.8 X 10^3 (1.0-4.0); LYMPHOCYTES % (AUTO) 3 % (12-44); MEAN CORPUSCULAR HEMOGLOBIN 27 PG (25-34); MEAN CORPUSCULAR HGB CONC 32 G/DL (32-36); MEAN CORPUSCULAR VOLUME 82 FL (80-99); MEAN PLATELET VOLUME 9.8 FL (7.4-10.4); MONOCYTES # (AUTO) 0.5 X 10^3 (0.0-1.0); MONOCYTES % (AUTO) 2 % (0-12); NEUTROPHILS # (AUTO) 22.8 X 10^3 (1.8-7.8); NEUTROPHILS % (AUTO) 95 % (42-75); PLATELET COUNT 424 10^3/uL (130-400); RED BLOOD COUNT 4.33 10^6/uL (4.35-5.85); RED CELL DISTRIBUTION WIDTH 13.8 % (10.0-14.5); WHITE BLOOD COUNT 24.1 10^3/uL (4.3-11.0)
[2018-02-02] MEDS: inSUlin ASPART (NovoLOG) 1 UNIT/0.01 ML (CHARGE PER UNIT) SC SCH ×4 (06:31→21:02)
[2018-02-02] MEDS: LEVOTHYROXINE 75 MCG (LEVOTHROID) TABLET PO SCH (06:31)
[2018-02-02] MEDS: MEROPENEM 500 MG in NS (IVPB) 50 ML IV SCH ×3 (06:31→23:16)
[2018-02-02] MEDS: ENOXAPARIN 30 MG/0.3 ML (LOVENOX) SYR SC SCH (06:32)
[2018-02-02] MEDS: CATHETER FLUSH 10 ML SYR IV SCH ×3 (06:32→23:16)
[2018-02-02 06:50] LABS: CREATININE SERUM 1.63 MG/DL (0.60-1.30); POTASSIUM 2.9 MMOL/L (3.6-5.0)
[2018-02-02 06:51] LABS: CALCIUM 9.7 MG/DL (8.5-10.1); MAGNESIUM 1.9 MG/DL (1.8-2.4); PHOSPHORUS 3.1 MG/DL (2.3-4.7)
[2018-02-02] MEDS: VANCOMYCIN 1 GM/NS 250 ML IVPB IV SCH ×2 (07:09)
[2018-02-02] MEDS: PANTOPRAZOLE 40 MG (PROTONIX) TAB PO SCH (07:10)
[2018-02-02 08:00] VITALS: BP 135/63
[2018-02-02] MEDS ORDERED: NON-FORMULARY MEDICATION 1 EA EA (Fluticasone Propionate (Flonase Allergy Relief) 1 SPRAY) NS SCH (09:00)
[2018-02-02] MEDS ORDERED: ATENOLOL 25 MG PO SCH (09:00)
[2018-02-02] MEDS ORDERED: NON-FORMULARY MEDICATION 1 EA EA (Indapamide 1.25 MG) PO SCH (09:00)
[2018-02-02] MEDS: FUROSEMIDE 40 MG/4 ML INJ (LASIX) IVP SCH (09:11)
[2018-02-02] MEDS: ISOSORBIDE MONONITRATE 30 MG (IMDUR) TAB PO SCH (09:11)
[2018-02-02] MEDS: FLUTICASONE NASAL SPRAY (FLONASE) 16 GM BTL NS SCH (09:11)
[2018-02-02] MEDS: ATENOLOL 25 MG (TENORMIN) TAB PO SCH (09:11)
[2018-02-02] MEDS: INDAPAMIDE 2.5 MG (LOZOL) TAB PO SCH (09:11)
[2018-02-02] MEDS ORDERED: KCL 20 MEQ TAB (K-DUR) PO NR (11:00)
--- NOTE | 2018-02-02 12:00 | Progress Note-Hospitalist ---
Subjective HPI/CC On Admission Date Seen by Provider: Feb 02, 2018 Time Seen by Provider: 11:15 CC: Dyspnea HPI: This is an 82yoWF clinic patient of Dr Nolen and Dr Quinteros who has a h/ o severe pulmonary HTN although requires only O2 at night who presented to the ER w/increased SOB and low grade fever with sore throat. Patient was found to have pneumonia and requiring in-pt stay for IV steroids and IV abx. Currently she is only complaining of sore throat and otherwise much improved since admit. Checked meds and labs and restarted home meds. Subjective/Events-last exam Patient doing much better Low potassium will be addressed with supplement Checked meds and labs BM+ Just took shower Daughter at the bedside No pain is reported Pharyngitis still present but improved Review of Systems General: Fatigue HEENT: Dysphasia Pulmonary: Dyspnea Focused Exam Lactate Level 01/31/18 18:35: Lactic Acid Level 1.17 Objective Exam Vital Signs Vital Signs Date Time Temp Pulse Resp B/P (MAP) Pulse Ox O2 Delivery O2 Flow Rate FiO2 02/02/18 08:16 Nasal Cannula 1.00 02/02/18 08:00 97.4 99 18 135/63 (87) 98 01/31/18 23:22 28 Capillary Refill : Less Than 3 Seconds General Appearance: No Apparent Distress, WD/WN, Chronically ill, Thin Respiratory: Chest Non Tender, No Accessory Muscle Use, No Respiratory Distress , Crackles, Decreased Breath Sounds, Wheezing Cardiovascular: Regular Rate, Rhythm, No Edema, No Gallop, No JVD, No Murmur, Normal Peripheral Pulses Neurologic/Psychiatric: Alert, Oriented x3, No Motor/Sensory Deficits, Normal Mood/Affect Skin: Normal Color, Warm/Dry Results/Procedures Lab Laboratory Tests 02/02/18 05:25 Patient resulted labs reviewed. Assessment/Plan Assessment and Plan Assess & Plan/Chief Complaint Assessment: Pneumonia Severe pulmonary fibrosis maintained on oxygen at night Hypokalemia Acute on chronic renal insufficiency Diabetes mellitus Hypothyroidism Plan: Decrease steroids Continue antibiotics Supplement potassium Hold Lasix due to elevated creatinine Monitor closely Diagnosis/Problems Diagnosis/Problems (1) Sepsis Status: Resolved Qualifiers: Sepsis type: sepsis due to unspecified organism Qualified Codes: A41.9 - Sepsis, unspecified organism Resolution Date/Time: 02/02/18 @ 12:33 (2) Pneumonia Status: Acute Qualifiers: Pneumonia type: due to unspecified organism Laterality: unspecified laterality Lung location: unspecified part of lung Qualified Codes: J18.9 - Pneumonia, unspecified organism (3) Hypothyroidism Status: Chronic Qualifiers: Hypothyroidism type: acquired Qualified Codes: E03.9 - Hypothyroidism, unspecified (4) CAD (coronary artery disease) Status: Chronic Qualifiers: Coronary Disease-Associated Artery/Lesion type: [place] artery [place] vs. transplanted heart: [place] heart Associated angina: with stable angina Qualified Codes: I25.118 - Atherosclerotic heart disease of [place] coronary artery with other forms of angina pectoris (5) Angina pectoris Status: Chronic (6) Hypertension Status: Chronic Qualifiers: Hypertension type: essential hypertension Qualified Codes: I10 - Essential (primary) hypertension (7) Hyperlipidemia Status: Chronic Qualifiers: Hyperlipidemia type: mixed hyperlipidemia Qualified Codes: E78.2 - Mixed hyperlipidemia (8) Frailty Status: Chronic (9) Hypoxia Status: Acute (10) Pulmonary fibrosis Status: Chronic (11) Diabetes Status: Chronic Qualifiers: Diabetes mellitus type: type 2 Diabetes mellitus usp insulin use: without usp use Diabetes mellitus complication status: with unspecified complications Qualified Codes: E11.8 - Type 2 diabetes mellitus with unspecified complications (12) Hypokalemia Status: Acute (13) Creatinine elevation Status: Acute Clinical Quality Measures DVT/VTE Risk/Contraindication: Risk Factor Score Per Nursin RFS Level Per Nursing on Admit: 4+=Very High RASHAWN SAENZ DO Feb 02, 2018 12:00
[2018-02-02 12:35] VITALS: BP 120/63
[2018-02-02 16:20] VITALS: BP 112/59
[2018-02-02 20:15] VITALS: BP 136/70
[2018-02-02] MEDS: SIMvastatin 40 MG (ZOCOR) TAB PO SCH (20:54)
[2018-02-02] MEDS: CYCLOBENZAPRINE 10 MG (FLEXERIL) TAB PO SCH (20:54)
[2018-02-02] MEDS: ASPIRIN E.C. 81 MG (ECOTRIN) TAB PO SCH (20:54)
[2018-02-02] MEDS: inSUlin DETERMIR 1 UNIT/0.01 ML (LEVEMIR) CHARGE PER UNIT SQ SCH (21:01)
[2018-02-03 00:08] VITALS: BP 114/56
[2018-02-03] MEDS: RT-ALBUTEROL/IPRATROPIUM 3 ML (DUONEB) VIAL INH SCH ×4 (02:37→19:34)
[2018-02-03 04:04] VITALS: BP 115/59
[2018-02-03] MEDS: inSUlin ASPART (NovoLOG) 1 UNIT/0.01 ML (CHARGE PER UNIT) SC SCH ×4 (05:54→21:37)
[2018-02-03 06:01] LABS: BASOPHILS % (AUTO) 0 % (0-10); EOSINOPHILS % (AUTO) 0 % (0-10); HEMATOCRIT 36 % (35-52); HEMOGLOBIN 11.4 G/DL (11.5-16.0); LYMPHOCYTES # (AUTO) 1.2 X 10^3 (1.0-4.0); LYMPHOCYTES % (AUTO) 5 % (12-44); MEAN CORPUSCULAR HEMOGLOBIN 27 PG (25-34); MEAN CORPUSCULAR HGB CONC 32 G/DL (32-36); MEAN CORPUSCULAR VOLUME 84 FL (80-99); MEAN PLATELET VOLUME 9.7 FL (7.4-10.4); MONOCYTES % (AUTO) 4 % (0-12); NEUTROPHILS # (AUTO) 24.7 X 10^3 (1.8-7.8); NEUTROPHILS % (AUTO) 92 % (42-75); PLATELET COUNT 454 10^3/uL (130-400); RED BLOOD COUNT 4.26 10^6/uL (4.35-5.85); RED CELL DISTRIBUTION WIDTH 13.8 % (10.0-14.5); WHITE BLOOD COUNT 26.9 10^3/uL (4.3-11.0)
[2018-02-03] MEDS: MEROPENEM 500 MG in NS (IVPB) 50 ML IV SCH ×3 (06:10→22:08)
[2018-02-03] MEDS: LEVOTHYROXINE 75 MCG (LEVOTHROID) TABLET PO SCH (06:11)
[2018-02-03] MEDS: PANTOPRAZOLE 40 MG (PROTONIX) TAB PO SCH (06:11)
[2018-02-03] MEDS: CATHETER FLUSH 10 ML SYR IV SCH ×3 (06:11→21:48)
[2018-02-03 06:24] LABS: CALCIUM 9.5 MG/DL (8.5-10.1); CREATININE SERUM 1.49 MG/DL (0.60-1.30); MAGNESIUM 1.8 MG/DL (1.8-2.4); POTASSIUM 3.6 MMOL/L (3.6-5.0); VANCOMYCIN,TROUGH 17.1 UG/ML (10.0-20.0)
[2018-02-03] MEDS ORDERED: TROUGH ORDER-PHARMACY XX NR (06:30)
[2018-02-03] MEDS: VANCOMYCIN 1 GM/NS 250 ML IVPB IV SCH ×2 (06:53)
[2018-02-03] MEDS: ENOXAPARIN 30 MG/0.3 ML (LOVENOX) SYR SC SCH (06:57)
--- NOTE | 2018-02-03 07:26 | Pulmonary Progress Note ---
Sepsis Event Evaluation Height, Weight, BMI Height: 5'7.00" Weight: 133lbs. 7.0oz. 60.057286bg; 21.4 BMI Method:Stated Focused Exam Lactate Level 01/31/18 18:35: Lactic Acid Level 1.17 Exam Exam Vital Signs Date Time Temp Pulse Resp B/P (MAP) Pulse Ox O2 Delivery O2 Flow Rate FiO2 02/03/18 04:04 97.7 73 16 115/59 (77) 93 Nasal Cannula 2.00 02/03/18 02:38 90 Room Air 02/03/18 00:08 97.6 76 16 114/56 (75) 95 Nasal Cannula 2.00 02/02/18 20:15 97.1 84 16 136/70 (92) 93 Room Air 02/02/18 20:00 Room Air 02/02/18 19:49 96 Room Air 02/02/18 16:20 97.8 81 20 112/59 (76) 98 Room Air 02/02/18 14:05 93 Room Air 02/02/18 12:35 97.8 79 18 120/63 (82) 95 02/02/18 08:16 Nasal Cannula 1.00 02/02/18 08:00 97.4 99 18 135/63 (87) 98 Nasal Cannula 2.00 I & O 02/03/18 07:00 Intake Total 2070 ml Output Total 1600 ml Balance 470 ml Height & Weight Height: 5'7.00" Weight: 133lbs. 7.0oz. 60.374893ab; 21.4 BMI Method:Stated General Appearance: No Apparent Distress, WD/WN, Chronically ill, Thin HEENT: PERRL/EOMI, Normal ENT Inspection, Pharynx Normal Neck: Full Range of Motion, Normal Inspection, Non Tender, Supple, Carotid Bruit Respiratory: Chest Non Tender, No Accessory Muscle Use, No Respiratory Distress , Crackles, Decreased Breath Sounds, Wheezing Cardiovascular: Regular Rate, Rhythm, No Edema, No Gallop, No JVD, No Murmur, Normal Peripheral Pulses Capillary Refill: Less Than 3 Seconds Gastrointestinal: non tender, soft Extremity: Normal Capillary Refill, Normal Inspection, Normal Range of Motion, Non Tender, No Calf Tenderness, No Pedal Edema Neurologic/Psychiatric: Alert, Oriented x3, No Motor/Sensory Deficits, Normal Mood/Affect Skin: Normal Color, Warm/Dry Lymphatic: No Adenopathy Results Lab Laboratory Tests 02/02/18 05:25 02/03/18 05:50 Assessment/Plan Assessment/Plan Acute on chronic respiratory failure -Oxygen -BiPAP PRN -Repeat CXR this AM Sepsis - (Not severe) -Mccormack cultures neg thus far -repeat labs Pneumonia with hx of MRSA -vanco, and merrem -Check urine strep legionella ag Chronic renal failure -Monitor UTI Diastolic CHF with pulmonary edema -Start Lasix 40mg IV daily hx of pulmonary fibrosis and COPD -Uses 2 liters of oxygen at night. PREET ANDRADE DO Feb 03, 2018 07:26
[2018-02-03 08:00] VITALS: BP 121/60
--- NOTE | 2018-02-03 08:51 | Progress Note ---
Focused Exam Lactate Level 01/31/18 18:35: Lactic Acid Level 1.17 Objective Exam Last Set of Vital Signs Vital Signs Date Time Temp Pulse Resp B/P (MAP) Pulse Ox O2 Delivery O2 Flow Rate FiO2 02/03/18 08:00 98.6 86 18 121/60 (80) 94 Nasal Cannula 2.00 01/31/18 23:22 28 Capillary Refill : Less Than 3 Seconds I&O Intake and Output 02/03/18 00:00 Intake Total 2070 ml Output Total 1400 ml Balance 670 ml Intake Oral 2070 ml Output Urine Total 1400 ml # Bowel Movements 3 Results Lab Laboratory Tests 02/02/18 11:36: Glucometer 98 02/02/18 16:11: Glucometer 124H 02/02/18 20:57: Glucometer 175H 02/03/18 05:30: Glucometer 171H 02/03/18 05:50: White Blood Count 26.9H, Red Blood Count 4.26L, Hemoglobin 11.4L, Hematocrit 36 , Mean Corpuscular Volume 84, Mean Corpuscular Hemoglobin 27, Mean Corpuscular Hemoglobin Concent 32, Red Cell Distribution Width 13.8, Platelet Count 454H, Mean Platelet Volume 9.7, Neutrophils (%) (Auto) 92H, Lymphocytes (%) (Auto) 5L , Monocytes (%) (Auto) 4, Eosinophils (%) (Auto) 0, Basophils (%) (Auto) 0, Neutrophils # (Auto) 24.7H, Lymphocytes # (Auto) 1.2, Monocytes # (Auto) 1.0, Eosinophils # (Auto) 0.0, Basophils # (Auto) 0.0, Sodium Level 140, Potassium Level 3.6, Chloride Level 100, Carbon Dioxide Level 29, Anion Gap 11, Blood Urea Nitrogen 55H, Creatinine 1.49H, Estimat Glomerular Filtration Rate 34, BUN/ Creatinine Ratio 37, Glucose Level 187H, Calcium Level 9.5, Phosphorus Level 3.0 , Magnesium Level 1.8, Vancomycin Level Trough 17.1 Microbiology 01/31/18 Blood Culture - Preliminary, Resulted Staph, Coag Neg (TIMBER FRAMER) See Comments 02/01/18 MRSA Screen - Final, Complete MRSA not isolated 01/31/18 Urine Culture - Final, Complete See Report Assessment/Plan Assessment/Plan Assess & Plan/Chief Complaint SEVERE PULMONARY HYPERTENSION DIABETES MELLITUS HYPERTENSION Clinical Quality Measures DVT/VTE Risk/Contraindication: Risk Factor Score Per Nursin RFS Level Per Nursing on Admit: 4+=Very High LUCY ESPINO MD Feb 03, 2018 08:51
--- NOTE | 2018-02-03 09:14 | Diagnostic Imaging Report ---
PA and lateral chest at 8:42. Indication: Pneumonia. Findings: There is a better inspiratory effort from this exam than on the prior study of 01/31/2018. The alveolar/interstitial pulmonary infiltrates and the chronic pulmonary changes seen previously are again evident and do not appear to have changed significantly. The heart is stable in size. The mediastinum is not widened. The osseous structures are intact. Impression: The overall appearance of the chest has not changed significantly since the prior exam. No new abnormality has developed. A followup study would be recommended for continued evaluation. Dictated by: Dictated on workstation # [id number]
[2018-02-03] MEDS: INDAPAMIDE 2.5 MG (LOZOL) TAB PO SCH (09:20)
[2018-02-03] MEDS: ATENOLOL 25 MG (TENORMIN) TAB PO SCH (09:20)
[2018-02-03] MEDS: ISOSORBIDE MONONITRATE 30 MG (IMDUR) TAB PO SCH (09:20)
[2018-02-03] MEDS: FLUTICASONE NASAL SPRAY (FLONASE) 16 GM BTL NS SCH (09:24)
[2018-02-03] MEDS: NS IV 1000 ML 1,000 ML IV SCH (10:12)
[2018-02-03 12:00] VITALS: BP 116/57
--- NOTE | 2018-02-03 14:42 | Physical Therapy Evaluation ---
PT Evaluation-General Medical Diagnosis Admission Date Jan 31, 2018 at 19:25 Medical Diagnosis: sepsis, Pneumonia, Pulmonary fibrosis, Hypoxia Onset Date: Jan 31, 2018 Therapy Diagnosis Therapy Diagnosis: General weakness Height/Weight Height (Feet): 5 Height (Inches): 7.00 Weight (Pounds): 133 Weight (Ounces): 7.0 Precautions Precautions/Isolations: Fall Prevention, Standard Precautions Weight Bear Status Right Lower Extremity: Right Full Weight Bearing Left Lower Extremity: Left Full Weight Bearing Referral Physician: Sonia Nolen MD Reason for Referral: Evaluation/Treatment Medical History Pertinent Medical History: DM, HTN, Hypothroidism Additional Medical History Lumbar fusion, Pneumonia, High cholesterol Current History Pt brought into ER by family for persistent cough that became painful and discomfort with breathing. Social History Home: Single Level Current Living Status: Children Entry Into Home: Stairs With Railing PT Steps Into Home: 2 PT Steps Inside Home: 0 Prior/Core FIM Prior Level of Function Functional [place] Measure 0=Not Assessed/NA 4=Minimal Assistance 1=Total Assistance 5=Supervision or Setup 2=Maximal Assistance 6=Modified [place] 3=Moderate Assistance 7=Complete IndependenceIRFPAI Quality Coding Scale 6 Independent with activity with or without an assistive device 5 Patient requires set up or clean up by helper. Patient completes activity by themselves 4 Supervision or touching assist (CGA). [place] provide cues , steadying assist 3 The helper provides less than half the effort to complete the activity 2 The helper provides more than half the effort to complete the activity 1 Dependent. The helper does all the effort to complete an activity 7 Patient refused to complete or attempt activity 9 The patient did not perform the activity before the current illness or injury 88 Not attempted due to Medical conditions or safety concerns Bed Mobility: 7 Transfers (B,C,W/C) (FIM): 7 Gait: 7 Stairs: 7 PT Evaluation-Current Subjective Pt awake in room watching tv with Daughter when PT arrived. Pt agreed to evaluation from PT. Pain Numeric Pain Scale: 0-No Pain Objective Patient Orientation: Person, Confused Attachments: IV ROM/Strength ROM Upper Extremities WNL ROM Lower Extremities WNL Strength Upper Extremities NT Strength Lower Extremities 4+/5 BLE Integumentary/Posture Bowel Incontinence: No Bladder Incontinence: No Sensory Vision: Wears Glasses Hearing: Functional Sensation Right Upper Extremit: Intact Sensation Left Upper Extremity: Intact Sensation Right Lower Extremit: Intact Sensation Left Lower Extremity: Intact Transfers Functional [place] Measure 0=Not Assessed/NA 4=Minimal Assistance 1=Total Assistance 5=Supervision or Setup 2=Maximal Assistance 6=Modified [place] 3=Moderate Assistance 7=Complete [place] Transfers (B, C, W/C) (FIM): 5 Scootin Rollin Supine to/from Sit: 5 Sit to/from Stand: 5 Gait Mode of Locomotion: Walk Anticipated Mode of Locomotion: Walk Gait (FIM): 2 Distance (FIM): 4=755-86 ft Distance: 125' Gait Level of Assist: 4 Gait Persons Needed: 1 Gait Assistive Device: FWW Balance Sitting Static: Good Sitting Dynamic: Good Standing Static: Fair Standing Dynamic: Fair Assessment/Needs Patient had 4+/5 BLE strength. Patient stated she has started feeling better today and that her SOB has improved over the weekend. Pt was able to ambulate for 125' with a FWW requiring CGA. Patient was able to ambulate confidently with FWW but tends to lose her balance once she becomes distracted. Patient will participate with PT to increase endurance for daily demands and overall functional mobility. Rehab Potential: Fair PT Primer Expeditor And Drier Goals Primer Expeditor And Drier Goals PT Halfway Goals Time Frame: Feb 10, 2018 Transfers (B,C,W/C) (FIM): 6 Gait (FIM): 5 Gait distance (FIM): 3=150 ft Distance: 150' Gait Level of Assist: 5 Gait Assistive Device: FWW PT Plan Problem List Problem List: Activity Tolerance, Functional Strength, Safety, Balance, Gait, Transfer, Bed Mobility, ROM Treatment/Plan Treatment Plan: Continue Plan of Care Treatment Plan: Bed Mobility, Education, Functional Activity Jennifer, Functional Strength, Gait, Safety, Therapeutic Exercise, Transfers Treatment Duration: Feb 10, 2018 Frequency: 6 times per week Estimated Hrs Per Day: .25 hour per day Patient and/or Family Agrees t: Yes Time/GCodes Time In: 1400 Time Out: 1412 Total Billed Treatment Time: 12 Total Billed Treatment 1 Visit File[place] - 12' CHACORTA AVALOS PT Feb 03, 2018 14:42
[2018-02-03 16:03] VITALS: BP 98/53
[2018-02-03 19:25] VITALS: BP 97/51
[2018-02-03] MEDS: CYCLOBENZAPRINE 10 MG (FLEXERIL) TAB PO SCH (20:28)
[2018-02-03] MEDS: ASPIRIN E.C. 81 MG (ECOTRIN) TAB PO SCH (20:28)
[2018-02-03] MEDS: SIMvastatin 40 MG (ZOCOR) TAB PO SCH (20:28)
[2018-02-03] MEDS: inSUlin DETERMIR 1 UNIT/0.01 ML (LEVEMIR) CHARGE PER UNIT SQ SCH (21:48)
[2018-02-04] VITALS: BP 125/57
[2018-02-04] MEDS: CATHETER FLUSH 10 ML SYR IV SCH ×3 (00:50→21:47)
[2018-02-04] MEDS: RT-ALBUTEROL/IPRATROPIUM 3 ML (DUONEB) VIAL INH SCH ×4 (03:01→19:46)
[2018-02-04 04:00] VITALS: BP 136/64
[2018-02-04] MEDS: inSUlin ASPART (NovoLOG) 1 UNIT/0.01 ML (CHARGE PER UNIT) SC SCH ×4 (06:00→21:47)
[2018-02-04 06:03] LABS: BASOPHILS % (AUTO) 0 % (0-10); EOSINOPHILS % (AUTO) 0 % (0-10); HEMATOCRIT 34 % (35-52); HEMOGLOBIN 10.8 G/DL (11.5-16.0); LYMPHOCYTES # (AUTO) 2.8 X 10^3 (1.0-4.0); LYMPHOCYTES % (AUTO) 19 % (12-44); MEAN CORPUSCULAR HEMOGLOBIN 27 PG (25-34); MEAN CORPUSCULAR HGB CONC 32 G/DL (32-36); MEAN CORPUSCULAR VOLUME 84 FL (80-99); MEAN PLATELET VOLUME 9.6 FL (7.4-10.4); MONOCYTES # (AUTO) 1.4 X 10^3 (0.0-1.0); MONOCYTES % (AUTO) 9 % (0-12); NEUTROPHILS # (AUTO) 10.6 X 10^3 (1.8-7.8); NEUTROPHILS % (AUTO) 72 % (42-75); PLATELET COUNT 429 10^3/uL (130-400); RED BLOOD COUNT 4.05 10^6/uL (4.35-5.85); RED CELL DISTRIBUTION WIDTH 14.2 % (10.0-14.5); WHITE BLOOD COUNT 14.8 10^3/uL (4.3-11.0)
[2018-02-04] MEDS: NS IV 1000 ML 1,000 ML IV SCH (06:12)
[2018-02-04] MEDS: LEVOTHYROXINE 75 MCG (LEVOTHROID) TABLET PO SCH (06:13)
[2018-02-04] MEDS: MEROPENEM 500 MG in NS (IVPB) 50 ML IV SCH ×3 (06:13→23:42)
[2018-02-04] MEDS: PANTOPRAZOLE 40 MG (PROTONIX) TAB PO SCH (06:13)
[2018-02-04 06:26] LABS: CALCIUM 8.9 MG/DL (8.5-10.1); CREATININE SERUM 1.1 MG/DL (0.60-1.30); MAGNESIUM 1.7 MG/DL (1.8-2.4); PHOSPHORUS 2.2 MG/DL (2.3-4.7); POTASSIUM 3.4 MMOL/L (3.6-5.0)
[2018-02-04 07:26] VITALS: BP 146/65
[2018-02-04] MEDS: ENOXAPARIN 30 MG/0.3 ML (LOVENOX) SYR SC SCH (07:38)
[2018-02-04] MEDS: VANCOMYCIN 1 GM/NS 250 ML IVPB IV SCH ×2 (07:43)
--- NOTE | 2018-02-04 09:27 | Progress Note ---
Objective Exam Last Set of Vital Signs Vital Signs Date Time Temp Pulse Resp B/P (MAP) Pulse Ox O2 Delivery O2 Flow Rate FiO2 02/04/18 08:00 97 Room Air 02/04/18 07:26 97.8 70 16 146/65 (92) 02/03/18 12:00 2.00 01/31/18 23:22 28 Capillary Refill : Less Than 3 Seconds I&O Intake and Output 02/04/18 00:00 Intake Total 1400 ml Output Total 600 ml Balance 800 ml Intake Oral 1400 ml Output Urine Total 600 ml # Voids 2 # Bowel Movements 3 Results Lab Laboratory Tests 02/03/18 11:08: Glucometer 124H 02/03/18 16:03: Glucometer 120H 02/03/18 21:22: Glucometer 128H 02/04/18 05:24: White Blood Count 14.8H, Red Blood Count 4.05L, Hemoglobin 10.8L, Hematocrit 34L , Mean Corpuscular Volume 84, Mean Corpuscular Hemoglobin 27, Mean Corpuscular Hemoglobin Concent 32, Red Cell Distribution Width 14.2, Platelet Count 429H, Mean Platelet Volume 9.6, Neutrophils (%) (Auto) 72, Lymphocytes (%) (Auto) 19, Monocytes (%) (Auto) 9, Eosinophils (%) (Auto) 0, Basophils (%) (Auto) 0, Neutrophils # (Auto) 10.6H, Lymphocytes # (Auto) 2.8, Monocytes # (Auto) 1.4H, Eosinophils # (Auto) 0.0, Basophils # (Auto) 0.0, Sodium Level 143, Potassium Level 3.4L, Chloride Level 105, Carbon Dioxide Level 27, Anion Gap 11, Blood Urea Nitrogen 46H, Creatinine 1.10, Estimat Glomerular Filtration Rate 48, BUN/ Creatinine Ratio 42, Glucose Level 96, Calcium Level 8.9, Phosphorus Level 2.2L , Magnesium Level 1.7L 02/04/18 06:21: Glucometer 89 Microbiology 01/31/18 Blood Culture - Preliminary, Resulted Staph, Coag Neg (PAROLE DIRECTOR) See Comments 02/01/18 MRSA Screen - Final, Complete MRSA not isolated 01/31/18 Urine Culture - Final, Complete See Report Assessment/Plan Assessment/Plan Assess & Plan/Chief Complaint SEVERE PULMONARY HYPERTENSION DIABETES MELLITUS HYPERTENSION Clinical Quality Measures DVT/VTE Risk/Contraindication: Risk Factor Score Per Nursin RFS Level Per Nursing on Admit: 4+=Very High LUCY ESPINO MD Feb 04, 2018 09:27
[2018-02-04] MEDS ORDERED: KCL 20 MEQ TAB (K-DUR) PO NR (09:30)
--- NOTE | 2018-02-04 09:50 | Physical Therapy Daily Note ---
PT Daily Note-Current Subjective Pt awake in chair receiving breakfast when PT arrived. Pt and family reluctantly agree to participate with PT after much encouragement. Pain Numeric Pain Scale: 0-No Pain Location: No Pain Reported Mental Status Patient Orientation: Confused Attachments: IV Transfers Functional [place] Measure 0=Not Assessed/NA 4=Minimal Assistance 1=Total Assistance 5=Supervision or Setup 2=Maximal Assistance 6=Modified [place] 3=Moderate Assistance 7=Complete IndependenceIRFPAI Quality Coding Scale 6 Independent with activity with or without an assistive device 5 Patient requires set up or clean up by helper. Patient completes activity by themselves 4 Supervision or touching assist (CGA). [place] provide cues , steadying assist 3 The helper provides less than half the effort to complete the activity 2 The helper provides more than half the effort to complete the activity 1 Dependent. The helper does all the effort to complete an activity 7 Patient refused to complete or attempt activity 9 The patient did not perform the activity before the current illness or injury 88 Not attempted due to Medical conditions or safety concerns Transfers (B, C, W/C) (FIM): 5 Sit to/from Stand: 5 Weight Bearing Right Lower Extremity: Right Full Weight Bearing Left Lower Extremity: Left Full Weight Bearing Gait Training Gait (FIM): 5 Distance (FIM): 3=150 ft Distance: 200' Gait Level of Assist: 5 Gait Persons Needed: 1 Gait Assistive Device: FWW functional gait sequence/easily distracted Assessment Pt was able to ambulate 200' with a FWW requiring SBA. Patient did not show any signs of fatigue while walking and states that her strength has been improving day by day. Pt will continue to benefit from therapy to improve overall LE strength and endurance. PT Detention Goals Detention Goals PT Detention Goals Time Frame: Feb 10, 2018 Transfers (B,C,W/C) (FIM): 6 Gait (FIM): 5 Gait distance (FIM): 3=150 ft Distance: 150' Gait Level of Assist: 5 Gait Assistive Device: FWW PT Plan Problem List Problem List: Activity Tolerance, Functional Strength, Balance, Gait Treatment/Plan Treatment Plan: Continue Plan of Care Treatment Plan: Bed Mobility, Education, Functional Activity Jennifer, Functional Strength, Gait, Safety, Therapeutic Exercise, Transfers Treatment Duration: Feb 10, 2018 Frequency: 6 times per week Estimated Hrs Per Day: .25 hour per day Patient and/or Family Agrees t: Yes Time/GCodes Time In: 922 Time Out: 932 Total Billed Treatment Time: 10 Total Billed Treatment 1 Visit GT-10' CHACORTA AVALOS PT Feb 04, 2018 09:50
[2018-02-04] MEDS: ISOSORBIDE MONONITRATE 30 MG (IMDUR) TAB PO SCH (09:58)
[2018-02-04] MEDS: ATENOLOL 25 MG (TENORMIN) TAB PO SCH (09:59)
[2018-02-04] MEDS: INDAPAMIDE 2.5 MG (LOZOL) TAB PO SCH (09:59)
[2018-02-04] MEDS: FLUTICASONE NASAL SPRAY (FLONASE) 16 GM BTL NS SCH (10:00)
[2018-02-04] MEDS: MAGNESIUM 1 GM/100 ML IVPB 100 ML IV SCH ×2 (10:03→10:04)
[2018-02-04] MEDS: LACTOBACILLUS ACIDOPHILUS (PROBIOTIC) CAPSULE PO SCH ×3 (10:03→16:10)
[2018-02-04 11:16] VITALS: BP 117/57
--- NOTE | 2018-02-04 15:32 | Pulmonary Progress Note ---
Sepsis Event Evaluation Height, Weight, BMI Height: 5'7.00" Weight: 136lbs. 7.0oz. 61.042913sm; 21.4 BMI Method:Stated Exam Exam Vital Signs Date Time Temp Pulse Resp B/P (MAP) Pulse Ox O2 Delivery O2 Flow Rate FiO2 02/04/18 14:41 94 Room Air 02/04/18 11:16 98.4 67 16 117/57 (77) 97 Room Air 02/04/18 08:00 97 Room Air 02/04/18 07:26 97.8 70 16 146/65 (92) 97 Room Air 02/04/18 04:00 98.6 65 20 136/64 (88) 93 Room Air 02/04/18 03:01 94 Room Air 02/04/18 03:01 92 Room Air 02/04/18 00:00 99.1 74 20 125/57 (79) 92 Room Air 02/03/18 19:34 94 Room Air 02/03/18 19:25 97.5 69 20 97/51 (66) 95 Room Air 02/03/18 16:03 97.7 63 20 98/53 (68) 96 Room Air 02/03/18 15:52 93 Room Air I & O 02/04/18 07:00 Intake Total 2450 ml Output Total 900 ml Balance 1550 ml Height & Weight Height: 5'7.00" Weight: 136lbs. 7.0oz. 61.399606uc; 21.4 BMI Method:Stated General Appearance: No Apparent Distress, WD/WN, Chronically ill, Thin HEENT: PERRL/EOMI, Normal ENT Inspection, Pharynx Normal Neck: Full Range of Motion, Normal Inspection, Non Tender, Supple, Carotid Bruit Respiratory: Chest Non Tender, No Accessory Muscle Use, No Respiratory Distress , Crackles, Decreased Breath Sounds, Wheezing Cardiovascular: Regular Rate, Rhythm, No Edema, No Gallop, No JVD, No Murmur, Normal Peripheral Pulses Capillary Refill: Less Than 3 Seconds Gastrointestinal: non tender, soft Extremity: Normal Capillary Refill, Normal Inspection, Normal Range of Motion, Non Tender, No Calf Tenderness, No Pedal Edema Neurologic/Psychiatric: Alert, Oriented x3, No Motor/Sensory Deficits, Normal Mood/Affect Skin: Normal Color, Warm/Dry Lymphatic: No Adenopathy Results Lab Laboratory Tests 02/03/18 05:50 11/20/18 05:24 Assessment/Plan Assessment/Plan Acute on chronic respiratory failure -Oxygen -BiPAP PRN Sepsis - (Not severe) -Mccormack cultures neg thus far -repeat labs Pneumonia -merrem -Check urine strep legionella ag Chronic renal failure -Monitor UTI Diastolic CHF with pulmonary edema -Start Lasix 40mg IV daily hx of pulmonary fibrosis and COPD -Uses 2 liters of oxygen at night. PREET ANDRADE DO Feb 04, 2018 15:32
[2018-02-04 16:05] VITALS: BP 91/51
[2018-02-04 19:50] VITALS: BP 122/55
[2018-02-04] MEDS: inSUlin DETERMIR 1 UNIT/0.01 ML (LEVEMIR) CHARGE PER UNIT SQ SCH (21:46)
[2018-02-04] MEDS: CYCLOBENZAPRINE 10 MG (FLEXERIL) TAB PO SCH (21:46)
[2018-02-04] MEDS: SIMvastatin 40 MG (ZOCOR) TAB PO SCH (21:46)
[2018-02-04] MEDS: ASPIRIN E.C. 81 MG (ECOTRIN) TAB PO SCH (21:46)
[2018-02-05 00:05] VITALS: BP 134/64
[2018-02-05] MEDS: RT-ALBUTEROL/IPRATROPIUM 3 ML (DUONEB) VIAL INH SCH ×2 (02:49→08:37)
[2018-02-05 04:07] VITALS: BP 131/60
[2018-02-05] MEDS: CATHETER FLUSH 10 ML SYR IV SCH (05:52)
[2018-02-05] MEDS: inSUlin ASPART (NovoLOG) 1 UNIT/0.01 ML (CHARGE PER UNIT) SC SCH (05:52)
[2018-02-05 06:27] LABS: BASOPHILS % (AUTO) 0 % (0-10); EOSINOPHILS # (AUTO) 0.1 10^3/uL (0.0-0.3); EOSINOPHILS % (AUTO) 1 % (0-10); HEMATOCRIT 34 % (35-52); HEMOGLOBIN 10.3 G/DL (11.5-16.0); LYMPHOCYTES # (AUTO) 2.3 X 10^3 (1.0-4.0); LYMPHOCYTES % (AUTO) 17 % (12-44); MEAN CORPUSCULAR HEMOGLOBIN 26 PG (25-34); MEAN CORPUSCULAR HGB CONC 31 G/DL (32-36); MEAN CORPUSCULAR VOLUME 85 FL (80-99); MEAN PLATELET VOLUME 9.2 FL (7.4-10.4); MONOCYTES % (AUTO) 7 % (0-12); NEUTROPHILS # (AUTO) 10.4 X 10^3 (1.8-7.8); NEUTROPHILS % (AUTO) 75 % (42-75); PLATELET COUNT 370 10^3/uL (130-400); RED BLOOD COUNT 3.99 10^6/uL (4.35-5.85); RED CELL DISTRIBUTION WIDTH 13.9 % (10.0-14.5); WHITE BLOOD COUNT 13.9 10^3/uL (4.3-11.0)
--- NOTE | 2018-02-05 06:30 | Pulmonary Progress Note ---
Sepsis Event Evaluation Height, Weight, BMI Height: 5'7.00" Weight: 136lbs. 7.0oz. 61.036200fi; 21.4 BMI Method:Stated Exam Exam Vital Signs Date Time Temp Pulse Resp B/P (MAP) Pulse Ox O2 Delivery O2 Flow Rate FiO2 02/05/18 02:49 92 Room Air 02/05/18 00:05 98.5 87 18 134/64 (87) 96 Room Air 02/04/18 19:50 98.9 71 18 122/55 (77) 91 Room Air 02/04/18 19:46 90 Room Air 02/04/18 16:05 97.5 71 18 91/51 (64) 95 Room Air 02/04/18 14:41 94 Room Air 02/04/18 11:16 98.4 67 16 117/57 (77) 97 Room Air 02/04/18 08:00 97 Room Air 02/04/18 07:26 97.8 70 16 146/65 (92) 97 Room Air I & O 02/05/18 07:00 Intake Total 1270 ml Output Total 550 ml Balance 720 ml Height & Weight Height: 5'7.00" Weight: 136lbs. 7.0oz. 61.896256av; 21.4 BMI Method:Stated General Appearance: No Apparent Distress, WD/WN, Chronically ill, Thin HEENT: PERRL/EOMI, Normal ENT Inspection, Pharynx Normal Neck: Full Range of Motion, Normal Inspection, Non Tender, Supple, Carotid Bruit Respiratory: Chest Non Tender, No Accessory Muscle Use, No Respiratory Distress , Crackles, Decreased Breath Sounds, Wheezing Cardiovascular: Regular Rate, Rhythm, No Edema, No Gallop, No JVD, No Murmur, Normal Peripheral Pulses Capillary Refill: Less Than 3 Seconds Gastrointestinal: non tender, soft Extremity: Normal Capillary Refill, Normal Inspection, Normal Range of Motion, Non Tender, No Calf Tenderness, No Pedal Edema Neurologic/Psychiatric: Alert, Oriented x3, No Motor/Sensory Deficits, Normal Mood/Affect Skin: Normal Color, Warm/Dry Lymphatic: No Adenopathy Results Lab Laboratory Tests 02/04/18 05:24 Assessment/Plan Assessment/Plan Acute on chronic respiratory failure -Oxygen -BiPAP PRN Sepsis - (Not severe)- resolved -Mccormack cultures neg thus far -repeat labs Pneumonia - improving -merrem -Switch to Omnicef x 5 days then D/C -Will need repeat CXR as out patient Chronic renal failure -Monitor UTI Diastolic CHF with pulmonary edema -Start Lasix 40mg IV daily hx of pulmonary fibrosis and COPD -Uses 2 liters of oxygen at night. Pt is ok for discharge from pulmonary standpoint with Omnicef x 5 more days. I will f/u with her as out patient. PREET ANDRADE DO Feb 05, 2018 06:30
[2018-02-05] MEDS: PANTOPRAZOLE 40 MG (PROTONIX) TAB PO SCH (06:36)
[2018-02-05] MEDS: LEVOTHYROXINE 75 MCG (LEVOTHROID) TABLET PO SCH (06:36)
[2018-02-05] MEDS: LACTOBACILLUS ACIDOPHILUS (PROBIOTIC) CAPSULE PO SCH (06:36)
[2018-02-05] MEDS: NS IV 1000 ML 1,000 ML IV SCH (06:37)
[2018-02-05 06:50] LABS: BUN/CREATININE RATIO 30; CALCIUM 8.4 MG/DL (8.5-10.1); CARBON DIOXIDE 28 MMOL/L (21-32); CHLORIDE 104 MMOL/L (98-107); CREATININE SERUM 0.84 MG/DL (0.60-1.30); GFR ESTIMATED > 60; GLUCOSE 98 MG/DL (70-105); MAGNESIUM 1.6 MG/DL (1.8-2.4); PHOSPHORUS 2.4 MG/DL (2.3-4.7); POTASSIUM 3.1 MMOL/L (3.6-5.0); SODIUM 139 MMOL/L (135-145)
[2018-02-05] MEDS ORDERED: ENOXAPARIN 40 MG/0.4 ML (LOVENOX) SYR SC SCH (07:30)
[2018-02-05 08:00] VITALS: BP 128/73
[2018-02-05] MEDS ORDERED: RT-ALBUINH IH (08:30)
[2018-02-05] MEDS ORDERED: CEFD300C3 PO (08:30)
[2018-02-05] MEDS ORDERED: LACT1CAP28 PO (08:30)
--- NOTE | 2018-02-05 08:31 | Discharge Inst-Complex ---
PDI Med Rec & Follow Up Appt. New Medications: Albuterol Sulfate (Ventolin Hfa) 1 Puff Puff 1 PUFF IH Q4H, #1 INHALER 4 Refills 1 PUFF Q4 HRS X2 DAYS, THEN Q6 HRS X2 DAYS THEN Q8 HRS X2DAYS THEN DAILY IN THE MORNING & Q4 HOURS PRN SHORTNESS OF BREATH Lactobacillus Acidophilus (Acidophilus) 1 Each Capsule 1 EACH PO TID, #30 CAP Cefdinir (Cefdinir) 300 Mg Capsule 300 MG PO BID, #11 CAP Continued Medications: Aspirin (Aspir 81) 81 Mg Tablet.dr 81 MG PO HS, TAB Atenolol (Tenormin 25 Mg) 25 Mg Tablet 25 MG PO DAILY Cetirizine HCl (Zyrtec) 10 Mg Capsule 10 MG PO DAILY PRN for CONGESTION Cyclobenzaprine HCl (Cyclobenzaprine HCl) 10 Mg Tablet 10 MG PO HS Fluticasone Propionate (Flonase Allergy Relief) 9.9 Ml Moody.susp 1 SPRAY NS DAILY, #1 EACH 1 SPRAY EACH NARE DAILY Indapamide (Indapamide) 2.5 Mg Tablet 1.25 MG PO DAILY TAKES 1/2 (2.5MG) TABLET Insulin Degludec (Tresiba Flextouch U-200) 200 Unit/1 Ml Insuln.pen 8 UNIT SQ HS Isosorbide Mononitrate (Isosorbide Mononitrate 30 Mg) 30 Mg Tab.sr.24h 30 MG PO DAILY Levothyroxine Sodium (Levothyroxine Sodium) 75 Mcg Tablet 75 MCG PO DAILY Montelukast Sodium (Montelukast Sodium) 10 Mg Tablet 10 MG PO DAILY PRN for CONGESTION, TAB Omeprazole Magnesium (Prilosec Otc) 20 Mg Tablet.dr 20 MG PO DAILY PRN for INDIGESTION Promethazine HCl/Codeine (Prometh-Codein 6.25-10 mg/5 ml) 5 Ml Syrup 5 ML PO Q8H PRN for COUGH, ML Simvastatin (Simvastatin) 40 Mg Tablet 40 MG PO HS Prescription: RX on Chart Activity, Diet and PDI Resume Normal Activity: Yes Discharge Diet: ADA Diet Drink 6-8 Glasses of Fluid/Day: Yes Driving Instructions: No Driving/Refer to Return to The Hospital For: ANY CONCERN FOR WORSENING SHORTNESS OF BREATH, OR LIFETHREATENING ILLNESS OR INJURY Symptoms to Reoprt to : Appetite Changes, Fever Over 101 Degrees F, Pain/ Pressure in Chest, Diarrhea(Persistant), Shortness of Breath For Problems or Questions: Contact Your Physician, Go to Emergency Room Infection Signs and Symptoms: Temperature Above 101 F LUCY ESPINO MD Feb 05, 2018 08:31
--- NOTE | 2018-02-05 08:33 | Discharge Summary ---
Diagnosis/Chief Complaint Date of Admission Jan 31, 2018 at 19:25 Date of Discharge Discharge Date: Feb 05, 2018 Discharge Time: 1000 Discharge Summary Discharge Physical Examination Allergies: Coded Allergies: Penicillins (Unverified Allergy, Unknown, Pt has received Cefepime & Rocephin in the past, 02/05/18) Sulfa (Sulfonamide Antibiotics) (Unverified Allergy, Unknown, 10/13/13) morphine (Unverified Allergy, Unknown, Pt has received Lortab in the past , 02/05/18) Vitals & I&Os Vital Signs Date Time Temp Pulse Resp B/P (MAP) Pulse Ox O2 Delivery O2 Flow Rate FiO2 02/05/18 04:07 97.7 72 16 131/60 (83) 95 Room Air 02/03/18 12:00 2.00 01/31/18 23:22 28 Hospital Course Pending Labs Laboratory Tests 02/05/18 05:17: Glucometer 102 02/05/18 06:10: White Blood Count 13.9, Red Blood Count 3.99, Hemoglobin 10.3, Hematocrit 34, Mean Corpuscular Volume 85, Mean Corpuscular Hemoglobin 26, Mean Corpuscular Hemoglobin Concent 31, Red Cell Distribution Width 13.9, Platelet Count 370, Mean Platelet Volume 9.2, Neutrophils (%) (Auto) 75, Lymphocytes (%) (Auto) 17, Monocytes (%) (Auto) 7, Eosinophils (%) (Auto) 1, Basophils (%) (Auto) 0, Neutrophils # (Auto) 10.4, Lymphocytes # (Auto) 2.3, Monocytes # (Auto) 1.0, Eosinophils # (Auto) 0.1, Basophils # (Auto) 0.0, Sodium Level 139, Potassium Level 3.1, Chloride Level 104, Carbon Dioxide Level 28, Anion Gap 7, Blood Urea Nitrogen 25, Creatinine 0.84, Estimat Glomerular Filtration Rate > 60, BUN/ Creatinine Ratio 30, Glucose Level 98, Calcium Level 8.4, Phosphorus Level 2.4, Magnesium Level 1.6 Discharge Instructions to patient/family Please see electronic discharge instructions given to patient. Discharge Medications Reviewed and agree with Discharge Medication list on patient's Discharge Instruction sheet Clinical Quality Measures DVT/VTE Risk/Contraindication: Risk Factor Score Per Nursin RFS Level Per Nursing on Admit: 4+=Very High LUCY ESPINO MD Feb 05, 2018 08:33
[2018-02-05] MEDS ORDERED: KCL 20 MEQ TAB (K-DUR) PO NR (08:45)
[2018-02-05] MEDS ORDERED: CEFDINIR 300 MG (OMNICEF) CAP PO SCH (09:00)
[2018-02-05] MEDS: ISOSORBIDE MONONITRATE 30 MG (IMDUR) TAB PO SCH (09:22)
[2018-02-05] MEDS: ATENOLOL 25 MG (TENORMIN) TAB PO SCH (09:22)
[2018-02-05] MEDS: INDAPAMIDE 2.5 MG (LOZOL) TAB PO SCH (09:23)
[2018-02-05] MEDS: FLUTICASONE NASAL SPRAY (FLONASE) 16 GM BTL NS SCH (09:25)
--- NOTE | 2018-02-05 10:40 | Physical Therapy Daily Note ---
PT Daily Note-Current Subjective Pt. states she is DCing and feels much better and looking forward to holiday with family. Pt. states she has a FWW at home but has never utilized it before but plans on using it now. Pain Numeric Pain Scale: 0-No Pain Mental Status Patient Orientation: Normal For Age Attachments: IV Transfers Functional [place] Measure 0=Not Assessed/NA 4=Minimal Assistance 1=Total Assistance 5=Supervision or Setup 2=Maximal Assistance 6=Modified [place] 3=Moderate Assistance 7=Complete IndependenceIRFPAI Quality Coding Scale 6 Independent with activity with or without an assistive device 5 Patient requires set up or clean up by helper. Patient completes activity by themselves 4 Supervision or touching assist (CGA). [place] provide cues , steadying assist 3 The helper provides less than half the effort to complete the activity 2 The helper provides more than half the effort to complete the activity 1 Dependent. The helper does all the effort to complete an activity 7 Patient refused to complete or attempt activity 9 The patient did not perform the activity before the current illness or injury 88 Not attempted due to Medical conditions or safety concerns all TRFs mod I Weight Bearing Right Lower Extremity: Right Full Weight Bearing Left Lower Extremity: Left Full Weight Bearing Gait Training Gait Assistive Device: FWW 200ft, SBA to Mod I , instruction for turning safely and efficiently with FWW Exercises Seated Therapy Exercises: Ankle pumps, Long arc quads, Hip flexion, Hip abd/add Seated Reps: 10 Assessment Current Status: Good Progress meets goals PT [facility] Goals Wastewater Analyst Lab Analyst Goals PT [facility] Goals Time Frame: Feb 10, 2018 Transfers (B,C,W/C) (FIM): 6 Gait (FIM): 5 Gait distance (FIM): 3=150 ft Distance: 150' Gait Level of Assist: 5 Gait Assistive Device: FWW PT Plan Treatment/Plan Treatment Plan: Continue Plan of Care Treatment Plan: Bed Mobility, Education, Functional Activity Jennifer, Functional Strength, Gait, Safety, Therapeutic Exercise, Transfers Treatment Duration: Feb 10, 2018 Frequency: 6 times per week Estimated Hrs Per Day: .25 hour per day Patient and/or Family Agrees t: Yes Safety Risks/Education Patient Education: Gait Training, Transfer Techniques, Correct Positioning Teaching Recipient: Patient Teaching Methods: Demonstration, Discussion Response to Teaching: Verbalize Understanding, Return Demonstration, Reinforcement Needed gait utilizing FWW education Time/GCodes Time In: 925 Time Out: 942 Total Billed Treatment Time: 17 Total Billed Treatment 1,GT17m G Codes Necessary: No ANGELA MARKS RESIDENTIAL GREEN BUILDING DESIGNER Feb 05, 2018 10:40
[2018-02-05 10:45] VITALS: BP 128/73
== END 2018-02-05 10:47 | disposition home or self-care (01) | DRG 871 ==
LOC: EDUNIT# 18:02 → ER 18:03 → 4TH 19:25
PROVIDERS: ADMIT Internal Medicine; ATTEND Family Medicine
DX: A41.9 Sepsis, unspecified organism (principal); J18.9 Pneumonia, unspecified organism; J96.21 Acute and chronic respiratory failure with hypoxia; I13.0 Hypertensive heart and chronic kidney disease with heart failure and stage 1 through stage 4 chronic kidney disease, or unspecified chronic kidney disease; I50.30 Unspecified diastolic (congestive) heart failure; N18.9 Chronic kidney disease, unspecified; J44.0 Chronic obstructive pulmonary disease with (acute) lower respiratory infection; J44.1 Chronic obstructive pulmonary disease with (acute) exacerbation; N39.0 Urinary tract infection, site not specified; J84.10 Pulmonary fibrosis, unspecified; I25.119 Atherosclerotic heart disease of native coronary artery with unspecified angina pectoris; E78.2 Mixed hyperlipidemia; I27.20 Pulmonary hypertension, unspecified; J02.9 Acute pharyngitis, unspecified; E03.9 Hypothyroidism, unspecified; E11.8 Type 2 diabetes mellitus with unspecified complications; E86.0 Dehydration; E87.6 Hypokalemia; E83.42 Hypomagnesemia; M19.91 Primary osteoarthritis, unspecified site; M54.9 Dorsalgia, unspecified; Z87.891 Personal history of nicotine dependence; Z86.14 Personal history of Methicillin resistant Staphylococcus aureus infection; Z99.81 Dependence on supplemental oxygen; Z96.652 Presence of left artificial knee joint; Z98.1 Arthrodesis status
CPT/HCPCS: 36415; 71045; 71046; 80048; 80053; 80202; 81000; 82805; 82962; 83605; 83735; 83880; 84100; 84484; 85007; 85025; 85027; 85610; 85730; 87040; 87077; 87081; 87088; 87804; 93005; 93041; 94640; 94664; 94760; 96365; 96375

== ENCOUNTER → 2018-04-02 | Outpatient (CLI) | payer MEDICARE ==
[~2018-04-02] MED LIST changes: +ASPI-586 PO; +CEFD300C3 PO; +CETI10CA PO; +CYCL10TA9 PO; +FLUT9.9S NS; +INSU200I4 SQ; +LACT1CAP28 PO; +LEVO75TA6 PO; +MONT10TA21 PO; +MONT10TA24 PO; +OMEP20TA33 PO; +PROM5SYR PO; +RT-ALBUINH IH
--- NOTE | 2018-04-02 15:33 | Diagnostic Imaging Report ---
INDICATION: Hypoxia. COMPARISON: 02/03/2018. FINDINGS: Frontal and lateral views of the chest demonstrate stable chronic interstitial changes and nodularity bilaterally. The heart size is normal. There is no pneumothorax or large effusion. Osseous structures are stable. IMPRESSION: Stable chronic interstitial lung disease. Underlying acute infiltrate not completely excluded. Dictated by: Dictated on workstation # [id number]
== END ==
LOC: RAD 12:04
PROVIDERS: ATTEND Nurse Practitioner Family
DX: J84.10 Pulmonary fibrosis, unspecified (principal); J30.9 Allergic rhinitis, unspecified; J44.9 Chronic obstructive pulmonary disease, unspecified; G47.10 Hypersomnia, unspecified; J18.9 Pneumonia, unspecified organism
CPT/HCPCS: 71046

== ENCOUNTER 2018-04-04 06:59 | Day surgery (SDC) | payer MEDICARE ==
[~2018-04-04] VITALS: Ht 170.2 cm; Wt 59.2 kg
[2018-04-04] MEDS ORDERED: LIDOCAINE JELLY 2% 6 ML SYRINGE TOP ONE (07:00)
[2018-04-04] MEDS ORDERED: LIDOCAINE PF 2% 5 ML (XYLOCAINE) VIAL INJ ONE (07:00)
[2018-04-04] MEDS ORDERED: LIDOCAINE PF 1% 2 ML VIAL (OR ONLY) IJ ONE (07:00)
--- OUTSIDE RECORDS SUMMARY | 2018-04-04 07:06 | XMS REPORT | CCD ---
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 Retail Name Role Phone PP Unavailable CCM Unavailable Summary Purpose Interface Exchange Insurance Providers Payer name Policy type / Coverage type Covered republican ID Effective Begin Date Effective End Date WPS Medicare Part B Medicare Part B [id number] Unknown [facility] Medicare Part B [id number] Unknown Family history Mother Diagnosis Age At Onset Heart Attack Unknown Hypertension Unknown Hyperlipidemia Unknown Social History Social History Element Codes Description Effective Dates Marital status Unknown Wiley 09/25/2017 Number of children Unknown 5 07/29/2014 Employment Unknown Retired 07/29/[address]: 8840079 Quit over 10 years ago 07/29/[address]: 882023122 Never drinks alcohol 07/29/2014 Allergies, Adverse Reactions, Alerts Substance Reaction Codes Entered Date Inactivated Date Status * NO KNOWN FOOD ALLERGIES Unknown 07/29/2014 No Inactive Date Active MORPHINE SULFATE RxNorm: 7052 07/29/2014 No Inactive Date Active Penicillin Unknown 07/29/2014 No Inactive Date Active SULFA(SULFONAMIDE ANTIBIOTICS) Unknown 07/29/2014 No Inactive Date Active Past Medical History Illness Codes Condition Status Onset Date Resolved Date Essential (primary) hypertension ICD-9: 401.9 ICD-10: I10 Active 03/12/2016 Unknown Type 2 diabetes mellitus with hyperglycemia ICD-9: 250.02 ICD-10: E11.65 Active 10/16/2017 Unknown Type 2 diabetes mellitus without complications ICD-9: 250.00 ICD-10: E11.9 Active 03/12/2016 Unknown Zoster without complications ICD-9: 053.9 ICD-10: B02.9 Active 02/24/2018 Unknown Idiopathic pulmonary fibrosis ICD-9: 516.31 ICD-10: J84.112 Active 01/09/2016 Unknown Encounter for general adult medical examination with abnormal findings ICD-9: V70.0 ICD-10: Z00.01 Active 01/27/2018 Unknown Candidal stomatitis ICD-9: 112.0 ICD-10: B37.0 Active 01/22/2018 Unknown Cough ICD-9: 786.2 ICD-10: R05 Active 01/09/2016 Unknown Cystocele, midline ICD -9: 618.01 ICD-10: N81.11 Active 01/02/2018 Unknown Encounter for immunization ICD-9: V05.9 ICD-10: Z23 Active 11/21/2017 Unknown Orthostatic hypotension ICD-9: 458.0 ICD-10: I95.1 Active 11/04/2017 Unknown Actinic keratosis ICD- 9: 702.0 ICD-10: L57.0 Active 10/16/2017 Unknown 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 Active 09/25/2017 Unknown Hypothyroidism, unspecified ICD-9: 244.9 ICD-10: E03.9 Active 03/12/2016 Unknown Idiopathic pulmonary fibrosis ICD-9: 515 ICD-10: [...] Problems Condition Codes Effective Dates Condition Status Essential (primary) hypertension ICD-9: 401.9 ICD-10: I10 03/12/2016 Active Type 2 diabetes mellitus with hyperglycemia ICD-9: 250.02 ICD-10: E11.65 10/16/2017 Active Type 2 diabetes mellitus without complications ICD-9: 250.00 ICD-10: E11.9 03/12/2016 Active Zoster without complications ICD-9: 053.9 ICD-10: B02.9 02/24/2018 Active Idiopathic pulmonary fibrosis ICD-9: 516.31 ICD-10: J84.112 01/09/2016 Active Encounter for general adult medical examination with abnormal findings ICD-9: V70.0 ICD-10: Z00.01 01/27/2018 Active Candidal stomatitis ICD-9: 112.0 ICD-10: B37.0 01/22/2018 Active Cough ICD-9: 786.2 ICD-10: R05 01/09/2016 Active Cystocele, midline ICD -9: 618.01 ICD-10: N81.11 01/02/2018 Active Encounter for immunization ICD-9: V05.9 ICD-10: Z23 11/21/2017 Active Orthostatic hypotension ICD-9: 458.0 ICD-10: I95.1 11/04/2017 Active Actinic keratosis ICD- 9: 702.0 ICD-10: L57.0 10/16/2017 Active 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 09/25/2017 Active Hypothyroidism, unspecified ICD-9: 244.9 ICD-10: E03.9 03/12/2016 Active Idiopathic pulmonary fibrosis ICD-9: 515 ICD-10: [...] Start Date Stop Date Status Fill Instructions acyclovir 800 mg tablet RxNorm: 313573 1 Tablet(s) PO QID 02/2403/05/2018 Active atenolol 25 mg tablet RxNorm: 834119 1/2 Tablet(s) TAKE 1 TABLET EVERY DAY 02/13/2018 11/09/2018 Active Trelegy Ellipta 100 mcg-62.5 mcg-25 mcg powder for inhalation RxNorm: 9612883 1 INH daily 01/22/2018 02/18/2018 Inactive Diflucan 150 mg tablet RxNorm: 901194 1 Tablet(s) PO daily 09/201701/28/2018 Inactive Phenergan with Codeine Syrup RxNorm: 1 Teaspoon(s) PO Q8 as needed 01/02/2018 No Stop Date Active Tresiba FlexTouch U-200 insulin 200 unit/mL (3 mL) subcutaneous pen RxNorm: 3068029 8 Unit(s) SQ QHS 11/04/2017 Active losartan 50 mg tablet RxNorm: 716715 1/2 Tablet(s) daily 201711/04/2017 Inactive spironolactone 25 mg tablet RxNorm: 397127 1/2 Tablet(s) daily 11/04/2017 01/21/2018 Inactive indapamide 2.5 mg tablet RxNorm: 718733 TAKE 1/2 TABLET EVERY DAY 10/16/2017 10/10/2018 Active isosorbide mononitrate ER 30 mg tablet,extended release 24 hr RxNorm: 920853 TAKE 1 TABLET EVERY DAY 10/16/2017 10/10/2018 Active levothyroxine 75 mcg tablet RxNorm: 711712 TAKE 1 TABLET EVERY DAY 10/16/2017 07/12/2018 Active spironolactone 25 mg tablet RxNorm: 526059 TAKE 1 TABLET EVERY DAY 10/16/2017 11/03/2017 Inactive atenolol 25 mg tablet RxNorm: 284197 TAKE 1 TABLET EVERY DAY 03/201702/12/2018 Inactive losartan 50 mg tablet RxNorm: 345957 TAKE 1 TABLET EVERY DAY 03/201711/03/2017 Inactive Toujeo Max SoloStar 300 unit/mL (3 mL) subcutaneous insulin pen RxNorm: 2147532 8 Unit(s) SQ QHS 10/16/20172017 Inactive Basaglar KwikPen U-100 Insulin 100 unit/mL (3 mL) subcutaneous RxNorm: 3827395 10 Unit(s) SQ QHS 10/01/20172017 Inactive Basaglar KwikPen U-100 Insulin 100 unit/mL (3 mL) subcutaneous RxNorm: 0790738 10 Unit(s) SQ QHS 10/01/20172017 Inactive cyclobenzaprine 10 mg tablet RxNorm: 960438 Tablet(s) TAKE ONE TABLET BY MOUTH EVERY 8 HOURS NEEDED 09/10/20172017 Inactive simvastatin 40 mg tablet RxNorm: 852178 TAKE 1 TABLET EVERY DAY 08/15/2017 08/09/2018 Active Phenergan with Codeine Syrup RxNorm: 1 Teaspoon(s) PO Q8 as needed 03/19/2017 01/01/2018 Inactive simvastatin 40 mg tablet RxNorm: 830837 TAKE 1 TABLET EVERY DAY 03/13/2017 08/14/2017 Inactive atenolol 25 mg tablet RxNorm: 627537 Tablet(s) TAKE 1 TABLET EVERY DAY 02/14/2017 10/15/2017 Inactive levothyroxine 75 mcg tablet RxNorm: 579536 1 Tablet(s) PO daily 02/14/2017 10/15/2017 Inactive spironolactone 25 mg tablet RxNorm: 681405 1 Tablet(s) PO daily 01/02/2017 10/15/2017 Inactive cyclobenzaprine 10 mg tablet RxNorm: 086616 1 Tablet(s) PO Q8 as needed 11/26/2016 02/23/2017 Inactive cyclobenzaprine 10 mg tablet RxNorm: 459604 TAKE ONE TABLET BY MOUTH EVERY 8 HOURS NEEDED 11/26/2016 02/23/2017 Inactive losartan 50 mg tablet RxNorm: 105219 1 Tablet(s) PO daily 201610/15/2017 Inactive isosorbide mononitrate ER 30 mg tablet,extended release 24 hr RxNorm: 249361 1 Tablet(s) PO daily 11/21/2016 10/15/2017 Inactive indapamide 2.5 mg tablet RxNorm: 480537 1/2 Tablet(s) PO daily 10/31/2016 10/15/2017 Inactive Phenergan with Codeine Syrup RxNorm: 1 Teaspoon(s) PO Q8 as needed 10/05/2016 03/18/2017 Inactive levothyroxine 75 mcg tablet RxNorm: 025595 1 Tablet(s) PO daily 06/29/2016 12/25/2016 Inactive Phenergan with Codeine Syrup RxNorm: 1 Teaspoon(s) PO Q8 as needed 03/13/2016 03/12/2016 Inactive Phenergan with Codeine Syrup RxNorm: 1 Teaspoon(s) PO Q8 as needed 03/13/2016 10/04/2016 Inactive cyclobenzaprine 10 mg tablet RxNorm: 159522 1 Tablet(s) PO Q8 as needed 03/01/2016 05/29/2016 Inactive cyclobenzaprine 10 mg tablet RxNorm: 426497 1 Tablet(s) PO Q8 as needed 03/01/2016 02/29/2016 Inactive Zithromax Z-Deejay 250 mg tablet RxNorm: 266269 1 Tablet(s) PO daily 02/24/2016 06/13/2016 Inactive zpack x 1 atenolol 25 mg tablet RxNorm: 199020 TAKE 1 TABLET EVERY DAY 10/201501/17/2017 Inactive Phenergan with Codeine Syrup RxNorm: 1 Teaspoon(s) PO Q8 as needed 01/10/2016 03/12/2016 Inactive ceftriaxone 500 mg solution for injection RxNorm: 1387016 1 Milliliter(s) Inj 12/09/2015 12/09/2015 Inactive Kenalog 40 mg/mL suspension for injection RxNorm: 1636810 1 Milliliter(s) Inj 12/09/2015 12/09/2015 Inactive Lomotil 2.5 mg-0.025 mg tablet RxNorm: 9135734 1-2 Tablet(s) PO QID as needed 12/01/2015 12/05/2015 Inactive Lomotil 2.5 mg-0.025 mg tablet RxNorm: 7265944 1-2 Tablet(s) PO QID as needed 12/01/2015 11/30/2015 Inactive levothyroxine 75 mcg tablet RxNorm: 815307 1 Tablet(s) PO daily 11/15/2015 05/12/2016 Inactive isosorbide mononitrate ER 30 mg tablet,extended release 24 hr RxNorm: 286417 1 Tablet(s) PO daily 11/15/2015 11/08/2016 Inactive losartan 50 mg tablet RxNorm: 910019 1 Tablet(s) PO daily 201511/08/2016 Inactive levothyroxine 75 mcg tablet RxNorm: 828214 1 Tablet(s) PO daily 10/27/2015 11/14/2015 Inactive cefdinir 300 mg capsule RxNorm: 737742 1 Capsule(s) PO BID 11/201510/31/2015 Inactive Zithromax Z-Deejay 250 mg tablet RxNorm: 095341 1 Tablet(s) PO UD 10/25/2015 10/29/2015 Inactive indapamide 2.5 mg tablet RxNorm: 766672 1/2 Tablet(s) PO daily 09/14/2015 09/07/2016 Inactive spironolactone 25 mg tablet RxNorm: 641713 1 Tablet(s) PO daily 09/14/2015 09/07/2016 Inactive simvastatin 40 mg tablet RxNorm: 173522 1 Tablet(s) PO daily 09/07/2016 Inactive Phenergan with Codeine Syrup RxNorm: 1 Teaspoon(s) PO Q8 as needed 09/12/2015 01/09/2016 Inactive Zithromax Z-Deejay 250 mg tablet RxNorm: 628320 1 Tablet(s) PO daily 06/15/2015 11/14/2015 Inactive zpack x 1 Levaquin 250 mg tablet RxNorm: 377594 Tablet(s) PO 2 tabs day one and 1 tab day 2- 7 04/18/2015 01/09/2016 Inactive atenolol 25 mg tablet RxNorm: 373442 1 Tablet(s) PO daily 201401/23/2016 Inactive losartan 50 mg tablet RxNorm: 688695 1 Tablet(s) PO daily 201411/14/2015 Inactive simvastatin 40 mg tablet RxNorm: 469788 1 Tablet(s) PO daily 09/13/2015 Inactive spironolactone 25 mg tablet RxNorm: 391588 1 Tablet(s) PO daily 12/17/2014 09/13/2015 Inactive isosorbide mononitrate ER 30 mg tablet,extended release 24 hr RxNorm: 309534 1 Tablet(s) PO daily 12/17/2014 11/14/2015 Inactive atenolol 25 mg tablet RxNorm: 899554 1 Tablet(s) PO daily 201412/16/2014 Inactive atenolol 25 mg tablet RxNorm: 997528 1 Tablet(s) PO daily 201402/14/2015 Inactive isosorbide mononitrate ER 30 mg tablet,extended release 24 hr RxNorm: 924452 1 Tablet(s) PO daily 12/17/2014 12/16/2014 Inactive indapamide 2.5 mg tablet RxNorm: 618435 1/2 Tablet(s) PO daily 12/17/2014 09/13/2015 Inactive levothyroxine 50 mcg tablet RxNorm: 500714 1 Tablet(s) PO daily 12/17/2014 10/26/2015 Inactive Januvia 50 mg tablet RxNorm: 389661 1 Tablet(s) PO daily 201411/26/2014 Inactive Onglyza 2.5 mg tablet RxNorm: 497020 1 Tablet(s) PO daily 201412/02/2014 Inactive Januvia 50 mg tablet RxNorm: 074249 1 Tablet(s) PO daily 201411/25/2014 Inactive Tessalon Perles 100 mg capsule RxNorm: 086394 1 Capsule(s) PO TID as needed 11/23/2014 07/09/2016 Inactive Levaquin 500 mg tablet RxNorm: 470873 1 Tablet(s) PO daily 10/201411/22/2014 Inactive Levaquin 500 mg tablet RxNorm: 183740 1 Tablet(s) PO daily 10/201411/29/2014 Inactive Singulair 10 mg tablet RxNorm: 243463 1 Tablet(s) PO QPM No Start Date Active Proventil HFA 90 mcg/actuation aerosol inhaler RxNorm: 552322 2 Puff(s) INH QID No Start Date Active Zyrtec 10 mg tablet RxNorm: 5839592 1 Tablet(s) PO daily No Start Date Active Flonase Allergy Relief 50 mcg/actuation nasal spray, suspension RxNorm: 4200621 1 [place] NASAL daily per nostril No Start Date Active aspirin 81 mg tablet RxNorm: 557863 1 Tablet(s) PO daily No Start Date Active omeprazole 20 mg capsule,delayed release RxNorm: 436095 1 Capsule(s) PO daily No Start Date Active indapamide 2.5 mg tablet RxNorm: 632380 1/2 Tablet(s) PO daily No Start Date 12/16/2014 Inactive Tessalon Perles 100 mg capsule RxNorm: 439739 1 Capsule(s) PO TID as needed No Start Date 11/22/2014 Inactive losartan 50 mg tablet RxNorm: 805556 1 Tablet(s) PO daily No Start Date 12/16/2014 Inactive spironolactone 25 mg tablet RxNorm: 674173 1 Tablet(s) PO daily No Start Date 12/16/2014 Inactive isosorbide mononitrate ER 30 mg tablet,extended release 24 hr RxNorm: 824347 1 Tablet(s) PO daily No Start Date 2014 Inactive atenolol 25 mg tablet RxNorm: 089758 1 Tablet(s) PO daily No Start Date 12/16/2014 Inactive Zithromax Z-Deejay 250 mg tablet RxNorm: 123662 1 Tablet(s) PO daily No Start Date 06/14/2015 Inactive levothyroxine 50 mcg tablet RxNorm: 055248 1 Tablet(s) PO daily No Start Date 12/16/2014 Inactive simvastatin 40 mg tablet RxNorm: 746187 1 Tablet(s) PO daily No Start Date 12/16/2014 Inactive Medication Administered Medication Codes Instructions Start Date Status Kenalog 40 mg/mL suspension for injection RxNorm: 0331381 1Milliliter 12/09/2015 No longer Active ceftriaxone 500 mg solution for injection RxNorm: 3599991 1Milliliter 12/09/2015 No longer Active Immunizations Vaccine Codes Date Status Influenza CVX: 141 11/21/2017 completed Pneumococcal CVX: 133 02/20/2017 completed Influenza CVX: 141 04/04/2016 completed Influenza CVX: 141 01/22/2015 completed Assessments Condition Codes Effective Dates Type 2 diabetes mellitus without complications ICD-10: E11.9 ICD-9: 250.00 02/24/2018 Zoster without complications ICD-10: B02.9 ICD-9: 053.9 02/24/2018 Essential (primary) hypertension ICD-10: I10 ICD-9: 401.9 02/24/2018 Idiopathic pulmonary fibrosis ICD-10: J84.112 ICD-9: 516.31 02/13/2018 Encounter for general adult medical examination with abnormal findings ICD-10: Z00.01 ICD-9: V70.0 01/27/2018 Cough ICD-10: R05 ICD-9: 786.2 01/22/2018 Candidal [...] Visit Reason For Visit Effective Dates Notes hypertension 02/24/2018 Hospital Follow Up 02/13/2018 Annual Medicare Wellness Exam 01/27/2018 cough 01/22/2018 ~generic 01/02/2018 hypertension 11/21/2017 hypertension 11/04/2017 skin lesion 10/16/2017 hypertension 09/25/2017 hypertension 07/10/2016 cough 03/13/2016 cough 01/10/2016 diarrhea 12/20/2015 cough 12/09/2015 cough 10/25/2015 cough 09/12/2015 cough 04/18/2015 cough 03/04/2015 cough 02/22/2015 hypertension 12/03/2014 cough 11/23/2014 hypertension 07/29/2014 Results Observation Observation Code Item Item Code Result Date Free T4 Ybi239 FREE T4 1.13 ng/dL 09/26/2017 Microalbumin Vws107 MicroAlb 2.1 mg/dL 09/26/2017 Cbc With Differential [...] 89.1 fl 09/26/2017 Cbc With Differential Ord2 Hawkins% 9.0 % 09/26/2017 Cbc With Differential Ord2 [...] 2.49 K/ul 09/26/2017 Cbc With Differential Ord2 Hawkins ABS# 0.8 K/ul 09/26/2017 Cbc With Differential Ord2 Eos ABS# 0.3 K/ul 09/26/2017 Cbc With Differential Ord2 Baso ABS# 0.0 K/ul 09/26/2017 Lipid Ord30 CHOL 118 mg/dL 09/26/2017 Lipid Ord30 HDL 39.0 mg/dl 09/26/2017 Lipid Ord30 TRIG 138 mg/dL 09/26/2017 Lipid Ord30 LDL 51 mg/dL 09/26/2017 Lipid Ord30 C/HDL 3.0 Ratio 09/26/2017 Comp Metabolic Dcn971 NA 138 mEq/L 09/26/2017 Comp Metabolic Unm052 K 4.5 mEq/L 09/26/2017 Comp Metabolic Fkk992 CL 103 mEq/L 09/26/2017 Comp Metabolic Col233 CO2 26.0 mEq/L 09/26/2017 Comp Metabolic Jdn653 ANION GAP 14 09/26/2017 Comp Metabolic Wbu228 GLUCOSE 121 mg/dL 09/26/2017 Comp Metabolic Zgz040 Creat 1.2 mg/dL 09/26/2017 Comp Metabolic Bro011 eGFR 46 ml/min/1.73m2 09/26/2017 Comp Metabolic Ziz025 BUN 18 mg/dL 09/26/2017 Comp Metabolic Guh807 B/C Ratio 15.0 Ratio 09/26/2017 Comp Metabolic Bcb635 CALCIUM 9.0 mg/dL 09/26/2017 Comp Metabolic Ruk521 ALK PHOS 88 U/L 09/26/2017 Comp Metabolic Wes657 AST(SGOT) 15 U/L 09/26/2017 Comp Metabolic Ocu117 ALT(SGPT) 9 U/L 09/26/2017 Comp Metabolic Dqg626 BILI T 0.4 mg/dL 09/26/2017 Comp Metabolic Udj870 ALBUMIN 3.7 g/dL 09/26/2017 Comp Metabolic Lkz346 TPRO 7.4 g/dL 09/26/2017 Comp Metabolic Nzg670 GLOB 3.7 g/dL 09/26/2017 Comp Metabolic Vkp109 A/G Ratio 1.0 Ratio 09/26/2017 Comp Metabolic Emg542 Osmo 279 mOsmo 09/26/2017 Tsh Ord6 TSH (3rd IS) 2.58 uIU/mL 09/26/2017 %Hba1C Ncj621 % HbA1c 95345-1 7.1 % 09/26/2017 %Hba1C Rxg378 Gluc Ave 157 mg/dL 09/26/2017 Tsh Ord6 hTSH II 2.29 uIU/mL 03/13/2016 Cbc With Differential Ord2 WBC 9.86 K/ul 03/13/2016 Cbc With Differential Ord2 RBC 4.51 M/ul 03/13/2016 Cbc With Differential Ord2 HGB 13.2 g/dl 03/13/2016 Cbc With Differential Ord2 HCT 41.6 % 03/13/2016 Cbc With Differential Ord2 Neut% 62.0 % 03/13/2016 Cbc With Differential Ord2 MCV 92.2 fl 03/13/2016 Cbc With Differential Ord2 Lymph% 24.6 % 03/13/2016 Cbc With Differential Ord2 MCH 29.3 pg 03/13/2016 Cbc With Differential Ord2 Hawkins% 8.6 % 03/13/2016 Cbc With Differential Ord2 [...] 2.43 K/ul 03/13/2016 Cbc With Differential Ord2 [place] ABS# 0.9 K/ul 03/13/2016 Cbc With Differential Ord2 Eos ABS# 0.4 K/ul 03/13/2016 Cbc With Differential Ord2 Baso ABS# 0.0 K/ul 03/13/2016 %Hba1C Kqr279 % HbA1c 60951-6 6.7 % 03/13/2016 %Hba1C Gsv700 Gluc Ave 146 mg/dL 03/13/2016 Free T4 Zfe362 FREE T4 1.19 ng/dL 03/13/2016 Comp Metabolic Civ997 NA 137 mEq/L 03/13/2016 Comp Metabolic Cyj294 K 3.9 mEq/L 03/13/2016 Comp Metabolic Igg610 CL 101 mEq/L 03/13/2016 Comp Metabolic Goi728 CO2 29.0 mEq/L 03/13/2016 Comp Metabolic Uyw193 ANION GAP 11 03/13/2016 Comp Metabolic Avt641 GLUCOSE 111 mg/dL 03/13/2016 Comp Metabolic Opy243 Creat 1.2 mg/dL 03/13/2016 Comp Metabolic Ptr479 eGFR 48 ml/min/1.73m2 03/13/2016 Comp Metabolic Hmn907 BUN 17 mg/dL 03/13/2016 Comp Metabolic Vcy016 B/C Ratio 14.8 Ratio 03/13/2016 Comp Metabolic Vwo056 CALCIUM 9.6 mg/dL 03/13/2016 Comp Metabolic Dov087 ALK PHOS 89 U/L 03/13/2016 Comp Metabolic Hos015 AST(SGOT) 18 U/L 03/13/2016 Comp Metabolic Sqn710 ALT(SGPT) 13 U/L 03/13/2016 Comp Metabolic Fwo532 BILI T 0.5 mg/dL 03/13/2016 Comp Metabolic Gyg439 ALBUMIN 3.8 g/dL 03/13/2016 Comp Metabolic Boz045 TPRO 7.1 g/dL 03/13/2016 Comp Metabolic Dmu652 GLOB 3.3 g/dL 03/13/2016 Comp Metabolic Zwu929 A/G Ratio 1.1 Ratio 03/13/2016 Comp Metabolic Ayn964 Osmo 276 mOsmo 03/13/2016 Culture Sputum 670903 LOWER RESPIRATORY TRACT CULTURE SEE NOTES 12/30/2015 Culture Stool [id number] STOOL CULTURE SEE NOTES 12/26/2015 Shiga Toxin 1 & 2 Eia Stool 899201 SHIGA TOXIN 1: NEGATIVE 12/23/2015 Shiga Toxin 1 & 2 Eia Stool [id number] SHIGA TOXIN 2: NEGATIVE 12/23/2015 Clostridium Diff Tox A/B Eae464 Cdiff Negative 12/21/2015 Review of Systems System Result Effective Dates Constitutional No recent illness 2017 Constitutional No chills 02/24/2018 Constitutional fatigue 02/24/2018 Constitutional No fever 02/24/2018 Constitutional No insomnia 02/24/2018 Constitutional No malaise 02/24/2018 Eyes No eye discharge 02/24/2018 Eyes No eye erythema 02/24/2018 Ears/Nose/Throat/Neck No dizziness 2017 Ears/Nose/Throat/Neck No headache 2017 Cardiovascular No chest pain/pressure 12/2017 Cardiovascular No dyspnea 02/24/2018 Respiratory No chest congestion 2017 Gastrointestinal No abdominal pain 2017 Gastrointestinal No constipation 2017 Gastrointestinal No diarrhea 02/24/2018 Musculoskeletal No joint complaint 2017 Dermatologic rash 02/24/2018 Psychiatric No anxiety 02/24/2018 Psychiatric No depression 02/24/2018 Constitutional No recent illness 2017 Constitutional No chills 02/13/2018 Constitutional fatigue 02/13/2018 Constitutional No fever 02/13/2018 Constitutional No insomnia 02/13/2018 Constitutional No malaise 02/13/2018 Eyes No eye discharge 02/13/2018 Eyes No eye erythema 02/13/2018 Ears/Nose/Throat/Neck No dizziness 2017 Ears/Nose/Throat/Neck No headache 2017 Cardiovascular No chest pain/pressure Cardiovascular No dyspnea 02/13/2018 Respiratory productive sputum 02/13/2018 Respiratory No chest congestion 2017 Respiratory cough 02/13/2018 Gastrointestinal No abdominal pain 2017 Gastrointestinal No constipation 2017 Gastrointestinal No diarrhea 02/13/2018 Musculoskeletal No joint complaint 2017 Psychiatric No anxiety 02/13/2018 Psychiatric No depression 02/13/2018 Dermatologic No rash 02/13/2018 Constitutional No recent illness 2017 Constitutional No [...] 1994 Constitutional general appearance Overall: well developed 02/24/2018 None Full Exam - General 1994 Constitutional general appearance Overall: in no acute distress 02/24/2018 None Full Exam - General 1994 Constitutional general appearance Overall: well nourished 02/24/2018 None Full Exam - General 1994 Eyes conjunctiva /eyelids Overall: conjunctiva clear 02/24/2018 None Full Exam - General 1994 Eyes conjunctiva /eyelids Overall: cornea clear 02/24/2018 None Full Exam - General 1994 Eyes conjunctiva /eyelids Overall: eyelids normal 02/24/2018 None Full Exam - General 1994 Eyes pupils and irises Overall: pupils equal, round, reactive to light and accomodation 02/24/2018 None Full Exam - General 1994 Ears/Nose/Throat otoscopic exam Overall: external auditory canals clear 02/24/2018 None Full Exam - General 1994 Ears/Nose/Throat otoscopic exam Overall: tympanic membranes clear 02/24/2018 None Full Exam - General 1994 Ears/Nose/Throat oral cavity/pharynx/larynx Overall: no masses 02/24/2018 None Full Exam - General 1994 Ears/Nose/Throat oral cavity/pharynx/larynx Oral mucosa: dry 02/24/2018 None Full Exam - General 1994 Respiratory auscultation Upper lung field: diminished 02/24/2018 None Full Exam - General 1994 Respiratory auscultation Lower lung field: inspiratory wheezes 02/24/2018 None Full Exam - General 1994 Respiratory auscultation Lower lung field: expiratory wheezes 02/24/2018 None Full Exam - General 1994 Respiratory respiratory effort/rhythm Overall: no retractions 02/24/2018 None Full Exam - General 1994 Respiratory respiratory effort/rhythm Overall: normal rate 02/24/2018 None Full Exam - General 1994 Cardiovascular extremities Overall: no clubbing 02/24/2018 None Full Exam - General 1994 Cardiovascular auscultation of heart Overall: regular rate 02/24/2018 None Full Exam - General 1994 Cardiovascular auscultation of heart Overall: normal heart sounds 02/24/2018 None Full Exam - General 1994 Cardiovascular auscultation of heart Overall: no murmurs 02/24/2018 None Full Exam - General 1994 Abdomen abdominal exam Overall: no tenderness 02/24/2018 None Full Exam - General 1994 Abdomen abdominal exam Overall: normal bowel sounds 02/24/2018 None Full Exam - General 1994 Musculoskeletal head and neck Overall: head atraumatic 02/24/2018 None Full Exam - General 1994 Neurologic cranial nerves Overall: crainial nerves 2 - 12 grossly intact 02/24/2018 None Full Exam - General 1994 Psychiatric orientation/consciousness Overall: oriented to person, place and time 02/24/2018 None Full Exam - General 1994 Integument inspection of skin Location: back 02/24/2018 mid thoracic on left - erythema faint rash Full Exam - General 1994 Constitutional general appearance Overall: well developed 02/13/2018 None Full Exam - General 1994 Constitutional general appearance Overall: in no acute distress 02/13/2018 None Full Exam - General 1994 Constitutional general appearance Overall: well nourished 02/13/2018 None Full Exam - General 1994 Eyes conjunctiva /eyelids Overall: conjunctiva clear 02/13/2018 None Full Exam - General 1994 Eyes conjunctiva /eyelids Overall: cornea clear 02/13/2018 None Full Exam - General 1994 Eyes conjunctiva /eyelids Overall: eyelids normal 02/13/2018 None Full Exam - General 1994 Eyes pupils and irises Overall: pupils equal, round, reactive to light and accomodation 02/13/2018 None Full Exam - General 1994 Ears/Nose/Throat otoscopic exam Overall: external auditory canals clear 02/13/2018 None Full Exam - General 1994 Ears/Nose/Throat otoscopic exam Overall: tympanic membranes clear 02/13/2018 None Full Exam - General 1994 Ears/Nose/Throat oral cavity/pharynx/larynx Overall: no masses 02/13/2018 None Full Exam - General 1994 Ears/Nose/Throat oral cavity/pharynx/larynx Oral mucosa: dry 02/13/2018 None Full Exam - General 1994 Respiratory auscultation Upper lung field: diminished 02/13/2018 None Full Exam - General 1994 Respiratory auscultation Lower lung field: inspiratory wheezes 02/13/2018 None Full Exam - General 1994 Respiratory auscultation Lower lung field: expiratory wheezes 02/13/2018 None Full Exam - General 1994 Respiratory respiratory effort/rhythm Overall: no retractions 02/13/2018 None Full Exam - General 1994 Respiratory respiratory effort/rhythm Overall: normal rate 02/13/2018 None Full Exam - General 1994 Cardiovascular extremities Overall: no clubbing 02/13/2018 None Full Exam - General 1994 Cardiovascular auscultation of heart Overall: regular rate 02/13/2018 None Full Exam - General 1994 Cardiovascular auscultation of heart Overall: normal heart sounds 02/13/2018 None Full Exam - General 1994 Cardiovascular auscultation of heart Overall: no murmurs 02/13/2018 None Full Exam - General 1994 Musculoskeletal head and neck Overall: head atraumatic 02/13/2018 None Full Exam - General 1994 Psychiatric orientation/consciousness Overall: oriented to person, place and time 02/13/2018 None Full Exam - General 1994 Neurologic cranial nerves Overall: crainial nerves 2 - 12 grossly intact 02/13/2018 None Full Exam - General 1994 Integument inspection of skin Overall: few scattered moles, no gross abnormalities 02/13/2018 None Full Exam - General 1994 Abdomen abdominal exam Overall: no tenderness 02/13/2018 None Full Exam - General 1994 Abdomen abdominal exam Overall: normal bowel sounds 02/13/2018 None Full Exam - General 1994 Constitutional [...] time 01/27/2018 None Full Exam - General 1995 Ears/Nose/Throat oral cavity/pharynx/larynx Oral mucosa: dry 01/27/2018 [...] accomodation 07/29/2014 None Full Exam - General 1995 Respiratory auscultation Lower lung field: crackles 07/29/2014 None Procedures Procedure Codes Date PPPS, SUBSEQ VISIT CPT -4: G0439 01/27/2018 ADMIN INFLUENZA VIRUS VAC CPT-4: G0008 11/21/2017 FLU VACC PRSV FREE INC ANTIG Formatting Model/CDA Sections, Assigned to/Stephanie Cedeño CPT-4: 91367Zcdwccp 11/21/2017 DESTRUCT PREMALG LESION CPT-4: 63670 10/16/2017 ROCEPHIN, PER 250 MG CPT-4: J0696 12/09/2015 TRIAMCINOLONE ACET INJ NOS CPT-4: J3301 12/09/2015 Vital Signs Date Vital 02/24/2018 Blood Pressure 1: 130/48 Code : 8480-6 BMI: 21.3 Code : 64075-4 Heart Rate 1 : 84 bpm Height: 5'7" SpO2: 96% Weight: 136 lbs 02/13/2018 Blood Pressure 1: 96/54 Code : 8480-6 BMI: 20.8 Code : 85635-5 Heart Rate 1 : 71 bpm Height: 5'7" SpO2: 98% Weight: 133 lbs 01/27/2018 Blood Pressure 1: 132/68 Code : 8480-6 BMI: 21.8 Code : 47147-8 Heart Rate 1 : 84 bpm Height: 5'7" SpO2: 92% Weight: 139 lbs 01/22/2018 Blood Pressure 1: 132/60 Code : 8480-6 BMI: 21.8 Code : 02948-0 Heart Rate 1 : 72 bpm Height: 5'7" SpO2: 94% Weight: 139 lbs 01/02/2018 Blood Pressure 1: 146/66 Code : 8480-6 BMI: 21.6 Code : 82225-2 Heart Rate 1 : 80 bpm Height: 5'7" SpO2: 97% Weight: 138 lbs 11/21/2017 Blood Pressure 1: 138/60 Code : 8480-6 BMI: 22.4 Code : 32050-8 Heart Rate 1 : 71 bpm Height: 5'7" SpO2: 92% Weight: 143 lbs 11/04/2017 Blood Pressure 1: 102/56 Code : 8480-6 BMI: 22.6 Code : 84894-1 Heart Rate 1 : 83 bpm Height: 5'7" SpO2: 91% Weight: 144 lbs 10/16/2017 Blood Pressure 1: 140/63 Code : 8480-6 BMI: 23.2 Code : 61605-8 Heart Rate 1 : 97 bpm Height: 5'7" SpO2: 94% Weight: 148 lbs 09/25/2017 Blood Pressure 1: 124/60 Code : 8480-6 BMI: 23.8 Code : 93734-0 Heart Rate 1 : 81 bpm Height: 5'7" SpO2: 97% Weight: 152 lbs 07/10/2016 Blood Pressure 1: 136/70 Code : 8480-6 BMI: 25.5 Code : 85270-2 Heart Rate 1 : 87 bpm Height: 5'7" SpO2: 90% Weight: 162 lbs 8 oz 03/13/2016 Blood Pressure 1: 130/72 Code : 8480-6 BMI: 25.4 Code : 17800-6 Heart Rate 1 : 86 bpm Height: 5'7" SpO2: 91% Weight: 162 lbs 01/10/2016 Blood Pressure 1: 122/80 Code : 8480-6 BMI: 25.7 Code : 88707-8 Heart Rate 1 : 83 bpm Height: 5'7" SpO2: 94% Weight: 164 lbs 12/20/2015 Blood Pressure 1: 128/86 Code : 8480-6 BMI: 25.1 Code : 05597-5 Heart Rate 1 : 74 bpm Height: 5'7" SpO2: 95% Weight: 160 lbs 12/09/2015 Blood Pressure 1: 132/68 Code : 8480-6 BMI: 26.2 Code : 20685-3 Heart Rate 1 : 80 bpm Height: 5'7" SpO2: 96% Weight: 167 lbs 10/25/2015 Blood Pressure 1: 128/52 Code : 8480-6 BMI: 26.5 Code : 68973-5 Heart Rate 1 : 80 bpm Height: 5'7" SpO2: 92% Weight: 169 lbs 09/12/2015 Blood Pressure 1: 122/70 Code : 8480-6 BMI: 26.5 Code : 54890-3 Heart Rate 1 : 76 bpm Height: 5'7" SpO2: 90% Weight: 169 lbs 04/18/2015 Blood Pressure 1: 142/58 Code : 8480-6 BMI: 25.4 Code : 91231-5 Heart Rate 1 : 76 bpm Height: 5'7" SpO2: 96% Weight: 162 lbs 03/04/2015 Blood Pressure 1: 110/68 Code : 8480-6 BMI: 25.4 Code : 59019-4 Heart Rate 1 : 68 bpm Height: 5'7" SpO2: 95% Weight: 162 lbs 02/22/2015 Blood Pressure 1: 100/52 Code : 8480-6 BMI: 25.1 Code : 31371-0 Heart Rate 1 : 66 bpm Height: 5'7" SpO2: 95% Temperature: 36.5 (C) / 97.7 (F) Weight: 160 lbs 12/03/2014 Blood Pressure 1: 130/64 Code : 8480-6 BMI: 25.5 Code : 77213-1 Heart Rate 1 : 87 bpm Height: 5'7" SpO2: 94% Weight: 163 lbs 11/23/2014 Blood Pressure 1: 140/64 Code : 8480-6 BMI: 27.3 Code : 58059-3 Heart Rate 1 : 70 bpm Height: 5'7" SpO2: 91% Weight: 174 lbs 07/29/2014 Blood Pressure 1: 118/64 Code : 8480-6 BMI: 27.7 Code : 15192-6 Heart Rate 1 : 72 bpm Height: 5'7" Weight: 177 lbs Functional Status No Functional Status data History of Present Illness Symptom Name Status Result Effective Date Notes Quality chronic 02/24 None Onset and Resolution ongoing 02/24/2018 None Onset of Symptom during adulthood 02/24/2018 None Onset of Symptom onset as an adult 02/24/2018 None Glucose monitoring fasting 02/24/2018 None Glucose monitoring bedtime 02/24/2018 None Nutrition regular diet 02/24/2018 None Exercise no exercise 02/24/2018 None Hospital Follow Up _ pneumonia 02/13/2018 None Hospital Follow Up Quality acute illness 02/13/2018 None Hospital Follow Up Quality improving 02/13/2018 None Hospital Follow Up Alleviating Factors medication 02/13/2018 None Hospital Follow Up Pertinent Findings Denies fever 02/13/2018 None Hospital Follow Up Pertinent Findings pain 02/13/2018 in her chest Hospital Follow Up Pertinent Findings Other: cough 02/13/2018 -improving Hospital Follow Up Onset and Resolution sudden in onset 02/13/2018 None Hospital Follow Up Onset of Symptom _ days ago 02/13/2018 None Hospital Follow Up Severity moderate 02/13/2018 None Hospital Follow Up Significant Medical Conditions acute illness 02/13/2018 None Hospital Follow Up Mechanism of injury _ 02/13/2018 None Annual Medicare Wellness Exam Alcohol Use does [...] Present Encounters Encounter Performer Location Codes Date ([id number]) 65757 EST. PATIENT, LEVEL IV Diagnosis: Type 2 diabetes mellitus without complications[ICD10: E11.9] Diagnosis: Essential (primary) hypertension[ICD10: I10] Diagnosis: Zoster without complications[ICD10: B02.9] [facility] CPT-4: 24693 02/24/2018 ([id number]) 67960 EST. PATIENT, LEVEL IV Diagnosis: Essential (primary) hypertension[ICD10: I10] Diagnosis: Type 2 diabetes mellitus without complications[ICD10: E11.9] Diagnosis: Idiopathic pulmonary fibrosis[ICD10: J84.112] Katey Nolen MD, [facility] CPT-4: 46722 02/13/2018 ([id number]) 76156 EST. PATIENT, LEVEL IV Diagnosis: Cough[ICD10: R05] Diagnosis: Candidal stomatitis[ICD10: B37.0] Diagnosis: Essential (primary) hypertension[ICD10: I10] Diagnosis: Type 2 diabetes mellitus without complications[ICD10: E11.9] Sonai Nolen MD [facility] CPT-4: 59946 01/22/2018 ([id number]) 45270 EST. PATIENT, LEVEL III Diagnosis: Cystocele, midline[ICD10: N81.11] Katey Nolen MD, [facility] CPT-4: 30512 01/02/2018 ([id number]) 91083 EST. PATIENT, LEVEL IV Diagnosis: Type 2 diabetes mellitus without complications[ICD10: E11.9] Diagnosis: Essential (primary) hypertension[ICD10: I10] Diagnosis: Encounter for immunization[ICD10: Z23] Sonia Nolen MD [facility] CPT-4: 28770 11/21/2017 ([id number]) 28395 EST. PATIENT, LEVEL III Diagnosis: Orthostatic hypotension[ICD10: I95.1] Sonia Nolen MD [facility] CPT-4: 15767 11/04/2017 ([id number]) 61974 EST. PATIENT, LEVEL IV Diagnosis: Type 2 diabetes mellitus with hyperglycemia[ICD10: E11.65] Sonia Nolen MD [facility] CPT-4: 49843 10/16/2017 ([id number]) 65802 EST. PATIENT, LEVEL IV Diagnosis: Essential (primary) hypertension[ICD10: I10] Diagnosis: Type 2 diabetes mellitus without complications[ICD10: E11.9] Diagnosis: Atrophy of thyroid (acquired)[ICD10: E03.4] Sonia Nolen MD, [facility] CPT-4: 40608 09/25/2017 ([id number]) 38537 EST. PATIENT, LEVEL IV Diagnosis: Type 2 diabetes mellitus without complications[ICD10: E11.9] Diagnosis: Essential (primary) hypertension[ICD10: I10] Diagnosis: Hypothyroidism, unspecified[ICD10: E03.9] Diagnosis: Idiopathic pulmonary fibrosis[ICD10: J84.112] Katey Nolen MD, [facility] CPT-4: 72796 07/10/2016 ([id number]) 00865 EST. PATIENT, LEVEL IV Diagnosis: Type 2 diabetes mellitus without complications[ICD10: E11.9] Diagnosis: Hypothyroidism, unspecified[ICD10: E03.9] Diagnosis: Essential (primary) hypertension[ICD10: I10] Diagnosis: Idiopathic pulmonary fibrosis[ICD10: J84.112] Katey Nolen MD, [facility] CPT-4: 34249 03/13/2016 ([id number]) 59151 EST. PATIENT, LEVEL IV Diagnosis: Idiopathic pulmonary fibrosis[ICD10: J84.112] Diagnosis: Cough[ICD10: R05] Diagnosis: Essential (primary) hypertension[ICD10: I10] Diagnosis: Functional diarrhea[ICD10: K59.1] Katey Nolen MD, [facility] CPT-4: 98380 01/10/2016 ([id number]) 26382 EST. 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 PATIENT, LEVEL IV Diagnosis: Other allergic rhinitis[ICD10: J30.89] Diagnosis: Idiopathic pulmonary fibrosis[ICD10: J84.112] Diagnosis: Cough[ICD10: R05] Monse Nolen MD, [facility] CPT-4: 20600 12/09/2015 ([id number]) 95602 EST. PATIENT, LEVEL III Diagnosis: Cough[ICD10: R05] Diagnosis: Unspecified bacterial pneumonia[ICD10: J15.9] Katey Nolen MD, [facility] CPT-4: 07844 10/25/2015 ([id number]) 93497 EST. PATIENT, LEVEL IV Diagnosis: Essential (primary) hypertension[ICD10: I10] Diagnosis: Idiopathic pulmonary fibrosis[ICD10: J84.112] Diagnosis: Hypothyroidism, unspecified[ICD10: E03.9] Diagnosis: Type 2 diabetes mellitus without complications[ICD10: E11.9] Katey Nolen MD, [facility] CPT-4: 09295 09/12/2015 78938 EST. PATIENT, LEVEL IV Diagnosis: Acute laryngopharyngitis[ICD10: J06.0] Diagnosis: Idiopathic pulmonary fibrosis[ICD10: J84.112] Diagnosis: Cough[ICD10: R05] Monse Nolen MD, [facility] CPT-4: 66332 04/18/2015 ([id number]) 55864 EST. PATIENT, LEVEL III Diagnosis: Idiopathic pulmonary fibrosis[ICD10: J84.112] Katey Nolen MD [facility] CPT-4: 40304 03/04/2015 ([id number]) 33464 EST. PATIENT, LEVEL III Diagnosis: Cough[ICD10: R05] Sonia Nolen MD [facility] CPT-4: 08002 02/22/2015 ([id number]) 75259 EST. PATIENT, LEVEL IV Diagnosis: ESSENTIAL HYPERTENSION[ICD9: 401.9] Diagnosis: DIABETES TYPE II[ICD9: 250.00] Diagnosis: Chronic renal disease, stage 3, moderately decreased glomerular filtration rate between 30-59 mL/min/1.73 square meter[ICD9: 585.3] Sonia Nolen MD [facility] CPT-4: 80390 12/03/2014 ([id number]) 33549 EST. PATIENT, LEVEL III Diagnosis: BACTERIAL PNEUMONIA[ICD9: 482.9] Diagnosis: COUGH[ICD9: 786.2] Diagnosis: DIABETES TYPE II[ICD9: 250.00] Sonia Nolen MD [facility] CPT- 4: 98860 11/23/2014 ([id number]) OFFICE VISIT, NEW - LEVEL 4 Diagnosis: ESSENTIAL HYPERTENSION[ICD9: 401.9] Diagnosis: Hypothyroidism[ICD9: 244.9] Diagnosis: DIABETES TYPE II[ICD9: 250.00] Diagnosis: Pulmonary fibrosis[ICD9: 515] Katey Nolen MD, [facility] CPT-4: 34544 07/29/2014 Plan of Care Planned Activity Notes Codes Status Date Visit Plan: Hypertension - well controlled - continue with current medications, continue with no added salt diet. Pt has been encouraged to exercise daily. The pt has been advised to call the office if there are any acute concerns about change in blood pressure readings at home. Pt doing well on lower dose of antihypertensives. Diabetes Mellitus - controlled - per recent [...] readings are starting to become less controlled. Shingles - Herpes Zoster - acute in onset - pt started on acyclovir and instructed to call if symptoms worsen or if the pt is concerned about the symptoms. Pt has been advised to avoid contact with persons who may be , or infants, or immunocompromised individuals. Pt has been instructed that shingles will continue to break out and eventually scab over a two week period, until all of the vesicles are scabbed, the pt is to be considered contagious. 02/24/2018 Patient Education: Patient Medication Summary Completed 02/24/2018 Patient Education: Diabetes Completed 02/24/2018 Patient Education: Hypertension Completed 02/24/2018 App[facility]ment[phone] [facility] (15 min) Moderate 02/20/2018 Visit Plan: HTN-too well controlled -decrease atenolol to 1 /2 pill daily -monitor blood pressure and pulse and call with any concerns. Diabetes Mellitus - controlled - per recent [...] are starting to become less controlled. Pulmonary fibrosis- recent pneumonia-symptoms have improved-finish abx -follow up with supervisor harvesting as directed 02/13/2018 Appointment: [facility] [phone] [phone] [place] (30 min) Complex 02/13/2018 Patient Education: Patient Medication Summary Completed 02/13/2018 Patient Education: Hypertension Completed 02/13/2018 Patient Education: Diabetes Completed 02/13/2018 Visit Plan: Medicare Exam - today we [...] care surrogate. 01/27/2018 Appointment: [facility] [phone] [phone] [facility] - Annual Wellness Visit 01/27/2018 Patient Education: [...] this time. 01/22/2018 Appointment: [facility]el[phone] [facility] (15 min) Moderate 01/22/2018 Patient Education: Patient [...] plan. 01/02/2018 Appointment: Katey Veloz WPtel: [phone] [phone] (15 min) Moderate 01/02/2018 Patient Education: Patient [...] controlled. 11/21/2017 Appointment: Sonia Nolen WPtel: [phone] [facility] (15 min) Moderate 11/21/2017 Patient Education: Patient Medication Summary Completed 11/21/2017 Patient Education: Hypertension Completed 11/21/2017 Appointment: [facility]el[facility] [phone] [facility] (15 min) Moderate 11/14/2017 Visit Plan: [...] further instructions. 11/04/2017 Appointment: [facility]el[phone] [facility] (15 min) Moderate 11/04/2017 Patient Education: [...] lesion. 10/16/2017 Appointment: Sonia Nolen WPtel: [phone] [facility] (15 min) Moderate 10/16/2017 Patient Education: Patient [...] quinteros 09/25/2017 Appointment: [facility]olen [facility]Ptel[facility] [phone] [facility] [place] (15 min) Moderate 09/25/2017 Patient Education: Patient Medication Summary Completed 09/25/2017 Appointment: Katey Veloz WPtel: [phone] [phone] [place] (30 min) Complex 01/07/2017 Visit Plan: Hypertension [...] Dr Quinteros 07/10/2016 Appointment: Katey Veloz WPtel: [address] [place], [place] [phone] (30 min) [facility] 07/10/2016 Patient Education: Patient Medication Summary Completed [...] less controlled. 03/13/2016 Appointment: Katey Veloz WPtel: [phone] [facility] [place] [address] (30 min) Complex 03/13/2016 Patient Education: Patient Medication Summary Completed 03/13/2016 Care Plan: Comp Metabolic Pending 03/13/2016 Care Plan: Cbc With Differential Pending 03/13/2016 Care Plan: %Hba1C LOINC : 44750-2 Pending 03/13/2016 Care Plan: Tsh Pending 03/13/2016 Care Plan: Free T4 Pending 03/13/2016 Care Plan: Referral Order SNOMED-CT : [id number] Pending 03/13/2016 Visit Plan: Pulmonary fibrosis-symptoms stable-I [...] change in blood pressure readings at home. Ykpeaquh-lnerxmnw-jznu to decrease probiotic to daily-if bowels continue to be regular-patient can stop probiotic and see how she does- instructed her to increase probiotic at any time she is prescribed an antibiotic -patient and daughter verbalized understanding of plan. 01/10/2016 Appointment: Katey Veloz WPtel: [phone] [phone] (30 min) Complex 01/10/2016 Patient Education: Patient Medication Summary Completed 01/10/2016 Patient Education: Hypertension Completed 01/10/2016 Patient Education: Patient Medication Summary Completed 12/28/2015 Care Plan: Clostridium Diff Tox A/B Cancelled 12/22/2015 Patient Education: Patient Medication Summary Completed 12/21/2015 Care Plan: FECES CULTURE AEROBIC BACT LOINC : 51455-7 Pending 12/21/2015 Visit Plan: Diarrhea - recommended bland diet, low fat diet , start on probiotic, and rehydrate with gatorade-like product. Pt to call if feeling worse, diarrhea becomes bloody, or does not improve with above recommendations. Pt to call for acute worsening of stomach upset or stomach pain. CHECK STOOL FOR CDIFF, STOOL CULTURE 12/20/2015 Appointment: [facility]el[facility] [phone] [phone] [place] (15 min) Moderate 12/20/2015 Patient Education: Patient Medication Summary Completed 12/20/2015 Visit Plan: Pulmonary mptxhabi-mxlsxmh-xtwl Dr Quinteros and wears oxygen at night [...] of control. 09/12/2015 Appointment: Kate[facility]el[facility] [phone] [phone] (15 min) Moderate 09/12/2015 Patient Education: Patient Medication Summary Completed 09/12/2015 Patient Education: Hypertension Completed 09/12/2015 Care Plan: COMPLETE CBC AUTOMATED LOINC : 17966-0 Pending 09/12/2015 Visit Plan: Pulmonary ygfytdih-necyvxk-vshe Dr Quinteros and wears oxygen at night URI - Pt advised to increase fluids, vitamin C. Discussed natural and expected course of this diagnosis and need to alert me if symptoms do not follow expected course, or if any worse. RX sent to patient's pharmacy. 04/18/2015 Visit Plan: Pulmonary vmghavbz-vasxxws-blqs Dr Quinteros and wears oxygen at night URI - Pt advised to increase fluids, vitamin C. Discussed natural and expected course of this diagnosis and need to alert me if symptoms do not follow expected course, or if any worse. RX sent to patient's pharmacy. 04/18/2015 Appointment: (30 min) Complex 04/18/2015 Patient Education: Patient Medication Summary Completed 04/18/2015 Care Plan: C RAP A SC Pending 04/18/2015 Visit Plan: Pneumonia-resolved [...] acute treatment of this illness. [employer], [employer] yogurt, - all of these have probiotics [...] numbers are. 11/23/2014 Appointment: Sonia Nolen WPtel: [address] [place], [place] [phone] (15 min) Moderate 11/23/2014 Patient Education: Patient [...] fibrosis-followed by Dr Chaudhary oxygen at night 07/29/2014 Visit Plan: Hypertension [...] fibrosis-followed by Dr Chaudhary oxygen at night 07/29/2014 Visit Plan: Hypertension [...] by Dr Quinteros-wears oxygen at night 07/29/2014 Appointment: (S) New Patient [...] 5pm. Daytime napping worsens night time insomnia. [employer] liodocain patches - 4% - you can apply this to the skin - leave on for 12 hours, the off for 12 hours - if the pain on the back intensifies . Hypertension - well controlled - continue with current medications, continue with no added salt diet. Pt has been encouraged to exercise daily. The pt has been advised to call the office if there are any acute concerns about change in blood pressure readings at home. Pt doing well on lower dose of antihypertensives. Diabetes Mellitus - controlled - per recent [...] readings are starting to become less controlled. Shingles - Herpes Zoster - acute in onset - pt started on acyclovir and instructed to call if symptoms worsen or if the pt is concerned about the symptoms. Pt has been advised to avoid contact with persons who may be , or infants, or immunocompromised individuals. Pt has been instructed that shingles will continue to break out and eventually scab over a two week period, until all of the vesicles are scabbed, the pt is to be considered contagious. . Medicare Exam - today we discussed [...] change in blood pressure readings at home. Iitwnxkm-fawtuapi-albj to decrease probiotic to daily-if bowels continue [...] want to see what your numbers are. CHANGE ATENOLOL TO 1/2 TAB DAILY MONITOR BLOOD PRESSURE AND PULSE -CALL IF CONSISTENTLY BELOW 100 [address]OVE [address] . HTN-too well controlled -decrease atenolol to 1/2 pill daily -monitor blood pressure and pulse and call with any concerns. Diabetes Mellitus - controlled - per recent [...] are starting to become less controlled. Pulmonary fibrosis-recent pneumonia-symptoms have improved-finish abx -follow up with supervisor harvesting as directed Dr Quinteros -follow up pulmonary fibrosis . [...] readings are starting to become less controlled. [employer], [employer], - all of these have [...] need for acute treatment of this illness. [employer], [employer] yogurt, - all of these have [...] the office for further instructions. . Pulmonary wdposacl-pqtaxob-vrmv Dr Quinteros and wears oxygen at night [...] two weeks for to review. on the Trelegy inhaler - [...] at this time. Get fasting labs in [place]. . Hypertension - well controlled - continue [...] become less controlled. Pulmonary fibrosis-followed by Dr Quitneros-refill phenergan with codeine for prn cough Hypothyroidism [...] neosporin and monitor lesion. . Pneumonia-resolved Pulmonary xukiydoi-rzlemqc-cvnt Dr Quinteros and wears oxygen at night [...] tab day 2-7 probiotic with antibiotics. Pulmonary vfizoxed-amflugf-qajb Dr Quinteros and wears oxygen at night URI - Pt advised to increase fluids, vitamin C. Discussed natural and expected course of this diagnosis and need to alert me if symptoms do not follow expected course, or if any worse. RX sent to patient's pharmacy. Levaquin 2 tabs day one and 1 tab day 2-7 probiotic with antibiotics. Pulmonary cxruztxa-acroixo-ozhh Dr Quinteros and wears oxygen at night URI - Pt advised to increase fluids, vitamin C. Discussed natural and expected course of this diagnosis and need to alert me if symptoms do not follow expected course, or if any worse. RX sent to patient's pharmacy.
[2018-04-04] MEDS ORDERED: NS IV 500 ML 500 ML ONE (07:07)
--- OUTSIDE RECORDS SUMMARY | 2018-04-04 07:10 | XMS REPORT | CCD ---
Author Author Katey Veloz Organization Sonia Nolen MD, [facility] Address [address] [place] [address] Phone Care Team Providers Care Windows Application Developer Name Role Phone PP Unavailable CCM Unavailable Summary Purpose Interface Exchange Insurance Providers Payer name Policy type / Coverage type Covered constitution party ID Effective Begin Date Effective End Date WPS Medicare Part B Medicare Part B [id number] Unknown [facility] Medicare Part B [id number] Unknown Family history Mother Diagnosis Age At Onset Heart Attack Unknown Hypertension Unknown Hyperlipidemia Unknown Social History Social History Element Codes Description Effective Dates Marital status Unknown [place] 09/25/2017 Number of children Unknown 5 07/29/2014 Employment Unknown Retired 07/29/[address]: 8198322 Quit over 10 years ago 07/29/[address]: 592840018 Never drinks alcohol 07/29/2014 Allergies, Adverse Reactions, [...] ICD-9: 401.9 ICD-10: I10 Active 03/12/2016 Unknown Idiopathic pulmonary fibrosis ICD-9: 516.31 ICD-10: J84.112 Active 01/09/2016 Unknown Type 2 diabetes mellitus without complications ICD-9: 250.00 ICD-10: E11.9 Active 03/12/2016 Unknown Encounter for general adult medical examination [...] hypertension ICD-9: 401.9 ICD-10: I10 03/12/2016 Active Idiopathic pulmonary fibrosis ICD-9: 516.31 ICD-10: J84.112 01/09/2016 Active Type 2 diabetes mellitus without complications ICD-9: 250.00 ICD-10: E11.9 03/12/2016 Active Encounter for general adult medical examination [...] Start Date Stop Date Status Fill Instructions atenolol 25 mg tablet RxNorm: 632908 1/2 Tablet(s) TAKE 1 TABLET EVERY DAY 02/13/2018 11/09/2018 Active Trelegy Ellipta 100 mcg-62.5 mcg-25 mcg powder for inhalation RxNorm: 8652365 1 INH daily 01/22/2018 02/18/2018 Inactive Diflucan 150 mg tablet RxNorm: 171876 1 Tablet(s) PO daily 09/201701/28/2018 Inactive Phenergan with Codeine Syrup RxNorm: 1 Teaspoon(s) PO Q8 as needed 01/02/2018 No Stop Date Active Tresiba FlexTouch U-200 insulin 200 unit/mL (3 mL) subcutaneous pen RxNorm: 1409945 8 Unit(s) SQ QHS 11/04/2017 Active losartan 50 mg tablet RxNorm: 734979 1/2 Tablet(s) daily 201711/04/2017 Inactive spironolactone 25 mg tablet RxNorm: 968177 1/2 Tablet(s) daily 11/04/2017 01/21/2018 Inactive indapamide 2.5 mg tablet RxNorm: 431893 TAKE 1/2 TABLET EVERY DAY 10/16/2017 10/10/2018 Active isosorbide mononitrate ER 30 mg tablet,extended release 24 hr RxNorm: 437431 TAKE 1 TABLET EVERY DAY 10/16/2017 10/10/2018 Active levothyroxine 75 mcg tablet RxNorm: 803003 TAKE 1 TABLET EVERY DAY 10/16/2017 07/12/2018 Active spironolactone 25 mg tablet RxNorm: 931789 TAKE 1 TABLET EVERY DAY 10/16/2017 11/03/2017 Inactive atenolol 25 mg tablet RxNorm: 258344 TAKE 1 TABLET EVERY DAY 03/201702/12/2018 Inactive losartan 50 mg tablet RxNorm: 617747 TAKE 1 TABLET EVERY DAY 03/201711/03/2017 Inactive James Jackson SoloStar 300 unit/mL (3 mL) subcutaneous insulin pen RxNorm: 8926593 8 Unit(s) SQ QHS 10/16/20172017 Inactive Basaglar KwikPen U-100 Insulin 100 unit/mL (3 mL) subcutaneous RxNorm: 6262654 10 Unit(s) SQ QHS 10/01/20172017 Inactive Basaglar KwikPen U-100 Insulin 100 unit/mL (3 mL) subcutaneous RxNorm: 6693078 10 Unit(s) SQ QHS 10/01/20172017 Inactive cyclobenzaprine 10 mg tablet RxNorm: 601872 Tablet(s) TAKE ONE TABLET BY MOUTH EVERY 8 HOURS NEEDED 09/10/20172017 Inactive simvastatin 40 mg tablet RxNorm: 832612 TAKE 1 TABLET EVERY DAY 08/15/2017 08/09/2018 Active Phenergan with Codeine Syrup RxNorm: 1 Teaspoon(s) PO Q8 as needed 03/19/2017 01/01/2018 Inactive simvastatin 40 mg tablet RxNorm: 760901 TAKE 1 TABLET EVERY DAY 03/13/2017 08/14/2017 Inactive atenolol 25 mg tablet RxNorm: 970428 Tablet(s) TAKE 1 TABLET EVERY DAY 02/14/2017 10/15/2017 Inactive levothyroxine 75 mcg tablet RxNorm: 434400 1 Tablet(s) PO daily 02/14/2017 10/15/2017 Inactive spironolactone 25 mg tablet RxNorm: 345277 1 Tablet(s) PO daily 01/02/2017 10/15/2017 Inactive cyclobenzaprine 10 mg tablet RxNorm: 949708 1 Tablet(s) PO Q8 as needed 11/26/2016 02/23/2017 Inactive cyclobenzaprine 10 mg tablet RxNorm: 056398 TAKE ONE TABLET BY MOUTH EVERY 8 HOURS NEEDED 11/26/2016 02/23/2017 Inactive losartan 50 mg tablet RxNorm: 276532 1 Tablet(s) PO daily 201610/15/2017 Inactive isosorbide mononitrate ER 30 mg tablet,extended release 24 hr RxNorm: 104236 1 Tablet(s) PO daily 11/21/2016 10/15/2017 Inactive indapamide 2.5 mg tablet RxNorm: 267470 1/2 Tablet(s) PO daily 10/31/2016 10/15/2017 Inactive Phenergan with Codeine Syrup RxNorm: 1 Teaspoon(s) PO Q8 as needed 10/05/2016 03/18/2017 Inactive levothyroxine 75 mcg tablet RxNorm: 160536 1 Tablet(s) PO daily 06/29/2016 12/25/2016 Inactive Phenergan with Codeine Syrup RxNorm: 1 Teaspoon(s) PO Q8 as needed 03/13/2016 03/12/2016 Inactive Phenergan with Codeine Syrup RxNorm: 1 Teaspoon(s) PO Q8 as needed 03/13/2016 10/04/2016 Inactive cyclobenzaprine 10 mg tablet RxNorm: 617634 1 Tablet(s) PO Q8 as needed 03/01/2016 05/29/2016 Inactive cyclobenzaprine 10 mg tablet RxNorm: 641988 1 Tablet(s) PO Q8 as needed 03/01/2016 02/29/2016 Inactive Zithromax Z-Deejay 250 mg tablet RxNorm: 248269 1 Tablet(s) PO daily 02/24/2016 06/13/2016 Inactive zpack x 1 atenolol 25 mg tablet RxNorm: 028598 TAKE 1 TABLET EVERY DAY 10/201501/17/2017 Inactive Phenergan with Codeine Syrup RxNorm: 1 Teaspoon(s) PO Q8 as needed 01/10/2016 03/12/2016 Inactive ceftriaxone 500 mg solution for injection RxNorm: 3557367 1 Milliliter(s) Inj 12/09/2015 12/09/2015 Inactive Kenalog 40 mg/mL suspension for injection RxNorm: 4024185 1 Milliliter(s) Inj 12/09/2015 12/09/2015 Inactive Lomotil 2.5 mg-0.025 mg tablet RxNorm: 7004005 1-2 Tablet(s) PO QID as needed 12/01/2015 12/05/2015 Inactive Lomotil 2.5 mg-0.025 mg tablet RxNorm: 5283579 1-2 Tablet(s) PO QID as needed 12/01/2015 11/30/2015 Inactive levothyroxine 75 mcg tablet RxNorm: 185077 1 Tablet(s) PO daily 11/15/2015 05/12/2016 Inactive isosorbide mononitrate ER 30 mg tablet,extended release 24 hr RxNorm: 319811 1 Tablet(s) PO daily 11/15/2015 11/08/2016 Inactive losartan 50 mg tablet RxNorm: 277320 1 Tablet(s) PO daily 201511/08/2016 Inactive levothyroxine 75 mcg tablet RxNorm: 686887 1 Tablet(s) PO daily 10/27/2015 11/14/2015 Inactive cefdinir 300 mg capsule RxNorm: 044237 1 Capsule(s) PO BID 11/201510/31/2015 Inactive Zithromax Z-Deejay 250 mg tablet RxNorm: 127865 1 Tablet(s) PO UD 10/25/2015 10/29/2015 Inactive indapamide 2.5 mg tablet RxNorm: 965501 1/2 Tablet(s) PO daily 09/14/2015 09/07/2016 Inactive spironolactone 25 mg tablet RxNorm: 630684 1 Tablet(s) PO daily 09/14/2015 09/07/2016 Inactive simvastatin 40 mg tablet RxNorm: 796991 1 Tablet(s) PO daily 09/07/2016 Inactive Phenergan with Codeine Syrup RxNorm: 1 Teaspoon(s) PO Q8 as needed 09/12/2015 01/09/2016 Inactive Zithromax Z-Deejay 250 mg tablet RxNorm: 781262 1 Tablet(s) PO daily 06/15/2015 11/14/2015 Inactive zpack x 1 Levaquin 250 mg tablet RxNorm: 884707 Tablet(s) PO 2 tabs day one and 1 tab day 2- 7 04/18/2015 01/09/2016 Inactive atenolol 25 mg tablet RxNorm: 565549 1 Tablet(s) PO daily 201401/23/2016 Inactive losartan 50 mg tablet RxNorm: 030687 1 Tablet(s) PO daily 201411/14/2015 Inactive simvastatin 40 mg tablet RxNorm: 566407 1 Tablet(s) PO daily 09/13/2015 Inactive spironolactone 25 mg tablet RxNorm: 642393 1 Tablet(s) PO daily 12/17/2014 09/13/2015 Inactive isosorbide mononitrate ER 30 mg tablet,extended release 24 hr RxNorm: 507591 1 Tablet(s) PO daily 12/17/2014 11/14/2015 Inactive atenolol 25 mg tablet RxNorm: 861792 1 Tablet(s) PO daily 201412/16/2014 Inactive atenolol 25 mg tablet RxNorm: 835661 1 Tablet(s) PO daily 201402/14/2015 Inactive isosorbide mononitrate ER 30 mg tablet,extended release 24 hr RxNorm: 108870 1 Tablet(s) PO daily 12/17/2014 12/16/2014 Inactive indapamide 2.5 mg tablet RxNorm: 253503 1/2 Tablet(s) PO daily 12/17/2014 09/13/2015 Inactive levothyroxine 50 mcg tablet RxNorm: 357696 1 Tablet(s) PO daily 12/17/2014 10/26/2015 Inactive Januvia 50 mg tablet RxNorm: 777449 1 Tablet(s) PO daily 201411/26/2014 Inactive Onglyza 2.5 mg tablet RxNorm: 340434 1 Tablet(s) PO daily 201412/02/2014 Inactive Januvia 50 mg tablet RxNorm: 011165 1 Tablet(s) PO daily 201411/25/2014 Inactive Tessalon Perles 100 mg capsule RxNorm: 982629 1 Capsule(s) PO TID as needed 11/23/2014 07/09/2016 Inactive Levaquin 500 mg tablet RxNorm: 941564 1 Tablet(s) PO daily 10/201411/22/2014 Inactive Levaquin 500 mg tablet RxNorm: 143330 1 Tablet(s) PO daily 10/201411/29/2014 Inactive Singulair 10 mg tablet RxNorm: 171267 1 Tablet(s) PO QPM No Start Date Active Proventil HFA 90 mcg/actuation aerosol inhaler RxNorm: 896593 2 Puff(s) INH QID No Start Date Active Zyrtec 10 mg tablet RxNorm: 6528228 1 Tablet(s) PO daily No Start Date Active Flonase Allergy Relief 50 mcg/actuation nasal spray, suspension RxNorm: 3888715 1 [place] NASAL daily per nostril No Start Date Active aspirin 81 mg tablet RxNorm: 066793 1 Tablet(s) PO daily No Start Date Active omeprazole 20 mg capsule,delayed release RxNorm: 596148 1 Capsule(s) PO daily No Start Date Active indapamide 2.5 mg tablet RxNorm: 787555 1/2 Tablet(s) PO daily No Start Date 12/16/2014 Inactive Tessalon Perles 100 mg capsule RxNorm: 416109 1 Capsule(s) PO TID as needed No Start Date 11/22/2014 Inactive losartan 50 mg tablet RxNorm: 345282 1 Tablet(s) PO daily No Start Date 12/16/2014 Inactive spironolactone 25 mg tablet RxNorm: 328065 1 Tablet(s) PO daily No Start Date 12/16/2014 Inactive isosorbide mononitrate ER 30 mg tablet,extended release 24 hr RxNorm: 693620 1 Tablet(s) PO daily No Start Date 2014 Inactive atenolol 25 mg tablet RxNorm: 416279 1 Tablet(s) PO daily No Start Date 12/16/2014 Inactive Zithromax Z-Deejay 250 mg tablet RxNorm: 511072 1 Tablet(s) PO daily No Start Date 06/14/2015 Inactive levothyroxine 50 mcg tablet RxNorm: 831181 1 Tablet(s) PO daily No Start Date 12/16/2014 Inactive simvastatin 40 mg tablet RxNorm: 001006 1 Tablet(s) PO daily No Start Date 12/16/2014 Inactive Medication Administered Medication Codes Instructions Start Date Status Kenalog 40 mg/mL suspension for injection RxNorm: 8143074 1Milliliter 12/09/2015 No longer Active ceftriaxone 500 mg solution for injection RxNorm: 6732160 1Milliliter 12/09/2015 No longer Active Immunizations Vaccine Codes Date Status Influenza CVX: 141 11/21/2017 completed Pneumococcal (Adult) CVX: 33 02/20/2017 completed Influenza CVX: 141 04/04/2016 completed Influenza CVX: 141 01/22/2015 completed Assessments Condition Codes Effective Dates Idiopathic pulmonary fibrosis ICD-10: J84.112 ICD-9: 516.31 02/13/2018 Type 2 diabetes mellitus without complications ICD-10: E11.9 ICD-9: 250.00 02/13/2018 Essential (primary) hypertension ICD-10: I10 ICD-9: 401.9 02/13/2018 Encounter for general adult medical examination [...] Visit Reason For Visit Effective Dates Notes Hospital Follow Up 02/13/2018 Annual Medicare Wellness Exam 01/27/2018 cough 01/22/2018 ~generic 01/02/2018 hypertension 11/21/2017 hypertension 11/04/2017 skin lesion 10/16/2017 hypertension 09/25/2017 hypertension 07/10/2016 cough 03/13/2016 cough 01/10/2016 diarrhea 12/20/2015 cough 12/09/2015 cough 10/25/2015 cough 09/12/2015 cough 04/18/2015 cough 03/04/2015 cough 02/22/2015 hypertension 12/03/2014 cough 11/23/2014 hypertension 07/29/2014 Results Observation Observation Code Item Item Code Result Date Free T4 Cca239 FREE T4 1.13 ng/dL 09/26/2017 Microalbumin Ejg126 MicroAlb 2.1 mg/dL 09/26/2017 Cbc With Differential Ord2 WBC 8.53 K/ul 09/26/2017 Cbc With Differential Ord2 RBC 4.60 M/ul 09/26/2017 Cbc With Differential Ord2 HGB 12.9 g/dl 09/26/2017 Cbc With Differential Ord2 HCT 41.0 % 09/26/2017 Cbc With Differential Ord2 Neut% 58.0 % 09/26/2017 Cbc With Differential Ord2 MCV 89.1 fl 09/26/2017 Cbc With Differential Ord2 Lymph% 29.2 % 09/26/2017 Cbc With Differential Ord2 MCH 28.0 pg 09/26/2017 Cbc With Differential Ord2 [place]% 9.0 % 09/26/2017 Cbc With Differential Ord2 MCHC 31.5 pg 09/26/2017 Cbc With Differential Ord2 Eos% 3.4 % 09/26/2017 Cbc With Differential Ord2 Baso% 0.4 % 09/26/2017 Cbc With Differential Ord2 PLT 340 K/ul 09/26/2017 Cbc With Differential Ord2 Neut ABS# 4.95 K/ul 09/26/2017 Cbc With Differential Ord2 RDW 14.0 % 09/26/2017 Cbc With Differential Ord2 Lymph ABS# 2.49 K/ul 09/26/2017 Cbc With Differential Ord2 [place] ABS# 0.8 K/ul 09/26/2017 Cbc With Differential Ord2 Eos ABS# 0.3 K/ul 09/26/2017 Cbc With Differential Ord2 Baso ABS# 0.0 K/ul 09/26/2017 Lipid Ord30 CHOL 118 mg/dL 09/26/2017 Lipid Ord30 HDL 39.0 mg/dl 09/26/2017 Lipid Ord30 TRIG 138 mg/dL 09/26/2017 Lipid Ord30 LDL 51 mg/dL 09/26/2017 Lipid Ord30 C/HDL 3.0 Ratio 09/26/2017 Comp Metabolic Zhg626 NA 138 mEq/L 09/26/2017 Comp Metabolic Obg236 K 4.5 mEq/L 09/26/2017 Comp Metabolic Xuc936 CL 103 mEq/L 09/26/2017 Comp Metabolic Clm518 CO2 26.0 mEq/L 09/26/2017 Comp Metabolic Bee131 ANION GAP 14 09/26/2017 Comp Metabolic Dvl518 GLUCOSE 121 mg/dL 09/26/2017 Comp Metabolic Sin149 Creat 1.2 mg/dL 09/26/2017 Comp Metabolic Ymd366 eGFR 46 ml/min/1.73m2 09/26/2017 Comp Metabolic Mbu493 BUN 18 mg/dL 09/26/2017 Comp Metabolic Fne806 B/C Ratio 15.0 Ratio 09/26/2017 Comp Metabolic Vcv083 CALCIUM 9.0 mg/dL 09/26/2017 Comp Metabolic Cip298 ALK PHOS 88 U/L 09/26/2017 Comp Metabolic Zmu109 AST(SGOT) 15 U/L 09/26/2017 Comp Metabolic Yvw781 ALT(SGPT) 9 U/L 09/26/2017 Comp Metabolic Lbk889 BILI T 0.4 mg/dL 09/26/2017 Comp Metabolic Tvy237 ALBUMIN 3.7 g/dL 09/26/2017 Comp Metabolic Cpe722 TPRO 7.4 g/dL 09/26/2017 Comp Metabolic Pmt151 GLOB 3.7 g/dL 09/26/2017 Comp Metabolic Ety846 A/G Ratio 1.0 Ratio 09/26/2017 Comp Metabolic Kbo222 Osmo 279 mOsmo 09/26/2017 Tsh Ord6 TSH (3rd IS) 2.58 uIU/mL 09/26/2017 %Hba1C Why723 % HbA1c 72119-0 7.1 % 09/26/2017 %Hba1C Muh191 Gluc Ave 157 mg/dL 09/26/2017 Tsh Ord6 [...] 24.6 % 03/13/2016 Cbc With Differential Ord2 [place]% 8.6 % 03/13/2016 Cbc With Differential Ord2 MCH 29.3 pg 03/13/2016 Cbc With Differential Ord2 MCHC 31.7 pg 03/13/2016 Cbc With Differential Ord2 Eos% 4.4 % 03/13/2016 Cbc With Differential Ord2 PLT 258 K/ul 03/13/2016 Cbc With Differential Ord2 Baso% 0.4 % 03/13/2016 Cbc With Differential Ord2 RDW 13.8 % 03/13/2016 Cbc With Differential Ord2 Neut ABS# 6.11 K/ul 03/13/2016 Cbc With Differential Ord2 Lymph ABS# 2.43 K/ul 03/13/2016 Cbc With Differential Ord2 [place] ABS# 0.9 K/ul 03/13/2016 Cbc With Differential Ord2 Eos ABS# 0.4 K/ul 03/13/2016 Cbc With Differential Ord2 Baso ABS# 0.0 K/ul 03/13/2016 %Hba1C Ueu487 % HbA1c 92896-2 6.7 % 03/13/2016 %Hba1C Oko774 Gluc Ave 146 mg/dL 03/13/2016 Free T4 Vmd672 FREE T4 1.19 ng/dL 03/13/2016 Comp Metabolic Qec976 NA 137 mEq/L 03/13/2016 Comp Metabolic Klc309 K 3.9 mEq/L 03/13/2016 Comp Metabolic Jxe289 CL 101 mEq/L 03/13/2016 Comp Metabolic Vxh936 CO2 29.0 mEq/L 03/13/2016 Comp Metabolic Yxe096 ANION GAP 11 03/13/2016 Comp Metabolic Mam883 GLUCOSE 111 mg/dL 03/13/2016 Comp Metabolic Fuw562 Creat 1.2 mg/dL 03/13/2016 Comp Metabolic Tvn342 eGFR 48 ml/min/1.73m2 03/13/2016 Comp Metabolic Qzj684 BUN 17 mg/dL 03/13/2016 Comp Metabolic Ttr940 B/C Ratio 14.8 Ratio 03/13/2016 Comp Metabolic Pei123 CALCIUM 9.6 mg/dL 03/13/2016 Comp Metabolic Nil966 ALK PHOS 89 U/L 03/13/2016 Comp Metabolic Dbz685 AST(SGOT) 18 U/L 03/13/2016 Comp Metabolic Uqz820 ALT(SGPT) 13 U/L 03/13/2016 Comp Metabolic Zyk017 BILI T 0.5 mg/dL 03/13/2016 Comp Metabolic Rqh838 ALBUMIN 3.8 g/dL 03/13/2016 Comp Metabolic Snr503 TPRO 7.1 g/dL 03/13/2016 Comp Metabolic Ksr495 GLOB 3.3 g/dL 03/13/2016 Comp Metabolic Lvy813 A/G Ratio 1.1 Ratio 03/13/2016 Comp Metabolic Osb997 Osmo 276 mOsmo 03/13/2016 Culture Sputum 095967 LOWER RESPIRATORY TRACT CULTURE SEE NOTES 12/30/2015 Culture Stool 786512 STOOL CULTURE SEE NOTES 12/26/2015 Shiga Toxin 1 & 2 Eia Stool 764463 SHIGA TOXIN 1: NEGATIVE 12/23/2015 Shiga Toxin 1 & 2 Eia Stool 258417 SHIGA TOXIN 2: NEGATIVE 12/23/2015 Clostridium Diff Tox A/B Okl277 Cdiff Negative 12/21/2015 Review of Systems System [...] clear 11/21/2017 None Full Exam - General 1995 Ears/Nose/Throat oral cavity/pharynx/larynx Overall: oropharyngeal mucosa clear 11/21/2017 None Full Exam - General 1995 Ears/Nose/Throat oral cavity/pharynx/larynx Overall: no masses 11/21/2017 [...] Formatting Model/CDA Sections, Assigned to/Stephanie Cedeño CPT-4: 83797Rvensja 11/21/2017 DESTRUCT PREMALG LESION CPT-4: 10230 10/16/2017 ROCEPHIN, PER 250 MG CPT-4: J0696 12/09/2015 TRIAMCINOLONE ACET INJ NOS CPT-4: J3301 12/09/2015 Vital Signs Date Vital 02/13/2018 Blood Pressure 1: 96/54 Code : 8480-6 BMI: 20.8 Code : 76572-8 Heart Rate 1 : 71 bpm Height: 5'7" SpO2: 98% Weight: 133 lbs 01/27/2018 Blood Pressure 1: 132/68 Code : 8480-6 BMI: 21.8 Code : 52724-2 Heart Rate 1 : 84 bpm Height: 5'7" SpO2: 92% Weight: 139 lbs 01/22/2018 Blood Pressure 1: 132/60 Code : 8480-6 BMI: 21.8 Code : 98760-8 Heart Rate 1 : 72 bpm Height: 5'7" SpO2: 94% Weight: 139 lbs 01/02/2018 Blood Pressure 1: 146/66 Code : 8480-6 BMI: 21.6 Code : 50289-0 Heart Rate 1 : 80 bpm Height: 5'7" SpO2: 97% Weight: 138 lbs 11/21/2017 Blood Pressure 1: 138/60 Code : 8480-6 BMI: 22.4 Code : 67826-2 Heart Rate 1 : 71 bpm Height: 5'7" SpO2: 92% Weight: 143 lbs 11/04/2017 Blood Pressure 1: 102/56 Code : 8480-6 BMI: 22.6 Code : 56215-4 Heart Rate 1 : 83 bpm Height: 5'7" SpO2: 91% Weight: 144 lbs 10/16/2017 Blood Pressure 1: 140/63 Code : 8480-6 BMI: 23.2 Code : 50899-5 Heart Rate 1 : 97 bpm Height: 5'7" SpO2: 94% Weight: 148 lbs 09/25/2017 Blood Pressure 1: 124/60 Code : 8480-6 BMI: 23.8 Code : 09158-3 Heart Rate 1 : 81 bpm Height: 5'7" SpO2: 97% Weight: 152 lbs 07/10/2016 Blood Pressure 1: 136/70 Code : 8480-6 BMI: 25.5 Code : 78111-8 Heart Rate 1 : 87 bpm Height: 5'7" SpO2: 90% Weight: 162 lbs 8 oz 03/13/2016 Blood Pressure 1: 130/72 Code : 8480-6 BMI: 25.4 Code : 69617-1 Heart Rate 1 : 86 bpm Height: 5'7" SpO2: 91% Weight: 162 lbs 01/10/2016 Blood Pressure 1: 122/80 Code : 8480-6 BMI: 25.7 Code : 72551-3 Heart Rate 1 : 83 bpm Height: 5'7" SpO2: 94% Weight: 164 lbs 12/20/2015 Blood Pressure 1: 128/86 Code : 8480-6 BMI: 25.1 Code : 28001-8 Heart Rate 1 : 74 bpm Height: 5'7" SpO2: 95% Weight: 160 lbs 12/09/2015 Blood Pressure 1: 132/68 Code : 8480-6 BMI: 26.2 Code : 04790-4 Heart Rate 1 : 80 bpm Height: 5'7" SpO2: 96% Weight: 167 lbs 10/25/2015 Blood Pressure 1: 128/52 Code : 8480-6 BMI: 26.5 Code : 08438-9 Heart Rate 1 : 80 bpm Height: 5'7" SpO2: 92% Weight: 169 lbs 09/12/2015 Blood Pressure 1: 122/70 Code : 8480-6 BMI: 26.5 Code : 82252-9 Heart Rate 1 : 76 bpm Height: 5'7" SpO2: 90% Weight: 169 lbs 04/18/2015 Blood Pressure 1: 142/58 Code : 8480-6 BMI: 25.4 Code : 09198-2 Heart Rate 1 : 76 bpm Height: 5'7" SpO2: 96% Weight: 162 lbs 03/04/2015 Blood Pressure 1: 110/68 Code : 8480-6 BMI: 25.4 Code : 66718-6 Heart Rate 1 : 68 bpm Height: 5'7" SpO2: 95% Weight: 162 lbs 02/22/2015 Blood Pressure 1: 100/52 Code : 8480-6 BMI: 25.1 Code : 53623-7 Heart Rate 1 : 66 bpm Height: 5'7" SpO2: 95% Temperature: 36.5 (C) / 97.7 (F) Weight: 160 lbs 12/03/2014 Blood Pressure 1: 130/64 Code : 8480-6 BMI: 25.5 Code : 77918-2 Heart Rate 1 : 87 bpm Height: 5'7" SpO2: 94% Weight: 163 lbs 11/23/2014 Blood Pressure 1: 140/64 Code : 8480-6 BMI: 27.3 Code : 62494-6 Heart Rate 1 : 70 bpm Height: 5'7" SpO2: 91% Weight: 174 lbs 07/29/2014 Blood Pressure 1: 118/64 Code : 8480-6 BMI: 27.7 Code : 32906-1 Heart Rate 1 : 72 bpm Height: 5'7" Weight: 177 lbs Functional Status No Functional Status data History of Present Illness Symptom Name Status Result Effective Date Notes Hospital Follow Up _ pneumonia 02/13/2018 None [...] Present Encounters Encounter Performer Location Codes Date ([id number]) 04338 EST. PATIENT, LEVEL IV Diagnosis: Essential (primary) hypertension[ICD10: I10] Diagnosis: Type 2 diabetes mellitus without complications[ICD10: E11.9] Diagnosis: Idiopathic pulmonary fibrosis[ICD10: J84.112] [facility] CPT-4: 26659 02/13/2018 ([id number]) 48264 EST. PATIENT, LEVEL IV Diagnosis: Cough[ICD10: R05] Diagnosis: Candidal stomatitis[ICD10: B37.0] Diagnosis: Essential (primary) hypertension[ICD10: I10] Diagnosis: Type 2 diabetes mellitus without complications[ICD10: E11.9] [facility] CPT-4: 54954 01/22/2018 ([id number]) 19885 EST. PATIENT, LEVEL III Diagnosis: Cystocele, midline[ICD10: N81.11] Katey Nolen MD, [facility] CPT-4: 17493 01/02/2018 ([id number]) 45465 EST. PATIENT, LEVEL IV Diagnosis: Type 2 diabetes mellitus without complications[ICD10: E11.9] Diagnosis: Essential (primary) hypertension[ICD10: I10] Diagnosis: Encounter for immunization[ICD10: Z23] Sonia Nolen MD, [facility] CPT-4: 03532 11/21/2017 ([id number]) 42909 EST. PATIENT, LEVEL III Diagnosis: Orthostatic hypotension[ICD10: I95.1] Sonia Nolen MD, [facility] CPT-4: 53222 11/04/2017 ([id number]) 79291 EST. PATIENT, LEVEL IV Diagnosis: Type 2 diabetes mellitus with hyperglycemia[ICD10: E11.65] Sonia Nolen MD , [facility] CPT-4: 12536 10/16/2017 ([id number]) 90124 EST. PATIENT, LEVEL IV Diagnosis: Essential (primary) hypertension[ICD10: I10] Diagnosis: Type 2 diabetes mellitus without complications[ICD10: E11.9] Diagnosis: Atrophy of thyroid (acquired)[ICD10: E03.4] Sonia Nolen MD, [facility] CPT-4: 00835 09/25/2017 ([id number]) 56325 EST. PATIENT, LEVEL IV Diagnosis: Type 2 diabetes mellitus without complications[ICD10: E11.9] Diagnosis: Essential (primary) hypertension[ICD10: I10] Diagnosis: Hypothyroidism, unspecified[ICD10: E03.9] Diagnosis: Idiopathic pulmonary fibrosis[ICD10: J84.112] Katey Nolen MD, [facility] CPT-4: 54888 07/10/2016 ([id number]) 26684 EST. PATIENT, LEVEL IV Diagnosis: Type 2 diabetes mellitus without complications[ICD10: E11.9] Diagnosis: Hypothyroidism, unspecified[ICD10: E03.9] Diagnosis: Essential (primary) hypertension[ICD10: I10] Diagnosis: Idiopathic pulmonary fibrosis[ICD10: J84.112] Katey Nolen MD, [facility] CPT-4: 27643 03/13/2016 ([id number]) 73942 EST. PATIENT, LEVEL IV Diagnosis: Idiopathic pulmonary fibrosis[ICD10: J84.112] Diagnosis: Cough[ICD10: R05] Diagnosis: Essential (primary) hypertension[ICD10: I10] Diagnosis: Functional diarrhea[ICD10: K59.1] Katey Nolen MD, [facility] CPT-4: 04633 01/10/2016 ([id number]) 23524 EST. PATIENT, LEVEL III Diagnosis: Functional diarrhea[ICD10: K59.1] Katey Nolen MD, [facility] CPT-4: 05353 12/20/2015 65731 EST. PATIENT, LEVEL IV Diagnosis: Other allergic rhinitis[ICD10: J30.89] Diagnosis: Idiopathic pulmonary fibrosis[ICD10: J84.112] Diagnosis: Cough[ICD10: R05] Monse Nolen MD, [facility] CPT-4: 73512 12/09/2015 ([id number]) 65652 EST. PATIENT, LEVEL III Diagnosis: Cough[ICD10: R05] Diagnosis: Unspecified bacterial pneumonia[ICD10: J15.9] Katey Nolen MD, [facility] CPT-4: 94834 10/25/2015 ([id number]) 81845 EST. PATIENT, LEVEL IV Diagnosis: Essential (primary) hypertension[ICD10: I10] Diagnosis: Idiopathic pulmonary fibrosis[ICD10: J84.112] Diagnosis: Hypothyroidism, unspecified[ICD10: E03.9] Diagnosis: Type 2 diabetes mellitus without complications[ICD10: E11.9] Katey Nolen MD, [facility] CPT-4: 07818 09/12/2015 46845 EST. PATIENT, LEVEL IV Diagnosis: Acute laryngopharyngitis[ICD10: J06.0] Diagnosis: Idiopathic pulmonary fibrosis[ICD10: J84.112] Diagnosis: Cough[ICD10: R05] Monse Nolen MD, [facility] CPT-4: 12648 04/18/2015 ([id number]) 11968 EST. PATIENT, LEVEL III Diagnosis: Idiopathic pulmonary fibrosis[ICD10: J84.112] Katey Nolen MD, [facility] CPT-4: 06139 03/04/2015 ([id number]) [id number] EST. PATIENT, LEVEL III Diagnosis: Cough[ICD10: R05] Sonia Nolen MD, [facility] CPT-4: 59445 02/22/2015 ([id number]) [id number] EST. PATIENT, LEVEL IV Diagnosis: ESSENTIAL HYPERTENSION[ICD9: 401.9] Diagnosis: DIABETES TYPE II[ICD9: 250.00] Diagnosis: Chronic renal disease, stage 3, moderately decreased glomerular filtration rate between 30-59 mL/min/1.73 square meter[ICD9: 585.3] Sonia Nolen MD, [facility] CPT-4: 08306 12/03/2014 ([id number]) 53800 EST. PATIENT, LEVEL III Diagnosis: BACTERIAL PNEUMONIA[ICD9: 482.9] Diagnosis: COUGH[ICD9: 786.2] Diagnosis: DIABETES TYPE II[ICD9: 250.00] Sonia Nolen MD [facility] CPT- 4: 77003 11/23/2014 ([id number]) OFFICE VISIT, NEW - LEVEL 4 Diagnosis: ESSENTIAL HYPERTENSION[ICD9: 401.9] Diagnosis: Hypothyroidism[ICD9: 244.9] Diagnosis: DIABETES TYPE II[ICD9: 250.00] Diagnosis: Pulmonary fibrosis[ICD9: 515] Katey Nolen MD, [facility] CPT-4: 95869 07/29/2014 Plan of Care Planned Activity Notes Codes Status Date Visit Plan: HTN-too well controlled -decrease atenolol [...] pneumonia-symptoms have improved-finish abx -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 01/27/2018 Appointment: [facility] [phone] [phone] [facility] - Annual Wellness Visit 01/27/2018 Patient [...] time. 01/22/2018 Appointment: [facility] [phone] [phone] (15 min) Moderate 01/22/2018 Patient Education: [...] plan. 01/02/2018 Appointment: Katey Veloz WPtel: [phone] [phone] (15 min) Moderate 01/02/2018 Patient Education: Patient [...] less controlled. 11/21/2017 Appointment: Sonia Nolen WPtel: [facility] (15 min) Moderate 11/21/2017 Patient Education: Patient Medication Summary Completed 11/21/2017 Patient Education: Hypertension Completed 11/21/2017 Appointment: Sonia Nolen WPtel: [facility] (15 min) Moderate 11/14/2017 Visit Plan: [...] instructions. 11/04/2017 Appointment: Sonia Nolen WPtel: [phone] [phone] (15 min) Moderate 11/04/2017 Patient Education: Patient [...] monitor lesion. 10/16/2017 Appointment: Sonia Nolen [facility]Ptel[facility] [phone] [phone] (15 min) Moderate 10/16/2017 Patient Education: [...] dr. quinteros 09/25/2017 Appointment: Sonia [facility]olen [facility]Ptel[facility] [phone] [facility] (15 min) Moderate 09/25/2017 Patient Education: Patient Medication Summary Completed 09/25/2017 Appointment: Katey Veloz WPtel: [phone] [phone] (30 min) Complex 01/07/2017 Visit Plan: [...] Dr Quinteros 07/10/2016 Appointment: [facility]oz [facility]el[facility] [phone] [phone] (30 min) Complex 07/10/2016 Patient Education: Patient [...] less controlled. 03/13/2016 Appointment: Katey Veloz WPtel: [phone] [phone] (30 min) Complex 03/13/2016 Patient Education: Patient Medication Summary Completed 03/13/2016 Care Plan: Comp Metabolic Pending 03/13/2016 Care Plan: Cbc With Differential Pending 03/13/2016 Care Plan: %Hba1C LOINC : 70458-7 Pending 03/13/2016 Care Plan: Tsh Pending 03/13/2016 Care Plan: Free T4 Pending 03/13/2016 Care Plan: Referral Order SNOMED-CT : [id number] Pending 03/13/2016 Visit Plan: Pulmonary fibrosis-symptoms stable-I [...] change in blood pressure readings at home. Qinnipmj-nwohwnlx-jafg to decrease probiotic to daily-if bowels continue to be regular-patient can stop probiotic and see how she does- instructed her to increase probiotic at any time she is prescribed an antibiotic -patient and daughter verbalized understanding of plan. 01/10/2016 Appointment: Kate[facility] Veloz [facility]Ptel[facility] [phone] [phone] (30 min) Complex 01/10/2016 Patient Education: Patient Medication Summary Completed 01/10/2016 Patient Education: Hypertension Completed 01/10/2016 Patient Education: Patient Medication Summary Completed 12/28/2015 Care Plan: Clostridium Diff Tox A/B Cancelled 12/22/2015 Patient Education: Patient Medication Summary Completed 12/21/2015 Care Plan: FECES CULTURE AEROBIC BACT LOINC : 41095-7 Pending 12/21/2015 Visit Plan: Diarrhea - recommended bland diet, low fat diet , start on probiotic, and rehydrate with gatorade-like product. Pt to call if feeling worse, diarrhea becomes bloody, or does not improve with above recommendations. Pt to call for acute worsening of stomach upset or stomach pain. CHECK STOOL FOR CDIFF, STOOL CULTURE 12/20/2015 Appointment: Katey Veloz WPtel: [phone] (15 min) Moderate 12/20/2015 Patient Education: Patient Medication Summary Completed 12/20/2015 Visit Plan: Pulmonary axpjfrid-qfkzjvf-snqn Dr Quinteros and wears oxygen at night [...] on previous levels of control. 09/12/2015 Appointment: Magdiel Katey WPtel: [address] [place], [place] [phone] (15 min) Moderate 09/12/2015 Patient Education: Patient Medication Summary Completed 09/12/2015 Patient Education: Hypertension Completed 09/12/2015 Care Plan: COMPLETE CBC AUTOMATED LOINC : 44634-7 Pending 09/12/2015 Visit Plan: Pulmonary zebzcwyr-ezlelzf-dgwr Dr Quinteros and wears oxygen at night URI - Pt advised to increase fluids, vitamin C. Discussed natural and expected course of this diagnosis and need to alert me if symptoms do not follow expected course, or if any worse. RX sent to patient's pharmacy. 04/18/2015 Visit Plan: Pulmonary fzkzcggs-dmijluz-bzxw Dr Quinteros and wears oxygen at night [...] acute treatment of this illness. lovely [employer], [employer] yogurt, - all of these have probiotics [...] numbers are. 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 Pulmonary ifjrokya-tvmjtfe-fcqz Dr Quitneros and wears oxygen at night URI - [...] and call the office for further instructions. [employer], [employer] yogurt, - all of these have [...] need for acute treatment of this illness. [employer], [employer] yogurt, - all of these have [...] change in blood pressure readings at home. Ecxavmjy-qoanzmqa-gcmf to decrease probiotic to daily-if bowels continue [...] fibrosis-followed by Dr Chaudhary oxygen at night . Pneumonia - Pt has been diagnosed with pneumonia by physical exam. A chest xray has been ordered as have antibiotics. The pt is aware of the diagnosis and the need for acute treatment of this illness. . 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 MELATONIN UP TO 10MG NEEDED REPEAT HGB [...] levels of control. Pulmonary fibrosis-seeing Dr Quinteros Levaquin 2 tabs day one and 1 tab day 2-7 probiotic with antibiotics. Pulmonary dmbpuwsc-lwitgef-utuo Dr Quinteros and wears oxygen at night URI - Pt advised to increase fluids, vitamin C. Discussed natural and expected course of this diagnosis and need to alert me if symptoms do not follow expected course, or if any worse. RX sent to patient's pharmacy. Levaquin 2 tabs day one and 1 tab day 2-7 probiotic with antibiotics. Pulmonary mutjajpy-skpblny-eqwc Dr Quinteros and wears oxygen at night [...] FOR CDIFF, STOOL CULTURE . Pneumonia-resolved Pulmonary mbzkkvgl-zfxzafb-tzav Dr Quinteros and wears oxygen at night [...] understanding of plan. Get fasting labs in [place]. . Hypertension - well controlled - continue [...]
--- OUTSIDE RECORDS SUMMARY | 2018-04-04 07:13 | XMS REPORT | CCD ---
Author Author Katey Veloz Organization Sonia Nolen MD, [facility] Address [address] [place] [address] Phone Care Team Providers Care Wood Turner Name Role Phone PP Unavailable CCM Unavailable Summary Purpose Interface Exchange Insurance Providers Payer name Policy type / Coverage type Covered constitution party ID Effective Begin Date Effective End Date WPS Medicare Part B Medicare Part B [id number] Unknown [facility] Medicare Part B [id number] Unknown Family history Mother Diagnosis Age At Onset Heart Attack Unknown Hypertension Unknown Hyperlipidemia Unknown Social History Social History Element Codes Description Effective Dates Marital status Unknown Wiley 09/25/2017 Number of children Unknown 5 07/29/2014 Employment Unknown Retired 07/29/[address]: 1908165 Quit over 10 years ago 07/29/[address]: 789657272 Never drinks alcohol 07/29/2014 Allergies, Adverse Reactions, [...] Fill Instructions atenolol 25 mg tablet RxNorm: 250041 1/2 Tablet(s) TAKE 1 TABLET EVERY DAY 02/13/2018 11/09/2018 Active Trelegy Ellipta 100 mcg-62.5 mcg-25 mcg powder for inhalation RxNorm: 6196523 1 INH daily 01/22/2018 02/18/2018 Active Diflucan 150 mg tablet RxNorm: 515463 1 Tablet(s) PO daily 09/201701/28/2018 Inactive Phenergan with Codeine Syrup RxNorm: 1 Teaspoon(s) PO Q8 as needed 01/02/2018 No Stop Date Active Tresiba FlexTouch U-200 insulin 200 unit/mL (3 mL) subcutaneous pen RxNorm: 3382860 8 Unit(s) SQ QHS 11/04/2017 Active losartan 50 mg tablet RxNorm: 204341 1/2 Tablet(s) daily 201711/04/2017 Inactive spironolactone 25 mg tablet RxNorm: 374253 1/2 Tablet(s) daily 11/04/2017 01/21/2018 Inactive indapamide 2.5 mg tablet RxNorm: 548764 TAKE 1/2 TABLET EVERY DAY 10/16/2017 10/10/2018 Active isosorbide mononitrate ER 30 mg tablet,extended release 24 hr RxNorm: 883813 TAKE 1 TABLET EVERY DAY 10/16/2017 10/10/2018 Active levothyroxine 75 mcg tablet RxNorm: 097840 TAKE 1 TABLET EVERY DAY 10/16/2017 07/12/2018 Active spironolactone 25 mg tablet RxNorm: 194965 TAKE 1 TABLET EVERY DAY 10/16/2017 11/03/2017 Inactive atenolol 25 mg tablet RxNorm: 241183 TAKE 1 TABLET EVERY DAY 03/201702/12/2018 Inactive losartan 50 mg tablet RxNorm: 273702 TAKE 1 TABLET EVERY DAY 03/201711/03/2017 Inactive James Jackson SoloStar 300 unit/mL (3 mL) subcutaneous insulin pen RxNorm: 6779875 8 Unit(s) SQ QHS 10/16/20172017 Inactive Basaglar KwikPen U-100 Insulin 100 unit/mL (3 mL) subcutaneous RxNorm: 0344231 10 Unit(s) SQ QHS 10/01/20172017 Inactive Basaglar KwikPen U-100 Insulin 100 unit/mL (3 mL) subcutaneous RxNorm: 2108361 10 Unit(s) SQ QHS 10/01/20172017 Inactive cyclobenzaprine 10 mg tablet RxNorm: 835032 Tablet(s) TAKE ONE TABLET BY MOUTH EVERY 8 HOURS NEEDED 09/10/20172017 Inactive simvastatin 40 mg tablet RxNorm: 623570 TAKE 1 TABLET EVERY DAY 08/15/2017 08/09/2018 Active Phenergan with Codeine Syrup RxNorm: 1 Teaspoon(s) PO Q8 as needed 03/19/2017 01/01/2018 Inactive simvastatin 40 mg tablet RxNorm: 113261 TAKE 1 TABLET EVERY DAY 03/13/2017 08/14/2017 Inactive atenolol 25 mg tablet RxNorm: 691295 Tablet(s) TAKE 1 TABLET EVERY DAY 02/14/2017 10/15/2017 Inactive levothyroxine 75 mcg tablet RxNorm: 666461 1 Tablet(s) PO daily 02/14/2017 10/15/2017 Inactive spironolactone 25 mg tablet RxNorm: 180429 1 Tablet(s) PO daily 01/02/2017 10/15/2017 Inactive cyclobenzaprine 10 mg tablet RxNorm: 924448 1 Tablet(s) PO Q8 as needed 11/26/2016 02/23/2017 Inactive cyclobenzaprine 10 mg tablet RxNorm: 769395 TAKE ONE TABLET BY MOUTH EVERY 8 HOURS NEEDED 11/26/2016 02/23/2017 Inactive losartan 50 mg tablet RxNorm: 085606 1 Tablet(s) PO daily 201610/15/2017 Inactive isosorbide mononitrate ER 30 mg tablet,extended release 24 hr RxNorm: 106029 1 Tablet(s) PO daily 11/21/2016 10/15/2017 Inactive indapamide 2.5 mg tablet RxNorm: 801811 1/2 Tablet(s) PO daily 10/31/2016 10/15/2017 Inactive Phenergan with Codeine Syrup RxNorm: 1 Teaspoon(s) PO Q8 as needed 10/05/2016 03/18/2017 Inactive levothyroxine 75 mcg tablet RxNorm: 838174 1 Tablet(s) PO daily 06/29/2016 12/25/2016 Inactive Phenergan with Codeine Syrup RxNorm: 1 Teaspoon(s) PO Q8 as needed 03/13/2016 03/12/2016 Inactive Phenergan with Codeine Syrup RxNorm: 1 Teaspoon(s) PO Q8 as needed 03/13/2016 10/04/2016 Inactive cyclobenzaprine 10 mg tablet RxNorm: 694386 1 Tablet(s) PO Q8 as needed 03/01/2016 05/29/2016 Inactive cyclobenzaprine 10 mg tablet RxNorm: 616919 1 Tablet(s) PO Q8 as needed 03/01/2016 02/29/2016 Inactive Zithromax Z-Deejay 250 mg tablet RxNorm: 230627 1 Tablet(s) PO daily 02/24/2016 06/13/2016 Inactive zpack x 1 atenolol 25 mg tablet RxNorm: 642939 TAKE 1 TABLET EVERY DAY 10/201501/17/2017 Inactive Phenergan with Codeine Syrup RxNorm: 1 Teaspoon(s) PO Q8 as needed 01/10/2016 03/12/2016 Inactive ceftriaxone 500 mg solution for injection RxNorm: 6891802 1 Milliliter(s) Inj 12/09/2015 12/09/2015 Inactive Kenalog 40 mg/mL suspension for injection RxNorm: 1068368 1 Milliliter(s) Inj 12/09/2015 12/09/2015 Inactive Lomotil 2.5 mg-0.025 mg tablet RxNorm: 6845987 1-2 Tablet(s) PO QID as needed 12/01/2015 12/05/2015 Inactive Lomotil 2.5 mg-0.025 mg tablet RxNorm: 3686182 1-2 Tablet(s) PO QID as needed 12/01/2015 11/30/2015 Inactive levothyroxine 75 mcg tablet RxNorm: 371663 1 Tablet(s) PO daily 11/15/2015 05/12/2016 Inactive isosorbide mononitrate ER 30 mg tablet,extended release 24 hr RxNorm: 602831 1 Tablet(s) PO daily 11/15/2015 11/08/2016 Inactive losartan 50 mg tablet RxNorm: 340914 1 Tablet(s) PO daily 201511/08/2016 Inactive levothyroxine 75 mcg tablet RxNorm: 482357 1 Tablet(s) PO daily 10/27/2015 11/14/2015 Inactive cefdinir 300 mg capsule RxNorm: 665961 1 Capsule(s) PO BID 11/201510/31/2015 Inactive Zithromax Z-Deejay 250 mg tablet RxNorm: 281150 1 Tablet(s) PO UD 10/25/2015 10/29/2015 Inactive indapamide 2.5 mg tablet RxNorm: 854632 1/2 Tablet(s) PO daily 09/14/2015 09/07/2016 Inactive spironolactone 25 mg tablet RxNorm: 164900 1 Tablet(s) PO daily 09/14/2015 09/07/2016 Inactive simvastatin 40 mg tablet RxNorm: 407057 1 Tablet(s) PO daily 09/07/2016 Inactive Phenergan with Codeine Syrup RxNorm: 1 Teaspoon(s) PO Q8 as needed 09/12/2015 01/09/2016 Inactive Zithromax Z-Deejay 250 mg tablet RxNorm: 579509 1 Tablet(s) PO daily 06/15/2015 11/14/2015 Inactive zpack x 1 Levaquin 250 mg tablet RxNorm: 898514 Tablet(s) PO 2 tabs day one and 1 tab day 2- 7 04/18/2015 01/09/2016 Inactive atenolol 25 mg tablet RxNorm: 525097 1 Tablet(s) PO daily 201401/23/2016 Inactive losartan 50 mg tablet RxNorm: 986844 1 Tablet(s) PO daily 201411/14/2015 Inactive simvastatin 40 mg tablet RxNorm: 833546 1 Tablet(s) PO daily 09/13/2015 Inactive spironolactone 25 mg tablet RxNorm: 081467 1 Tablet(s) PO daily 12/17/2014 09/13/2015 Inactive isosorbide mononitrate ER 30 mg tablet,extended release 24 hr RxNorm: 056114 1 Tablet(s) PO daily 12/17/2014 11/14/2015 Inactive atenolol 25 mg tablet RxNorm: 974244 1 Tablet(s) PO daily 201412/16/2014 Inactive atenolol 25 mg tablet RxNorm: 715885 1 Tablet(s) PO daily 201402/14/2015 Inactive isosorbide mononitrate ER 30 mg tablet,extended release 24 hr RxNorm: 882867 1 Tablet(s) PO daily 12/17/2014 12/16/2014 Inactive indapamide 2.5 mg tablet RxNorm: 817840 1/2 Tablet(s) PO daily 12/17/2014 09/13/2015 Inactive levothyroxine 50 mcg tablet RxNorm: 513325 1 Tablet(s) PO daily 12/17/2014 10/26/2015 Inactive Januvia 50 mg tablet RxNorm: 714593 1 Tablet(s) PO daily 201411/26/2014 Inactive Onglyza 2.5 mg tablet RxNorm: 440571 1 Tablet(s) PO daily 201412/02/2014 Inactive Januvia 50 mg tablet RxNorm: 977000 1 Tablet(s) PO daily 201411/25/2014 Inactive Tessalon Perles 100 mg capsule RxNorm: 680631 1 Capsule(s) PO TID as needed 11/23/2014 07/09/2016 Inactive Levaquin 500 mg tablet RxNorm: 735655 1 Tablet(s) PO daily 10/201411/22/2014 Inactive Levaquin 500 mg tablet RxNorm: 307226 1 Tablet(s) PO daily 10/201411/29/2014 Inactive Singulair 10 mg tablet RxNorm: 863919 1 Tablet(s) PO QPM No Start Date Active Proventil HFA 90 mcg/actuation aerosol inhaler RxNorm: 147285 2 Puff(s) INH QID No Start Date Active Zyrtec 10 mg tablet RxNorm: 1984550 1 Tablet(s) PO daily No Start Date Active Flonase Allergy Relief 50 mcg/actuation nasal spray, suspension RxNorm: 9132308 1 Louisa NASAL daily per nostril No Start Date Active aspirin 81 mg tablet RxNorm: 663680 1 Tablet(s) PO daily No Start Date Active omeprazole 20 mg capsule,delayed release RxNorm: 855949 1 Capsule(s) PO daily No Start Date Active indapamide 2.5 mg tablet RxNorm: 799240 1/2 Tablet(s) PO daily No Start Date 12/16/2014 Inactive Tessalon Perles 100 mg capsule RxNorm: 303221 1 Capsule(s) PO TID as needed No Start Date 11/22/2014 Inactive losartan 50 mg tablet RxNorm: 917838 1 Tablet(s) PO daily No Start Date 12/16/2014 Inactive spironolactone 25 mg tablet RxNorm: 250705 1 Tablet(s) PO daily No Start Date 12/16/2014 Inactive isosorbide mononitrate ER 30 mg tablet,extended release 24 hr RxNorm: 414736 1 Tablet(s) PO daily No Start Date 2014 Inactive atenolol 25 mg tablet RxNorm: 033836 1 Tablet(s) PO daily No Start Date 12/16/2014 Inactive Zithromax Z-Deejay 250 mg tablet RxNorm: 964909 1 Tablet(s) PO daily No Start Date 06/14/2015 Inactive levothyroxine 50 mcg tablet RxNorm: 756549 1 Tablet(s) PO daily No Start Date 12/16/2014 Inactive simvastatin 40 mg tablet RxNorm: 527790 1 Tablet(s) PO daily No Start Date 12/16/2014 Inactive Medication Administered Medication Codes Instructions Start Date Status Kenalog 40 mg/mL suspension for injection RxNorm: 9814538 1Milliliter 12/09/2015 No longer Active ceftriaxone 500 mg solution for injection RxNorm: 1768880 1Milliliter 12/09/2015 No longer Active Immunizations Vaccine [...] Item Item Code Result Date Free T4 Pvj804 FREE T4 1.13 ng/dL 09/26/2017 Microalbumin Npv018 MicroAlb 2.1 mg/dL 09/26/2017 Cbc With Differential [...] 28.0 pg 09/26/2017 Cbc With Differential Ord2 [place]% 9.0 % 09/26/2017 Cbc With Differential Ord2 [...] 2.49 K/ul 09/26/2017 Cbc With Differential Ord2 [place] ABS# 0.8 K/ul 09/26/2017 Cbc With Differential Ord2 Eos ABS# 0.3 K/ul 09/26/2017 Cbc With Differential Ord2 Baso ABS# 0.0 K/ul 09/26/2017 Lipid Ord30 CHOL 118 mg/dL 09/26/2017 Lipid Ord30 HDL 39.0 mg/dl 09/26/2017 Lipid Ord30 TRIG 138 mg/dL 09/26/2017 Lipid Ord30 LDL 51 mg/dL 09/26/2017 Lipid Ord30 C/HDL 3.0 Ratio 09/26/2017 Comp Metabolic Tgb819 NA 138 mEq/L 09/26/2017 Comp Metabolic Oxx201 K 4.5 mEq/L 09/26/2017 Comp Metabolic Fot593 CL 103 mEq/L 09/26/2017 Comp Metabolic Nzs089 CO2 26.0 mEq/L 09/26/2017 Comp Metabolic Sig212 ANION GAP 14 09/26/2017 Comp Metabolic Nps826 GLUCOSE 121 mg/dL 09/26/2017 Comp Metabolic Dsy329 Creat 1.2 mg/dL 09/26/2017 Comp Metabolic Gmr740 eGFR 46 ml/min/1.73m2 09/26/2017 Comp Metabolic Wce548 BUN 18 mg/dL 09/26/2017 Comp Metabolic Swv912 B/C Ratio 15.0 Ratio 09/26/2017 Comp Metabolic Htu388 CALCIUM 9.0 mg/dL 09/26/2017 Comp Metabolic Lav285 ALK PHOS 88 U/L 09/26/2017 Comp Metabolic Xsx989 AST(SGOT) 15 U/L 09/26/2017 Comp Metabolic Dpb701 ALT(SGPT) 9 U/L 09/26/2017 Comp Metabolic Zkf643 BILI T 0.4 mg/dL 09/26/2017 Comp Metabolic Zpm456 ALBUMIN 3.7 g/dL 09/26/2017 Comp Metabolic Kuo486 TPRO 7.4 g/dL 09/26/2017 Comp Metabolic Wse116 GLOB 3.7 g/dL 09/26/2017 Comp Metabolic Jru059 A/G Ratio 1.0 Ratio 09/26/2017 Comp Metabolic Kkh427 Osmo 279 mOsmo 09/26/2017 Tsh Ord6 TSH (3rd IS) 2.58 uIU/mL 09/26/2017 %Hba1C Qou428 % HbA1c 36908-9 7.1 % 09/26/2017 %Hba1C Mqt144 Gluc Ave 157 mg/dL 09/26/2017 Tsh Ord6 [...] 29.3 pg 03/13/2016 Cbc With Differential Ord2 [place]% 8.6 % 03/13/2016 Cbc With Differential Ord2 [...] 2.43 K/ul 03/13/2016 Cbc With Differential Ord2 [place] ABS# 0.9 K/ul 03/13/2016 Cbc With Differential Ord2 Eos ABS# 0.4 K/ul 03/13/2016 Cbc With Differential Ord2 Baso ABS# 0.0 K/ul 03/13/2016 %Hba1C Aej427 % HbA1c 70740-9 6.7 % 03/13/2016 %Hba1C Dio467 Gluc Ave 146 mg/dL 03/13/2016 Free T4 Mkf892 FREE T4 1.19 ng/dL 03/13/2016 Comp Metabolic Wff183 NA 137 mEq/L 03/13/2016 Comp Metabolic Eyi502 K 3.9 mEq/L 03/13/2016 Comp Metabolic Kkf456 CL 101 mEq/L 03/13/2016 Comp Metabolic Cre887 CO2 29.0 mEq/L 03/13/2016 Comp Metabolic Les495 ANION GAP 11 03/13/2016 Comp Metabolic Vyq525 GLUCOSE 111 mg/dL 03/13/2016 Comp Metabolic Fib775 Creat 1.2 mg/dL 03/13/2016 Comp Metabolic Ztn716 eGFR 48 ml/min/1.73m2 03/13/2016 Comp Metabolic Htn704 BUN 17 mg/dL 03/13/2016 Comp Metabolic Ufs717 B/C Ratio 14.8 Ratio 03/13/2016 Comp Metabolic Wno515 CALCIUM 9.6 mg/dL 03/13/2016 Comp Metabolic Jvb374 ALK PHOS 89 U/L 03/13/2016 Comp Metabolic Azw984 AST(SGOT) 18 U/L 03/13/2016 Comp Metabolic Fwn150 ALT(SGPT) 13 U/L 03/13/2016 Comp Metabolic Vhv147 BILI T 0.5 mg/dL 03/13/2016 Comp Metabolic Jqf731 ALBUMIN 3.8 g/dL 03/13/2016 Comp Metabolic Wom151 TPRO 7.1 g/dL 03/13/2016 Comp Metabolic Lbe628 GLOB 3.3 g/dL 03/13/2016 Comp Metabolic Jpc278 A/G Ratio 1.1 Ratio 03/13/2016 Comp Metabolic Hfv151 Osmo 276 mOsmo 03/13/2016 Culture Sputum 011814 LOWER RESPIRATORY TRACT CULTURE SEE NOTES 12/30/2015 Culture Stool 567986 STOOL CULTURE SEE NOTES 12/26/2015 Shiga Toxin 1 & 2 Eia Stool 621733 SHIGA TOXIN 1: NEGATIVE 12/23/2015 Shiga Toxin 1 & 2 Eia Stool 762683 SHIGA TOXIN 2: NEGATIVE 12/23/2015 Clostridium Diff Tox A/B Ibx763 Cdiff Negative 12/21/2015 Review of Systems System [...] Formatting Model/CDA Sections, Assigned to/Stephanie Cedeño CPT-4: 59010Budsmvx 11/21/2017 DESTRUCT PREMALG LESION CPT-4: 83825 10/16/2017 ROCEPHIN, PER 250 MG CPT-4: J0696 12/09/2015 TRIAMCINOLONE ACET INJ NOS CPT-4: J3301 12/09/2015 Vital Signs Date Vital 02/13/2018 Blood Pressure 1: 96/54 Code : 8480-6 BMI: 20.8 Code : 12530-6 Heart Rate 1 : 71 bpm Height: 5'7" SpO2: 98% Weight: 133 lbs 01/27/2018 Blood Pressure 1: 132/68 Code : 8480-6 BMI: 21.8 Code : 14158-3 Heart Rate 1 : 84 bpm Height: 5'7" SpO2: 92% Weight: 139 lbs 01/22/2018 Blood Pressure 1: 132/60 Code : 8480-6 BMI: 21.8 Code : 21720-7 Heart Rate 1 : 72 bpm Height: 5'7" SpO2: 94% Weight: 139 lbs 01/02/2018 Blood Pressure 1: 146/66 Code : 8480-6 BMI: 21.6 Code : 57241-3 Heart Rate 1 : 80 bpm Height: 5'7" SpO2: 97% Weight: 138 lbs 11/21/2017 Blood Pressure 1: 138/60 Code : 8480-6 BMI: 22.4 Code : 29264-0 Heart Rate 1 : 71 bpm Height: 5'7" SpO2: 92% Weight: 143 lbs 11/04/2017 Blood Pressure 1: 102/56 Code : 8480-6 BMI: 22.6 Code : 19089-3 Heart Rate 1 : 83 bpm Height: 5'7" SpO2: 91% Weight: 144 lbs 10/16/2017 Blood Pressure 1: 140/63 Code : 8480-6 BMI: 23.2 Code : 53805-6 Heart Rate 1 : 97 bpm Height: 5'7" SpO2: 94% Weight: 148 lbs 09/25/2017 Blood Pressure 1: 124/60 Code : 8480-6 BMI: 23.8 Code : 49714-1 Heart Rate 1 : 81 bpm Height: 5'7" SpO2: 97% Weight: 152 lbs 07/10/2016 Blood Pressure 1: 136/70 Code : 8480-6 BMI: 25.5 Code : 45258-8 Heart Rate 1 : 87 bpm Height: 5'7" SpO2: 90% Weight: 162 lbs 8 oz 03/13/2016 Blood Pressure 1: 130/72 Code : 8480-6 BMI: 25.4 Code : 40987-3 Heart Rate 1 : 86 bpm Height: 5'7" SpO2: 91% Weight: 162 lbs 01/10/2016 Blood Pressure 1: 122/80 Code : 8480-6 BMI: 25.7 Code : 66443-3 Heart Rate 1 : 83 bpm Height: 5'7" SpO2: 94% Weight: 164 lbs 12/20/2015 Blood Pressure 1: 128/86 Code : 8480-6 BMI: 25.1 Code : 27011-9 Heart Rate 1 : 74 bpm Height: 5'7" SpO2: 95% Weight: 160 lbs 12/09/2015 Blood Pressure 1: 132/68 Code : 8480-6 BMI: 26.2 Code : 91992-6 Heart Rate 1 : 80 bpm Height: 5'7" SpO2: 96% Weight: 167 lbs 10/25/2015 Blood Pressure 1: 128/52 Code : 8480-6 BMI: 26.5 Code : 38765-0 Heart Rate 1 : 80 bpm Height: 5'7" SpO2: 92% Weight: 169 lbs 09/12/2015 Blood Pressure 1: 122/70 Code : 8480-6 BMI: 26.5 Code : 59374-9 Heart Rate 1 : 76 bpm Height: 5'7" SpO2: 90% Weight: 169 lbs 04/18/2015 Blood Pressure 1: 142/58 Code : 8480-6 BMI: 25.4 Code : 81583-1 Heart Rate 1 : 76 bpm Height: 5'7" SpO2: 96% Weight: 162 lbs 03/04/2015 Blood Pressure 1: 110/68 Code : 8480-6 BMI: 25.4 Code : 16741-0 Heart Rate 1 : 68 bpm Height: 5'7" SpO2: 95% Weight: 162 lbs 02/22/2015 Blood Pressure 1: 100/52 Code : 8480-6 BMI: 25.1 Code : 39769-9 Heart Rate 1 : 66 bpm Height: 5'7" SpO2: 95% Temperature: 36.5 (C) / 97.7 (F) Weight: 160 lbs 12/03/2014 Blood Pressure 1: 130/64 Code : 8480-6 BMI: 25.5 Code : 38590-8 Heart Rate 1 : 87 bpm Height: 5'7" SpO2: 94% Weight: 163 lbs 11/23/2014 Blood Pressure 1: 140/64 Code : 8480-6 BMI: 27.3 Code : 27300-4 Heart Rate 1 : 70 bpm Height: 5'7" SpO2: 91% Weight: 174 lbs 07/29/2014 Blood Pressure 1: 118/64 Code : 8480-6 BMI: 27.7 Code : 16680-6 Heart Rate 1 : 72 bpm Height: [...] Present Encounters Encounter Performer Location Codes Date ([id number]) 58199 EST. PATIENT, LEVEL IV Diagnosis: Essential (primary) hypertension[ICD10: I10] Diagnosis: Type 2 diabetes mellitus without complications[ICD10: E11.9] Diagnosis: Idiopathic pulmonary fibrosis[ICD10: J84.112] [facility] CPT-4: 34484 02/13/2018 ([id number]) 69758 EST. PATIENT, LEVEL IV Diagnosis: Cough[ICD10: R05] Diagnosis: Candidal stomatitis[ICD10: B37.0] Diagnosis: Essential (primary) hypertension[ICD10: I10] Diagnosis: Type 2 diabetes mellitus without complications[ICD10: E11.9] [facility] CPT-4: 89364 01/22/2018 ([id number]) 21230 EST. PATIENT, LEVEL III Diagnosis: Cystocele, midline[ICD10: N81.11] Katey Nolen MD, [facility] CPT-4: 15164 01/02/2018 ([id number]) 43138 EST. PATIENT, LEVEL IV Diagnosis: Type 2 diabetes mellitus without complications[ICD10: E11.9] Diagnosis: Essential (primary) hypertension[ICD10: I10] Diagnosis: Encounter for immunization[ICD10: Z23] Sonia Nolen MD, [facility] CPT-4: 04346 11/21/2017 ([id number]) 12277 EST. PATIENT, LEVEL III Diagnosis: Orthostatic hypotension[ICD10: I95.1] Sonia Nolen MD, [facility] CPT-4: 96611 11/04/2017 ([id number]) 66513 EST. PATIENT, LEVEL IV Diagnosis: Type 2 diabetes mellitus with hyperglycemia[ICD10: E11.65] Sonia Nolen MD , [facility] CPT-4: 34590 10/16/2017 ([id number]) 04940 EST. PATIENT, LEVEL IV Diagnosis: Essential (primary) hypertension[ICD10: I10] Diagnosis: Type 2 diabetes mellitus without complications[ICD10: E11.9] Diagnosis: Atrophy of thyroid (acquired)[ICD10: E03.4] Sonia Nolen MD, [facility] CPT-4: 96172 09/25/2017 ([id number]) 46245 EST. PATIENT, LEVEL IV Diagnosis: Type 2 diabetes mellitus without complications[ICD10: E11.9] Diagnosis: Essential (primary) hypertension[ICD10: I10] Diagnosis: Hypothyroidism, unspecified[ICD10: E03.9] Diagnosis: Idiopathic pulmonary fibrosis[ICD10: J84.112] Katey Nolen MD, [facility] CPT-4: 86072 07/10/2016 ([id number]) 22243 EST. PATIENT, LEVEL IV Diagnosis: Type 2 diabetes mellitus without complications[ICD10: E11.9] Diagnosis: Hypothyroidism, unspecified[ICD10: E03.9] Diagnosis: Essential (primary) hypertension[ICD10: I10] Diagnosis: Idiopathic pulmonary fibrosis[ICD10: J84.112] Katey Nolen MD, [facility] CPT-4: 17218 03/13/2016 ([id number]) 47613 EST. 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 PATIENT, LEVEL IV Diagnosis: Other allergic rhinitis[ICD10: J30.89] Diagnosis: Idiopathic pulmonary fibrosis[ICD10: J84.112] Diagnosis: Cough[ICD10: R05] Monse Nolen MD, [facility] CPT-4: 55953 12/09/2015 ([id number]) 35596 EST. PATIENT, LEVEL III Diagnosis: Cough[ICD10: R05] Diagnosis: Unspecified bacterial pneumonia[ICD10: J15.9] Katey Nolen MD, [facility] CPT-4: 24787 10/25/2015 ([id number]) 86910 EST. PATIENT, LEVEL IV Diagnosis: Essential (primary) hypertension[ICD10: I10] Diagnosis: Idiopathic pulmonary fibrosis[ICD10: J84.112] Diagnosis: Hypothyroidism, unspecified[ICD10: E03.9] Diagnosis: Type 2 diabetes mellitus without complications[ICD10: E11.9] Katey Nolen MD, [facility] CPT-4: 32066 09/12/2015 83697 EST. PATIENT, LEVEL IV Diagnosis: Acute laryngopharyngitis[ICD10: J06.0] Diagnosis: Idiopathic pulmonary fibrosis[ICD10: J84.112] Diagnosis: Cough[ICD10: R05] Monse Nolen MD, [facility] CPT-4: 68403 04/18/2015 ([id number]) 89744 EST. PATIENT, LEVEL III Diagnosis: Idiopathic pulmonary fibrosis[ICD10: J84.112] Katey Nolen MD, [facility] CPT-4: 44488 03/04/2015 ([id number]) 48304 EST. PATIENT, LEVEL III Diagnosis: Cough[ICD10: R05] Sonia [facility] MD [facility] CPT-4: 60470 02/22/2015 ([id number]) 83181 EST. PATIENT, LEVEL IV Diagnosis: ESSENTIAL HYPERTENSION[ICD9: 401.9] Diagnosis: DIABETES TYPE II[ICD9: 250.00] Diagnosis: Chronic renal disease, stage 3, moderately decreased glomerular filtration rate between 30-59 mL/min/1.73 square meter[ICD9: 585.3] Sonia N[facility] MD [facility] CPT-4: 41762 12/03/2014 ([id number]) 86965 EST. PATIENT, LEVEL III Diagnosis: BACTERIAL PNEUMONIA[ICD9: 482.9] Diagnosis: COUGH[ICD9: 786.2] Diagnosis: DIABETES TYPE II[ICD9: 250.00] Sonia Nolen MD [facility] CPT- 4: 20954 11/23/2014 ([id number]) OFFICE VISIT, NEW - LEVEL 4 Diagnosis: ESSENTIAL HYPERTENSION[ICD9: 401.9] Diagnosis: Hypothyroidism[ICD9: 244.9] Diagnosis: DIABETES TYPE II[ICD9: 250.00] Diagnosis: Pulmonary fibrosis[ICD9: 515] Katey Nolen MD, [facility] CPT-4: 86255 07/29/2014 Plan of Care Planned Activity Notes [...] pneumonia-symptoms have improved-finish abx -follow up with value stream coach as directed 02/13/2018 Patient Education: Patient Medication Summary Completed [...] care surrogate. 01/27/2018 [facility]ment: [facility] [phone] [phone] [facility] - Annual Wellness Visit 01/27/2018 Patient [...] time. 01/22/2018 [phone] [facility] (15 min) Moderate 01/22/2018 Patient Education: [...] of plan. 01/02/2018 Appointment: Katey Veloz WPtel: [phone] [phone] (15 min) Moderate 01/02/2018 Patient Education: Patient [...] less controlled. 11/21/2017 App[facility]ment: [facility] [phone] [facility] [place] (15 min) Moderate 11/21/2017 Patient Education: Patient Medication Summary Completed 11/21/2017 Patient Education: Hypertension Completed 11/21/2017 App[facility]ment: [facility] [phone] [facility] [place] (15 min) Moderate 11/14/2017 Visit [...] instructions. 11/04/2017 App[facility] [phone] [facility] (15 min) Moderate 11/04/2017 Patient Education: [...] lesion. 10/16/2017 App[facility]: [facility] [phone] [facility] (15 min) Moderate 10/16/2017 Patient Education: [...] quinteros 09/25/2017 App[facility]ment: [facility] [phone] [facility] (15 min) Moderate 09/25/2017 Patient Education: Patient Medication Summary Completed 09/25/2017 Appointment: [facility] [phone] [phone] (30 min) Complex 01/07/2017 Visit Plan: Hypertension [...] Quinteros 07/10/2016 Appointment: [facility] [phone] [phone] (30 min) Complex 07/10/2016 Patient Education: Patient [...] less controlled. 03/13/2016 Appointment: Katey Veloz WPtel: [phone] (30 min) Complex 03/13/2016 Patient Education: Patient Medication Summary Completed 03/13/2016 Care Plan: Comp Metabolic Pending 03/13/2016 Care Plan: Cbc With Differential Pending 03/13/2016 Care Plan: %Hba1C LOINC : 16711-4 Pending 03/13/2016 Care Plan: Tsh Pending 03/13/2016 Care Plan: Free T4 Pending 03/13/2016 Care Plan: Referral Order SNOMED-CT : [id number] Pending 03/13/2016 Visit Plan: Pulmonary fibrosis-symptoms stable-I [...] change in blood pressure readings at home. Bdcdzson-scilqtul-mmhq to decrease probiotic to daily-if bowels continue to be regular-patient can stop probiotic and see how she does- instructed her to increase probiotic at any time she is prescribed an antibiotic -patient and daughter verbalized understanding of plan. 01/10/2016 Appointment: [facility]oz [phone] [phone] (30 min) Complex 01/10/2016 Patient Education: Patient Medication Summary Completed 01/10/2016 Patient Education: Hypertension Completed 01/10/2016 Patient Education: Patient Medication Summary Completed 12/28/2015 Care Plan: Clostridium Diff Tox A/B Cancelled 12/22/2015 Patient Education: Patient Medication Summary Completed 12/21/2015 Care Plan: FECES CULTURE AEROBIC BACT LOINC : 24782-6 Pending 12/21/2015 Visit Plan: Diarrhea - recommended bland diet, low fat diet , start on probiotic, and rehydrate with gatorade-like product. Pt to call if feeling worse, diarrhea becomes bloody, or does not improve with above recommendations. Pt to call for acute worsening of stomach upset or stomach pain. CHECK STOOL FOR CDIFF, STOOL CULTURE 12/20/2015 Appointment: Kate[facility] Veloz WPtel: [facility] [phone] [place] (15 min) Moderate 12/20/2015 Patient Education: Patient Medication Summary Completed 12/20/2015 Visit Plan: Pulmonary mvskugpr-gpyvfgh-enyf Dr Quinteros and wears oxygen at night [...] of control. 09/12/2015 Appointment: Katey Veloz WPtel: [address] [place], [place] [phone] (15 min) Moderate 09/12/2015 Patient Education: Patient Medication Summary Completed 09/12/2015 Patient Education: Hypertension Completed 09/12/2015 Care Plan: COMPLETE CBC AUTOMATED LOINC : 45626-4 Pending 09/12/2015 Visit Plan: Pulmonary qxmifsbn-yzzocpn-mlby Dr Quinteros and wears oxygen at night URI - Pt advised to increase fluids, vitamin C. Discussed natural and expected course of this diagnosis and need to alert me if symptoms do not follow expected course, or if any worse. RX sent to patient's pharmacy. 04/18/2015 Visit Plan: Pulmonary zejmcsiq-yxwpqla-zege Dr Quinteros and wears oxygen at night [...] for acute treatment of this illness. indra, [employer], [employer] yogurt, - all of these have [...] numbers are. 11/23/2014 Appointment: Sonia Nolen WPtel: 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 [employer], [employer] yogurt, - all of these have probiotics [...] acute treatment of this illness. [employer], [employer] yogurt, - all of these have probiotics [...] the office for further instructions. . Pulmonary cmxkwleb-rmutsbi-inng Dr Quinteros and wears oxygen at night [...] at this time. Get fasting labs in [place]. . Hypertension - well controlled - continue [...] neosporin and monitor lesion. . Pneumonia-resolved Pulmonary lpejtbyd-epyepgx-jejx Dr Quinteros and wears oxygen at night [...] tab day 2-7 probiotic with antibiotics. Pulmonary xnsdrmdn-tnmempg-yocy Dr Quinteros and wears oxygen at night URI - Pt advised to increase fluids, vitamin C. Discussed natural and expected course of this diagnosis and need to alert me if symptoms do not follow expected course, or if any worse. RX sent to patient's pharmacy. Levaquin 2 tabs day one and 1 tab day 2-7 probiotic with antibiotics. Pulmonary rdkpamue-vfmcvsq-cvjq Dr Quinteros and wears oxygen at night URI - Pt advised to increase fluids, vitamin C. Discussed natural and expected course of this diagnosis and need to alert me if symptoms do not follow expected course, or if any worse. RX sent to patient's pharmacy.
[2018-04-04] MEDS ORDERED: NS IV 500 ML 500 ML IV PRN (07:17)
--- OUTSIDE RECORDS SUMMARY | 2018-04-04 07:20 | XMS REPORT | Continuity of Care Document ---
Author Author [facility] Organization [facility] Address Unknown Phone Unavailable Allergies Active Description Code Type Severity Reaction Onset Reported/Identified Relationship to Patient Clinical Status Yes MORPHINE SULFATE MORPHINE SULFATE Unknown N/A 10/13/2013 Yes PCN PCN Unknown N/ A 10/13/2013 Yes Sulfa (Sulfonamide Antibiotics) [id number] Drug Allergy Unknown N/A 2013 Yes morphine [id number] Drug Allergy Unknown N/A 02/05/2018 Yes morphine [id number] Drug Allergy Unknown Pt has received 02/05/2018 Yes Penicillins [id number] Drug Allergy Unknown N/A 02/05/2018 Yes Penicillins [id number] Drug Allergy Unknown Pt has received 02/05/2018 Medications There is no data. 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 10/16/2013 VERONICA CONNELL, ALLYSON M Ot 599.0 URIN TRACT INFECTION NOS 07/05/2014 [...] VERONICA CONNELL, ALLYSON M Ot 786.05 07/05/2014 VERONICA CONNELL, ALLYSON M Ot 786.2 07/05/2014 VERONICA CONNELL, ALLYSON M Ot 793.19 07/05/2014 VERONICA CONNELL, ALLYSON M Ot 486 08/15/2014 VERONICA CONNELL, ALLYSON M Ot 515 08/15/2014 VERONICA CONNELL, ALLYSON M Ot V76.12 09/01/2014 VERONICA CONNELL, ALLYSON M Ot 515 09/01/2014 VERONICA CONNELL, ALLYSON M Ot V76.12 11/12/2014 PREET ANDRADE DO M Ot 515 11/12/2014 SANDRA ANDRADE DOSON M Ot 780.54 11/12/2014 RAYMOND DO PREET M Ot 799.02 11/18/2014 RAYMOND CORLEY PREET M Ot 515 11/18/2014 SANDRA ANDRADE DOSON M Ot 780.54 11/18/2014 SANDRA ANDRADE DOSON M Ot 799.02 01/13/2015 KENZIE CONNELL, LUCY A Ot 515 01/13/2015 KENZIE CONNELL, LUCY A Ot 786.2 01/18/2015 KENZIE CONNELL, LUCY A Ot 515 01/18/2015 KENZIE CONNELL, LUCY West Ot 786.2 03/04/2015 SAIMA MORGAN APRN Ot J30.9 03/04/2015 EDDIEZI LACYINE Vik WAD LUBRICATOR Ot J84.10 03/04/2015 SAIMA MORGAN WAD LUBRICATOR Ot R09.02 03/09/2015 SAIMA MORGAN WAD LUBRICATOR Ot J30.9 03/09/2015 EDDIESAIMA WAD LUBRICATOR Ot J84.10 03/09/2015 SAIMA MORGAN WAD LUBRICATOR Ot R09.02 04/03/2015 SAIMA MORGAN WAD LUBRICATOR Ot J30.9 ALLERGIC RHINITIS, UNSPECIFIED 04/03/2015 EDDIE, SAIMA Vik WAD LUBRICATOR Ot J84.10 PULMONARY FIBROSIS, UNSPECIFIED 04/03/2015 SAIMA MORGAN WAD LUBRICATOR Ot R09.02 HYPOXEMIA 04/08/2015 KENZIE CONNELL, LUCY West Ot J18.9 04/08/2015 LUCY ESPINO MD Ot J84.9 04/21/2015 KENZIE CONNELL, LUCY [place] [...] ORGANISM NOS 10/25/2015 ALLYSON MARTIN MD Ot 786.2 COUGH [...] NOS 10/25/2015 VERONICA CONNELL, ALLYSON Urena Ot 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 10/25/2015 VERONICA CONNELL, [place]YSON Urena Ot V76.12 OTH SCREEN MAMMO-MALIGN NEOPLASM OF [place] 10/25/2015 RAYMOND DO PREET Romel Ot 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 10/25/2015 RAYMOND DO PREET Urena Ot 780.54 HYPERSOMNIA, UNSPECIFIED 10/25/2015 RAYMOND PREET Urena Ot 799.02 HYPOXEMIA 10/25/2015 KENZIE CONNELL, LUCY West Ot 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 10/25/2015 KENZIE CONNELL, LUCY West Ot 786.2 COUGH 10/25/2015 KENZIE CONNELL, LUCY West Ot J18.9 PNEUMONIA, UNSPECIFIED ORGANISM 10/25/2015 KENZIE CONNELL, LUCY West Ot J84.9 INTERSTITIAL PULMONARY DISEASE, UNSPECIF 10/25/2015 SAIMA MORGAN APRN Ot J30.9 ALLERGIC RHINITIS, UNSPECIFIED 10/25/2015 SAIMA MORGAN APRN Ot J84.10 PULMONARY FIBROSIS, UNSPECIFIED 10/25/2015 SAIMA MORGAN APRN Ot R09.02 HYPOXEMIA 10/26/2015 DYLON HARRIS PROGRAMS ASSISTANT Ot R05 COUGH 10/27/2015 DYLON HARRIS PROGRAMS ASSISTANT Ot R05 COUGH 10/28/2015 DYLON HARRIS PROGRAMS ASSISTANT Ot R05 COUGH 11/15/2015 DYLON HARRIS PROGRAMS ASSISTANT Ot R05 COUGH 11/24/2015 DYLON HARRIS PROGRAMS ASSISTANT Ot R05 COUGH 12/30/2015 RAMONE JONES WAD LUBRICATOR Ot R05 COUGH 12/30/2015 RAMONE JONES WAD LUBRICATOR Ot R06.02 SHORTNESS OF BREATH 12/30/2015 RAMONE JONES WAD LUBRICATOR Ot R09.89 OTH SYMPTOMS AND SIGNS INVOLVING THE CIR 01/05/2016 RAMONE JONES WAD LUBRICATOR Ot R05 COUGH 01/05/2016 RAMONE JONES WAD LUBRICATOR Ot R06.02 SHORTNESS OF BREATH 01/05/2016 RAMONE JONES WAD LUBRICATOR Ot R09.89 OTH SYMPTOMS AND SIGNS INVOLVING THE CIR 03/30/2016 Ot V76.12 OTH SCREEN MAMMO-MALIGN NEOPLASM OF [place] 03/30/2016 Ot 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 03/30/2016 Ot 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 03/30/2016 VERONICA CONNELL, ALLYSON M Ot 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 03/30/2016 VERONICA CONNELL, ALLYSON M Ot 786.2 COUGH 03/30/2016 VERONICA CONNELL, ALLYSON M Ot 486 PNEUMONIA, ORGANISM NOS 03/30/2016 VERONICA CONNELL, ALLYSON M Ot 786.2 COUGH 03/30/2016 VERONICA CONNELL, ALLYSON M Ot V67.9 FOLLOW-UP EXAM NOS 03/30/2016 VERONICA CONNELL, ALLYSON M Ot 486 PNEUMONIA, ORGANISM NOS 03/30/2016 VERONICA CONNELL, ALLYSON M Ot 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 03/30/2016 VERONICA CONNELL, ALLYSON M Ot 786.05 SHORTNESS OF BREATH 03/30/2016 VERONICA CONNELL, ALLYSON M Ot 786.2 COUGH 03/30/2016 VERONICA CONNELL, ALLYSON M Ot 793.19 OTHER NONSPECIFIC ABNORMAL FINDING OF MED 03/30/2016 ALLYSON MARTIN MD M Ot 486 PNEUMONIA, ORGANISM NOS 03/30/2016 VERONICA CONNELL, ALLYSON M Ot 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 03/30/2016 JOSE M MARTIN MDEEN M Ot V76.12 OTH SCREEN MAMMO-MALIGN NEOPLASM OF [...] HARRIS Ot R05 COUGH 03/30/2016 RAMONE JONES WAD LUBRICATOR Ot R05 COUGH 03/30/2016 RAMONE JONES WAD LUBRICATOR Ot R06.02 SHORTNESS OF BREATH 03/30/2016 RAMONE JONES WAD LUBRICATOR Ot R09.89 OTH SYMPTOMS AND SIGNS INVOLVING [...] MD Ot 486 PNEUMONIA, ORGANISM NOS 03/30/2016 VERONICA [...] LUCY ESPINO MD Ot 786.2 COUGH 03/30/2016 KENZIE MD, LUCY A Ot J18.9 PNEUMONIA, UNSPECIFIED ORGANISM 03/30/2016 KENZIE CONNELL, LUCY West Ot J84.9 INTERSTITIAL PULMONARY DISEASE, UNSPECIF 03/30/2016 SAIMA MORGAN WAD LUBRICATOR Ot J30.9 ALLERGIC RHINITIS, UNSPECIFIED 03/30/2016 SAIMA MORGAN WAD LUBRICATOR Ot J84.10 PULMONARY FIBROSIS, UNSPECIFIED 03/30/2016 SAIAM MORGAN WAD LUBRICATOR Ot R09.02 HYPOXEMIA 03/30/2016 DYLON HARRIS PROGRAMS ASSISTANT Ot R05 COUGH 03/30/2016 RAMONE JONES APRN Ot R05 COUGH 03/30/2016 RAMONE JONES APRN Ot R06.02 SHORTNESS OF BREATH 03/30/2016 RAMONE JONES APRN Ot R09.89 OT SYMPTOMS AND SIGNS INVOLVING THE CIR 04/05/2016 PREET ANDRADE DO Ot J84.10 PULMONARY FIBROSIS, UNSPECIFIED 04/05/2016 PREET ANDRADE DO Ot R09.02 HYPOXEMIA 04/24/2016 PREET ANDRADE DO Ot J84.10 PULMONARY FIBROSIS, UNSPECIFIED 04/24/2016 PREET ANDRADE DO Ot R09.02 HYPOXEMIA 05/02/2016 PREET ANDRADE DO Ot J84.10 PULMONARY FIBROSIS, UNSPECIFIED 05/02/2016 PREET ANDRADE DO Ot R09.02 HYPOXEMIA 11/20/2016 SAIMA MORGAN APRN Ot J84.10 PULMONARY FIBROSIS, UNSPECIFIED 11/20/2016 SAIMA MORGAN WAD LUBRICATOR Ot K44.9 DIAPHRAGMATIC HERNIA WITHOUT OBSTRUCTION 11/20/2016 SAIMA MORGAN WAD LUBRICATOR Ot R04.2 HEMOPTYSIS 11/20/2016 SAIMA MORGAN WAD LUBRICATOR Ot R09.02 HYPOXEMIA 11/20/2016 SAIMA MORGAN WAD LUBRICATOR Ot J84.10 PULMONARY FIBROSIS, UNSPECIFIED 11/20/2016 SAIMA MORGAN WAD LUBRICATOR Ot K44.9 DIAPHRAGMATIC HERNIA WITHOUT OBSTRUCTION 11/20/2016 SAIMA MORGAN WAD LUBRICATOR Ot R04.2 HEMOPTYSIS 11/20/2016 SAIMA MORGAN WAD LUBRICATOR Ot R09.02 HYPOXEMIA 12/12/2016 SAIMA MORGAN WAD LUBRICATOR Ot J84.10 PULMONARY FIBROSIS, UNSPECIFIED 12/12/2016 SAIMA MORGAN WAD LUBRICATOR Ot R09.02 HYPOXEMIA 12/19/2016 SAIMA MORGAN APRN Ot J84.10 PULMONARY FIBROSIS, UNSPECIFIED 12/19/2016 SAIMA MORGAN APRN Ot R09.02 HYPOXEMIA 06/04/2017 Ot 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 06/04/2017 VERONICA CONNELL, ALLYSON M Ot 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 06/04/2017 [place]YSON MARTIN MD M Ot 786.2 COUGH 06/04/2017 VERONICA CONNELL, ALLYSON M Ot 486 PNEUMONIA, ORGANISM NOS 06/04/2017 VERONICA CONNELL, ALLYSON M Ot 786.2 COUGH 06/04/2017 VERONICA CONNELL, ALLYSON M Ot V67.9 FOLLOW-UP EXAM NOS 06/04/2017 VERONICA CONNELL, ALLYSON M Ot 486 PNEUMONIA, ORGANISM NOS 06/04/2017 VERONICA CONNELL, ALLYSON M Ot 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 06/04/2017 JOSE M MARTIN MDEEN M Ot 786.05 SHORTNESS OF BREATH 06/04/2017 VERONICA CONNELL, ALLYSON M Ot 786.2 COUGH 06/04/2017 VERONICA CONNELL, ALLYSON M Ot 793.19 OTHER NONSPECIFIC ABNORMAL FINDING OF MED 06/04/2017 VERONICA CONNELL, ALLYSON M Ot 486 PNEUMONIA, ORGANISM NOS 06/04/2017 VERONICA CONNELL, ALLYSON M Ot 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 06/04/2017 [place]YSON AMRTIN MD M Ot V76.12 OTH SCREEN MAMMO-MALIGN NEOPLASM OF [place] 06/04/2017 PREET ANDRADE DO Ot 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 06/04/2017 PREET ANDRADE DO Ot 780.54 HYPERSOMNIA, UNSPECIFIED 06/04/2017 PREET ANDRADE DO Ot 799.02 HYPOXEMIA 06/04/2017 LUCY ESPINO MD Ot 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 06/04/2017 LUCY ESPINO MD Ot 786.2 COUGH 06/04/2017 LUCY ESPINO MD Ot J18.9 PNEUMONIA, UNSPECIFIED ORGANISM 06/04/2017 LUCY ESPINO MD Ot J84.9 INTERSTITIAL PULMONARY DISEASE, UNSPECIF 06/04/2017 SAIMA MORGAN APRN Ot J30.9 ALLERGIC RHINITIS, UNSPECIFIED 06/04/2017 SAIMA MORGAN WAD LUBRICATOR Ot J84.10 PULMONARY FIBROSIS, UNSPECIFIED 06/04/2017 SAIMA MORGAN WAD LUBRICATOR Ot R09.02 HYPOXEMIA 06/04/2017 DYLON HARRIS PROGRAMS ASSISTANT Ot R05 COUGH 06/04/2017 KARENRAMONE WAD LUBRICATOR Ot R05 COUGH 06/04/2017 KAREN RAMONE M WAD LUBRICATOR Ot R06.02 SHORTNESS OF BREATH 06/04/2017 KARENRAMONE WAD LUBRICATOR Ot R09.89 OT SYMPTOMS AND SIGNS INVOLVING THE CIR 06/04/2017 PREET ANDRADE DO Ot J84.10 PULMONARY FIBROSIS, UNSPECIFIED 06/04/2017 PREET ANDRADE DO Ot R09.02 HYPOXEMIA 06/04/2017 SAIMA MORGAN WAD LUBRICATOR Ot J84.10 PULMONARY FIBROSIS, UNSPECIFIED 06/04/2017 SAIMA MORGAN WAD LUBRICATOR Ot R09.02 HYPOXEMIA 06/05/2017 SAIMA MORGAN WAD LUBRICATOR Ot J30.9 ALLERGIC RHINITIS, UNSPECIFIED 06/05/2017 SAIMA MORGAN WAD LUBRICATOR Ot J44.9 CHRONIC OBSTRUCTIVE PULMONARY DISEASE, U 06/05/2017 SAIMA MORGAN WAD LUBRICATOR Ot R59.0 LOCALIZED ENLARGED LYMPH NODES 06/05/2017 SAIMA MORGAN WAD LUBRICATOR Ot Z72.0 TOBACCO USE 07/04/2017 SAIMA MORGAN WAD LUBRICATOR Ot J30.9 ALLERGIC RHINITIS, UNSPECIFIED 07/04/2017 SAIMA MORGAN WAD LUBRICATOR Ot J44.9 CHRONIC OBSTRUCTIVE PULMONARY DISEASE, U 07/04/2017 SAIMA MORGAN WAD LUBRICATOR Ot R59.0 LOCALIZED ENLARGED LYMPH NODES 07/04/2017 SAIMA MORGAN WAD LUBRICATOR Ot Z72.0 TOBACCO USE 07/12/2017 SAIMA MORGAN WAD LUBRICATOR Ot J18.9 PNEUMONIA, UNSPECIFIED ORGANISM 07/12/2017 SAIMA MORGAN WAD LUBRICATOR Ot J18.9 PNEUMONIA, UNSPECIFIED ORGANISM 07/17/2017 SAIMA MORGAN WAD LUBRICATOR Ot J18.9 PNEUMONIA, UNSPECIFIED ORGANISM 07/31/2017 SAIMA MORGAN WAD LUBRICATOR Ot J18.9 PNEUMONIA, UNSPECIFIED ORGANISM 08/06/2017 SAIMA MORGAN WAD LUBRICATOR Ot J18.9 PNEUMONIA, UNSPECIFIED ORGANISM 08/08/2017 SAIMA MORGAN APRN Ot J18.9 PNEUMONIA, UNSPECIFIED ORGANISM 08/28/2017 SAIMA MORGAN APRN Ot J18.9 PNEUMONIA, UNSPECIFIED ORGANISM 09/04/2017 SAIMA MORGAN APRN Ot J18.9 PNEUMONIA, UNSPECIFIED ORGANISM 01/13/2018 ALLYSON MARTIN MD Ot 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 01/13/2018 JOSE M MARTIN MDEEN M Ot 786.2 COUGH 01/13/2018 VERONICA CONNELL, ALLYSON M Ot 486 PNEUMONIA, ORGANISM NOS 01/13/2018 VERONICA CONNELL, ALLYSON M Ot 786.2 COUGH 01/13/2018 [place]YSON MARTIN MD M Ot V67.9 FOLLOW-UP EXAM NOS 01/13/2018 [place]YSON MARTIN MD M Ot 486 PNEUMONIA, ORGANISM NOS 01/13/2018 VERONICA CONNELL, ALLYSON M Ot 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 01/13/2018 JOSE M MARTIN MDEEN M Ot 786.05 SHORTNESS OF BREATH 01/13/2018 JOSE M MARTIN MDEEN M Ot 786.2 COUGH 01/13/2018 JOSE M MARTIN MDEEN M Ot 793.19 OTHER NONSPECIFIC ABNORMAL FINDING OF MED 01/13/2018 ALLYSON MARTIN MD M Ot 486 PNEUMONIA, ORGANISM NOS 01/13/2018 VERONICA CONNELL, ALLYSON M Ot 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 01/13/2018 ALLYSON MARTIN MD M Ot V76.12 OTH SCREEN MAMMO-MALIGN NEOPLASM OF [...] J30.9 ALLERGIC RHINITIS, UNSPECIFIED 01/13/2018 SAIMA MORGAN WAD LUBRICATOR Ot J84.10 PULMONARY FIBROSIS, UNSPECIFIED 01/13/2018 SAIMA MORGAN APRN Ot R09.02 HYPOXEMIA 01/13/2018 DYLON HARRIS PROGRAMS ASSISTANT Ot R05 COUGH 01/13/2018 RAMONE JONES WAD LUBRICATOR Ot R05 COUGH 01/13/2018 KAREN RAMONE Urena WAD LUBRICATOR Ot R06.02 SHORTNESS OF BREATH 01/13/2018 KAREN RAMONE Urena WAD LUBRICATOR Ot R09.89 OTH SYMPTOMS AND SIGNS INVOLVING [...] MORGAN APRN Ot J18.9 PNEUMONIA, UNSPECIFIED ORGANISM 02/04/2018 LUCY ESPINO MD Ot A41.9 SEPSIS, UNSPECIFIED ORGANISM 02/04/2018 LUCY ESPINO MD Ot E03.9 HYPOTHYROIDISM, UNSPECIFIED 02/04/2018 LUCY ESPINO MD Ot E11.9 TYPE 2 DIABETES MELLITUS WITHOUT COMPLIC 02/04/2018 LUCY ESPINO MD Ot E78.2 MIXED HYPERLIPIDEMIA 02/04/2018 LUCY ESPINO MD Ot E83.42 HYPOMAGNESEMIA 02/04/2018 LUCY ESPINO MD Ot E86.0 DEHYDRATION 02/04/2018 LUCY ESPINO MD Ot I13.0 HYP HRT CHR KDNY DIS W HRT FAIL AND ST 02/04/2018 LUCY ESPINO MD Ot 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 02/04/2018 KENZIE CONNELL, LUCY West Ot I27.20 PULMONARY HYPERTENSION, UNSPECIFIED 02/04/2018 LUCY ESPINO MD Ot I50.30 UNSPECIFIED DIASTOLIC (CONGESTIVE) HEART 02/04/2018 LUCY ESPINO MD Ot J02.9 ACUTE PHARYNGITIS, UNSPECIFIED 02/04/2018 LUCY ESPINO MD Ot J18.9 PNEUMONIA, UNSPECIFIED ORGANISM 02/04/2018 LUCY ESPINO MD Ot J44.0 CHRONIC OBSTRUCTIVE PULMON DISEASE W ACU 02/04/2018 LUCY ESPINO MD Ot J44.1 CHRONIC OBSTRUCTIVE PULMONARY DISEASE W 02/04/2018 LUCY ESPINO MD Ot J84.10 PULMONARY FIBROSIS, UNSPECIFIED 02/04/2018 LUCY ESPINO MD Ot J96.21 ACUTE AND CHRONIC RESPIRATORY FAILURE [place] 02/04/2018 LUCY ESPINO MD Ot M19.91 PRIMARY OSTEOARTHRITIS, UNSPECIFIED SITE 02/04/2018 LUCY ESPINO MD Ot M54.9 DORSALGIA, UNSPECIFIED 02/04/2018 LUCY ESPINO MD, Ot N18.9 CHRONIC KIDNEY DISEASE, UNSPECIFIED 02/04/2018 LUCY ESPINO MD Ot N39.0 URINARY TRACT INFECTION, SITE NOT SPECIF 02/04/2018 LUCY ESPINO MD Ot Z86.14 PERSONAL HISTORY OF METHICILLIN RESIS ST 02/04/2018 LUYC ESPINO MD Ot Z87.891 PERSONAL HISTORY OF NICOTINE DEPENDENCE 02/04/2018 LUCY ESPINO MD Ot Z96.652 PRESENCE OF LEFT ARTIFICIAL KNEE JOINT 02/04/2018 LUCY ESPINO MD Ot Z98.1 ARTHRODESIS STATUS 02/04/2018 LUCY ESPINO MD Ot Z99.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 02/05/2018 LUCY ESPINO MD Ot A41.9 SEPSIS, UNSPECIFIED ORGANISM 02/05/2018 LUCY ESPINO MD Ot E03.9 HYPOTHYROIDISM, UNSPECIFIED 02/05/2018 LUCY ESPINO MD Ot E11.9 TYPE 2 DIABETES MELLITUS WITHOUT COMPLIC 02/05/2018 LUCY ESPINO MD Ot E78.2 MIXED HYPERLIPIDEMIA 02/05/2018 LUCY ESPINO MD Ot E83.42 HYPOMAGNESEMIA 02/05/2018 LUCY ESPINO MD Ot E86.0 DEHYDRATION 02/05/2018 LUCY ESPINO MD Ot I13.0 HYP HRT CHR KDNY DIS W HRT FAIL AND ST 02/05/2018 LUCY ESPINO MD, Ot 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 02/05/2018 LUCY ESPINO MD Ot I27.20 PULMONARY HYPERTENSION, UNSPECIFIED 02/05/2018 LUCY ESPINO MD Ot I50.30 UNSPECIFIED DIASTOLIC (CONGESTIVE) HEART 02/05/2018 LUCY ESPINO MD Ot J02.9 ACUTE PHARYNGITIS, UNSPECIFIED 02/05/2018 LUCY ESPINO MD, Ot J18.9 PNEUMONIA, UNSPECIFIED ORGANISM 02/05/2018 LUCY ESPINO MD Ot J44.0 CHRONIC OBSTRUCTIVE PULMON DISEASE W ACU 02/05/2018 LUCY ESPINO MD, Ot J44.1 CHRONIC OBSTRUCTIVE PULMONARY DISEASE W 02/05/2018 LUCY ESPINO MD Ot J84.10 PULMONARY FIBROSIS, UNSPECIFIED 02/05/2018 LUCY ESPINO MD, Ot J96.21 ACUTE AND CHRONIC RESPIRATORY FAILURE [place] 02/05/2018 LUCY ESPINO MD Ot M19.91 PRIMARY OSTEOARTHRITIS, UNSPECIFIED SITE 02/05/2018 LUCY ESPINO MD Ot M54.9 DORSALGIA, UNSPECIFIED 02/05/2018 LUCY ESPINO MD Ot N18.9 CHRONIC KIDNEY DISEASE, UNSPECIFIED 02/05/2018 LUCY ESPINO MD Ot N39.0 URINARY TRACT INFECTION, SITE NOT SPECIF 02/05/2018 LUCY ESPINO MD Ot Z86.14 PERSONAL HISTORY OF METHICILLIN RESIS ST 02/05/2018 LUCY ESPINO MD Ot Z87.891 PERSONAL HISTORY OF NICOTINE DEPENDENCE 02/05/2018 LUCY ESPINO MD Ot Z96.652 PRESENCE OF LEFT ARTIFICIAL KNEE JOINT 02/05/2018 LUCY ESPINO MD Ot Z98.1 ARTHRODESIS STATUS 02/05/2018 LUCY ESPINO MD Ot Z99.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 02/05/2018 SAIMA MORGAN APRN Ot J30.9 ALLERGIC RHINITIS, UNSPECIFIED 02/05/2018 SAIMA MORGAN APRN Ot J84.10 PULMONARY FIBROSIS, UNSPECIFIED 02/05/2018 SAIMA MORGAN APRN Ot R09.02 HYPOXEMIA 02/05/2018 LUCY ESPINO MD Ot A41.9 SEPSIS, UNSPECIFIED ORGANISM 02/05/2018 LUCY ESPINO MD Ot E03.9 HYPOTHYROIDISM, UNSPECIFIED 02/05/2018 LUCY ESPINO MD Ot E11.9 TYPE 2 DIABETES MELLITUS WITHOUT COMPLIC 02/05/2018 LUCY ESPINO MD Ot E78.2 MIXED HYPERLIPIDEMIA 02/05/2018 LUCY ESPINO MD Ot E83.42 HYPOMAGNESEMIA 02/05/2018 LUCY ESPINO MD Ot E86.0 DEHYDRATION 02/05/2018 LUCY ESPINO MD Ot I13.0 HYP HRT CHR KDNY DIS W HRT FAIL AND ST 02/05/2018 LUCY ESPINO MD Ot 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 02/05/2018 LUCY ESPINO MD, Ot I27.20 PULMONARY HYPERTENSION, UNSPECIFIED 02/05/2018 LUCY ESPINO MD Ot I50.30 UNSPECIFIED DIASTOLIC (CONGESTIVE) HEART 02/05/2018 LUCY ESPINO MD Ot J02.9 ACUTE PHARYNGITIS, UNSPECIFIED 02/05/2018 LUCY ESPINO MD Ot J18.9 PNEUMONIA, UNSPECIFIED ORGANISM 02/05/2018 LUCY ESPINO MD Ot J44.0 CHRONIC OBSTRUCTIVE PULMON DISEASE W ACU 02/05/2018 LUCY ESPINO MD Ot J44.1 CHRONIC OBSTRUCTIVE PULMONARY DISEASE W 02/05/2018 LUCY ESPINO MD Ot J84.10 PULMONARY FIBROSIS, UNSPECIFIED 02/05/2018 LUCY ESPINO MD Ot J96.21 ACUTE AND CHRONIC RESPIRATORY FAILURE [place] 02/05/2018 LUCY ESPINO MD Ot M19.91 PRIMARY OSTEOARTHRITIS, UNSPECIFIED SITE 02/05/2018 LUCY ESPINO MD Ot M54.9 DORSALGIA, UNSPECIFIED 02/05/2018 LUCY ESPINO MD Ot N18.9 CHRONIC KIDNEY DISEASE, UNSPECIFIED 02/05/2018 LUCY ESPINO MD Ot N39.0 URINARY TRACT INFECTION, SITE NOT SPECIF 02/05/2018 LUCY ESPINO MD Ot Z86.14 PERSONAL HISTORY OF METHICILLIN RESIS ST 02/05/2018 LUCY ESPINO MD Ot Z87.891 PERSONAL HISTORY OF NICOTINE DEPENDENCE 02/05/2018 LUCY ESPINO MD Ot Z96.652 PRESENCE OF LEFT ARTIFICIAL KNEE JOINT 02/05/2018 LUCY ESPINO MD Ot Z98.1 ARTHRODESIS STATUS 02/05/2018 LUCY ESPINO MD Ot Z99.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 02/05/2018 SAIMA MORGAN APRN Ot J30.9 ALLERGIC RHINITIS, UNSPECIFIED 02/05/2018 SAIMA MORGAN APRN Ot J84.10 PULMONARY FIBROSIS, UNSPECIFIED 02/05/2018 SAIMA MORGAN APRN Ot R09.02 HYPOXEMIA 02/05/2018 LUCY ESPINO MD Ot A41.9 SEPSIS, UNSPECIFIED ORGANISM 02/05/2018 LUCY ESPINO MD Ot E03.9 HYPOTHYROIDISM, UNSPECIFIED 02/05/2018 LUCY ESPINO MD Ot E11.9 TYPE 2 DIABETES MELLITUS WITHOUT COMPLIC 02/05/2018 LUCY ESPINO MD Ot E78.2 MIXED HYPERLIPIDEMIA 02/05/2018 LUCY ESPINO MD Ot E83.42 HYPOMAGNESEMIA 02/05/2018 LUCY ESPINO MD Ot E86.0 DEHYDRATION 02/05/2018 LUCY ESPINO MD Ot I13.0 HYP HRT CHR KDNY DIS W HRT FAIL AND ST 02/05/2018 LUCY ESPINO MD Ot 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 02/05/2018 LUCY ESPINO MD Ot I27.20 PULMONARY HYPERTENSION, UNSPECIFIED 02/05/2018 LUCY ESPINO MD Ot I50.30 UNSPECIFIED DIASTOLIC (CONGESTIVE) HEART 02/05/2018 LUCY ESPINO MD Ot J02.9 ACUTE PHARYNGITIS, UNSPECIFIED 02/05/2018 LUCY ESPINO MD Ot J18.9 PNEUMONIA, UNSPECIFIED ORGANISM 02/05/2018 LUCY ESPINO MD, Ot J44.0 CHRONIC OBSTRUCTIVE PULMON DISEASE W ACU 02/05/2018 LUCY ESPINO MD Ot J44.1 CHRONIC OBSTRUCTIVE PULMONARY DISEASE W 02/05/2018 LUCY ESPINO MD Ot J84.10 PULMONARY FIBROSIS, UNSPECIFIED 02/05/2018 LUCY ESPINO MD, Ot J96.21 ACUTE AND CHRONIC RESPIRATORY FAILURE [place] 02/05/2018 LUCY ESPINO MD Ot M19.91 PRIMARY OSTEOARTHRITIS, UNSPECIFIED SITE 02/05/2018 LUCY ESPINO MD, Ot M54.9 DORSALGIA, UNSPECIFIED 02/05/2018 LUCY ESPINO MD, Ot N18.9 CHRONIC KIDNEY DISEASE, UNSPECIFIED 02/05/2018 LUCY ESPINO MD, Ot N39.0 URINARY TRACT INFECTION, SITE NOT SPECIF 02/05/2018 LUCY ESPINO MD Ot Z86.14 PERSONAL HISTORY OF METHICILLIN RESIS ST 02/05/2018 LUCY ESPINO MD Ot Z87.891 PERSONAL HISTORY OF NICOTINE DEPENDENCE 02/05/2018 LUCY ESPINO MD Ot Z96.652 PRESENCE OF LEFT ARTIFICIAL KNEE JOINT 02/05/2018 LUCY ESPINO MD Ot Z98.1 ARTHRODESIS STATUS 02/05/2018 LUCY ESPINO MD Ot Z99.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 02/05/2018 LUCY ESPINO MD Ot A41.9 SEPSIS, UNSPECIFIED ORGANISM 02/05/2018 LUCY ESPINO MD Ot E03.9 HYPOTHYROIDISM, UNSPECIFIED 02/05/2018 LUCY ESPINO MD Ot E11.8 TYPE 2 DIABETES MELLITUS WITH UNSPECIFIE 02/05/2018 LUCY ESPINO MD Ot E78.2 MIXED HYPERLIPIDEMIA 02/05/2018 LUCY ESPINO MD Ot E83.42 HYPOMAGNESEMIA 02/05/2018 LUCY ESPINO MD, Ot E86.0 DEHYDRATION 02/05/2018 LUCY ESPINO MD, Ot E87.6 HYPOKALEMIA 02/05/2018 LUCY ESPINO MD Ot I13.0 HYP HRT CHR KDNY DIS W HRT FAIL AND ST 02/05/2018 LUCY ESPINO MD Ot 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 02/05/2018 LUCY ESPINO MD, Ot I27.20 PULMONARY HYPERTENSION, UNSPECIFIED 02/05/2018 LUCY ESPINO MD Ot I50.30 UNSPECIFIED DIASTOLIC (CONGESTIVE) HEART 02/05/2018 LUCY ESPINO MD Ot J02.9 ACUTE PHARYNGITIS, UNSPECIFIED 02/05/2018 LUCY ESPINO MD Ot J18.9 PNEUMONIA, UNSPECIFIED ORGANISM 02/05/2018 LUCY ESPINO MD Ot J44.0 CHRONIC OBSTRUCTIVE PULMON DISEASE W ACU 02/05/2018 LUCY ESPINO MD, Ot J44.1 CHRONIC OBSTRUCTIVE PULMONARY DISEASE W 02/05/2018 LUCY ESPINO MD Ot J84.10 PULMONARY FIBROSIS, UNSPECIFIED 02/05/2018 LUCY ESPINO MD Ot J96.21 ACUTE AND CHRONIC RESPIRATORY FAILURE [place] 02/05/2018 LUCY ESPINO MD Ot M19.91 PRIMARY OSTEOARTHRITIS, UNSPECIFIED SITE 02/05/2018 LUCY ESPINO MD Ot M54.9 DORSALGIA, UNSPECIFIED 02/05/2018 LUCY ESPINO MD Ot N18.9 CHRONIC KIDNEY DISEASE, UNSPECIFIED 02/05/2018 LUCY ESPINO MD Ot N39.0 URINARY TRACT INFECTION, SITE NOT SPECIF 02/05/2018 LUCY ESPINO MD Ot Z86.14 PERSONAL HISTORY OF [place]IC[place] RESIS ST 02/05/2018 LUCY ESPINO MD Ot Z87.891 PERSONAL HISTORY OF NICOTINE DEPENDENCE 02/05/2018 LUCY ESPINO MD Ot Z96.652 PRESENCE OF LEFT ARTIFICIAL KNEE JOINT 02/05/2018 LUCY ESPINO MD Ot Z98.1 ARTHRODESIS STATUS 02/05/2018 LUCY ESPINO MD Ot Z99.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 03/31/2018 LUCY ESPINO 515 POSTINFLAMMATORY PULMONARY FIBROSIS 03/31/2018 LUCY ESPINO J84.10 PULMONARY FIBROSIS, UNSPECIFIED 04/03/2018 SAIMA MORGAN APRN Ot G47.10 HYPERSOMNIA, UNSPECIFIED 04/03/2018 SAIMA MORGAN APRN Ot J18.9 PNEUMONIA, UNSPECIFIED ORGANISM 04/03/2018 SAIMA MORGAN APRN Ot J30.9 ALLERGIC RHINITIS, UNSPECIFIED 04/03/2018 SAIMA MORGAN APRN Ot J44.9 CHRONIC OBSTRUCTIVE PULMONARY DISEASE, U 04/03/2018 SAIMA MORGAN APRN Ot J84.10 PULMONARY FIBROSIS, UNSPECIFIED Procedures There is no data. Results Test [...] 06/21/16 10:04 Free T4 1.49 ng/dL 0.81-1.61 Complete blood count (CBC) with automated white blood cell (WBC) differential - 01/31/18 18:20 Blood leukocytes automated count (number/volume) 20.7 10*3/uL 4.3-11.0 Blood erythrocytes automated count (number/volume) 4.19 10*6/uL 4.35-5.85 Venous blood hemoglobin measurement (mass/volume) 11.1 g/dL 11.5-16.0 Blood hematocrit (volume fraction) 35 % 35-52 Automated erythrocyte mean corpuscular volume 84 [foz_us] 80-99 Automated erythrocyte mean corpuscular hemoglobin (mass per erythrocyte) 26 pg 25-34 Automated erythrocyte mean corpuscular hemoglobin concentration measurement ( mass/volume) 32 g/dL 32-36 Automated erythrocyte distribution width ratio 13.7 % 10.0-14.5 Automated blood platelet count (count/volume) 411 10*3/uL 130-400 Automated blood platelet mean volume measurement 9.1 [foz_us] 7.4-10.4 Automated blood neutrophils/100 leukocytes 84 % 42-75 Automated blood lymphocytes/100 leukocytes 8 % 12-44 Blood monocytes/100 leukocytes 7 % 0-12 Automated blood eosinophils/100 leukocytes 0 % 0-10 Automated blood basophils/100 leukocytes 0 % 0-10 Blood neutrophils automated count (number/volume) 17.5 10*3 1.8-7.8 Blood lymphocytes automated count (number/volume) 1.7 10*3 1.0-4.0 Blood monocytes automated count (number/volume) 1.5 10*3 0.0-1.0 Automated eosinophil count 0.0 10*3/uL 0.0-0.3 Automated blood basophil count (count/volume) 0.0 10*3/uL 0.0-0.1 PT panel in platelet poor plasma by coagulation assay - 01/31/18 18:20 Prothrombin time (PT) in platelet poor plasma by coagulation assay 17.1 s 12.2-14.7 INR in platelet poor plasma or blood by coagulation assay 1.4 0.8-1.4 Activated partial thromboplastin time (aPTT) in platelet poor plasma bycoagulation assay - 01/31/18 18:20 Activated partial thromboplastin time (aPTT) in platelet poor plasma bycoagulation assay 38 s 24-35 Influenza virus A and B antigen detection - 01/31/18 18:20 FLU RESULT NEGATIVE FOR INFLUENZA A AND B ANTIGENS BY IA [facility] Blood manual differential performed detection - 01/31/18 18:20 Blood monocytes/100 leukocytes 4 % NR Manual blood segmented neutrophils/100 leukocytes 90 % NRG Blood band neutrophils/100 leukocytes 2 % NRG Manual blood lymphocytes/100 leukocytes 4 % NRG Manual eosinophils/100 leukocytes in nose 0 % NR Manual blood basophils/100 leukocytes 0 % NR Blood erythrocyte morphology finding identification [facility] Comprehensive metabolic panel - 01/31/18 18:20 Serum or plasma sodium measurement (moles/volume) 133 mmol/L 135-145 Serum or plasma potassium measurement (moles/volume) 3.7 mmol/L 3.6-5.0 Serum or plasma chloride measurement (moles/volume) 95 mmol/L 98-107 Carbon dioxide 27 mmol/L 21-32 Serum or plasma anion gap determination (moles/volume) 11 mmol/L 5-14 Serum or plasma urea nitrogen measurement (mass/volume) 26 mg/dL 7-18 Serum or plasma creatinine measurement (mass/volume) 1.46 mg/dL 0.60-1.30 Serum or plasma urea nitrogen/creatinine mass ratio 18 NRG Serum or plasma creatinine measurement with calculation of estimated glomerular filtration rate 34 NRG Serum or plasma glucose measurement (mass/volume) 122 mg/dL 70-105 Serum or plasma calcium measurement (mass/volume) 10.0 mg/dL 8.5-10.1 Serum or plasma total bilirubin measurement (mass/volume) 0.9 mg/dL 0.1-1.0 Serum or plasma alkaline phosphatase measurement (enzymatic activity/volume) 128 U/L 40-136 Serum or plasma aspartate aminotransferase measurement (enzymatic activity/ volume) 64 U/L 5-34 Serum or plasma alanine aminotransferase measurement (enzymatic activity/volume ) 42 U/L 0-55 Serum or plasma protein measurement (mass/volume) 8.8 g/dL 6.4-8.2 Serum or plasma albumin measurement (mass/volume) 3.4 g/dL 3.2-4.5 CALCIUM CORRECTED 10.5 mg/dL 8.5-10.1 Magnesium - 01/31/18 18:20 Magnesium 1.4 mg/dL 1.8-2.4 Serum or plasma lithium measurement (moles/volume) - 01/31/18 18:20 BNP level 106.5 pg/mL <100.0 Serum or plasma troponin i.cardiac measurement (mass/volume) - 01/31/18 18:20 Serum or plasma troponin i.cardiac measurement (mass/volume) < ng/ mL <0.30 Blood lactic acid measurement (moles/volume) - 01/31/18 18:35 Blood lactic acid measurement (moles/volume) 1.17 mmol/L 0.50-2.00 Bacterial blood culture - 01/31/18 18:35 Bacterial blood culture NG NRG Bacterial blood culture - 01/31/18 18:55 QUANTITY OF GROWTH . NRG Bacterial blood culture SEE COMMEN NRG Capillary blood glucose measurement by glucometer (mass/volume) - 01/31/18 21: 47 Capillary blood glucose measurement by glucometer (mass/volume) 151 mg/dL 70-110 Complete urinalysis with reflex to culture - 01/31/18 23:15 Urine color determination YELLOW NRG Urine clarity determination VERY CLOUDY NRG Urine pH measurement by test strip 5 5-9 Specific gravity of urine by test strip 1.015 1.016- 1.022 Urine protein assay by test strip, semi-quantitative 2+ NEGATIVE Urine glucose detection by automated test strip NEGATIVE NEGATIVE Erythrocytes detection in urine sediment by light microscopy 4+ NEGATIVE Urine ketones detection by automated test strip NEGATIVE NEGATIVE Urine nitrite detection by test strip POSITIVE NEGATIVE Urine total bilirubin detection by test strip NEGATIVE NEGATIVE Urine urobilinogen measurement by automated test strip (mass/volume) NORMAL NORMAL Urine leukocyte esterase detection by dipstick 3+ NEGATIVE Automated urine sediment erythrocyte count by microscopy (number/high power field) [HPF] [facility] Automated urine sediment leukocyte count by microscopy (number/high power field ) TNTC NRG Bacteria detection in urine sediment by light microscopy LARGE NRG Squamous epithelial cells detection in urine sediment by light microscopy RARE NRG Crystals detection in urine sediment by light microscopy NONE NRG Casts detection in urine sediment by light microscopy NONE NRG Mucus detection in urine sediment by light microscopy NEGATIVE NRG Complete urinalysis with reflex to culture NO NRG Bacterial urine culture - 01/31/18 23:15 Bacterial urine culture SEE REPORT NRG COLONY COUNT . NRG Capillary blood glucose measurement by glucometer (mass/volume) - 02/01/18 05: 46 Capillary blood glucose measurement by glucometer (mass/volume) 248 mg/dL 70-110 Complete blood count (CBC) with automated white blood cell (WBC) differential - 02/01/18 06:57 Blood leukocytes automated count (number/volume) 12.7 10*3/uL 4.3-11.0 Blood erythrocytes automated count (number/volume) 4.45 10*6/uL 4.35-5.85 Venous blood hemoglobin measurement (mass/volume) 11.5 g/dL 11.5-16.0 Blood hematocrit (volume fraction) 37 % 35-52 Automated erythrocyte mean corpuscular volume 84 [foz_us] 80-99 Automated erythrocyte mean corpuscular hemoglobin (mass per erythrocyte) 26 pg 25-34 Automated erythrocyte mean corpuscular hemoglobin concentration measurement ( mass/volume) 31 g/dL 32-36 Automated erythrocyte distribution width ratio 13.5 % 10.0-14.5 Automated blood platelet count (count/volume) 352 10*3/uL 130-400 Automated blood platelet mean volume measurement 9.6 [foz_us] 7.4-10.4 Automated blood neutrophils/100 leukocytes 94 % 42-75 Automated blood lymphocytes/100 leukocytes 5 % 12-44 Blood monocytes/100 leukocytes 1 % 0-12 Automated blood eosinophils/100 leukocytes 0 % 0-10 Automated blood basophils/100 leukocytes 0 % 0-10 Blood neutrophils automated count (number/volume) 11.9 10*3 1.8-7.8 Blood lymphocytes automated count (number/volume) 0.7 10*3 1.0-4.0 Blood monocytes automated count (number/volume) 0.1 10*3 0.0-1.0 Automated eosinophil count 0.0 10*3/uL 0.0-0.3 Automated blood basophil count (count/volume) 0.0 10*3/uL 0.0-0.1 Comprehensive metabolic panel - 02/01/18 06:57 Serum or plasma sodium measurement (moles/volume) 136 mmol/L 135-145 Serum or plasma potassium measurement (moles/volume) 3.8 mmol/L 3.6-5.0 Serum or plasma chloride measurement (moles/volume) 98 mmol/L 98-107 Carbon dioxide 25 mmol/L 21-32 Serum or plasma anion gap determination (moles/volume) 13 mmol/L 5-14 Serum or plasma urea nitrogen measurement (mass/volume) 31 mg/dL 7-18 Serum or plasma creatinine measurement (mass/volume) 1.32 mg/dL 0.60-1.30 Serum or plasma urea nitrogen/creatinine mass ratio 23 NRG Serum or plasma creatinine measurement with calculation of estimated glomerular filtration rate 39 NRG Serum or plasma glucose measurement (mass/volume) 263 mg/dL 70-105 Serum or plasma calcium measurement (mass/volume) 10.0 mg/dL 8.5-10.1 Serum or plasma total bilirubin measurement (mass/volume) 0.4 mg/dL 0.1-1.0 Serum or plasma alkaline phosphatase measurement (enzymatic activity/volume) 132 U/L 40-136 Serum or plasma aspartate aminotransferase measurement (enzymatic activity/ volume) 62 U/L 5-34 Serum or plasma alanine aminotransferase measurement (enzymatic activity/volume ) 45 U/L 0-55 Serum or plasma protein measurement (mass/volume) 8.5 g/dL 6.4-8.2 Serum or plasma albumin measurement (mass/volume) 3.2 g/dL 3.2-4.5 CALCIUM CORRECTED 10.6 mg/dL 8.5-10.1 Serum or plasma phosphate measurement (mass/volume) - 02/01/18 06:57 Serum or plasma phosphate measurement (mass/volume) 3.7 mg/dL 2.3-4.7 Magnesium - 02/01/18 06:57 Magnesium 2.2 mg/dL 1.8-2.4 Serum or plasma lithium measurement (moles/volume) - 02/01/18 06:57 BNP level 146.5 pg/mL <100.0 Methicillin resistant Staphylococcus aureus (MRSA) screening culture - 07:40 Methicillin resistant Staphylococcus aureus (MRSA) screening culture NEG NRG Arterial blood gas measurement - 02/01/18 10:25 Blood pCO2 37 mm[Hg] 35-45 Blood pO2 95 mm[Hg] 79-93 Arterial blood bicarbonate measurement (moles/volume) 25 mmol/L 23-27 Arterial blood base excess by calculation 1.1 mmol/L -2.5 -2.5 Arterial blood oxygen saturation measurement 98 % 94-100 * Inhaled oxygen flow rate 2L NRG Arterial blood pH measurement with patient temperature correction 7.44 7.37-7.43 Arterial blood carbon dioxide, total measurement (moles/volume) 26.1 mmol/L 21.0-31.0 Body site LT RAD NRG Assessment of wrist artery patency prior to arterial puncture YES- POS NRG Setting of ventilation mode NO NRG Measurement of body temperature 97.7 NRG Capillary blood glucose measurement by glucometer (mass/volume) - 02/01/18 11: 18 Capillary blood glucose measurement by glucometer (mass/volume) 259 mg/dL 70-110 Capillary blood glucose measurement by glucometer (mass/volume) - 02/01/18 16: 30 Capillary blood glucose measurement by glucometer (mass/volume) 216 mg/dL 70-110 Capillary blood glucose measurement by glucometer (mass/volume) - 02/01/18 20: 11 Capillary blood glucose measurement by glucometer (mass/volume) 291 mg/dL 70-110 Complete blood count (CBC) with automated white blood cell (WBC) differential - 02/02/18 05:25 Blood leukocytes automated count (number/volume) 24.1 10*3/uL 4.3-11.0 Blood erythrocytes automated count (number/volume) 4.33 10*6/uL 4.35-5.85 Venous blood hemoglobin measurement (mass/volume) 11.5 g/dL 11.5-16.0 Blood hematocrit (volume fraction) 36 % 35-52 Automated erythrocyte mean corpuscular volume 82 [foz_us] 80-99 Automated erythrocyte mean corpuscular hemoglobin (mass per erythrocyte) 27 pg 25-34 Automated erythrocyte mean corpuscular hemoglobin concentration measurement ( mass/volume) 32 g/dL 32-36 Automated erythrocyte distribution width ratio 13.8 % 10.0-14.5 Automated blood platelet count (count/volume) 424 10*3/uL 130-400 Automated blood platelet mean volume measurement 9.8 [foz_us] 7.4-10.4 Automated blood neutrophils/100 leukocytes 95 % 42-75 Automated blood lymphocytes/100 leukocytes 3 % 12-44 Blood monocytes/100 leukocytes 2 % 0-12 Automated blood eosinophils/100 leukocytes 0 % 0-10 Automated blood basophils/100 leukocytes 0 % 0-10 Blood neutrophils automated count (number/volume) 22.8 10*3 1.8-7.8 Blood lymphocytes automated count (number/volume) 0.8 10*3 1.0-4.0 Blood monocytes automated count (number/volume) 0.5 10*3 0.0-1.0 Automated eosinophil count 0.0 10*3/uL 0.0-0.3 Automated blood basophil count (count/volume) 0.0 10*3/uL 0.0-0.1 Whole blood basic metabolic panel - 02/02/18 05:25 Serum or plasma sodium measurement (moles/volume) 136 mmol/L 135-145 Serum or plasma potassium measurement (moles/volume) 2.9 mmol/L 3.6-5.0 Serum or plasma chloride measurement (moles/volume) 96 mmol/L 98-107 Carbon dioxide 25 mmol/L 21-32 Serum or plasma anion gap determination (moles/volume) 15 mmol/L 5-14 Serum or plasma urea nitrogen measurement (mass/volume) 44 mg/dL 7-18 Serum or plasma creatinine measurement (mass/volume) 1.63 mg/dL 0.60-1.30 Serum or plasma urea nitrogen/creatinine mass ratio 27 NRG Serum or plasma creatinine measurement with calculation of estimated glomerular filtration rate 30 NRG Serum or plasma glucose measurement (mass/volume) 379 mg/dL 70-105 Serum or plasma calcium measurement (mass/volume) 9.7 mg/dL 8.5-10.1 Serum or plasma phosphate measurement (mass/volume) - 02/02/18 05:25 Serum or plasma phosphate measurement (mass/volume) 3.1 mg/dL 2.3-4.7 Magnesium - 02/02/18 05:25 Magnesium 1.9 mg/dL 1.8-2.4 Capillary blood glucose measurement by glucometer (mass/volume) - 02/02/18 06: 01 Capillary blood glucose measurement by glucometer (mass/volume) 373 mg/dL 70-110 Capillary blood glucose measurement by glucometer (mass/volume) - 02/02/18 11: 36 Capillary blood glucose measurement by glucometer (mass/volume) 98 mg/dL 70-110 Capillary blood glucose measurement by glucometer (mass/volume) - 02/02/18 16: 11 Capillary blood glucose measurement by glucometer (mass/volume) 124 mg/dL 70-110 Capillary blood glucose measurement by glucometer (mass/volume) - 02/02/18 20: 57 Capillary blood glucose measurement by glucometer (mass/volume) 175 mg/dL 70-110 Capillary blood glucose measurement by glucometer (mass/volume) - 02/03/18 05: 30 Capillary blood glucose measurement by glucometer (mass/volume) 171 mg/dL 70-110 Complete blood count (CBC) with automated white blood cell (WBC) differential - 02/03/18 05:50 Blood leukocytes automated count (number/volume) 26.9 10*3/uL 4.3-11.0 Blood erythrocytes automated count (number/volume) 4.26 10*6/uL 4.35-5.85 Venous blood hemoglobin measurement (mass/volume) 11.4 g/dL 11.5-16.0 Blood hematocrit (volume fraction) 36 % 35-52 Automated erythrocyte mean corpuscular volume 84 [foz_us] 80-99 Automated erythrocyte mean corpuscular hemoglobin (mass per erythrocyte) 27 pg 25-34 Automated erythrocyte mean corpuscular hemoglobin concentration measurement ( mass/volume) 32 g/dL 32-36 Automated erythrocyte distribution width ratio 13.8 % 10.0-14.5 Automated blood platelet count (count/volume) 454 10*3/uL 130-400 Automated blood platelet mean volume measurement 9.7 [foz_us] 7.4-10.4 Automated blood neutrophils/100 leukocytes 92 % 42-75 Automated blood lymphocytes/100 leukocytes 5 % 12-44 Blood monocytes/100 leukocytes 4 % 0-12 Automated blood eosinophils/100 leukocytes 0 % 0-10 Automated blood basophils/100 leukocytes 0 % 0-10 Blood neutrophils automated count (number/volume) 24.7 10*3 1.8-7.8 Blood lymphocytes automated count (number/volume) 1.2 10*3 1.0-4.0 Blood monocytes automated count (number/volume) 1.0 10*3 0.0-1.0 Automated eosinophil count 0.0 10*3/uL 0.0-0.3 Automated blood basophil count (count/volume) 0.0 10*3/uL 0.0-0.1 Whole blood basic metabolic panel - 02/03/18 05:50 Serum or plasma sodium measurement (moles/volume) 140 mmol/L 135-145 Serum or plasma potassium measurement (moles/volume) 3.6 mmol/L 3.6-5.0 Serum or plasma chloride measurement (moles/volume) 100 mmol/L 98-107 Carbon dioxide 29 mmol/L 21-32 Serum or plasma anion gap determination (moles/volume) 11 mmol/L 5-14 Serum or plasma urea nitrogen measurement (mass/volume) 55 mg/dL 7-18 Serum or plasma creatinine measurement (mass/volume) 1.49 mg/dL 0.60-1.30 Serum or plasma urea nitrogen/creatinine mass ratio 37 NRG Serum or plasma creatinine measurement with calculation of estimated glomerular filtration rate 34 NRG Serum or plasma glucose measurement (mass/volume) 187 mg/dL 70-105 Serum or plasma calcium measurement (mass/volume) 9.5 mg/dL 8.5-10.1 Serum or plasma phosphate measurement (mass/volume) - 02/03/18 05:50 Serum or plasma phosphate measurement (mass/volume) 3.0 mg/dL 2.3-4.7 Magnesium - 02/03/18 05:50 Magnesium 1.8 mg/dL 1.8-2.4 Vancomycin trough - 02/03/18 05:50 Vancomycin trough 17.1 ug/mL 10.0-20.0 Capillary blood glucose measurement by glucometer (mass/volume) - 02/03/18 11: 08 Capillary blood glucose measurement by glucometer (mass/volume) 124 mg/dL 70-110 Capillary blood glucose measurement by glucometer (mass/volume) - 02/03/18 16: 03 Capillary blood glucose measurement by glucometer (mass/volume) 120 mg/dL 70-110 Capillary blood glucose measurement by glucometer (mass/volume) - 02/03/18 21: 22 Capillary blood glucose measurement by glucometer (mass/volume) 128 mg/dL 70-110 Complete blood count (CBC) with automated white blood cell (WBC) differential - 02/04/18 05:24 Blood leukocytes automated count (number/volume) 14.8 10*3/uL 4.3-11.0 Blood erythrocytes automated count (number/volume) 4.05 10*6/uL 4.35-5.85 Venous blood hemoglobin measurement (mass/volume) 10.8 g/dL 11.5-16.0 Blood hematocrit (volume fraction) 34 % 35-52 Automated erythrocyte mean corpuscular volume 84 [foz_us] 80-99 Automated erythrocyte mean corpuscular hemoglobin (mass per erythrocyte) 27 pg 25-34 Automated erythrocyte mean corpuscular hemoglobin concentration measurement ( mass/volume) 32 g/dL 32-36 Automated erythrocyte distribution width ratio 14.2 % 10.0-14.5 Automated blood platelet count (count/volume) 429 10*3/uL 130-400 Automated blood platelet mean volume measurement 9.6 [foz_us] 7.4-10.4 Automated blood neutrophils/100 leukocytes 72 % 42-75 Automated blood lymphocytes/100 leukocytes 19 % 12-44 Blood monocytes/100 leukocytes 9 % 0-12 Automated blood eosinophils/100 leukocytes 0 % 0-10 Automated blood basophils/100 leukocytes 0 % 0-10 Blood neutrophils automated count (number/volume) 10.6 10*3 1.8-7.8 Blood lymphocytes automated count (number/volume) 2.8 10*3 1.0-4.0 Blood monocytes automated count (number/volume) 1.4 10*3 0.0-1.0 Automated eosinophil count 0.0 10*3/uL 0.0-0.3 Automated blood basophil count (count/volume) 0.0 10*3/uL 0.0-0.1 Whole blood basic metabolic panel - 02/04/18 05:24 Serum or plasma sodium measurement (moles/volume) 143 mmol/L 135-145 Serum or plasma potassium measurement (moles/volume) 3.4 mmol/L 3.6-5.0 Serum or plasma chloride measurement (moles/volume) 105 mmol/L 98-107 Carbon dioxide 27 mmol/L 21-32 Serum or plasma anion gap determination (moles/volume) 11 mmol/L 5-14 Serum or plasma urea nitrogen measurement (mass/volume) 46 mg/dL 7-18 Serum or plasma creatinine measurement (mass/volume) 1.10 mg/dL 0.60-1.30 Serum or plasma urea nitrogen/creatinine mass ratio 42 NRG Serum or plasma creatinine measurement with calculation of estimated glomerular filtration rate 48 NRG Serum or plasma glucose measurement (mass/volume) 96 mg/dL 70-105 Serum or plasma calcium measurement (mass/volume) 8.9 mg/dL 8.5-10.1 Serum or plasma phosphate measurement (mass/volume) - 02/04/18 05:24 Serum or plasma phosphate measurement (mass/volume) 2.2 mg/dL 2.3-4.7 Magnesium - 02/04/18 05:24 Magnesium 1.7 mg/dL 1.8-2.4 Capillary blood glucose measurement by glucometer (mass/volume) - 02/04/18 06: 21 Capillary blood glucose measurement by glucometer (mass/volume) 89 mg/dL 70-110 Capillary blood glucose measurement by glucometer (mass/volume) - 02/04/18 11: 18 Capillary blood glucose measurement by glucometer (mass/volume) 106 mg/dL 70-110 Capillary blood glucose measurement by glucometer (mass/volume) - 02/04/18 16: 03 Capillary blood glucose measurement by glucometer (mass/volume) 85 mg/dL 70-110 Capillary blood glucose measurement by glucometer (mass/volume) - 02/04/18 21: 25 Capillary blood glucose measurement by glucometer (mass/volume) 124 mg/dL 70-110 Capillary blood glucose measurement by glucometer (mass/volume) - 02/05/18 05: 17 Capillary blood glucose measurement by glucometer (mass/volume) 102 mg/dL 70-110 Complete blood count (CBC) with automated white blood cell (WBC) differential - 02/05/18 06:10 Blood leukocytes automated count (number/volume) 13.9 10*3/uL 4.3-11.0 Blood erythrocytes automated count (number/volume) 3.99 10*6/uL 4.35-5.85 Venous blood hemoglobin measurement (mass/volume) 10.3 g/dL 11.5-16.0 Blood hematocrit (volume fraction) 34 % 35-52 Automated erythrocyte mean corpuscular volume 85 [foz_us] 80-99 Automated erythrocyte mean corpuscular hemoglobin (mass per erythrocyte) 26 pg 25-34 Automated erythrocyte mean corpuscular hemoglobin concentration measurement ( mass/volume) 31 g/dL 32-36 Automated erythrocyte distribution width ratio 13.9 % 10.0-14.5 Automated blood platelet count (count/volume) 370 10*3/uL 130-400 Automated blood platelet mean volume measurement 9.2 [foz_us] 7.4-10.4 Automated blood neutrophils/100 leukocytes 75 % 42-75 Automated blood lymphocytes/100 leukocytes 17 % 12-44 Blood monocytes/100 leukocytes 7 % 0-12 Automated blood eosinophils/100 leukocytes 1 % 0-10 Automated blood basophils/100 leukocytes 0 % 0-10 Blood neutrophils automated count (number/volume) 10.4 10*3 1.8-7.8 Blood lymphocytes automated count (number/volume) 2.3 10*3 1.0-4.0 Blood monocytes automated count (number/volume) 1.0 10*3 0.0-1.0 Automated eosinophil count 0.1 10*3/uL 0.0-0.3 Automated blood basophil count (count/volume) 0.0 10*3/uL 0.0-0.1 Whole blood basic metabolic panel - 02/05/18 06:10 Serum or plasma sodium measurement (moles/volume) 139 mmol/L 135-145 Serum or plasma potassium measurement (moles/volume) 3.1 mmol/L 3.6-5.0 Serum or plasma chloride measurement (moles/volume) 104 mmol/L 98-107 Carbon dioxide 28 mmol/L 21-32 Serum or plasma anion gap determination (moles/volume) 7 mmol/L 5-14 Serum or plasma urea nitrogen measurement (mass/volume) 25 mg/dL 7-18 Serum or plasma creatinine measurement (mass/volume) 0.84 mg/dL 0.60-1.30 Serum or plasma urea nitrogen/creatinine mass ratio 30 NRG Serum or plasma creatinine measurement with calculation of estimated glomerular filtration rate > NRG Serum or plasma glucose measurement (mass/volume) 98 mg/dL 70-105 Serum or plasma calcium measurement (mass/volume) 8.4 mg/dL 8.5-10.1 Serum or plasma phosphate measurement (mass/volume) - 02/05/18 06:10 Serum or plasma phosphate measurement (mass/volume) 2.4 mg/dL 2.3-4.7 Magnesium - 02/05/18 06:10 Magnesium 1.6 mg/dL 1.8-2.4 Encounters ACCT No. Visit Date/Time Discharge Status Pt. Type Provider Facility Loc./Unit Complaint [id number] 01/31/2018 19:25:00 02/05/2018 10:47:00 DIS Inpatient LUCY ESPINO MD [facility] 4TH SEPSIS.PNEUMONIA.PULMONARY FIBROSIS.HYPOXIA. [id number] 01/13/2018 14:51:00 01/13/2018 23:59:59 CLS Outpatient LUCY ESPINO MD [facility] DSME TYPE 2 DIABETES [id number] 08/05/2017 11:39:00 08/05/2017 23:59:59 CLS Outpatient SAIMA MORGAN WAD LUBRICATOR [facility] RAD J18.9 [id number] 07/11/2017 13:11:00 07/11/2017 23:59:59 CLS Outpatient SAIMA MORGAN WAD LUBRICATOR [facility] RAD J18.9 [id number] 06/04/2017 10:26:00 06/04/2017 23:59:59 CLS Outpatient SAIMA MORGAN WAD LUBRICATOR [facility] RAD COPD J44.9,R05, R63.4,J30.9 [id number] 11/21/2016 15:14:00 11/21/2016 23:59:59 CLS Outpatient SAIMA MORGAN WAD LUBRICATOR [facility] RT J84.10 [id number] 11/16/2016 13:00:00 11/20/2016 11:26:00 DIS Outpatient SAIMA MORGAN WAD LUBRICATOR [facility] RAD HEOPTYSIS [id number] 04/02/2016 08:29:00 04/02/2016 23:59:59 CLS Outpatient PREET ANDRADE DO [facility] RAD PULMONARY FIBROSIS, HYPOXIA [id number] 12/09/2015 12:57:00 12/09/2015 23:59:59 CLS Outpatient RAMONE JONES WAD LUBRICATOR [facility] RAD COUGH,CRACKLES, SOB [id number] 10/25/2015 11:21:00 10/25/2015 23:59:59 CLS Outpatient DYLON HARRIS [facility] RAD COUGH [id number] 04/04/2015 15:00:00 04/04/2015 23:59:59 CLS Preadmit SAIMA MORGAN APRN [facility] PULM PULMONARY FIBROSIS, HYPOXIA [id number] 01/03/2015 14:59:00 04/03/2015 00:01:00 DIS Outpatient SAIMA MORGAN APRN [facility] PULM PULMONARY FIBROSIS ,HYPOXIA [id number] 03/02/2015 11:23:00 03/02/2015 23:59:59 CLS Outpatient LUCY ESPINO MD [facility] RAD PNEUMONIA [id number] 02/21/2015 10:51:00 02/21/2015 23:59:59 CLS Outpatient GT CRAIN DO [facility] QUICK [id number] 11/23/2014 13:14:00 11/23/2014 23:59:59 CLS Outpatient LUCY ESPINO MD [facility] RAD PULMONERY FIBROSIS W/ COUGH [id number] 10/22/2014 11:41:00 10/22/2014 23:59:59 CLS Outpatient PREET ANDRADE DO [facility] RAD HYPOXIA,EXCESSIVE SLEEPINESS, PULMONARY FIBROSIS [id number] 07/05/2014 13:30:00 07/05/2014 23:59:59 CLS Outpatient ALLYSON MARTIN MD [facility] CARD INTERSTATIAL LUNG DISEASE ROUTINE [id number] 10/28/2013 11:19:00 10/28/2013 23:59:59 CLS Outpatient ALLYSON MARTIN MD [facility] RAD F/U PNEUMONIA/PLEASE COMPARE [id number] 10/13/2013 12:07:00 10/16/2013 10:03:00 DIS Inpatient ALLYSON MARTIN MD [facility] 4TH FEVER,PNEUMONIA [id number] 10/12/2013 11:56:00 10/12/2013 23:59:59 CLS Outpatient ALLYSON MARTIN MD [facility] RAD COUGH,SOB [id number] 08/31/2013 20:01:00 09/01/2013 05:55:00 DIS Outpatient PREET ANDRADE DO [facility] SLEEP SNORING,EXCESSIVE DAYTIME SLEEPINESS,PULMONARY FIB [id number] 12/23/2012 10:03:00 12/23/2012 23:59:59 CLS Outpatient ALLYSON MARTIN MD [facility] RAD F/U PNEUMONIA, INTERSTITIA LUNG DX [id number] 09/17/2012 12:08:00 09/17/2012 23:59:59 CLS Outpatient ALLYSON MARTIN MD [facility] RAD F/D PNUEMONIA COUGH [id number] 07/29/2012 10:14:00 07/29/2012 23:59:59 CLS Outpatient ALLYSON MARTIN MD [facility] RAD COUGH [id number] 04/04/2018 06:59:00 ACT Outpatient PREET ANDRADE DO [facility] ENDO PULMONARY FIBROSIS/PNEUMONIA/COPD [id number] 04/02/2018 12:04:00 ACT Outpatient SAIMA MORGAN APRN [facility] RAD HYPOXIA [id number] 07/05/2014 13:30:00 Document Registration [id number] 01/30/2012 15:14:00 Document Registration [id number] 07/26/2011 14:30:00 Document Registration [id number] 06/21/2011 09:21:00 Document Registration [id number] 04/13/2009 06:54:00 Document Registration [id number] 03/31/2018 09:55:00 03/31/2018 23:59:00 DIS Outpatient LUCY ESPINO [id number] 06/21/2016 10:00:00 06/21/2016 23:59:00 DIS Outpatient LUCY ESPINO [id number] 03/29/2016 14:16:00 03/29/2016 23:59:00 DIS Outpatient PREET ANDRADE [id number] 11/23/2014 13:15:53 ACT Document Registration [id number] 01/06/2017 23:34:45 01/06/2017 23:59:59 CLS Outpatient
[2018-04-04] MEDS ORDERED: MIDAZOLAM 2 MG/2 ML (VERSED) VIAL IVP ONE (07:30)
[2018-04-04] MEDS ORDERED: fentaNYL INJECTION 100 MCG/2 ML AMP IVP ONE (07:30)
[2018-04-04 07:37] VITALS: BP 169/80
[2018-04-04] MEDS ORDERED: MIDAZOLAM 2 MG/2 ML (VERSED) VIAL ONE ×3 (07:37)
[2018-04-04] MEDS ORDERED: fentaNYL INJECTION 100 MCG/2 ML AMP ONE (07:37)
--- NOTE | 2018-04-04 08:22 | Pulmonary Procedures ---
Pulmonary Procedures Date of Procedure Date of Service: Apr 04, 2018 Bronch Bronchoscopy with Fluoroscopy RML bronchoalveolar lavage (BAL), washes and, transbronchial brushes. Preop DX ILD Postop DX: same Complications: none After informed consent obtained and formal time out pt was sedated using Fentanyl and Versed. Bronchoscope was advanced through the nare and vocal cords. 1% lidocaine was used to anesthetize vocal cords, epiglottis, fadi, and left/right main stem bronchus. An anatomical tour was undertaken down to the segmental bronchi bilaterally. No endobronchial lesions noted. Bronchoscopy with Fluoroscopy RML bronchoalveolar lavage (BAL), washes and, transbronchial brushes were obtained. Pt tolerated procedure well. No complications noted. Stat CXR is pending. PREET ANDRADE DO Apr 04, 2018 08:22
[2018-04-04 08:40] VITALS: BP 118/56
--- NOTE | 2018-04-04 08:57 | Diagnostic Imaging Report ---
CLINICAL INDICATION: Patient post bronchoscopy. EXAM: Portable chest x-ray, upright view. COMPARISON: Chest x-ray, 2 views, dated 04/02/2018. FINDINGS: There is no pneumothorax or pleural effusion. There are interval decreased lung volumes with increased patchy consolidation involving the periphery of the right midlung field and bibasilar regions. There are again seen reticulonodular changes throughout both lungs, predominately in the periphery of both lung bases. The pulmonary vasculature and cardiac silhouette are within normal limits. The remainder of this exam shows no significant interval change compared to the prior study of comparison. IMPRESSION: 1. There is interval increase in the airspace opacities in the periphery of the right midlung field which may represent atelectasis versus infiltrate. 2. There are slightly decreased lung volumes bilaterally with suspected increased bibasilar atelectasis. 3. Otherwise, stable diffuse reticulonodular changes in the periphery of both lungs and bibasilar regions related to chronic interstitial fibrosis. Dictated by: Dictated on workstation # [id number]
[2018-04-04 09:10] VITALS: BP 125/60
[2018-04-04 09:30] VITALS: BP 125/60
--- NOTE | 2018-04-04 09:31 | Diagnostic Imaging Report ---
INDICATION: Fluoroscopy during bronchoscopy. Fluoroscopy was provided for Dr. Quinteros during performance of a bronchoscopy. 28 seconds of fluoroscopy was utilized. IMPRESSION: Fluoroscopy during bronchoscopy. Dictated by: Dictated on workstation # [id number]
[2018-04-04 11:55] LABS: BODY FLUID COLOR COLORLESS; BODY FLUID SOURCE OTHER
[2018-04-04 11:56] LABS: BF OTHER CELLS 0 %; BODY FLUID APPEARENCE MOD CLDY; LYMPHOCYTES,BODY FLUID 0 %
== END 2018-04-04 09:30 | disposition home or self-care (01) ==
LOC: ENDO 06:59
PROVIDERS: ATTEND Internal Medicine Critical Care Medicine
DX: J84.10 Pulmonary fibrosis, unspecified (principal); R09.02 Hypoxemia; J44.0 Chronic obstructive pulmonary disease with (acute) lower respiratory infection; J18.9 Pneumonia, unspecified organism; J30.9 Allergic rhinitis, unspecified; G47.10 Hypersomnia, unspecified; Z79.82 Long term (current) use of aspirin; Z79.899 Other long term (current) drug therapy
CPT/HCPCS: 71045; 82962; 87015; 87070; 87077; 87101; 87116; 87186; 87205; 87206; 89051

== ENCOUNTER → 2018-04-10 | Outpatient (CLI) | payer MEDICARE ==
[2018-04-10 14:40] LABS: BASOPHILS % (AUTO) 0 % (0-10); EOSINOPHILS # (AUTO) 0.2 10^3/uL (0.0-0.3); EOSINOPHILS % (AUTO) 1 % (0-10); HEMATOCRIT 36 % (35-52); HEMOGLOBIN 11.1 G/DL (11.5-16.0); LYMPHOCYTES % (AUTO) 16 % (12-44); MEAN CORPUSCULAR HEMOGLOBIN 26 PG (25-34); MEAN CORPUSCULAR HGB CONC 31 G/DL (32-36); MEAN CORPUSCULAR VOLUME 84 FL (80-99); MEAN PLATELET VOLUME 8.7 FL (7.4-10.4); MONOCYTES # (AUTO) 0.9 X 10^3 (0.0-1.0); MONOCYTES % (AUTO) 7 % (0-12); NEUTROPHILS # (AUTO) 9.3 X 10^3 (1.8-7.8); NEUTROPHILS % (AUTO) 75 % (42-75); PLATELET COUNT 364 10^3/uL (130-400); RED BLOOD COUNT 4.22 10^6/uL (4.35-5.85); RED CELL DISTRIBUTION WIDTH 15.5 % (10.0-14.5); WHITE BLOOD COUNT 12.3 10^3/uL (4.3-11.0)
== END ==
LOC: LAB 14:08
PROVIDERS: ATTEND Nurse Practitioner Family
DX: J84.10 Pulmonary fibrosis, unspecified (principal); J44.9 Chronic obstructive pulmonary disease, unspecified; G47.10 Hypersomnia, unspecified; J18.9 Pneumonia, unspecified organism; R09.02 Hypoxemia; Z22.322 Carrier or suspected carrier of Methicillin resistant Staphylococcus aureus
CPT/HCPCS: 36415; 85025

== ENCOUNTER → 2018-04-14 | Outpatient (CLI) | payer MEDICARE ==
[~2018-04-14] MED LIST changes: +IOHEXOL 350 MG/ML 100 ML (OMNIPAQUE 350) VIAL IV ONE; +NS 100 ML (IVPB) BAG IV ONE; +RECEIVED CONTRAST (Hold Metformin) IV SCH
[2018-04-14 09:49] LABS: CREATININE SERUM 1.09 MG/DL (0.60-1.30)
--- NOTE | 2018-04-14 12:42 | Diagnostic Imaging Report ---
PROCEDURE: CT chest with contrast only. TECHNIQUE: Multiple contiguous axial images were obtained through the chest after administration of intravenous contrast. INDICATION: Pulmonary fibrosis. FINDINGS: The previous CT chest exam of 06/04/2017 noted severe chronic interstitial fibrosis. The prior exam did note that there were areas of increased density along the periphery of the right midlung. It was not certain whether these were related to chronic pulmonary disease or to pneumonia/atelectasis. On this exam, those findings do not seem to have changed significantly. I do suspect that they are chronic in nature. The chronic pulmonary changes evident on the prior study may be slightly greater. There is no sign of a pleural effusion either. The previous exam did note borderline mediastinal adenopathy. This included a 1.2 x 1.8 cm pretracheal node on the right. That node now measures 1.4 x 1.9 cm. The other mediastinal nodes are essentially no different. There also appears to be right hilar adenopathy. This has not changed significantly since the prior exam, although the previous study was performed without intravenous contrast. The heart size is within normal limits and stable when compared to the prior study. Coronary artery calcifications are again noted. The aorta is not abnormally dilated and there is no sign of dissection. There is no defect within the pulmonary arteries to indicate pulmonary embolus. The thyroid gland where visualized is unremarkable. The sections through the upper abdomen fail to show any sign of an acute abnormality. There is no obvious breast mass. The bone windows are unremarkable for fracture or for destructive lesion. IMPRESSION: 1. There is severe chronic pulmonary disease. The chronic pulmonary changes may be somewhat worse than noted on the prior study. There is no acute cardiopulmonary abnormality identified, however. 2. The mediastinal nodes seen previously do not appear to have changed significantly. There is also right hilar adenopathy but this may have been present on the prior exam and appears similar to the prior study. Dictated by: Dictated on workstation # [id number]
== END ==
LOC: RAD 09:09
PROVIDERS: ATTEND Nurse Practitioner Family
DX: J98.4 Other disorders of lung (principal); J84.10 Pulmonary fibrosis, unspecified; R59.0 Localized enlarged lymph nodes; J30.9 Allergic rhinitis, unspecified; J44.9 Chronic obstructive pulmonary disease, unspecified; G47.10 Hypersomnia, unspecified; J18.9 Pneumonia, unspecified organism; Z22.322 Carrier or suspected carrier of Methicillin resistant Staphylococcus aureus
CPT/HCPCS: 36415; 71260; 82565; 84520

== ENCOUNTER → 2018-07-07 | Outpatient (CLI) | payer MEDICARE ==
[~2018-07-07] MED LIST changes: -IOHEXOL 350 MG/ML 100 ML (OMNIPAQUE 350) VIAL IV ONE; -NS 100 ML (IVPB) BAG IV ONE; -RECEIVED CONTRAST (Hold Metformin) IV SCH
[2018-07-07 13:41] LABS: BASOPHILS % (AUTO) 0 % (0-10); EOSINOPHILS # (AUTO) 0.1 10^3/uL (0.0-0.3); EOSINOPHILS % (AUTO) 1 % (0-10); HEMATOCRIT 37 % (35-52); HEMOGLOBIN 11.3 G/DL (11.5-16.0); LYMPHOCYTES # (AUTO) 2.1 X 10^3 (1.0-4.0); LYMPHOCYTES % (AUTO) 16 % (12-44); MEAN CORPUSCULAR HEMOGLOBIN 25 PG (25-34); MEAN CORPUSCULAR HGB CONC 31 G/DL (32-36); MEAN CORPUSCULAR VOLUME 81 FL (80-99); MONOCYTES # (AUTO) 1.1 X 10^3 (0.0-1.0); MONOCYTES % (AUTO) 8 % (0-12); NEUTROPHILS # (AUTO) 9.9 X 10^3 (1.8-7.8); NEUTROPHILS % (AUTO) 76 % (42-75); PLATELET COUNT 420 10^3/uL (130-400); RED CELL DISTRIBUTION WIDTH 15.3 % (10.0-14.5); WHITE BLOOD COUNT 13.1 10^3/uL (4.3-11.0)
[2018-07-07 13:51] LABS: ALANINE AMINOTRANSFERASE 14 U/L (0-55); ALBUMIN 3.3 GM/DL (3.2-4.5); ALKALINE PHOSPHATASE 83 U/L (40-136); BILIRUBIN,TOTAL 0.3 MG/DL (0.1-1.0); BUN/CREATININE RATIO 18; CALCIUM 9.7 MG/DL (8.5-10.1); CARBON DIOXIDE 31 MMOL/L (21-32); CHLORIDE 96 MMOL/L (98-107); CREATININE SERUM 1.01 MG/DL (0.60-1.30); GFR ESTIMATED 52; GLUCOSE 116 MG/DL (70-105); POTASSIUM 2.9 MMOL/L (3.6-5.0); SODIUM 139 MMOL/L (135-145); TOTAL PROTEIN 8.1 GM/DL (6.4-8.2)
--- NOTE | 2018-07-07 17:10 | Diagnostic Imaging Report ---
INDICATION: Weakness and follow-up pneumonia. TIME OF EXAM: 01:43 p.m. Correlation is made with prior chest from 04/04/2018. FINDINGS: The heart size is stable. Chronic-appearing somewhat peripheral based interstitial opacities throughout bilateral upper and lower lung guillermo persist and appear very similar to prior examination likely owing to chronic fibrotic changes. There is no effusion or pneumothorax identified. IMPRESSION: Chronic fibrotic changes in both lungs, stable when compared with exam from 04/04/2018. Dictated by: Dictated on workstation # [id number]
== END ==
LOC: RAD 13:16
PROVIDERS: ATTEND Nurse Practitioner Family
DX: J18.9 Pneumonia, unspecified organism (principal); J84.10 Pulmonary fibrosis, unspecified
CPT/HCPCS: 36415; 71046; 80053; 84484; 85025; 93005